=== PATIENT | female | born 1985 | race American Indian/Alaskan Native ===

== ENCOUNTER 2018-06-06 15:37 | Inpatient (IN) | payer BC, OTHER ==
[2018-06-06] MEDS ORDERED: APRESOLINE IV PRN (16:06)
--- NOTE | 2018-06-06 16:30 | History and Physical Report ---
History of Present Illness Date of examination: 06/06/18 Chief complaint: shital seen in office today for first visit. BP noted to be 240/100, 230/102 on recheck. Patient sent as direct admit from office for BP control. History of present illness: LMP: 11/20/2018 EDC Confirmation: 01/16/2019 Gestational Age: 8 weeks Past History : 1 Past Medical History: diabetes- dx 10 years ago. Humalog 4 units 3 times per day. htn- dx 1 month ago. 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 of genital herpes: no Partner hx. of genital herpes: no Rash, Viral, or Febrile illness since last LMP? no Varicella/Chicken Pox Status: Previous Disease TB Risk: no Genetic History Congenital Heart Defect: Mom: no Dad: no Melina Disease: Mom: no Dad: no Thalassemia Mom: no Dad: no Neural Tube Defect Mom: no Dad: no Down's Syndrome Mom: no Dad: no Meek-Sachs Mom: no Dad: no Sickle Cell Disease/Trait Mom: no Dad: no Hemophilia Mom: no Dad: no Muscular Dystrophy Mom: no Dad: no Cystic Fibrosis Mom: no Dad: no [place] Chorea Mom: no Dad: no Mental Retardation Mom: no Dad: no Fragile X Mom: no Dad: no Other Genetic/Chromosomal Disorder Mom: no Dad: no Child w/other defect Mom: no Dad: no Enviromental Exposures Enviromental Exposures Reviewed Xray Exposure: no Medication, drug, or alcohol use since LMP: yes Chemical/Other Exposure: no Exposure to Cat Liter: no Hx of Parvovirus (Fifth Disease): no Occupational Exposure to Children: none Comments: marijuana apr 2018 alcohol mar 2018 Active Medications (reviewed today): None Current Allergies (reviewed today): No known allergies Past History Past Medical History: other (see HPI) Past Surgical History: other (see hpi) EQUINE INTERN History: other (see hpi) Family/Genetic History: other (see hpi) Social history: other (see hpi) - Obstetrical History Expected Date of Delivery: 01/16/19 Actual Gestation: 8 Week(s) 0 Day(s) : 1 Para: 0 Hx # Term Pregnancies: 0 Number of Pregnancies: 0 Spontaneous Abortions: 0 Induced : 0 Number of Living Children: 0 Medications and Allergies Active Meds: Active Medications Hydralazine HCl (Apresoline) 10 mg IV Q30MIN PRN PRN Reason: Hypertension Lactated Ringer's (Lactated Ringers) 1,000 mls @ 125 mls/hr IV DIRECT TIFFANIE Labetalol HCl (Normodyne) 200 mg PO BID TIFFANIE Review of Systems All systems: negative - Physical Exam Breasts: Positive: normal Cardiovascular: Regular rate Lungs: Positive: Clear to auscultation Abdomen: Positive: normal appearance, soft, normal bowel sounds Genitourinary (Female): Positive: normal external genitalia, normal perenium Vagina: Positive: normal moisture Uterus: Positive: normal size Anus/Rectum: Positive: normal perianal skin Extremities: Positive: normal - Obstetrical FHR: other (nml per office US) Results All other labs normal. Assessment and Plan 32 y.o. at 8w0d presents to office for missed period visit. BP 240/100, asymptomatic. Consult with Dr. Kiser, pt to be direct admit to MB unit to stabilize BP. Labetalol 200mg PO BID ordered. No consults at this time. Dr. Kiser will plan to round on patient this evening for status update. - Patient Problems (1) 8 weeks gestation of Status: Acute (2) Uncontrolled hypertension Status: Acute
[2018-06-06] MEDS: LACTATED RINGERS 1,000 ML IV SCH (20:07)
[2018-06-06 20:26] LABS: Hematocrit 25.6 % (30.3-42.9); Hemoglobin 8.6 gm/dl (10.1-14.3); Mean Corpuscular HGB Conc 33 % (30-34); Mean Corpuscular Volume 83 fl (79-97); Platelet Count 291 K/mm3 (140-440); Red Blood Count 3.07 M/mm3 (3.65-5.03); Red Cell Distribution Width 13.2 % (13.2-15.2)
[2018-06-06 20:53] LABS: Alanine Aminotransferase 6 units/L (7-56); Albumin 2.8 g/dL (3.9-5); BUN/Creatinine Ratio 20; Blood Urea Nitrogen 24 mg/dL (7-17); Calcium 8.5 mg/dL (8.4-10.2); Hemolysis Index 0
[2018-06-06 20:54] LABS: Bilirubin,Direct < 0.2 mg/dL (0-0.2)
[2018-06-06] MEDS: NORMODYNE PO SCH (20:55)
[2018-06-06 21:15] LABS: Bacteria,Urine 4+ /HPF (Negative); Bilirubin,Urine NEG (Negative); Blood,Urine SM (Negative); Color,Urine Yellow (Yellow); Hyaline Casts,Urine 1 /LPF; Mucus,Urine FEW /HPF; Urobilinogen,Urine < 2.0 mg/dL (<2.0)
[2018-06-06 21:18] LABS: Protein,Urine >500 mg/dL (Negative)
[2018-06-07] MEDS: NORMODYNE PO SCH ×3 (01:13→21:36)
[2018-06-07] MEDS: LACTATED RINGERS 1,000 ML IV SCH (13:00)
[2018-06-07] MEDS ORDERED: D50W (25GM) Syringe IV PRN (13:05)
--- NOTE | 2018-06-07 15:00 | Progress Note ---
Assessment and Plan Patient resting in bed. Reports feeling well. Denies any BLEDSOE, visual disturbances, or other complaints. Patient taking 200 labetalol PO BID. BP 140s/70s at time of assessment, some elevated BPs noted since morning rounds though. Patient voiced desire to be discharged today. Discussed with patient need for BPs to be consistently stable before discharge and she voices understanding. Consult with Dr. Cruz on continued plan of care- patient will remain inpatient while we continue to monitor her blood pressures. - Patient Problems (1) 8 weeks gestation of Current Visit: No Status: Acute (2) Uncontrolled hypertension Current Visit: No Status: Acute Subjective - Subjective Date of service: 06/07/18 Interval history: LMP: 11/20/2018 EDC Confirmation: 01/16/2019 Gestational Age: 8 weeks Past History : 1 Past Medical History: diabetes- dx 10 years ago. Humalog 4 units 3 times per day. htn- dx 1 month ago. 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 of genital herpes: no Partner hx. of genital herpes: no Rash, Viral, or Febrile illness since last LMP? no Varicella/Chicken Pox Status: Previous Disease TB Risk: no Genetic History Congenital Heart Defect: Mom: no Dad: no Melina Disease: Mom: no Dad: no Thalassemia Mom: no Dad: no Neural Tube Defect Mom: no Dad: no Down's Syndrome Mom: no Dad: no Meek-Sachs Mom: no Dad: no Sickle Cell Disease/Trait Mom: no Dad: no Hemophilia Mom: no Dad: no Muscular Dystrophy Mom: no Dad: no Cystic Fibrosis Mom: no Dad: no [place] Chorea Mom: no Dad: no Mental Retardation Mom: no Dad: no Fragile X Mom: no Dad: no Other Genetic/Chromosomal Disorder Mom: no Dad: no Child w/other defect Mom: no Dad: no Enviromental Exposures Enviromental Exposures Reviewed Xray Exposure: no Medication, drug, or alcohol use since LMP: yes Chemical/Other Exposure: no Exposure to Cat Liter: no Hx of Parvovirus (Fifth Disease): no Occupational Exposure to Children: none Comments: marijuana apr 2018 alcohol mar 2018 Active Medications (reviewed today): None Current Allergies (reviewed today): No known allergies Patient reports: appetite normal, voiding normally, ambulating normally, no dizzy ambulation Objective - Vital Signs Latest vital signs: Vital Signs Temp Pulse Resp BP BP Pulse Ox 06/07/18 11:56 98.4 F 95 H 18 164/82 97 06/07/18 10:41 92 H 150/82 06/07/18 07:55 99 F 92 H 18 150/82 98 06/07/18 04:15 98.7 F 77 18 140/72 97 06/06/18 23:30 98.4 F 65 18 142/75 06/06/18 23:22 103 H 17 126/71 97 06/06/18 20:55 98 H 172/85 06/06/18 19:30 98.6 F 88 18 172/85 06/06/18 18:15 98.1 F 92 H 20 173/85 100 Intake and Output 06/06/18 06/07/18 06/07/18 23:59 07:59 15:59 Intake Total 1000 120 Output Total 450 800 Balance -450 200 120 Intake: IV 1000 Lactated Ringers 1,000 ml 1000 @ 125 mls/hr IV DIRECT TIFFANIE Rx#:[id number] Oral 120 Output: Urine 450 800 Void 450 800 Other: Total, Intake Amount 120 Total, Output Amount 450 300 Voiding Method Toilet Toilet # Voids Void 1 Weight 220 kg - Exam Cardiovascular: Present: Regular rate Lungs: Present: Clear to auscultation Abdomen: Present: normal appearance, soft, normal bowel sounds Extremities: Present: normal - Labs Labs: Abnormal lab results 06/06/18 06/06/18 06/06/18 Range/Units 19:49 19:49 20:50 RBC 3.07 L (3.65-5.03) M/mm3 Hgb 8.6 L (10.1-14.3) gm/dl Hct 25.6 L (30.3-42.9) % Sodium 136 L (137-145) mmol/L BUN 24 H (7-17) mg/dL Glucose 132 H (65-100) mg/dL POC Glucose (70-105) ALT 6 L (7-56) units/L Total Protein 5.8 L (6.3-8.2) g/dL Albumin 2.8 L (3.9-5) g/dL Urine WBC (Auto) 13.0 H (0.0-6.0) /HPF 06/07/18 Range/Units 06:41 RBC (3.65-5.03) M/mm3 Hgb (10.1-14.3) gm/dl Hct (30.3-42.9) % Sodium (137-145) mmol/L BUN (7-17) mg/dL Glucose (65-100) mg/dL POC Glucose 114 H (70-105) ALT (7-56) units/L Total Protein (6.3-8.2) g/dL Albumin (3.9-5) g/dL Urine WBC (Auto) (0.0-6.0) /HPF
--- NOTE | 2018-06-07 17:45 | Event Note ---
Date: 06/07/18 Pt seen and examined this am. agree with MW exam and noted. Will con't current management at this time. Insulin sliding scale ordered. Plan of care d/w pt and all questions were addressed and answered.
[2018-06-07] MEDS: HumuLIN R SUB-Q SCH ×3 (17:50→22:16)
--- NOTE | 2018-06-07 18:58 | Event Note ---
Date: 06/07/18 Pt is upset because she feels as if her blood sugars are not being checked frequently enough and now it is elevated. I advised that the accecheck orders were were dated to start in the am in error but will be done 2hours post and fasting. However, will check BG q 2hrs as pt feels she needs more frequent monitoring. Also pt upset blood pressures are being check q 4hours. I advised that this is usually the case to allow pt to rest while in house. I advised again that they can be made more frequently. Pt states she just wants to leave. I advised that she is able to sign out AMA but that at this point as she is early gestation, this would not be able recommended as she needs to have bp control and the BG will correct with the sliding scale. Again I advised pt and support person to tell provider what she would like to do interms of her stay but the plan was for d/c home on bp meds if bp is stable in the am. Pt did not take off man and provider left the room at this time. I advised RN of changes in vitals as well as charge nurse coming on for the evening. Again pt urged to call provider via the answering service if she has questions or concerns.
[2018-06-07] MEDS ORDERED: TYLENOL PO ONE (20:20)
[2018-06-07] MEDS ORDERED: HumuLIN R SUB-Q SCH (22:00)
[2018-06-07] MEDS ORDERED: APRESOLINE IV ONE (22:27)
[2018-06-08] MEDS: HumuLIN R SUB-Q SCH ×5 (02:00→10:54)
[2018-06-08] MEDS: NORMODYNE PO SCH (10:53)
[2018-06-08 12:08] VITALS: BP 172/97
--- NOTE | 2018-06-08 12:14 | Discharge Summary ---
Providers - Providers Date of Admission: 06/06/18 18:08 Date of discharge: 06/08/18 Attending physician: DARYL IVORY Primary care physician: DARYL IVORY Hospitalization Reason for admission: intrauterine at 8 weeks with elevated blood pressure and history Condition: Good Hospital course: Please see H&P for details. Patient was admitted for regulation of her hypertension. Admitted and started on labetalol initially 200 twice a day but due to elevated blood pressure increased to 300 twice a day be discharged on tho se patient without any complaints of headache or abdominal pain during her hospitalization she was slight scale insulin with reasonable control of her glucoses she will be discharged return for her regular scheduled insulin dose will follow up in 5 days in office. Disposition: TO HOME OR SELFCARE - Discharge Diagnoses (1) Diabetes Status: Chronic Qualifiers: Diabetes mellitus type: type 2 Diabetes mellitus exterminator termite insulin use: without exterminator termite use Diabetes mellitus complication status: without complication Qualified Code(s): E11.9 - Type 2 diabetes mellitus without complications (2) 8 weeks gestation of Status: Acute (3) Uncontrolled hypertension Status: Resolved Core Measure Documentation - Palliative Care Palliative Care/ Comfort Measures: Not Applicable - Core Measures Any of the following diagnoses?: none Exam - Constitutional Vitals: Temp Pulse Resp BP Pulse Ox 99.0 F 93 H 22 172/97 97 06/08/18 11:30 06/08/18 11:30 06/08/18 11:30 06/08/18 11:30 06/08/18 11:30 General appearance: Present: no acute distress - Respiratory Respiratory effort: normal - Cardiovascular Rhythm: regular - Extremities Extremities: no ischemia, No edema - Abdominal General gastrointestinal: Present: soft Female genitourinary: Present: deferred - Rectal Rectal Exam: deferred - Integumentary Integumentary: Present: clear, warm, dry Plan Activity: no restrictions Diet: diabetic Additional Instructions: Patient following office on June 13 she should call for blood sugars greater than 120 headaches or visual disturbances and at her follow-up visit office will schedule for visits with the perinatologist Follow up with: DARYL IVORY MD [Primary Care Provider] - 7 Days
[2018-06-08] MEDS ORDERED: NORMODYNE PO ONE (13:00)
== END 2018-06-08 13:05 | disposition home or self-care (01) | DRG 832 ==
LOC: 3A 15:37 → UNDOADMIN 15:37 → OB 18:08
PROVIDERS: ADMIT Obstetrics & Gynecology; ATTEND Obstetrics & Gynecology
DX: O10.911 Unspecified pre-existing hypertension complicating pregnancy, first trimester (principal); O24.111 Pre-existing type 2 diabetes mellitus, in pregnancy, first trimester; O99.321 Drug use complicating pregnancy, first trimester; E11.9 Type 2 diabetes mellitus without complications; F19.90 Other psychoactive substance use, unspecified, uncomplicated; Z79.4 Long term (current) use of insulin; Z3A.08 8 weeks gestation of pregnancy
CPT/HCPCS: 36415; 80048; 80076; 81001; 82962; 84550; 85027; G0378; J1815; J7120

== ENCOUNTER 2018-09-24 07:15 | Outpatient (CLI) | payer OTHER ==
[2018-09-24] MEDS ORDERED: CELESTONE SOLUSPAN IM ONE (08:30)
[2018-09-24] MEDS ORDERED: CATAPRES PO ONE (09:15)
[2018-09-24] MEDS ORDERED: PROCARDIA XL PO SCH (10:00)
[2018-09-24 10:21] VITALS: BP 159/86
== END 2018-09-24 10:20 | disposition home or self-care (01) ==
LOC: TRG 07:15
PROVIDERS: ATTEND Obstetrics & Gynecology
DX: O47.02 False labor before 37 completed weeks of gestation, second trimester (principal); O24.312 Unspecified pre-existing diabetes mellitus in pregnancy, second trimester; E11.9 Type 2 diabetes mellitus without complications; O10.912 Unspecified pre-existing hypertension complicating pregnancy, second trimester; Z3A.23 23 weeks gestation of pregnancy
CPT/HCPCS: 96372; J0702

== ENCOUNTER 2018-09-25 09:49 | Inpatient (IN) | payer OTHER ==
[2018-09-25] MEDS ORDERED: COLACE PO PRN (10:55)
[2018-09-25] MEDS ORDERED: TYLENOL PO PRN (10:55)
[2018-09-25] MEDS ORDERED: D50W (25GM) Syringe IV PRN (11:24)
[2018-09-25] MEDS ORDERED: CELESTONE SOLUSPAN IM ONE (11:42)
--- NOTE | 2018-09-25 13:16 | History and Physical Report ---
<WHITERAJ - Last Filed: 09/25/18 13:16> History of Present Illness Date of examination: 09/25/18 Past History - Obstetrical History : 1 Medications and Allergies Allergies Allergy/AdvReac Type Severity Reaction Status Date / Time No Known Allergies Allergy Verified 09/24/18 07:35 Home Medications Medication Instructions Recorded Confirmed Last Taken Type Lispro Insulin [Humalog] 8 unit SQ TID 09/24/18 09/25/18 09/25/18 08:00 History 1 NIFEdipine [Nifedipine ER] 60 mg PO DAILY 09/24/18 09/25/18 09/25/18 09:00 History 1 cloNIDine [Catapres] 0.2 mg PO BID 09/24/18 09/25/18 09/25/18 09:00 History 1 Active Meds: Active Medications Acetaminophen (Tylenol) 650 mg PO Q6H PRN PRN Reason: Pain MILD(1-3)/Fever >100.5/BLEDSOE Aspirin (Baby Aspirin) 81 mg PO QDAY TIFFANIE Clonidine HCl (Catapres) 0.2 mg PO Q12HR [facility] Dextrose (D50w (25gm) Syringe) 50 ml IV PRN PRN PRN Reason: Hypoglycemia Docusate Sodium (Colace) 100 mg PO Q12H PRN PRN Reason: Constipation Hydralazine HCl (Apresoline) 10 mg IV ONCE ONE Stop: 09/25/18 13:26 Last Admin: 09/25/18 12:40 Dose: 10 mg Documented by: Insulin Glargine (Lantus) 30 units SUB-Q QHS [facility] Insulin Human Lispro (Humalog) 16 unit SUB-Q QPMDIAB [facility] Insulin Human Lispro (Humalog) 10 unit SUB-Q QDDIAB [facility] Insulin Human Lispro (Humalog) 10 unit SUB-Q QDDIAB [facility] Insulin Human NPH (Humulin N) 36 unit SUB-Q QHS [facility] Insulin Human Regular (Humulin R) 0 units SUB-Q Q6HR [facility]; Protocol Multivitamins/Iron/Calcium ( Vitamin) 1 each PO QDAY TIFFANIE Nifedipine (Procardia Xl) 60 mg PO QDAY TIFFANIE - Vital Signs Vital signs: Vital Signs Pulse BP 98 H 182/88 09/25/18 10:41 09/25/18 10:41 Temp Pulse Resp BP Pulse Ox 98.1 F 112 H 18 169/91 05/01/19 11:15 09/25/18 13:01 09/25/18 11:15 09/25/18 13:01 Results Abnormal lab results 09/25/18 Range/Units 12:43 POC Glucose 134 H (70-105) All other labs normal. <SVETLANA MONTOYA D - Last Filed: 09/25/18 18:17> Medications and Allergies Active Meds: Active Medications Acetaminophen (Tylenol) 650 mg PO Q6H PRN PRN Reason: Pain MILD(1-3)/Fever >100.5/BLEDSOE Aspirin (Baby Aspirin) 81 mg PO QDAY TIFFANIE Clonidine HCl (Catapres) 0.2 mg PO Q12HR TIFFANIE Dextrose (D50w (25gm) Syringe) 50 ml IV PRN PRN PRN Reason: Hypoglycemia Docusate Sodium (Colace) 100 mg PO Q12H PRN PRN Reason: Constipation Insulin Glargine (Lantus) 30 units SUB-Q QHS [facility] Insulin Human Lispro (Humalog) 16 unit SUB-Q QPMDIAB [facility] Insulin Human Lispro (Humalog) 10 unit SUB-Q QDDIAB [facility] Insulin Human Lispro (Humalog) 10 unit SUB-Q QDDIAB [facility] Insulin Human NPH (Humulin N) 36 unit SUB-Q QHS [facility] Insulin Human Regular (Humulin R) 0 units SUB-Q Q6HR [facility]; Protocol Last Admin: 09/25/18 17:51 Dose: 2 units Documented by: Multivitamins/Iron/Calcium ( Vitamin) 1 each PO QDAY [facility] Nifedipine (Procardia Xl) 60 mg PO QDAY [facility] - Vital Signs Vital signs: Vital Signs Pulse BP 98 H 182/88 09/25/18 10:41 09/25/18 10:41 Temp Pulse Resp BP Pulse Ox 97.5 F L 112 H 18 169/91 09/25/18 17:21 09/25/18 13:01 09/25/18 17:21 09/25/18 13:01 Results Result Diagrams: 09/25/18 13:35 09/25/18 13:35 Abnormal lab results 09/25/18 09/25/18 09/25/18 Range/Units 12:43 13:35 13:35 WBC 16.4 H (4.5-11.0) K/mm3 RBC 3.18 L (3.65-5.03) M/mm3 Hgb 9.1 L (10.1-14.3) gm/dl Hct 28.0 L (30.3-42.9) % Creatinine 1.4 H (0.7-1.2) mg/dL POC Glucose 134 H (70-105) Lactate Dehydrogenase 311 H (91-180) units/L 09/25/18 Range/Units 17:46 WBC (4.5-11.0) K/mm3 RBC (3.65-5.03) M/mm3 Hgb (10.1-14.3) gm/dl Hct (30.3-42.9) % Creatinine (0.7-1.2) mg/dL POC Glucose 202 H (70-105) Lactate Dehydrogenase (91-180) units/L All other labs normal. Assessment and Plan - Patient Problems (1) 23 weeks gestation of Current Visit: Yes Status: Acute (2) IUGR (intrauterine growth restriction) Current Visit: Yes Status: Acute (3) Short cervix affecting Current Visit: Yes Status: Acute (4) Diabetes Current Visit: No Status: Chronic Qualifiers: Diabetes mellitus type: type 2 Diabetes mellitus adjunct faculty for medical terminology insulin use: without custodial use Diabetes mellitus complication status: without complicat ion Qualified Code(s): E11.9 - Type 2 diabetes mellitus without complications (5) Uncontrolled hypertension Current Visit: No Status: Resolved
[2018-09-25] MEDS ORDERED: APRESOLINE IV ONE ×2 (13:25→13:51)
[2018-09-25 13:40] LABS: Hemoglobin 9.1 gm/dl (10.1-14.3); Mean Corpuscular HGB Conc 33 % (30-34); Mean Corpuscular Volume 88 fl (79-97); Platelet Count 346 K/mm3 (140-440); Red Blood Count 3.18 M/mm3 (3.65-5.03); Red Cell Distribution Width 14.5 % (13.2-15.2)
[2018-09-25 14:03] LABS: Uric Acid 5.4 mg/dL (3.5-7.6)
[2018-09-25] MEDS: HumuLIN R SUB-Q SCH (17:51)
--- NOTE | 2018-09-25 18:16 | Event Note ---
Date: 09/25/18 BP's and BS noted, plan of care explained questions were encouraged and answered, she voiced understanding Assessment: 1. IUP at 23 6/7 weeks 2. Uncontrolled CHTN 3. Renal disease 4. Short cervix 5. DM 6. IUGR Plan: 1. Continue current antiHTN regimen(Clonidine 0.2mg bid, Procardia 60mg XL qd), she did receive Hydralazine 10mg IV x2, BP's stable now 2. NICU consult ordered in case of need for delivery. She's now received 2 doses of Betamethasone for FLM 3.Continue insulin regimen with SSI 4. She was instructed to have a family member bring her vaginal progesterone tonight for insertion 4. Possible discharge home tomorrow is BP's remain stable.
[2018-09-25] MEDS: TYLENOL PO PRN (20:46)
[2018-09-25] MEDS ORDERED: AMBIEN PO PRN (20:57)
[2018-09-25] MEDS ORDERED: LANTUS SUB-Q SCH (22:00)
[2018-09-26] MEDS: HumuLIN R SUB-Q SCH ×3 (00:44→06:35)
[2018-09-26] MEDS: CATAPRES PO SCH ×4 (00:45→21:41)
--- NOTE | 2018-09-26 06:11 | Event Note ---
Date: 09/26/18 Called assigned RN to inquire about pt's BP readings and her status. Last documented BP was 186/93, provider was not notified. Unable to reach RN. Dr. Ramires notified as well as oncoming provider who will f/u to assess.
[2018-09-26] MEDS ORDERED: APRESOLINE PO ONE (07:05)
[2018-09-26] MEDS ORDERED: APRESOLINE ONE (07:23)
--- NOTE | 2018-09-26 07:28 | Progress Note ---
Assessment and Plan Arrived to L&D yesterday to receive 2nd dose of BMZ. Elevated BP admitted for evaluation and adjustment of BP meds if indicated. Pt concerned that she did not have anyone come in to see her between 1999 and 29 "My BP was elevated and I called for help." BP now 200/100 Pt turned to right side BP repeated 180/79, after 20 min BP 175/84 Spoke with order given for Apresoline BP prior to medication 172/85 RN instructed to take BP 20 min after Apresoline and call provider. Doppler FHR 145 Pt states she had BLEDSOE earlier but it did resolve after Tylenol. Denies BLEDSOE, blurred vision, chest pain now. Reports +FM, denies ctx, LOF, bleeding. called asks that I hold Apresoline for now and put a consult in for [facility]. DONE. Spoke with Dr. Whyte, [facility]. Order rcvd to draw CMP and increase Nifedipine to 90mg/day. Dr. Whyte will see pt at noon. Dr. Kiser made aware of Dr. Whyte recomm. Subjective - Subjective Date of service: 09/26/18 (Pt c/o lack of care between 1999 and 31) Principal diagnosis: IUP @ 24w0d - CHTN; Short cervix; IDDM Patient reports: movement normal Objective - Vital Signs Vital Signs: Vital Signs - 12hr 09/25/18 09/25/18 09/26/18 20:25 20:46 00:45 Temperature 98.1 F Pulse Rate 104 H 115 H Respiratory 21 20 Rate Blood Pressure 186/93 Blood Pressure 139/86 [Left] - Exam Breasts: deferred Cardiovascular: Regular rate Lungs: Normal air movement Abdomen: Present: normal appearance, soft, normal bowel sounds. Absent: distention, tenderness Vulva: both: normal Uterus: Present: normal FHR: auscultation normal (FHR 145) Uterine Contraction Monitor Mode: External Uterine Contraction Pattern: Absent Uterine Tone Measurement Phase: Resting Extremities: normal Deep Tendon Reflex Grade: Normal +2 - Labs Labs: Abnormal Labs 09/25/18 09/25/18 09/25/18 12:43 13:35 13:35 WBC 16.4 H RBC 3.18 L Hgb 9.1 L Hct 28.0 L Creatinine 1.4 H POC Glucose 134 H Lactate Dehydrogenase 311 H 09/25/18 09/26/18 09/26/18 17:46 00:29 06:05 WBC RBC Hgb Hct Creatinine POC Glucose 202 H 219 H 185 H Lactate Dehydrogenase Laboratory Results - last 24 hr 09/25/18 09/25/18 09/25/18 12:43 13:35 13:35 WBC 16.4 H RBC 3.18 L Hgb 9.1 L Hct 28.0 L MCV 88 MCH 29 MCHC 33 RDW 14.5 Plt Count 346 Creatinine Estimated GFR POC Glucose 134 H Hemoglobin A1c 5.9 Uric Acid AST ALT Lactate Dehydrogenase 09/25/18 09/25/18 09/26/18 13:35 17:46 00:29 WBC RBC Hgb Hct MCV MCH MCHC RDW Plt Count Creatinine 1.4 H Estimated GFR 53 POC Glucose 202 H 219 H Hemoglobin A1c Uric Acid 5.4 AST 19 ALT 28 Lactate Dehydrogenase 311 H 09/26/18 06:05 WBC RBC Hgb Hct MCV MCH MCHC RDW Plt Count Creatinine Estimated GFR POC Glucose 185 H Hemoglobin A1c Uric Acid AST ALT Lactate Dehydrogenase
[2018-09-26] MEDS: HumaLOG SUB-Q SCH ×2 (08:00→17:52)
[2018-09-26] MEDS ORDERED: PROCARDIA XL PO SCH (10:00)
[2018-09-26 10:09] LABS: Alanine Aminotransferase 22 units/L (7-56); Albumin 2.4 g/dL (3.9-5); BUN/Creatinine Ratio 24; Blood Urea Nitrogen 38 mg/dL (7-17); Calcium 7.6 mg/dL (8.4-10.2); Hemolysis Index 9
[2018-09-26] MEDS ORDERED: APRESOLINE IV ONE ×2 (11:00→21:00)
[2018-09-26] MEDS: PROCARDIA XL PO SCH (11:01)
[2018-09-26] MEDS: PRENATAL VITAMIN PO SCH (11:06)
[2018-09-26] MEDS: BABY ASPIRIN PO SCH (11:07)
[2018-09-26] MEDS ORDERED: HumaLOG SUB-Q SCH (12:00)
--- NOTE | 2018-09-26 12:53 | Consultation ---
History of Present Illness Consult date: 09/26/18 Past History - Obstetrical History : 1 Medications and Allergies Allergies Allergy/AdvReac Type Severity Reaction Status Date / Time No Known Allergies Allergy Verified 09/24/18 07:35 Home Medications Medication Instructions Recorded Confirmed Last Taken Type Lispro Insulin [Humalog] 8 unit SQ TID 09/24/18 09/25/18 09/25/18 08:00 History 1 NIFEdipine [Nifedipine ER] 60 mg PO DAILY 09/24/18 09/25/18 09/25/18 09:00 History 1 cloNIDine [Catapres] 0.2 mg PO BID 09/24/18 09/25/18 09/25/18 09:00 History 1 Aspirin [Aspirin BABY CHEW TAB] 81 mg PO QDAY 09/25/18 09/25/18 09/24/18 22:00 History 1 Progesterone, Micronized 200 mg VG QPM 09/25/18 09/25/18 09/24/18 22:00 History [Progesterone] Active Meds: Active Medications Acetaminophen (Tylenol) 650 mg PO Q6H PRN PRN Reason: Pain MILD(1-3)/Fever >100.5/[place] Last Admin: 09/25/18 20:46 Dose: 650 mg Documented by: Aspirin (Baby Aspirin) 81 mg PO QDAY [facility] Last Admin: 09/26/18 11:07 Dose: 81 mg Documented by: Clonidine HCl (Catapres) 0.2 mg PO Q12HR [facility] Last Admin: 09/26/18 00:45 Dose: 0.2 mg Documented by: Dextrose (D50w (25gm) Syringe) 50 ml IV PRN PRN PRN Reason: Hypoglycemia Docusate Sodium (Colace) 100 mg PO Q12H PRN PRN Reason: Constipation Last Admin: 09/26/18 11:06 Dose: 100 mg Documented by: Insulin Glargine (Lantus) 30 units SUB-Q QHS [facility] Last Admin: 09/26/18 00:56 Dose: 12 units Documented by: Insulin Human Lispro (Humalog) 16 unit SUB-Q QPMDIAB [facility] Insulin Human Lispro (Humalog) 10 unit SUB-Q QDDIAB [facility] Last Admin: 09/26/18 08:00 Dose: 10 unit Documented by: Insulin Human Lispro (Humalog) 10 unit SUB-Q QDDIAB [facility] Insulin Human NPH (Humulin N) 36 unit SUB-Q QHS [facility] Insulin Human Regular (Humulin R) 0 units SUB-Q Q6HR [facility]; Protocol Last Admin: 09/26/18 06:35 Dose: 1 units Documented by: Multivitamins/Iron/Calcium ( Vitamin) 1 each PO QDAY [facility] Last Admin: 09/26/18 11:06 Dose: 1 each Documented by: Nifedipine (Procardia Xl) 90 mg PO QDAY [facility] Last Admin: 09/26/18 11:01 Dose: 90 mg Documented by: Zolpidem Tartrate (Ambien) 5 mg PO QHS PRN PRN Reason: Sleep - Vital Signs Vital signs: Vital Signs Pulse BP 98 H 182/88 09/25/18 10:41 09/25/18 10:41 Temp Pulse Resp BP Pulse Ox 98.7 F 87 18 153/81 09/26/18 11:50 09/26/18 12:50 09/26/18 11:50 09/26/18 12:50 Results Result Diagrams: 09/25/18 13:35 09/26/18 09:34 Abnormal lab results 09/25/18 09/25/18 09/25/18 Range/Units 12:43 13:35 13:35 WBC 16.4 H (4.5-11.0) K/mm3 RBC 3.18 L (3.65-5.03) M/mm3 Hgb 9.1 L (10.1-14.3) gm/dl Hct 28.0 L (30.3-42.9) % Sodium (137-145) mmol/L Carbon Dioxide (22-30) mmol/L BUN (7-17) mg/dL Creatinine 1.4 H (0.7-1.2) mg/dL Glucose (65-100) mg/dL POC Glucose 134 H (70-105) Calcium (8.4-10.2) mg/dL Lactate Dehydrogenase 311 H (91-180) units/L Total Protein (6.3-8.2) g/dL Albumin (3.9-5) g/dL 09/25/18 09/26/18 09/26/18 Range/Units 17:46 00:29 06:05 WBC (4.5-11.0) K/mm3 RBC (3.65-5.03) M/mm3 Hgb (10.1-14.3) gm/dl Hct (30.3-42.9) % Sodium (137-145) mmol/L Carbon Dioxide (22-30) mmol/L BUN (7-17) mg/dL Creatinine (0.7-1.2) mg/dL Glucose (65-100) mg/dL POC Glucose 202 H 219 H 185 H (70-105) Calcium (8.4-10.2) mg/dL Lactate Dehydrogenase (91-180) units/L Total Protein (6.3-8.2) g/dL Albumin (3.9-5) g/dL 09/26/18 Range/Units 09:34 WBC (4.5-11.0) K/mm3 RBC (3.65-5.03) M/mm3 Hgb (10.1-14.3) gm/dl Hct (30.3-42.9) % Sodium 135 L (137-145) mmol/L Carbon Dioxide 18 L (22-30) mmol/L BUN 38 H (7-17) mg/dL Creatinine 1.6 H (0.7-1.2) mg/dL Glucose 150 H (65-100) mg/dL POC Glucose (70-105) Calcium 7.6 L (8.4-10.2) mg/dL Lactate Dehydrogenase (91-180) units/L Total Protein 5.8 L (6.3-8.2) g/dL Albumin 2.4 L (3.9-5) g/dL All other labs normal. Assessment and Plan Pt seen Full consult to follow
--- NOTE | 2018-09-26 19:14 | Event Note ---
Date: 09/26/18 Spoke with patient. No complaints. Patient wants a date when she can go home. Informed her our goal is to stablize and mange her hypertension and diabetes and I can't give her a date. Will continue present care.
--- NOTE | 2018-09-26 19:58 | Consultation ---
Consult Note - Parent Education I met with parent(s) and discussed the following:: Need for NICU admission, Poss ible need for intubation and surfactant or other resp support, Temperature regulation, Head ultrasounds to evaluate IVH, Eye exams for ROP screening, Possible need for IV fluids/TPN and IV antibiotics, Possible need for umbilical lines, Importance of providing breast milk & encouraged pumping aft delivery, Donor breast milk if baby meets criteria after , Slow feeding advancement and monitoring of tolerance. NG/OG feeds, Need to monitor for jaundice, Data for survival & survival without significant co-morbidities Parent(s) demonstrated understanding of all the information:: Yes Assessment and Plan - Assessment Gestation:: 24 Estimated Weight: 387 gms Baby's gender: Female Baby's name: Divya Additional Comment: 33YO mother with type II diabetes on insulin, CHTN, renal disease. 24weeker, IUGR infant. Received x2 bethamethosone. - Plan Plan: Agree with Mag & steroids(received x2 beta) Will attend delivery Please call NICU with questions
[2018-09-26] MEDS: TYLENOL PO PRN (21:43)
[2018-09-26 22:19] LABS: Bilirubin,Urine NEG (Negative); Blood,Urine SM (Negative); Color,Urine Yellow (Yellow); Hyaline Casts,Urine 1 /LPF; Mucus,Urine FEW /HPF; Urobilinogen,Urine < 2.0 mg/dL (<2.0)
[2018-09-26 22:21] LABS: Protein,Urine >500 mg/dL (Negative)
[2018-09-26 22:23] LABS: Creatinine,Urine 146.8 mg/dL (0.1-20.0)
--- NOTE | 2018-09-27 07:45 | Progress Note ---
Assessment and Plan 24w 1d Patient sitting up in bed. Reports she just awoke, c/o mild headache. She denies any visual disturbances, RUQ pain, assessment is WNL. BP in target range this morning. RN to administer tylenol for headache. Pantomimist to see patient today. 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 Insulin regimen liability claims adjuster to her outpt regimen goal fasting <95 PP<120 continue fasting and 2hr PP accuchecks RISS, anticipate worsening hyperglycemia for 5-7 days after steroid administration 2. Continue Procardia and Clinidine as prescribes continue serial BP monitoring goal is to maintain BP 120-160/80-105- Increase the clonidine to 0.3mg BID if her BP remains in the severe range IV hydralazine prn SBP >160 DBP >110 3. Continue to monitor the Creatinine pt informed of worsening renal function nephrology consultation is ordered 4. Weekly UA dopplers growth scan in 2 weeks current EFW is 387gm (09/23/28 [place]) NICU consult (done) Reviewed recent BPs with Dr. Cruz. Will continue to monitor. Subjective - Subjective Date of service: 09/27/18 Principal diagnosis: IUP @ 24w1d - CHTN; Short cervix; IDDM Patient reports: new complaints (mild headache upon waking this morning), movement normal, no loss of fluid, no vaginal bleeding, no contractions Objective - Vital Signs Vital Signs: Vital Signs - 12hr 09/26/18 09/26/18 09/26/18 20:06 20:08 20:49 Pulse Rate 107 H 104 H 103 H Blood Pressure 174/80 170/79 O2 Sat by Pulse 98 Oximetry 09/26/18 09/26/18 09/26/18 20:53 20:54 20:59 Pulse Rate 107 H 105 H 107 H Blood Pressure 195/89 149/64 O2 Sat by Pulse 99 98 Oximetry 09/26/18 09/26/18 09/26/18 21:04 21:09 21:14 Pulse Rate 100 H 104 H 111 H Blood Pressure O2 Sat by Pulse 98 98 98 Oximetry 09/26/18 09/26/18 09/26/18 21:19 21:24 21:29 Pulse Rate 106 H 104 H 109 H Blood Pressure O2 Sat by Pulse 100 99 99 Oximetry 09/26/18 09/26/18 09/26/18 21:34 21:38 21:39 Pulse Rate 105 H 106 H 105 H Blood Pressure 176/79 O2 Sat by Pulse 99 98 Oximetry 09/26/18 09/26/18 09/26/18 21:41 21:56 22:01 Pulse Rate 103 H 100 H Blood Pressure 176/79 O2 Sat by Pulse 100 99 Oximetry 09/26/18 09/26/18 09/26/18 22:06 22:10 22:11 Pulse Rate 98 H 100 H 95 H Blood Pressure 144/78 O2 Sat by Pulse 99 99 Oximetry 09/26/18 09/26/18 09/26/18 22:16 22:21 22:22 Pulse Rate 92 H 92 H 91 H Blood Pressure 142/77 O2 Sat by Pulse 98 98 Oximetry 09/26/18 09/26/18 09/26/18 22:26 22:31 22:36 Pulse Rate 90 90 88 Blood Pressure O2 Sat by Pulse 98 99 97 Oximetry 09/26/18 09/26/18 09/26/18 22:41 22:46 22:51 Pulse Rate 88 87 87 Blood Pressure O2 Sat by Pulse 97 97 97 Oximetry 09/26/18 09/26/18 09/26/18 22:56 23:01 23:06 Pulse Rate 98 H 86 87 Blood Pressure O2 Sat by Pulse 97 97 97 Oximetry 09/26/18 09/26/18 09/26/18 23:07 23:11 23:16 Pulse Rate 87 90 88 Blood Pressure 137/75 O2 Sat by Pulse 98 98 Oximetry 09/26/18 09/26/18 09/26/18 23:21 23:26 23:31 Pulse Rate 89 91 H 93 H Blood Pressure O2 Sat by Pulse 99 99 99 Oximetry 09/26/18 09/26/18 09/26/18 23:36 23:41 23:46 Pulse Rate 93 H 94 H 91 H Blood Pressure O2 Sat by Pulse 98 98 98 Oximetry 09/26/18 09/26/18 09/26/18 23:51 23:52 23:56 Pulse Rate 93 H 93 H 92 H Blood Pressure 139/74 O2 Sat by Pulse 98 97 Oximetry 09/27/18 09/27/18 09/27/18 00:01 00:06 00:11 Pulse Rate 95 H 94 H 92 H Blood Pressure O2 Sat by Pulse 99 98 98 Oximetry 09/27/18 09/27/18 09/27/18 00:16 00:21 00:26 Pulse Rate 94 H 92 H 90 Blood Pressure O2 Sat by Pulse 98 98 97 Oximetry 09/27/18 09/27/18 09/27/18 00:31 00:36 00:37 Pulse Rate 106 H 89 90 Blood Pressure 135/65 O2 Sat by Pulse 98 96 Oximetry 09/27/18 09/27/18 09/27/18 00:41 00:46 00:51 Pulse Rate 87 87 87 Blood Pressure O2 Sat by Pulse 97 97 99 Oximetry 09/27/18 09/27/18 09/27/18 00:56 01:01 01:06 Pulse Rate 88 88 90 Blood Pressure O2 Sat by Pulse 98 99 98 Oximetry 09/27/18 09/27/18 09/27/18 01:11 01:16 01:21 Pulse Rate 90 89 91 H Blood Pressure O2 Sat by Pulse 98 99 98 Oximetry 09/27/18 09/27/18 09/27/18 01:22 01:26 01:31 Pulse Rate 90 88 89 Blood Pressure 139/67 O2 Sat by Pulse 97 98 Oximetry 09/27/18 09/27/18 09/27/18 01:36 01:41 01:46 Pulse Rate 89 87 88 Blood Pressure O2 Sat by Pulse 98 98 97 Oximetry 09/27/18 09/27/18 09/27/18 01:51 01:56 02:01 Pulse Rate 87 89 88 Blood Pressure O2 Sat by Pulse 97 97 97 Oximetry 09/27/18 09/27/18 09/27/18 02:06 02:07 02:11 Pulse Rate 90 90 89 Blood Pressure 145/73 O2 Sat by Pulse 97 97 Oximetry 09/27/18 09/27/18 09/27/18 02:16 02:21 02:26 Pulse Rate 91 H 94 H 93 H Blood Pressure O2 Sat by Pulse 96 96 96 Oximetry 09/27/18 09/27/18 09/27/18 02:31 02:36 02:41 Pulse Rate 91 H 92 H 94 H Blood Pressure O2 Sat by Pulse 97 96 97 Oximetry 09/27/18 09/27/18 09/27/18 02:46 02:51 02:52 Pulse Rate 94 H 91 H 93 H Blood Pressure 148/78 O2 Sat by Pulse 97 98 Oximetry 09/27/18 09/27/18 09/27/18 02:56 03:01 03:06 Pulse Rate 90 92 H 91 H Blood Pressure O2 Sat by Pulse 98 97 98 Oximetry 09/27/18 09/27/18 09/27/18 03:11 03:16 03:21 Pulse Rate 91 H 91 H 89 Blood Pressure O2 Sat by Pulse 99 98 97 Oximetry 09/27/18 09/27/18 09/27/18 03:26 03:31 03:36 Pulse Rate 89 90 93 H Blood Pressure O2 Sat by Pulse 98 97 97 Oximetry 09/27/18 09/27/18 09/27/18 03:37 03:41 03:46 Pulse Rate 91 H 93 H 92 H Blood Pressure 148/74 O2 Sat by Pulse 96 97 Oximetry 09/27/18 09/27/18 09/27/18 03:51 03:56 04:01 Pulse Rate 93 H 96 H 94 H Blood Pressure O2 Sat by Pulse 97 97 96 Oximetry 09/27/18 09/27/18 09/27/18 04:06 04:11 04:16 Pulse Rate 92 H 98 H 100 H Blood Pressure O2 Sat by Pulse 98 98 97 Oximetry 09/27/18 09/27/18 09/27/18 04:21 04:22 04:40 Pulse Rate 103 H 102 H 114 H Blood Pressure 142/74 O2 Sat by Pulse 99 99 Oximetry 09/27/18 09/27/18 09/27/18 04:45 04:50 04:55 Pulse Rate 99 H 98 H 99 H Blood Pressure O2 Sat by Pulse 99 99 98 Oximetry 09/27/18 09/27/18 09/27/18 05:00 05:05 05:07 Pulse Rate 99 H 101 H 98 H Blood Pressure 146/66 O2 Sat by Pulse 98 98 Oximetry 09/27/18 09/27/18 09/27/18 05:10 05:15 05:20 Pulse Rate 95 H 93 H 93 H Blood Pressure O2 Sat by Pulse 98 99 99 Oximetry 09/27/18 09/27/18 09/27/18 05:25 05:30 05:35 Pulse Rate 94 H 94 H 92 H Blood Pressure O2 Sat by Pulse 98 98 98 Oximetry 09/27/18 09/27/18 09/27/18 05:40 05:45 05:50 Pulse Rate 96 H 97 H 100 H Blood Pressure O2 Sat by Pulse 97 97 98 Oximetry 09/27/18 09/27/18 09/27/18 05:52 05:55 06:00 Pulse Rate 97 H 105 H 103 H Blood Pressure 146/64 O2 Sat by Pulse 98 99 Oximetry 09/27/18 09/27/18 09/27/18 06:05 06:10 06:15 Pulse Rate 100 H 97 H 96 H Blood Pressure O2 Sat by Pulse 99 98 97 Oximetry 09/27/18 09/27/18 09/27/18 06:20 06:25 06:30 Pulse Rate 96 H 96 H 98 H Blood Pressure O2 Sat by Pulse 97 99 98 Oximetry 09/27/18 09/27/18 09/27/18 06:35 06:37 06:40 Pulse Rate 96 H 95 H 94 H Blood Pressure 143/70 O2 Sat by Pulse 99 98 Oximetry 09/27/18 09/27/18 09/27/18 06:45 06:50 06:55 Pulse Rate 95 H 94 H 94 H Blood Pressure O2 Sat by Pulse 97 97 96 Oximetry 09/27/18 09/27/18 09/27/18 07:00 07:05 07:10 Pulse Rate 92 H 91 H 91 H Blood Pressure O2 Sat by Pulse 97 96 97 Oximetry 09/27/18 09/27/18 09/27/18 07:15 07:20 07:22 Pulse Rate 99 H 90 93 H Blood Pressure 131/58 O2 Sat by Pulse 98 97 Oximetry 09/27/18 09/27/18 07:28 07:33 Pulse Rate 101 H Blood Pressure O2 Sat by Pulse 99 99 Oximetry - Exam Cardiovascular: Regular rate, Normal S1, Normal S2 Lungs: Clear to auscultation Abdomen: Present: normal appearance, soft, normal bowel sounds. Absent: dis tention, tenderness Uterus: Present: normal FHR: auscultation normal (per doppler ) Uterine Contraction Monitor Mode: External Uterine Contraction Pattern: Absent Extremities: normal Deep Tendon Reflex Grade: Normal +2 - Labs Labs: Abnormal Labs 09/25/18 09/25/18 09/25/18 12:43 13:35 13:35 WBC 16.4 H RBC 3.18 L Hgb 9.1 L Hct 28.0 L Sodium Carbon Dioxide BUN Creatinine 1.4 H Glucose POC Glucose 134 H Calcium Lactate Dehydrogenase 311 H Total Protein Albumin Urine Creatinine Urine Total Protein 09/25/18 09/26/18 09/26/18 17:46 00:29 06:05 WBC RBC Hgb Hct Sodium Carbon Dioxide BUN Creatinine Glucose POC Glucose 202 H 219 H 185 H Calcium Lactate Dehydrogenase Total Protein Albumin Urine Creatinine Urine Total Protein 09/26/18 09/26/18 09/26/18 09:34 16:19 21:15 WBC RBC Hgb Hct Sodium 135 L Carbon Dioxide 18 L BUN 38 H Creatinine 1.6 H Glucose 150 H POC Glucose 115 H Calcium 7.6 L Lactate Dehydrogenase Total Protein 5.8 L Albumin 2.4 L Urine Creatinine 146.8 H Urine Total Protein 517 H Laboratory Results - last 24 hr 09/26/18 09/26/18 09/26/18 09:34 10:28 16:19 Sodium 135 L Potassium 4.8 Chloride 105.2 Carbon Dioxide 18 L Anion Gap 17 BUN 38 H Creatinine 1.6 H Estimated GFR 45 BUN/Creatinine Ratio 24 Glucose 150 H POC Glucose 99 115 H Osmolality Uric Acid Calcium 7.6 L Total Bilirubin < 0.20 AST 13 ALT 22 Alkaline Phosphatase 73 Total Protein 5.8 L Albumin 2.4 L Albumin/Globulin Ratio 0.7 Urine Color Urine Turbidity Urine pH Ur Specific [place] Urine Protein Urine Glucose (UA) Urine Ketones Urine Blood Urine Nitrite Urine Bilirubin Urine Urobilinogen Ur Leukocyte Esterase Urine WBC (Auto) Urine RBC (Auto) U Epithel Cells (Auto) Hyaline Casts Urine Mucus Urine Creatinine Urine Total Protein 09/26/18 09/26/18 09/26/18 20:42 20:42 21:15 Sodium Potassium Chloride Carbon Dioxide Anion Gap BUN Creatinine Estimated GFR BUN/Creatinine Ratio Glucose POC Glucose Osmolality 299 Uric Acid 6.4 Calcium Total Bilirubin AST ALT Alkaline Phosphatase Total Protein Albumin Albumin/Globulin Ratio Urine Color Yellow Urine Turbidity Slightly-cloudy Urine pH 5.0 Ur Specific [place] 1.017 Urine Protein >500 Urine Glucose (UA) 50 Urine Ketones Neg Urine Blood Sm Urine Nitrite Neg Urine Bilirubin Neg Urine Urobilinogen < 2.0 Ur Leukocyte Esterase Neg Urine WBC (Auto) 3.0 Urine RBC (Auto) 3.0 U Epithel Cells (Auto) < 1.0 Hyaline Casts 1 Urine Mucus Few Urine Creatinine Urine Total Protein 05/02/19 21:15 Sodium Potassium Chloride Carbon Dioxide Anion Gap BUN Creatinine Estimated GFR BUN/Creatinine Ratio Glucose POC Glucose Osmolality Uric Acid Calcium Total Bilirubin AST ALT Alkaline Phosphatase Total Protein Albumin Albumin/Globulin Ratio Urine Color Urine Turbidity Urine pH Ur Specific [place] Urine Protein Urine Glucose (UA) Urine Ketones Urine Blood Urine Nitrite Urine Bilirubin Urine Urobilinogen Ur Leukocyte Esterase Urine WBC (Auto) Urine RBC (Auto) U Epithel Cells (Auto) Hyaline Casts Urine Mucus Urine Creatinine 146.8 H Urine Total Protein 517 H
[2018-09-27] MEDS: TYLENOL PO PRN ×2 (07:51→17:51)
[2018-09-27] MEDS: HumaLOG SUB-Q SCH ×3 (08:18→16:59)
--- NOTE | 2018-09-27 08:23 | Progress Note ---
Assessment and Plan A: 1. IUP 24w2d 2. CHTN with exacerbation vs superimposed preeclampsia 3. severe IUGR--most recent EFW is 387gm (on 09/23/28) 4. 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 cervical shortening 6. s/p betamethasone 7. s/p NICU consult Rec: 1. Continue diet/Accucheks/insulin (scheduled + SS as needed) with goal fasting <95, 2hr PP<120; anticipate worsening hyperglycemia for 5-7 days after steroid administration 2. Continue Procardia and clonidine; adjust as needed to keep BP 120-160/80-105 with IV hydralazine/labetalol prn SBP >160 DBP >110 3. Nephrology consult pending 4. Weekly UA dopplers; repeat EFW every 14 days Subjective - Subjective Date of service: 09/27/18 Principal diagnosis: IUP @ 24w1d - CHTN; type I DM; IUGR; short cervix Patient reports: new complaints (mild headache this morning), movement normal, no loss of fluid, no vaginal bleeding, no contractions Objective - Vital Signs Vital Signs: Vital Signs - 12hr 09/26/18 09/26/18 09/26/18 20:49 20:53 20:54 Temperature Pulse Rate 103 H 107 H 105 H Respiratory Rate Blood Pressure 195/89 O2 Sat by Pulse 98 99 Oximetry 09/26/18 09/26/18 09/26/18 20:59 21:04 21:09 Temperature Pulse Rate 107 H 100 H 104 H Respiratory Rate Blood Pressure 149/64 O2 Sat by Pulse 98 98 98 Oximetry 09/26/18 09/26/18 09/26/18 21:29 21:34 21:38 Temperature Pulse Rate 109 H 105 H 106 H Respiratory Rate Blood Pressure 176/79 O2 Sat by Pulse 99 99 Oximetry 09/26/18 09/26/18 09/26/18 21:39 21:41 21:56 Temperature Pulse Rate 105 H 103 H Respiratory Rate Blood Pressure 176/79 O2 Sat by Pulse 98 100 Oximetry 09/26/18 09/26/18 09/26/18 22:01 22:06 22:10 Temperature Pulse Rate 100 H 98 H 100 H Respiratory Rate Blood Pressure 144/78 O2 Sat by Pulse 99 99 Oximetry 09/26/18 09/26/18 09/26/18 22:22 22:26 22:31 Temperature Pulse Rate 91 H 90 90 Respiratory Rate Blood Pressure 142/77 O2 Sat by Pulse 98 99 Oximetry 09/26/18 09/26/18 09/26/18 23:06 23:07 23:11 Temperature Pulse Rate 87 87 90 Respiratory Rate Blood Pressure 137/75 O2 Sat by Pulse 97 98 Oximetry 09/26/18 09/26/18 09/26/18 23:46 23:51 23:52 Temperature Pulse Rate 91 H 93 H 93 H Respiratory Rate Blood Pressure 139/74 O2 Sat by Pulse 98 98 Oximetry 09/27/18 09/27/18 09/27/18 00:37 00:41 00:46 Temperature Pulse Rate 90 87 87 Respiratory Rate Blood Pressure 135/65 O2 Sat by Pulse 97 97 Oximetry 09/27/18 09/27/18 09/27/18 01:21 01:22 01:26 Temperature Pulse Rate 91 H 90 88 Respiratory Rate Blood Pressure 139/67 O2 Sat by Pulse 98 97 Oximetry 09/27/18 09/27/18 09/27/18 02:01 02:06 02:07 Temperature Pulse Rate 88 90 90 Respiratory Rate Blood Pressure 145/73 O2 Sat by Pulse 97 97 Oximetry 09/27/18 09/27/18 09/27/18 02:52 02:56 03:01 Temperature Pulse Rate 93 H 90 92 H Respiratory Rate Blood Pressure 148/78 O2 Sat by Pulse 98 97 Oximetry 09/27/18 09/27/18 09/27/18 03:36 03:37 03:41 Temperature Pulse Rate 93 H 91 H 93 H Respiratory Rate Blood Pressure 148/74 O2 Sat by Pulse 97 96 Oximetry 09/27/18 09/27/18 09/27/18 04:16 04:21 04:22 Temperature Pulse Rate 100 H 103 H 102 H Respiratory Rate Blood Pressure 142/74 O2 Sat by Pulse 97 99 Oximetry 09/27/18 09/27/18 09/27/18 05:07 05:10 05:15 Temperature Pulse Rate 98 H 95 H 93 H Respiratory Rate Blood Pressure 146/66 O2 Sat by Pulse 98 99 Oximetry 09/27/18 09/27/18 09/27/18 05:50 05:52 05:55 Temperature Pulse Rate 100 H 97 H 105 H Respiratory Rate Blood Pressure 146/64 O2 Sat by Pulse 98 98 Oximetry 09/27/18 09/27/18 09/27/18 06:30 06:35 06:37 Temperature Pulse Rate 98 H 96 H 95 H Respiratory Rate Blood Pressure 143/70 O2 Sat by Pulse 98 99 Oximetry 09/27/18 09/27/18 09/27/18 07:22 07:28 07:33 Temperature Pulse Rate 93 H 101 H Respiratory Rate Blood Pressure 131/58 O2 Sat by Pulse 99 99 Oximetry 09/27/18 09/27/18 09/27/18 07:45 07:47 07:48 Temperature 98.0 F Pulse Rate 96 H 96 H 95 H Respiratory 14 Rate Blood Pressure 189/91 182/81 O2 Sat by Pulse 99 99 Oximetry - Exam Narrative Exam: Appears well. Abdomen: Present: normal appearance, soft. Absent: tenderness - Labs Labs: Laboratory Results - last 24 hr 09/26/18 09/26/18 09/26/18 09:34 10:28 16:19 Sodium 135 L Potassium 4.8 Chloride 105.2 Carbon Dioxide 18 L Anion Gap 17 BUN 38 H Creatinine 1.6 H Estimated GFR 45 BUN/Creatinine Ratio 24 Glucose 150 H POC Glucose 99 115 H Osmolality Uric Acid Calcium 7.6 L Total Bilirubin < 0.20 AST 13 ALT 22 Alkaline Phosphatase 73 Total Protein 5.8 L Albumin 2.4 L Albumin/Globulin Ratio 0.7 Urine Color Urine Turbidity Urine pH Ur Specific [place] Urine Protein Urine Glucose (UA) Urine Ketones Urine Blood Urine Nitrite Urine Bilirubin Urine Urobilinogen Ur Leukocyte Esterase Urine WBC (Auto) Urine RBC (Auto) U Epithel Cells (Auto) Hyaline Casts Urine Mucus Urine Creatinine Urine Total Protein 09/26/18 09/26/18 09/26/18 20:42 20:42 21:15 Sodium Potassium Chloride Carbon Dioxide Anion Gap BUN Creatinine Estimated GFR BUN/Creatinine Ratio Glucose POC Glucose Osmolality 299 Uric Acid 6.4 Calcium Total Bilirubin AST ALT Alkaline Phosphatase Total Protein Albumin Albumin/Globulin Ratio Urine Color Yellow Urine Turbidity Slightly-cloudy Urine pH 5.0 Ur Specific [place] 1.017 Urine Protein >500 Urine Glucose (UA) 50 Urine Ketones Neg Urine Blood Sm Urine Nitrite Neg Urine Bilirubin Neg Urine Urobilinogen < 2.0 Ur Leukocyte Esterase Neg Urine WBC (Auto) 3.0 Urine RBC (Auto) 3.0 U Epithel Cells (Auto) < 1.0 Hyaline Casts 1 Urine Mucus Few Urine Creatinine Urine Total Protein 09/26/18 09/27/18 21:15 07:44 Sodium Potassium Chloride Carbon Dioxide Anion Gap BUN Creatinine Estimated GFR BUN/Creatinine Ratio Glucose POC Glucose 73 Osmolality Uric Acid Calcium Total Bilirubin AST ALT Alkaline Phosphatase Total Protein Albumin Albumin/Globulin Ratio Urine Color Urine Turbidity Urine pH Ur Specific [place] Urine Protein Urine Glucose (UA) Urine Ketones Urine Blood Urine Nitrite Urine Bilirubin Urine Urobilinogen Ur Leukocyte Esterase Urine WBC (Auto) Urine RBC (Auto) U Epithel Cells (Auto) Hyaline Casts Urine Mucus Urine Creatinine 146.8 H Urine Total Protein 517 H
--- NOTE | 2018-09-27 09:29 | Consultation ---
History of Present Illness - History of Present Illness Thank you for the consultation ! Patient was evaluated today My assessment and plan are as follows; Renal failure in a patient who is 31 weeks admitted with hypertension, patient has not been seen and followed by manager field in the past other than the recent visit to our clinic she was not followed by any physician on a regular basis prior to Hypertension: Monitor and follow low systolic blood pressure under 140 Check for proteinuria Chest is high-risk Quite likely she may have chronic kidney disease underlying creatinine has been between 1.4 and 1.5 Will check the result of kidney ultrasound Mild hypocalcemia, she may have vitamin D deficiency consider calcium and vitamin D replacement Leukocytosis of unclear etiology Noted to have anemia to be followed by OB service Patient was adequately counseled and educated regarding multiple renal related issues. Renal prognosis remains guarded at this time All renal related questions were answered and simple Arabic pertinent lab studies as well as imaging results were also discussed with patient We will continue to follow and make recommendations from renal standpoint. Thank you for the consultation Author: Loc Carvajal M.D. [facility], [address] [place] [address] Tel; [phone] Source of information: From patient Patient is a 33-year-old -[place] female she is a very poor historian was recently seen in our office for chronic kidney disease proteinuria but does not recall, her creatinine she also does not recall the name of physician that she was seen, say that she has never been seen by physician of the possible until when she became as she did not had any health insurance. She has been noted to have a creatinine of around 1.4 during this admission she also has been having issues with hypertension. Past medical history significant for Chronic kidney disease stage unclear Proteinuria Hypertension Current allergies: Reviewed Home medication for the medication: Reviewed Social history: Reviewed from the chart Family history: Reviewed from the chart Review of system: Uncontrolled hypertension Some foam in the urine All other review of systems negative Review of system: Positive for All other review of systems negative Physical examination Vitals: Reviewed General: No acute distress HEENT: Oral mucosa moist no pallor or icterus Neck: Supple without any JVD thyromegaly or nodular mass Chest: Clear to auscultation Heart: Regular rate and rhythm S1-S2 heard no S3-S4 Abdomen: Soft nontender, bowel sounds present no renal bruit no suprapubic masses no CVA tenderness noted uterus felt Extremity: Minimal edema dry skin no peripheral cyanosis Endocrine: Thyroid not enlarged Psychiatric: No agitation and aggression noted Musculoskeletal: No joint effusion noted Labs and x-rays: Reviewed from this admission Medications and Allergies Allergies Allergy/AdvReac Type Severity Reaction Status Date / Time No Known Allergies Allergy Verified 09/24/18 07:35 Home Medications Medication Instructions Recorded Confirmed Last Taken Type Lispro Insulin [Humalog] 8 unit SQ TID 09/24/18 09/25/18 09/25/18 08:00 History 1 NIFEdipine [Nifedipine ER] 60 mg PO DAILY 09/24/18 09/25/18 09/25/18 09:00 History 1 cloNIDine [Catapres] 0.2 mg PO BID 09/24/18 09/25/18 09/25/18 09:00 History 1 Aspirin [Aspirin BABY CHEW TAB] 81 mg PO QDAY 09/25/18 09/25/18 09/24/18 22:00 History 1 Progesterone, Micronized 200 mg VG QPM 09/25/18 09/25/18 09/24/18 22:00 History [Progesterone] Active Meds: Active Medications Acetaminophen (Tylenol) 650 mg PO Q6H PRN PRN Reason: Pain MILD(1-3)/Fever >100.5/BLEDSOE Last Admin: 09/27/18 07:51 Dose: 325 mg Documented by: Aspirin (Baby Aspirin) 81 mg PO QDAY [facility] Last Admin: 09/26/18 11:07 Dose: 81 mg Documented by: Clonidine HCl (Catapres) 0.2 mg PO Q12HR [facility] Last Admin: 09/26/18 21:41 Dose: 0.2 mg Documented by: Dextrose (D50w (25gm) Syringe) 50 ml IV PRN PRN PRN Reason: Hypoglycemia Docusate Sodium (Colace) 100 mg PO Q12H PRN PRN Reason: Constipation Last Admin: 09/26/18 11:06 Dose: 100 mg Documented by: Insulin Human Lispro (Humalog) 16 unit SUB-Q QPMDIAB [facility] Last Admin: 09/26/18 17:52 Dose: 16 unit Documented by: Insulin Human Lispro (Humalog) 10 unit SUB-Q QDDIAB [facility] Last Admin: 09/27/18 08:18 Dose: 10 unit Documented by: Insulin Human Lispro (Humalog) 10 unit SUB-Q DAILY@1200 [facility] Insulin Human NPH (Humulin N) 12 unit SUB-Q QHS [facility] Last Admin: 09/26/18 22:06 Dose: 12 unit Documented by: Multivitamins/Iron/Calcium ( Vitamin) 1 each PO QDAY [facility] Last Admin: 09/26/18 11:06 Dose: 1 each Documented by: Nifedipine (Procardia Xl) 90 mg PO QDAY [facility] Last Admin: 09/26/18 11:01 Dose: 90 mg Documented by: Zolpidem Tartrate (Ambien) 5 mg PO QHS PRN PRN Reason: Sleep Exam - Vital Signs Vital signs: Vital Signs Pulse BP 98 H 182/88 09/25/18 10:41 09/25/18 10:41 Results - Lab Results 09/25/18 13:35 09/27/18 11:28 Most recent lab results Calcium 7.6 mg/dL (8.4-10.2) L 09/26/18 09:34 Urine Creatinine 146.8 mg/dL (0.1-20.0) H 09/26/18 21:15 Urine Total Protein 517 mg/dL (5-11.8) H 09/26/18 21:15
--- NOTE | 2018-09-27 09:45 | Event Note ---
Date: 09/27/18 Agree with plaster tender exam and note.Pt with basically normal bps yesterday and some elevations this am. Will con't to monitor closely and space vitals to q 2 hrs from q hour. Recommendations as per MFM.
[2018-09-27 12:04] LABS: Calcium 7.9 mg/dL (8.4-10.2)
[2018-09-27] MEDS: BABY ASPIRIN PO SCH (12:17)
[2018-09-27] MEDS: PROCARDIA XL PO SCH (12:17)
[2018-09-27] MEDS: PRENATAL VITAMIN PO SCH (12:17)
[2018-09-27] MEDS: CATAPRES PO SCH ×2 (12:18→18:15)
--- NOTE | 2018-09-27 14:14 | Ultrasound Report ---
ULTRASOUND RENAL INDICATION: Renal failure. COMPARISON: None similar at this institution. FINDINGS: Renal sonography suggests top normal/borderline increased renal cortical echogenicity. Grossly preserved contours. No hydronephrosis. Slightly coarse imaged liver. RIGHT KIDNEY measures 10.6 x 5.2 x 6.4 cm with cortical thickness of 1.3 cm. LEFT KIDNEY estimated at 10.5 x 7.5 x 5.9 cm with cortical thickness of 2.1 cm. URINARY BLADDER suboptimally distended and assessed. CONCLUSION: No acute renal abnormality with slight underlying medical renal disease not entirely excluded sonographically, as described. Please correlate. Thank you for the opportunity to participate in this patient's care.
[2018-09-27] MEDS ORDERED: APRESOLINE IV ONE (16:46)
--- NOTE | 2018-09-27 22:44 | Event Note ---
Date: 09/27/[address] Whyte orders clonidine increased to TID and pt has responded with normal bp ranges at this time. Will con't to closely monitor. She also got one IV dose of hydralazine prior to additional dose of clonidine.
[2018-09-28] MEDS: CATAPRES PO SCH ×4 (02:04→22:00)
[2018-09-28] MEDS: HumaLOG SUB-Q SCH ×3 (08:09→17:08)
--- NOTE | 2018-09-28 09:57 | Progress Note ---
Assessment and Plan 33y/o @ 24+2 weeks, Pt resting with eyes closed, no complaints except feeling tired. b/p 120-140's/60-80's since increased frequency of clonidine. pt denies BLEDSOE, visual changes, epigastric pain, ctx, cramping, leaking, bleeding, pressure. She reports +FM. A: 1. IUP 24w2d 2. CHTN with exacerbation vs superimposed preeclampsia 3. severe IUGR--most recent EFW is 387gm (on 09/23/28) 4. 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 cervical shortening 6. s/p betamethasone 7. s/p NICU consult Rec from [facility]: 1. Continue diet/Accucheks/insulin (scheduled + SS as needed) with goal fasting <95, 2hr PP<120; anticipate worsening hyperglycemia for 5-7 days after steroid administration 2. Continue Procardia and clonidine; adjust as needed to keep BP 120-160/80-105 with IV hydralazine/labetalol prn SBP >160 DBP >110 3. Nephrology consult pending 4. Weekly UA dopplers (ordered 09/30/18) ; repeat EFW every 14 days (last done 09/23/18) - Patient Problems (1) 24 weeks gestation of Current Visit: Yes Status: Acute (2) Diabetes mellitus with nephropathy Current Visit: Yes Status: Acute (3) IUGR (intrauterine growth restriction) Current Visit: Yes Status: Acute (4) Short cervix affecting Current Visit: Yes Status: Acute (5) Uncontrolled hypertension Current Visit: Yes Status: Resolved Subjective - Subjective Date of service: 09/28/18 (Line Maintainer Section note) Principal diagnosis: IUP @ 24w2d - CHTN; Short cervix; IDDM Patient reports: movement normal, no new complaints (pt resting, no complaints ), no loss of fluid, no vaginal bleeding, no contractions Objective - Vital Signs Vital Signs: Vital Signs - 12hr 09/27/18 09/27/18 09/27/18 21:55 22:25 23:25 Pulse Rate 106 H 104 H 99 H Blood Pressure 136/72 124/61 128/66 09/28/18 09/28/18 09/28/18 00:25 01:25 02:04 Pulse Rate 109 H 90 Blood Pressure 143/72 142/76 142/76 09/28/18 09/28/18 09/28/18 02:25 03:25 04:25 Pulse Rate 96 H 93 H 93 H Blood Pressure 153/72 137/65 140/76 09/28/18 09/28/18 09/28/18 06:25 06:28 07:25 Pulse Rate 89 86 Blood Pressure 129/66 129/66 133/67 09/28/18 09/28/18 08:25 09:26 Pulse Rate 81 82 Blood Pressure 143/76 143/74 - Exam Breasts: normal Cardiovascular: Regular rate Lungs: Clear to auscultation, Normal air movement Abdomen: Present: normal appearance, soft FHR: auscultation normal FHR comments: reviewed FHT from NST this AM - tracing normal for gestation Uterine Tone Measurement Phase: Resting Extremities: normal Deep Tendon Reflex Grade: Normal +2 - Labs Labs: Abnormal Labs 09/25/18 09/25/18 09/25/18 12:43 13:35 13:35 WBC 16.4 H RBC 3.18 L Hgb 9.1 L Hct 28.0 L Sodium Chloride Carbon Dioxide BUN Creatinine 1.4 H Glucose POC Glucose 134 H Calcium Lactate Dehydrogenase 311 H Total Protein Albumin Urine Creatinine Urine Total Protein 09/25/18 09/26/18 09/26/18 17:46 00:29 06:05 WBC RBC Hgb Hct Sodium Chloride Carbon Dioxide BUN Creatinine Glucose POC Glucose 202 H 219 H 185 H Calcium Lactate Dehydrogenase Total Protein Albumin Urine Creatinine Urine Total Protein 09/26/18 09/26/18 09/26/18 09:34 16:19 21:15 WBC RBC Hgb Hct Sodium 135 L Chloride Carbon Dioxide 18 L BUN 38 H Creatinine 1.6 H Glucose 150 H POC Glucose 115 H Calcium 7.6 L Lactate Dehydrogenase Total Protein 5.8 L Albumin 2.4 L Urine Creatinine 146.8 H Urine Total Protein 517 H 09/27/18 11:28 WBC RBC Hgb Hct Sodium 135 L Chloride 107.1 H Carbon Dioxide 18 L BUN 37 H Creatinine 1.5 H Glucose POC Glucose Calcium 7.9 L Lactate Dehydrogenase Total Protein Albumin Urine Creatinine Urine Total Protein Laboratory Results - last 24 hr 09/27/18 09/27/18 09/27/18 11:28 17:03 19:59 Sodium 135 L Potassium 4.4 Chloride 107.1 H Carbon Dioxide 18 L Anion Gap 14 BUN 37 H Creatinine 1.5 H Estimated GFR 49 BUN/Creatinine Ratio 25 Glucose 81 POC Glucose 90 82 Calcium 7.9 L 09/27/18 09/28/18 21:23 06:44 Sodium Potassium Chloride Carbon Dioxide Anion Gap BUN Creatinine Estimated GFR BUN/Creatinine Ratio Glucose POC Glucose 105 84 Calcium
[2018-09-28] MEDS: BABY ASPIRIN PO SCH (10:03)
[2018-09-28] MEDS: PRENATAL VITAMIN PO SCH (10:03)
[2018-09-28] MEDS: PROCARDIA XL PO SCH (10:03)
[2018-09-28] MEDS ORDERED: D50W (25GM) Syringe IV PRN (15:26)
--- NOTE | 2018-09-28 15:48 | Progress Note ---
Assessment and Plan - Patient Problems (1) Acute renal failure superimposed on stage 3 chronic kidney disease Current Visit: Yes Status: Acute Plan to address problem: Baseline creatinine 1.2 mg/dl worsening to 1.6 mg/DL in setting of uncontrolled hypertension Fluid hydration Avoid nephro toxic medications Reviewed renal ultrasound without any hydronephrosis Repeat renal function panel Baseline nephrotic range proteinuria likely secondary to DM type II with nephropathy (2) Diabetes Current Visit: Yes Status: Chronic Qualifiers: Diabetes mellitus type: type 2 Diabetes mellitus manager long term care insulin use: without group home use Diabetes mellitus complication status: without complication Qualified Code(s): E11.9 - Type 2 diabetes mellitus without complications Plan to address problem: diabetes uncontrolled with complications Continue medications monitor fingersticks (3) Uncontrolled hypertension Current Visit: Yes Status: Resolved Plan to address problem: Hypertension uncontrolled Unable to get methyldopa Which would be preferred. Given this is a category B medication for hypertension Continue clonidine 0.8 mg 3 times a day and Procardia 90 mg by mouth daily for now (4) Metabolic acidosis Current Visit: Yes Status: Acute Plan to address problem: Metabolic acidosis : Will add sodium bicarbonate 1300mg stat for now. Subjective Principal diagnosis: IUP @ 24w2d - CHTN; Short cervix; IDDM Interval history: 33-year-old lady with medical history significant for hypertension diabetes mellitus type 2 gravity currently at 24 weeks presenting with uncontrolled hypertension, she was recently seen by me in clinic plan to transition to methyldopa at the time as most of her medications are category C medications She reports she was unable to give a methyldopa presents to the hospital with elevated blood pressures She is seen today Denies any shortness of breath orthopnea or PND has some trace edema Objective - Vital Signs Vital signs: Vital Signs - 12hr 09/28/18 09/28/18 09/28/18 04:25 06:25 06:28 Temperature Pulse Rate 93 H 89 Respiratory Rate Blood Pressure 140/76 129/66 129/66 09/28/18 09/28/18 09/28/18 07:25 07:30 08:25 Temperature 98.3 F Pulse Rate 86 81 Respiratory 20 Rate Blood Pressure 133/67 143/76 09/28/18 09/28/18 09/28/18 09:26 09:56 10:26 Temperature Pulse Rate 82 81 92 H Respiratory Rate Blood Pressure 143/74 142/72 143/74 09/28/18 09/28/18 09/28/18 10:56 11:26 11:46 Temperature Pulse Rate 88 100 H 97 H Respiratory Rate Blood Pressure 141/71 178/80 150/71 09/28/18 09/28/18 09/28/18 11:55 12:26 13:26 Temperature Pulse Rate 95 H 92 H 95 H Respiratory Rate Blood Pressure 145/70 139/66 136/76 09/28/18 09/28/18 09/28/18 13:54 13:55 14:26 Temperature Pulse Rate 95 H 97 H 102 H Respiratory Rate Blood Pressure 136/76 148/82 124/59 09/28/18 09/28/18 14:56 15:26 Temperature Pulse Rate 93 H 96 H Respiratory Rate Blood Pressure 121/59 126/61 - General Appearance General appearance: well-developed, well-nourished EENT: ATNC, PERRL, mucous membranes moist Neck: no JVD Respiratory: Present: Clear to Ascultation Cardiology: regular, S1S2 Gastrointestinal: normal, normoactive bowel sounds Integumentary: no rash Neurologic: alert and oriented x3, CN 3-12 intact Musculoskeletal: other (grade 1 edema) Psychiatric: mood/affect appropriate, cooperative - Lab 09/25/18 13:35 09/27/18 11:28 Most recent lab results Calcium 7.9 mg/dL (8.4-10.2) L 09/27/18 11:28 Urine Creatinine 146.8 mg/dL (0.1-20.0) H 09/26/18 21:15 Urine Total Protein 517 mg/dL (5-11.8) H 09/26/18 21:15 - Imaging Kidney/bladder ultrasound: other (I reviewed her ultrasound 10.6 cm kidneys bilaterally echogenic) Medications & Allergies - Medications Allergies/Adverse Reactions: Allergies No Known Allergies Allergy (Verified 09/24/18 07:35) Home Medications: Home Medications Medication Instructions Recorded Confirmed Last Taken Type Lispro Insulin [Humalog] 8 unit SQ TID 09/24/18 09/25/18 09/25/18 08:00 History 1 NIFEdipine [Nifedipine ER] 60 mg PO DAILY 09/24/18 09/25/18 09/25/18 09:00 History 1 cloNIDine [Catapres] 0.2 mg PO BID 09/24/18 09/25/18 09/25/18 09:00 History 1 Aspirin [Aspirin BABY CHEW TAB] 81 mg PO QDAY 09/25/18 09/25/18 09/24/18 22:00 History 1 Progesterone, Micronized 200 mg VG QPM 09/25/18 09/25/18 09/24/18 22:00 History [Progesterone] Active Medications: Generic Name Dose Route Start Last Admin Trade Name Freq PRN Reason Stop Dose Admin Acetaminophen 650 mg 09/25/18 11:52 09/27/18 17:51 Tylenol PO 325 mg Q6H PRN Administration Pain MILD(1-3)/Fever >100.5/BLEDSOE Aspirin 81 mg 09/26/18 10:00 09/28/18 10:03 Baby Aspirin PO 81 mg QDAY TIFFANIE Administration Clonidine HCl 0.2 mg 09/28/18 02:00 09/28/18 13:54 Catapres PO 0.2 mg Q8HR TIFFANIE Administration Dextrose 50 ml 09/25/18 11:24 D50w (25gm) Syringe IV PRN PRN Hypoglycemia Docusate Sodium 100 mg 09/25/18 10:55 09/26/18 11:06 Colace PO 100 mg Q12H PRN Administration Constipation Insulin Human Lispro 16 unit 09/25/18 17:00 09/27/18 16:59 Humalog SUB-Q 16 unit QPMDIAB TIFFANIE Administration Insulin Human Lispro 10 unit 09/26/18 08:00 09/28/18 08:09 Humalog SUB-Q 10 unit QDDIAB TIFFANIE Administration Insulin Human Lispro 10 unit 09/27/18 12:00 09/28/18 15:23 Humalog SUB-Q Not Given DAILY@1200 TIFFANIE Insulin Human NPH 12 unit 09/26/18 13:35 09/27/18 22:07 Humulin N SUB-Q 12 unit QHS TIFFANIE Administration Multivitamins/Iron/Calcium 1 each 09/26/18 10:00 09/28/18 10:03 Vitamin PO 1 each QDAY TIFFANIE Administration Nifedipine 90 mg 09/26/18 11:30 09/28/18 10:03 Procardia Xl PO 90 mg QDAY TIFFANIE Administration Zolpidem Tartrate 5 mg 09/25/18 20:57 Ambien PO QHS PRN Sleep
[2018-09-28] MEDS ORDERED: SODIUM BICARBONATE PO ONE (16:30)
--- NOTE | 2018-09-28 17:02 | Progress Note ---
Assessment and Plan A: 1. IUP 24w2d 2. CHTN with exacerbation vs superimposed preeclampsia BP are improved with the recent titration of Clonidine 3. severe IUGR--most recent EFW is 387gm (on 09/23/28) 4. 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 cervical shortening 6. s/p betamethasone ,NICU consult Rec: 1. Continue her current insulin regimen Fasting <95, 2hr PP<120 2. Continue Procardia and clonidine as prescribed . Medication can be safely administered in .Titrate Clonidine dose to obtain goal 120-160/80- 105mmhg . max dose 2.4mg/24hr IV Hydralazine prn SBP >160 DBP >110 3. Weekly UA dopplers (ordered 09/30/18) ; repeat EFW every 14 days (last done 09/23/18) 4. Repeat Chem Pt may be a candidate for outpt expectant management if her BP remains within the goal range and Cr continues to improve The plan of care was discussed with the patient and her mother .All questions answered [place]/w Gus Hendrix Subjective - Subjective Date of service: 09/28/18 Principal diagnosis: IUP @ 24w2d - CHTN; Short cervix; IDDM Interval history: denied BLEDSOE, visual changes, Cp, RUQ pain Wants to go home Patient reports: movement normal, no new complaints (pt resting, no complaints ), no loss of fluid, no vaginal bleeding, no contractions Objective - Vital Signs Vital Signs: Vital Signs - 12hr 09/28/18 09/28/18 09/28/18 06:25 06:28 07:25 Temperature Pulse Rate 89 86 Respiratory Rate Blood Pressure 129/66 129/66 133/67 09/28/18 09/28/18 09/28/18 07:30 08:25 09:26 Temperature 98.3 F Pulse Rate 81 82 Respiratory 20 Rate Blood Pressure 143/76 143/74 09/28/18 09/28/18 09/28/18 09:56 10:26 10:56 Temperature Pulse Rate 81 92 H 88 Respiratory Rate Blood Pressure 142/72 143/74 141/71 09/28/18 09/28/18 09/28/18 11:26 11:46 11:55 Temperature Pulse Rate 100 H 97 H 95 H Respiratory Rate Blood Pressure 178/80 150/71 145/70 09/28/18 09/28/18 09/28/18 12:26 13:26 13:54 Temperature Pulse Rate 92 H 95 H 95 H Respiratory Rate Blood Pressure 139/66 136/76 136/76 09/28/18 09/28/18 09/28/18 13:55 14:26 14:56 Temperature Pulse Rate 97 H 102 H 93 H Respiratory Rate Blood Pressure 148/82 124/59 121/59 09/28/18 09/28/18 09/28/18 15:26 15:56 16:26 Temperature Pulse Rate 96 H 89 93 H Respiratory Rate Blood Pressure 126/61 120/62 134/63 - Exam Narrative Exam: Sitting up in bed Extremities: normal - Labs Labs: Abnormal Labs 09/25/18 09/25/18 09/25/18 12:43 13:35 13:35 WBC 16.4 H RBC 3.18 L Hgb 9.1 L Hct 28.0 L Sodium Chloride Carbon Dioxide BUN Creatinine 1.4 H Glucose POC Glucose 134 H Calcium Lactate Dehydrogenase 311 H Total Protein Albumin Urine Creatinine Urine Total Protein 09/25/18 09/26/18 09/26/18 17:46 00:29 06:05 WBC RBC Hgb Hct Sodium Chloride Carbon Dioxide BUN Creatinine Glucose POC Glucose 202 H 219 H 185 H Calcium Lactate Dehydrogenase Total Protein Albumin Urine Creatinine Urine Total Protein 09/26/18 09/26/18 09/26/18 09:34 16:19 21:15 WBC RBC Hgb Hct Sodium 135 L Chloride Carbon Dioxide 18 L BUN 38 H Creatinine 1.6 H Glucose 150 H POC Glucose 115 H Calcium 7.6 L Lactate Dehydrogenase Total Protein 5.8 L Albumin 2.4 L Urine Creatinine 146.8 H Urine Total Protein 517 H 09/27/18 09/28/18 09/28/18 11:28 11:26 15:20 WBC RBC Hgb Hct Sodium 135 L Chloride 107.1 H Carbon Dioxide 18 L BUN 37 H Creatinine 1.5 H Glucose POC Glucose 50 L 166 H Calcium 7.9 L Lactate Dehydrogenase Total Protein Albumin Urine Creatinine Urine Total Protein Laboratory Results - last 24 hr 09/27/18 09/27/18 09/27/18 17:03 19:59 21:23 POC Glucose 90 82 105 09/28/18 09/28/18 09/28/18 06:44 11:26 12:42 POC Glucose 84 50 L 83 09/28/18 15:20 POC Glucose 166 H
[2018-09-28] MEDS ORDERED: PEPCID IV ONE (21:53)
[2018-09-29 07:25] VITALS: BP 148/70
[2018-09-29 07:53] LABS: Calcium 7.7 mg/dL (8.4-10.2)
[2018-09-29] MEDS ORDERED: CATAPRES PO SCH (08:00)
[2018-09-29] MEDS: HumaLOG SUB-Q SCH (08:15)
--- NOTE | 2018-09-29 08:37 | Progress Note ---
Assessment and Plan Spoke with Dr. Whyte regarding Creatine this morning - unchanged from previous lab draw. B/P controlled on new medication regimen. Dr. Whyte feels patient can be managed outpatient at this time. Pt reports appointment with [facility] tomorrow. Instructed she also needs to continue seeing nephrology. Dr. Kiser made aware. All questions addressed, patient expresses happiness to be able to go home - instructed on pelvic rest, continue medications (new rx for catapres TID and procardia 90mg). Pt reports understanding insulin dose and t iming. All questions addressed. - Patient Problems (1) 24 weeks gestation of Current Visit: Yes Status: Acute (2) Diabetes mellitus with nephropathy Current Visit: Yes Status: Acute (3) IUGR (intrauterine growth restriction) Current Visit: Yes Status: Acute (4) Short cervix affecting Current Visit: Yes Status: Acute (5) Uncontrolled hypertension Current Visit: Yes Status: Resolved Subjective - Subjective Date of service: 09/29/18 Principal diagnosis: IUP @ 24w3d - CHTN; Short cervix; IDDM Patient reports: movement normal, no new complaints (pt eating breaskfast, no complaints ), no loss of fluid, no vaginal bleeding, no contractions Objective - Vital Signs Vital Signs: Vital Signs - 12hr 09/28/18 09/28/18 09/28/18 21:23 22:00 22:23 Temperature Pulse Rate 92 H 92 H 96 H Respiratory Rate Blood Pressure 147/76 147/74 179/84 09/28/18 09/29/18 09/29/18 23:43 00:23 01:01 Temperature 98.6 F Pulse Rate 91 H 88 Respiratory 16 Rate Blood Pressure 161/77 137/76 09/29/18 09/29/18 09/29/18 01:23 02:23 04:23 Temperature Pulse Rate 84 86 88 Respiratory Rate Blood Pressure 140/74 134/72 157/79 09/29/18 09/29/18 09/29/18 05:23 06:23 07:15 Temperature 98.8 F Pulse Rate 83 87 86 Respiratory 16 Rate Blood Pressure 148/73 152/72 09/29/18 09/29/18 07:23 08:15 Temperature Pulse Rate 86 16 L Respiratory Rate Blood Pressure 148/70 148/70 - Exam Breasts: normal Cardiovascular: Regular rate Lungs: Clear to auscultation, Normal air movement Abdomen: Present: normal appearance, soft Vulva: both: normal Uterus: Present: normal FHR: auscultation normal Uterine Tone Measurement Phase: Resting Extremities: normal Deep Tendon Reflex Grade: Normal +2 - Labs Labs: Abnormal Labs 09/25/18 09/25/18 09/25/18 12:43 13:35 13:35 WBC 16.4 H RBC 3.18 L Hgb 9.1 L Hct 28.0 L Sodium Chloride Carbon Dioxide BUN Creatinine 1.4 H Glucose POC Glucose 134 H Calcium Lactate Dehydrogenase 311 H Total Protein Albumin Urine Creatinine Urine Total Protein 09/25/18 09/26/18 09/26/18 17:46 00:29 06:05 WBC RBC Hgb Hct Sodium Chloride Carbon Dioxide BUN Creatinine Glucose POC Glucose 202 H 219 H 185 H Calcium Lactate Dehydrogenase Total Protein Albumin Urine Creatinine Urine Total Protein 09/26/18 09/26/18 09/26/18 09:34 16:19 21:15 WBC RBC Hgb Hct Sodium 135 L Chloride Carbon Dioxide 18 L BUN 38 H Creatinine 1.6 H Glucose 150 H POC Glucose 115 H Calcium 7.6 L Lactate Dehydrogenase Total Protein 5.8 L Albumin 2.4 L Urine Creatinine 146.8 H Urine Total Protein 517 H 09/27/18 09/28/18 09/28/18 11:28 11:26 15:20 WBC RBC Hgb Hct Sodium 135 L Chloride 107.1 H Carbon Dioxide 18 L BUN 37 H Creatinine 1.5 H Glucose POC Glucose 50 L 166 H Calcium 7.9 L Lactate Dehydrogenase Total Protein Albumin Urine Creatinine Urine Total Protein 09/28/18 09/29/18 09/29/18 19:19 07:05 07:20 WBC RBC Hgb Hct Sodium 133 L Chloride Carbon Dioxide 18 L BUN 33 H Creatinine 1.5 H Glucose POC Glucose 154 H 65 L Calcium 7.7 L Lactate Dehydrogenase Total Protein Albumin Urine Creatinine Urine Total Protein Laboratory Results - last 24 hr 09/28/18 09/28/18 09/28/18 11:26 12:42 15:20 Sodium Potassium Chloride Carbon Dioxide Anion Gap BUN Creatinine Estimated GFR BUN/Creatinine Ratio Glucose POC Glucose 50 L 83 166 H Calcium 09/28/18 09/29/18 09/29/18 19:19 06:10 07:05 Sodium 133 L Potassium 4.7 Chloride 104.6 Carbon Dioxide 18 L Anion Gap 15 BUN 33 H Creatinine 1.5 H Estimated GFR 49 BUN/Creatinine Ratio 22 Glucose 74 POC Glucose 154 H 77 Calcium 7.7 L 09/29/18 07:20 Sodium Potassium Chloride Carbon Dioxide Anion Gap BUN Creatinine Estimated GFR BUN/Creatinine Ratio Glucose POC Glucose 65 L Calcium
--- NOTE | 2018-09-29 08:45 | Discharge Summary ---
Providers - Providers Date of Admission: 09/25/18 10:56 Date of discharge: 09/29/18 Attending physician: SVETLANA MONTOYA 09/25/18 10:56 Consult to Dietitian/Nutrition [CONS] Routine Physician Instructions: Reason For Exam: Reason for Consult: Diet education 09/25/18 12:30 Consult to Physician [CONS] Routine Comment: Consulting Provider: JEROMY MOYER Physician Instructions: Reason For Exam: 23 weeks, IUGR, short cervix 09/26/18 07:28 Consult to Physician [CONS] Routine Comment: Consulting Provider: CASPER PERALTA Physician Instructions: Reason For Exam: continuity of care 09/26/18 13:38 Consult to Physician [CONS] Routine Comment: Consulting Provider: REJI GLOVER NEPHROLOGY Physician Instructions: Reason For Exam: continuity of care Primary care physician: SVETLANA MONTOYA Hospitalization Reason for admission: other (blood pressure control) Condition at discharge: Good Disposition: DC-01 TO HOME OR SELFCARE - Discharge Diagnoses (1) 24 weeks gestation of Status: Acute (2) Diabetes mellitus with nephropathy Status: Acute (3) IUGR (intrauterine growth restriction) Status: Acute (4) Short cervix affecting Status: Acute (5) Uncontrolled hypertension Status: Resolved Plan - Discharge Medications Prescriptions: cloNIDine [Catapres] 0.2 mg PO TID #90 tablet NIFEdipine XL [Procardia Xl] 90 mg PO QDAY #30 tablet - Provider Discharge Summary Activity: other (Pelvic rest) Diet: other (diabetic diet) Additional instructions: Call your doctor immediately for: * Fever > 100.5 * Heavy vaginal bleeding ( >1 pad per hour) * Severe persistent headache * Shortness of breath * Reddened, hot, painful area to leg or breast * Contractions, leaking of fluid or blood from vagina * decreased movement * Any questions regarding medications - Follow up plan Follow up: SVETLANA MONTOYA MD [Primary Care Provider] - 09/30/18 (Please continue checking your blood sugars before breaskfast and 2hours after meals - keep all results in log to review with [facility]. You current insulin regimen is as follows: Humalog 10u @ 8:00am Humalog 10u @ 12:00pm Humalog 16u @ 5:00pm NPH insulin 12u @ 10:00PM Make appointment with Nephrology, keep your appointment in [facility] office scheduled 10/02/18 and keep your scheduled appointment with [facility] tomorrow. Call for any questions or concerns. )
[2018-10-03 21:31] LABS: ANA Screen, IFA Negative (Negative)
== END 2018-09-29 09:41 | disposition home or self-care (01) | DRG 832 ==
LOC: TRG 09:49 → LD 10:56 → TRG 09-26 15:19 → LD 09-26 15:19 → UNDOADMIN 09-26 15:19 → LD 09-27 12:41
PROVIDERS: ADMIT Obstetrics & Gynecology; ATTEND Obstetrics & Gynecology
DX: O26.832 Pregnancy related renal disease, second trimester (principal); O10.912 Unspecified pre-existing hypertension complicating pregnancy, second trimester; O26.872 Cervical shortening, second trimester; N17.9 Acute kidney failure, unspecified; E87.2 Acidosis; E11.21 Type 2 diabetes mellitus with diabetic nephropathy; O36.5920 Maternal care for other known or suspected poor fetal growth, second trimester, not applicable or unspecified; O26.892 Other specified pregnancy related conditions, second trimester; Z79.899 Other long term (current) drug therapy; Z3A.23 23 weeks gestation of pregnancy
CPT/HCPCS: 36415; 76770; 80048; 80053; 81001; 82565; 82570; 82962; 83036; 83615; 83930; 84156; 84450; 84460; 84550; 85027; 86038; 86160; 86225; 96372; G0378; J0360; J0702; J1815

== ENCOUNTER 2018-10-22 14:04 | Inpatient (IN) | payer OTHER ==
[2018-10-22] MEDS ORDERED: COLACE PO PRN (14:51)
[2018-10-22] MEDS ORDERED: TYLENOL PO PRN (14:51)
[2018-10-22] MEDS: LACTATED RINGERS 1,000 ML IV SCH (16:00)
[2018-10-22 16:23] LABS: Basophils # (Auto) 0.1 K/mm3 (0.0-0.1); Basophils % (Auto) 0.9 % (0.0-1.8); Eosinophils # (Auto) 0.1 K/mm3 (0.0-0.4); Eosinophils % (Auto) 0.7 % (0.0-4.3); Hematocrit 26.6 % (30.3-42.9); Lymphocytes # (Auto) 2.6 K/mm3 (1.2-5.4); Lymphocytes % (Auto) 28.8 % (13.4-35.0); Mean Corpuscular HGB Conc 34 % (30-34); Mean Corpuscular Volume 88 fl (79-97); Monocytes # (Auto) 0.7 K/mm3 (0.0-0.8); Monocytes % (Auto) 7.8 % (0.0-7.3); Platelet Count 340 K/mm3 (140-440); Red Blood Count 3.01 M/mm3 (3.65-5.03); Red Cell Distribution Width 14.5 % (13.2-15.2)
[2018-10-22] MEDS: APRESOLINE IV PRN ×2 (16:50→17:13)
[2018-10-22] MEDS ORDERED: MAGNESIUM SULFATE 4GM/100ML 4 GM/100 ML BAG IV ONE (16:55)
[2018-10-22] MEDS ORDERED: MAGNESIUM SULFATE 40GM/1000ML 40 GM/1,000 ML BAG IV SCH (17:00)
--- NOTE | 2018-10-22 17:10 | History and Physical Report ---
History of Present Illness Date of examination: 10/22/18 Chief complaint: pt sent for admission from [facility] d/t absent end diastolic flow on doppler studies today along with elevated blood pressures not being managed by current medication. History of present illness: EDC Confirmation: 01/16/2019 Past History : 1 Term Births: 0 Premature Births: 0 Living Children: 0 Para: 0 Mult. Births: 0 Prev : 0 Prev. attempt? none Aborta: 0 Elect. Ab: 0 Spont. Ab: 0 Ectopics: 0 Past Medical History: Reviewed history and no changes required: diabetes- dx 10 years ago. Humalog 4 units 3 times per day. htn- dx 1 month ago. nifedipine [address] Bishop at [facility] manages care for DM and HTN. 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 of genital herpes: no Partner hx. of genital herpes: no Rash, Viral, or Febrile illness since last LMP? no Varicella/Chicken Pox Status: Previous Disease TB Risk: no Genetic History Congenital Heart Defect: Mom: no Dad: no Melina Disease: Mom: no Dad: no Thalassemia Mom: no Dad: no Neural Tube Defect Mom: no Dad: no Down's Syndrome Mom: no Dad: no Meek-Sachs Mom: no Dad: no Sickle Cell Disease/Trait Mom: no Dad: no Hemophilia Mom: no Dad: no Muscular Dystrophy Mom: no Dad: no Cystic Fibrosis Mom: no Dad: no Shasta Chorea Mom: no Dad: no Mental Retardation Mom: no Dad: no Fragile X Mom: no Dad: no Other Genetic/Chromosomal Disorder Mom: no Dad: no Child w/other defect Mom: no Dad: no Enviromental Exposures Enviromental Exposures Reviewed Xray Exposure: no Medication, drug, or alcohol use since LMP: yes Chemical/Other Exposure: no Exposure to Cat Liter: no Hx of Parvovirus (Fifth Disease): no Occupational Exposure to Children: none Comments: marijuana apr 2018 alcohol mar 2018 Current Allergies (reviewed today): No known allergies Past History Past Medical History: hypertension, diabetes Past Surgical History: other (see HPI) 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) Family/Genetic History: other (see HPI) - Obstetrical History Expected Date of Delivery: 01/16/19 Actual Gestation: 27 Week(s) 5 Day(s) : 1 Para: 0 Hx # Term Pregnancies: 0 Number of Pregnancies: 0 Spontaneous Abortions: 0 Induced : 0 Number of Living Children: 0 Medications and Allergies Allergies Allergy/AdvReac Type Severity Reaction Status Date / Time No Known Allergies Allergy Verified 09/24/18 07:35 Home Medications Medication Instructions Recorded Confirmed Last Taken Type Lispro Insulin [Humalog] 8 unit SQ TID 09/24/18 09/25/18 09/25/18 08:00 History 1 NIFEdipine [Nifedipine ER] 60 mg PO DAILY 09/24/18 09/25/18 09/25/18 09:00 History 1 cloNIDine [Catapres] 0.2 mg PO BID 09/24/18 09/25/18 09/25/18 09:00 History 1 Aspirin [Aspirin BABY CHEW TAB] 81 mg PO QDAY 09/25/18 09/25/18 09/24/18 22:00 History 1 Progesterone, Micronized 200 mg VG QPM 09/25/18 09/25/18 09/24/18 22:00 History [Progesterone] NIFEdipine XL [Procardia Xl] 90 mg PO QDAY #30 tablet 09/29/18 Unknown Rx cloNIDine [Catapres] 0.2 mg PO TID #90 tablet 09/29/18 Unknown Rx Active Meds: Active Medications Acetaminophen (Tylenol) 650 mg PO Q4H PRN PRN Reason: Pain MILD(1-3)/Fever >100.5/[place] Docusate Sodium (Colace) 100 mg PO Q12H PRN PRN Reason: Constipation Hydralazine HCl (Apresoline) 10 mg IV Q30MIN PRN PRN Reason: Hypertension Lactated Ringer's (Lactated Ringers) 1,000 mls @ 125 mls/hr IV DIRECT TIFFANIE Magnesium Sulfate (Magnesium Sulfate 4gm/100ml) 4 gm in 100 mls @ 300 mls/hr IV ONCE ONE Stop: 10/22/18 17:14 Magnesium Sulfate (Magnesium Sulfate 40gm/1000ml) 40 gm in 1,000 mls @ 50 mls/hr IV DIRECT TIFFANIE Multivitamins/Iron/Calcium ( Vitamin) 1 each PO QDAY TIFFANIE Review of Systems All systems: negative - Vital Signs Vital signs: Vital Signs Pulse BP 95 H 191/99 10/22/18 15:22 10/22/18 15:22 Temp Pulse Resp BP Pulse Ox 97.8 F 115 H 18 222/96 99 10/22/18 16:02 10/22/18 17:00 10/22/18 16:02 10/22/18 16:57 10/22/18 17:00 - Physical Exam Breasts: Positive: normal Cardiovascular: Regular rate Lungs: Positive: Clear to auscultation, Normal air movement Abdomen: Positive: normal appearance, soft Genitourinary (Female): Positive: normal external genitalia, normal perenium Vulva: both: normal Extremities: Positive: edema (3+ pitting edema to knee, bilateral) Deep Tendon Reflex Grade: Normal +2 - Obstetrical FHR: category 1 Uterine Contraction Monitor Mode: External Uterine Contraction Pattern: Absent Uterine Tone Measurement Phase: Resting Results Result Diagrams: 10/22/18 16:07 10/22/18 16:07 Abnormal lab results 10/22/18 10/22/18 Range/Units 16:07 16:07 RBC 3.01 L (3.65-5.03) M/mm3 Hgb 9.0 L (10.1-14.3) gm/dl Hct 26.6 L (30.3-42.9) % [place] % (Auto) 7.8 H (0.0-7.3) % Creatinine 1.9 H (0.7-1.2) mg/dL Lactate Dehydrogenase 449 H (91-180) units/L All other labs normal. Assessment and Plan 33y/o @ 27+5 weeks, HTN not currently well controlled on clonidine 0.3mg TID and nifedipine 90mg. dopplers in [facility]'s office today showed absent end diastolic flow with intermittent reversal. [facility] consult report on chart. Dr. Kiser consulted. Admission orders in EMR. recommnedations: 1. Admission to L&D for monitoring 2. BPP w/ dopplers twice a week (dopplers done 10/22/18, BPP ordered for 10/23/18) 3. Continue current b/p meds and adjust based on reading with target range 120-160/80-105 4. continue current diet, accucheckd and insulin dose 5. delivery recommended by 32w0d due to doppler studies with [facility] - Patient Problems (1) 27 weeks gestation of Current Visit: Yes Status: Acute (2) Acute renal failure superimposed on stage 3 chronic kidney disease Current Visit: Yes Status: Acute (3) Diabetes mellitus with nephropathy Current Visit: Yes Status: Acute (4) Diabetes mellitus with retinopathy Current Visit: Yes Status: Acute Qualifiers: Diabetes mellitus type: type 2 (5) IUGR (intrauterine growth restriction) Current Visit: Yes Status: Acute (6) Uncontrolled hypertension Current Visit: Yes Status: Resolved
[2018-10-22] MEDS ORDERED: CATAPRES PO SCH ×2 (18:00→20:00)
[2018-10-22] MEDS ORDERED: HumaLOG SUB-Q SCH ×2 (18:00→22:00)
[2018-10-22] MEDS: CELESTONE SOLUSPAN IM SCH (18:05)
[2018-10-22] MEDS ORDERED: ZOFRAN ONE (19:44)
[2018-10-22] MEDS: CATAPRES PO SCH (19:49)
--- NOTE | 2018-10-22 20:43 | Event Note ---
Date: 10/22/18 pt with c/o chest pain, EKG sinus tach w/ left atrial enlargement. CXR ordered. Dr. Kiser notified, he requests a hospitalist consult. Orders placed and hospitalist called @ 0165. b/p remains elevated about the desired range, scheduled dose of catapres given. Will continue to monitor.
--- NOTE | 2018-10-22 22:43 | XRay Report ---
PROCEDURE: XR CHEST 1V AP TECHNIQUE: Chest radiograph single view. HISTORY: Chest pain, abnormal EKG COMPARISONS: None . FINDINGS: Heart: Heart is enlarged. Mediastinum/Vessels: Normal. Lungs/Pleural space: Lungs are expanded. There are no acute infiltrates. There is no pleural effusio n or pneumothorax.. Bony thorax: No acute osseous abnormality. Life support devices: None. IMPRESSION: Cardiomegaly. There is no acute lung disease.. This document is electronically signed by Santiago Rucker MD., Oct 22 2018 10:41:34 PM ET
--- NOTE | 2018-10-22 22:57 | Event Note ---
Date: 10/22/18 Dr. Boone called @ [phone], informed of consult and results of chest xray. requested pt be seen.
--- NOTE | 2018-10-22 23:52 | Consultation ---
History of Present Illness - Reason for Consult Consult date: 10/22/18 chest pain - History of Present Illness 33 -year-old woman who is 27 weeks , history of hypertension, diabetes, chronic kidney disease been evaluated for chest pain. Pain is in the epigastric area which she describes as sharp pain, lasted 20 minutes intermittently but is not resolved, she had 2 episodes. There is no radiation of the pain, intensity 4/10, , she did not take anything for the pain. Admits to nausea, palpitation, no shortness of breath, diaphoresis. Review of systems Constitutional: no weight loss, chills, fever Ears, eyes, nose, mouth and throat: no nasal congestion, no nasal discharge, no sinus pressure, no vision change, no red eye. Neck: No neck pain or rigidity. Cardiovascular: + palpitations, chest pain Respiratory: no cough, shortness of breath Gastrointestinal: no hematochezia, abdominal pain Genitourinary : no frequency , no hematuria Musculoskeletal: no joint swelling or muscle ache Integumentary: no rash, no pruritis Neurological: no parathesias, no focal weakness Endocrine: no cold or heat intolerance, no polyuria or polydipsia Hematologic/Lymphatic: no easy bruising, no easy bleeding, no gland swelling Allergic/Immunologic: no urticaria, no angioedema. PAST MEDICAL HISTORY:27 weeks , PAST SURGICAL HISTORY: None SOCIAL HISTORY: Denies alcohol, drugs, tobacco FAMILY HISTORY: Hypertension Medications and Allergies Allergies Allergy/AdvReac Type Severity Reaction Status Date / Time No Known Allergies Allergy Verified 09/24/18 07:35 Home Medications Medication Instructions Recorded Confirmed Last Taken Type Lispro Insulin [Humalog] 8 unit SQ TID 09/24/18 10/28/18 09/25/18 08:00 History 1 NIFEdipine [Nifedipine ER] 60 mg PO DAILY 09/24/18 10/28/18 10/27/18 History cloNIDine [Catapres] 0.2 mg PO BID 09/24/18 10/28/18 10/27/18 History Aspirin [Aspirin BABY CHEW TAB] 81 mg PO QDAY 09/25/18 10/28/18 09/24/18 22:00 History 1 Progesterone, Micronized 200 mg VG QPM 09/25/18 10/28/18 09/24/18 22:00 History [Progesterone] NIFEdipine XL [Procardia Xl] 90 mg PO QDAY #30 tablet 05/05/19 06/03/19 06/02/19 Rx cloNIDine [Catapres] 0.2 mg PO TID #90 tablet 09/29/18 10/28/18 10/27/18 Rx Active Meds: Active Medications Acetaminophen (Tylenol) 650 mg PO Q4H PRN PRN Reason: Pain MILD(1-3)/Fever >100.5/[place] Betamethasone Acet/Betameth SodPhos ([place] Soluspan) 12 mg IM Q24HR [facility] Last Admin: 10/22/18 18:05 Dose: 12 mg Documented by: Clonidine HCl (Catapres) 0.3 mg PO TID TIFFANIE Last Admin: 10/22/18 19:49 Dose: 0.3 mg Documented by: Docusate Sodium (Colace) 100 mg PO Q12H PRN PRN Reason: Constipation Hydralazine HCl (Apresoline) 10 mg IV Q30MIN PRN PRN Reason: Hypertension Last Admin: 10/22/18 17:13 Dose: 10 mg Documented by: Lactated Ringer's (Lactated Ringers) 1,000 mls @ 125 mls/hr IV DIRECT TIFFANIE Last Admin: 10/22/18 16:00 Dose: 125 mls/hr Documented by: Magnesium Sulfate (Magnesium Sulfate 40gm/1000ml) 40 gm in 1,000 mls @ 50 mls/hr IV DIRECT TIFFANIE Last Admin: 10/22/18 18:04 Dose: 2 gm/hr, 50 mls/hr Documented by: Insulin Human Lispro (Humalog) 10 unit SUB-Q DAILY [facility] Insulin Human Lispro (Humalog) 10 unit SUB-Q AC TIFFANIE Insulin Human Lispro (Humalog) 20 unit SUB-Q DAILY [facility] Insulin Human NPH (Humulin N) 12 unit SUB-Q ONCE [facility] Multivitamins/Iron/Calcium ( Vitamin) 1 each PO QDAY [facility] Nifedipine (Procardia Xl) 90 mg PO QDAY [facility] Exam - Physical Exam Narrative exam: General Apperance: The patient lying in bed, breathing comfortable HEENT: Normocephalic, atraumatic. Pupils equally round and reactive to light, EOMI, no sclericterus or JVD or thyromegaly or nodule. , no carotid bruit, mucous membranes moist, no exudate or erythema Heart: S1-S2, regular is rhythm Lungs: Clear to auscultation bilaterally, breathing comfortable Abdomen: Positive bowel sounds, soft, nontender, nondistended, no organomegaly Extremities: No edema cyanosis clubbing Skin: no rash, nodule, warm and dry Neuro: cranial nerves 2-12 intact, speech is fluent, motor/sensory intact - Constitutional Vitals: Temp Pulse Resp BP Pulse Ox 97.7 F 89 18 170/83 100 10/22/18 21:55 10/22/18 23:48 10/22/18 21:55 10/22/18 23:28 10/22/18 23:48 Results - Labs CBC & Chem 7: 10/27/18 08:09 10/29/18 13:48 Labs: Abnormal lab results 10/22/18 10/22/18 10/22/18 Range/Units 16:07 16:07 17:08 RBC 3.01 L (3.65-5.03) M/mm3 Hgb 9.0 L (10.1-14.3) gm/dl Hct 26.6 L (30.3-42.9) % [place] % (Auto) 7.8 H (0.0-7.3) % Creatinine 1.9 H (0.7-1.2) mg/dL POC Glucose 159 H (70-105) Lactate Dehydrogenase 449 H (91-180) units/L - Imaging and Cardiology EKG: report reviewed Chest x-ray: report reviewed Assessment and Plan Assessment Chest pain Cardiomegaly Plan Check cardiac enzymes, discuss VQ with the patient She wants to think about it, check echo Will follow along
[2018-10-23 03:57] LABS: Creatine Kinase MB 4.4 ng/mL (0.0-4.0)
[2018-10-23 04:17] LABS: Chol/HDL Ratio 4.07 %
[2018-10-23] MEDS: LACTATED RINGERS 1,000 ML IV SCH ×2 (04:32→23:44)
[2018-10-23] MEDS: CATAPRES PO SCH ×3 (08:08→17:37)
[2018-10-23] MEDS: HumaLOG SUB-Q SCH (08:09)
[2018-10-23 08:29] LABS: Creatine Kinase MB 4.6 ng/mL (0.0-4.0)
--- NOTE | 2018-10-23 09:03 | Progress Note ---
Subjective - Subjective Date of service: 10/23/18 Objective - Vital Signs Vital Signs: Vital Signs - 12hr 10/22/18 10/22/18 10/22/18 21:08 21:13 21:18 Temperature Pulse Rate 100 H 112 H 112 H Respiratory Rate Blood Pressure Blood Pressure [Left] O2 Sat by Pulse 100 99 99 Oximetry 10/22/18 10/22/18 10/22/18 21:23 21:28 21:33 Temperature Pulse Rate 99 H 97 H 96 H Respiratory Rate Blood Pressure 190/90 Blood Pressure [Left] O2 Sat by Pulse 100 100 100 Oximetry 10/22/18 10/22/18 10/22/18 21:38 21:43 21:48 Temperature Pulse Rate 93 H 92 H 92 H Respiratory Rate Blood Pressure Blood Pressure [Left] O2 Sat by Pulse 100 100 100 Oximetry 10/22/18 10/22/18 10/22/18 21:53 21:55 21:58 Temperature 97.7 F Pulse Rate 93 H 95 H 99 H Respiratory 18 Rate Blood Pressure 177/86 Blood Pressure 190/90 [Left] O2 Sat by Pulse 100 100 100 Oximetry 10/22/18 10/22/18 10/22/18 22:03 22:08 22:13 Temperature Pulse Rate 98 H 99 H 95 H Respiratory Rate Blood Pressure Blood Pressure [Left] O2 Sat by Pulse 100 100 100 Oximetry 10/22/18 10/22/18 10/22/18 22:18 22:23 22:28 Temperature Pulse Rate 98 H 93 H 93 H Respiratory Rate Blood Pressure 189/89 Blood Pressure [Left] O2 Sat by Pulse 100 100 99 Oximetry 10/22/18 10/22/18 10/22/18 22:33 22:38 22:43 Temperature Pulse Rate 91 H 88 88 Respiratory Rate Blood Pressure Blood Pressure [Left] O2 Sat by Pulse 100 100 100 Oximetry 10/22/18 10/22/18 10/22/18 22:48 22:53 22:58 Temperature Pulse Rate 91 H 91 H 89 Respiratory Rate Blood Pressure 178/84 Blood Pressure [Left] O2 Sat by Pulse 100 100 100 Oximetry 10/22/18 10/22/18 10/22/18 23:03 23:08 23:13 Temperature Pulse Rate 89 90 91 H Respiratory Rate Blood Pressure Blood Pressure [Left] O2 Sat by Pulse 100 100 100 Oximetry 05/10/22/18 10/22/18 23:18 23:23 23:28 Temperature Pulse Rate 88 89 89 Respiratory Rate Blood Pressure 170/83 Blood Pressure [Left] O2 Sat by Pulse 100 100 100 Oximetry 10/22/18 10/22/18 10/22/18 23:33 23:38 23:43 Temperature Pulse Rate 89 89 90 Respiratory Rate Blood Pressure Blood Pressure [Left] O2 Sat by Pulse 100 100 100 Oximetry 10/22/18 10/22/18 10/22/18 23:48 23:53 23:58 Temperature Pulse Rate 89 89 89 Respiratory Rate Blood Pressure 171/81 Blood Pressure [Left] O2 Sat by Pulse 100 100 100 Oximetry 10/23/18 10/23/18 10/23/18 00:03 00:08 00:13 Temperature Pulse Rate 88 87 102 H Respiratory Rate Blood Pressure Blood Pressure [Left] O2 Sat by Pulse 100 100 98 Oximetry 10/23/18 10/23/18 10/23/18 00:18 00:23 00:28 Temperature Pulse Rate 98 H 98 H 95 H Respiratory Rate Blood Pressure 188/96 Blood Pressure [Left] O2 Sat by Pulse 100 100 100 Oximetry 10/23/18 10/23/18 10/23/18 00:33 00:38 00:43 Temperature Pulse Rate 92 H 93 H 91 H Respiratory Rate Blood Pressure Blood Pressure [Left] O2 Sat by Pulse 100 100 100 Oximetry 10/23/18 10/23/18 10/23/18 00:48 00:53 00:58 Temperature Pulse Rate 89 91 H 94 H Respiratory Rate Blood Pressure 186/89 Blood Pressure [Left] O2 Sat by Pulse 100 100 100 Oximetry 10/23/18 10/23/18 10/23/18 01:03 01:08 01:13 Temperature Pulse Rate 93 H 93 H 89 Respiratory Rate Blood Pressure Blood Pressure [Left] O2 Sat by Pulse 100 100 100 Oximetry 10/23/18 10/23/18 10/23/18 01:18 01:23 01:28 Temperature Pulse Rate 89 89 92 H Respiratory Rate Blood Pressure 174/83 Blood Pressure [Left] O2 Sat by Pulse 100 100 Oximetry 10/23/18 10/23/18 10/23/18 01:29 01:34 01:39 Temperature Pulse Rate 90 93 H 94 H Respiratory Rate Blood Pressure Blood Pressure [Left] O2 Sat by Pulse 100 99 98 Oximetry 10/23/18 10/23/18 10/23/18 01:44 01:49 01:54 Temperature Pulse Rate 94 H 95 H 95 H Respiratory Rate Blood Pressure Blood Pressure [Left] O2 Sat by Pulse 99 98 98 Oximetry 10/23/18 10/23/18 10/23/18 01:58 01:59 02:04 Temperature Pulse Rate 96 H 96 H 94 H Respiratory Rate Blood Pressure 173/84 Blood Pressure [Left] O2 Sat by Pulse 98 98 Oximetry 10/23/18 10/23/18 10/23/18 02:09 02:14 02:19 Temperature Pulse Rate 98 H 92 H 97 H Respiratory Rate Blood Pressure Blood Pressure [Left] O2 Sat by Pulse 98 100 100 Oximetry 10/23/18 10/23/18 10/23/18 02:24 02:28 02:29 Temperature Pulse Rate 98 H 97 H 95 H Respiratory Rate Blood Pressure 188/89 Blood Pressure [Left] O2 Sat by Pulse 100 100 Oximetry 10/23/18 10/23/18 10/23/18 02:34 02:39 02:44 Temperature Pulse Rate 96 H 96 H 95 H Respiratory Rate Blood Pressure Blood Pressure [Left] O2 Sat by Pulse 100 100 100 Oximetry 10/23/18 10/23/18 10/23/18 02:49 02:54 02:58 Temperature Pulse Rate 94 H 98 H 96 H Respiratory Rate Blood Pressure 193/92 Blood Pressure [Left] O2 Sat by Pulse 100 98 Oximetry 10/23/18 10/23/18 10/23/18 02:59 03:04 03:09 Temperature Pulse Rate 96 H 100 H 100 H Respiratory Rate Blood Pressure Blood Pressure [Left] O2 Sat by Pulse 100 99 100 Oximetry 10/23/18 10/23/18 10/23/18 03:14 03:19 03:24 Temperature Pulse Rate 95 H 96 H 97 H Respiratory Rate Blood Pressure Blood Pressure [Left] O2 Sat by Pulse 100 100 100 Oximetry 10/23/18 10/23/18 10/23/18 03:28 03:29 03:34 Temperature Pulse Rate 101 H 103 H 106 H Respiratory Rate Blood Pressure 184/85 Blood Pressure [Left] O2 Sat by Pulse 100 100 Oximetry 10/23/18 10/23/18 10/23/18 03:39 03:44 03:46 Temperature Pulse Rate 106 H 112 H 118 H Respiratory Rate Blood Pressure Blood Pressure [Left] O2 Sat by Pulse 100 100 85 Oximetry 10/23/18 10/23/18 10/23/18 03:49 03:54 03:58 Temperature Pulse Rate 111 H 104 H 103 H Respiratory Rate Blood Pressure 191/88 Blood Pressure [Left] O2 Sat by Pulse 100 100 Oximetry 10/23/18 10/23/18 10/23/18 03:59 04:04 04:05 Temperature Pulse Rate 104 H 115 H 126 H Respiratory Rate Blood Pressure Blood Pressure [Left] O2 Sat by Pulse 100 100 92 Oximetry 10/23/18 10/23/18 10/23/18 04:09 04:14 04:19 Temperature Pulse Rate 110 H 103 H 102 H Respiratory Rate Blood Pressure Blood Pressure [Left] O2 Sat by Pulse 100 100 100 Oximetry 10/23/18 10/23/18 10/23/18 04:24 04:29 04:34 Temperature Pulse Rate 100 H 101 H 102 H Respiratory Rate Blood Pressure 172/79 Blood Pressure [Left] O2 Sat by Pulse 100 100 100 Oximetry 10/23/18 10/23/18 10/23/18 04:39 04:44 04:49 Temperature Pulse Rate 107 H 102 H 98 H Respiratory Rate Blood Pressure Blood Pressure [Left] O2 Sat by Pulse 100 100 100 Oximetry 10/23/18 10/23/18 10/23/18 04:54 04:58 04:59 Temperature Pulse Rate 97 H 98 H 96 H Respiratory Rate Blood Pressure 179/80 Blood Pressure [Left] O2 Sat by Pulse 100 100 Oximetry 10/23/18 10/23/18 10/23/18 05:04 05:09 05:14 Temperature Pulse Rate 101 H 97 H 97 H Respiratory Rate Blood Pressure Blood Pressure [Left] O2 Sat by Pulse 100 100 100 Oximetry 10/23/18 10/23/18 10/23/18 05:19 05:24 05:28 Temperature Pulse Rate 98 H 96 H 96 H Respiratory Rate Blood Pressure 139/73 Blood Pressure [Left] O2 Sat by Pulse 100 100 Oximetry 10/23/18 10/23/18 10/23/18 05:29 05:34 05:39 Temperature Pulse Rate 96 H 97 H 95 H Respiratory Rate Blood Pressure Blood Pressure [Left] O2 Sat by Pulse 100 100 100 Oximetry 10/23/18 10/23/18 10/23/18 05:44 05:49 05:54 Temperature Pulse Rate 99 H 95 H 97 H Respiratory Rate Blood Pressure Blood Pressure [Left] O2 Sat by Pulse 100 100 100 Oximetry 10/23/18 10/23/18 10/23/18 05:58 05:59 06:04 Temperature Pulse Rate 96 H 103 H 97 H Respiratory Rate Blood Pressure 148/74 Blood Pressure [Left] O2 Sat by Pulse 100 100 Oximetry 10/23/18 10/23/18 10/23/18 06:09 06:14 06:19 Temperature Pulse Rate 98 H 96 H 94 H Respiratory Rate Blood Pressure Blood Pressure [Left] O2 Sat by Pulse 100 100 100 Oximetry 10/23/18 10/23/18 10/23/18 06:24 06:28 06:29 Temperature Pulse Rate 94 H 95 H 94 H Respiratory Rate Blood Pressure 175/80 Blood Pressure [Left] O2 Sat by Pulse 100 100 Oximetry 10/23/18 10/23/18 10/23/18 06:34 06:39 06:44 Temperature Pulse Rate 94 H 95 H 94 H Respiratory Rate Blood Pressure Blood Pressure [Left] O2 Sat by Pulse 100 100 100 Oximetry 10/23/18 10/23/18 10/23/18 06:49 06:54 06:58 Temperature Pulse Rate 94 H 99 H 100 H Respiratory Rate Blood Pressure 193/91 Blood Pressure [Left] O2 Sat by Pulse 100 100 Oximetry 10/23/18 10/23/18 10/23/18 06:59 07:04 07:09 Temperature Pulse Rate 109 H 111 H 100 H Respiratory Rate Blood Pressure Blood Pressure [Left] O2 Sat by Pulse 100 98 100 Oximetry 10/23/18 10/23/18 10/23/18 07:14 07:19 07:24 Temperature Pulse Rate 101 H 100 H 102 H Respiratory Rate Blood Pressure Blood Pressure [Left] O2 Sat by Pulse 100 100 100 Oximetry 10/23/18 10/23/18 10/23/18 07:28 07:29 07:34 Temperature Pulse Rate 98 H 104 H 109 H Respiratory Rate Blood Pressure 178/79 Blood Pressure [Left] O2 Sat by Pulse 100 100 Oximetry 10/23/18 10/23/18 10/23/18 07:39 07:44 07:49 Temperature Pulse Rate 108 H 104 H 98 H Respiratory Rate Blood Pressure Blood Pressure [Left] O2 Sat by Pulse 100 100 100 Oximetry 10/23/18 10/23/18 10/23/18 07:54 07:56 07:57 Temperature Pulse Rate 105 H 109 H 108 H Respiratory Rate Blood Pressure 203/98 197/90 Blood Pressure [Left] O2 Sat by Pulse 100 Oximetry 10/23/18 10/23/18 10/23/18 08:08 08:28 08:49 Temperature Pulse Rate 108 H 111 H 113 H Respiratory Rate Blood Pressure 197/90 200/88 194/91 Blood Pressure [Left] O2 Sat by Pulse Oximetry 10/23/18 08:58 Temperature Pulse Rate 116 H Respiratory Rate Blood Pressure 208/92 Blood Pressure [Left] O2 Sat by Pulse Oximetry - Labs Labs: Abnormal Labs 10/22/18 10/22/18 10/22/18 16:07 16:07 17:08 RBC 3.01 L Hgb 9.0 L Hct 26.6 L [place] % (Auto) 7.8 H Creatinine 1.9 H POC Glucose 159 H Magnesium Lactate Dehydrogenase 449 H CK-MB (CK-2) Troponin T Triglycerides Cholesterol LDL Cholesterol Direct HDL Cholesterol 10/22/18 10/23/18 10/23/18 22:22 00:33 02:25 RBC Hgb Hct [place] % (Auto) Creatinine POC Glucose 157 H 178 H Magnesium 5.90 H Lactate Dehydrogenase CK-MB (CK-2) Troponin T Triglycerides Cholesterol LDL Cholesterol Direct HDL Cholesterol 10/23/18 10/23/18 10/23/18 03:01 07:58 07:58 RBC Hgb Hct [place] % (Auto) Creatinine POC Glucose Magnesium 8.60 H Lactate Dehydrogenase CK-MB (CK-2) 4.4 H 4.6 H Troponin T 0.057 H 0.068 H Triglycerides 158 H Cholesterol 310 H LDL Cholesterol Direct 230 H HDL Cholesterol 76 H 10/23/18 08:00 RBC Hgb Hct [place] % (Auto) Creatinine POC Glucose 183 H Magnesium Lactate Dehydrogenase CK-MB (CK-2) Troponin T Triglycerides Cholesterol LDL Cholesterol Direct HDL Cholesterol Laboratory Results - last 24 hr 10/22/18 10/22/18 10/22/18 16:07 16:07 16:36 WBC 8.9 RBC 3.01 L Hgb 9.0 L Hct 26.6 L MCV 88 MCH 30 MCHC 34 RDW 14.5 Plt Count 340 Lymph % (Auto) 28.8 [place] % (Auto) 7.8 H Eos % (Auto) 0.7 Baso % (Auto) 0.9 Lymph # 2.6 [place] # 0.7 Eos # 0.1 Baso # 0.1 Seg Neutrophils % 61.8 Seg Neutrophils # 5.5 Creatinine 1.9 H Estimated GFR 37 POC Glucose Uric Acid 6.0 Magnesium AST 27 ALT 18 Lactate Dehydrogenase 449 H Total Creatine Kinase CK-MB (CK-2) CK-MB (CK-2) Rel Index Troponin T Triglycerides Cholesterol LDL Cholesterol Direct HDL Cholesterol Cholesterol/HDL Ratio Blood Type O POSITIVE Antibody Screen TNR TROY Antibody Screen Negative 10/22/18 10/22/18 10/23/18 17:08 22:22 00:33 WBC RBC Hgb Hct MCV MCH MCHC RDW Plt Count Lymph % (Auto) [place] % (Auto) Eos % (Auto) Baso % (Auto) Lymph # [place] # Eos # Baso # Seg Neutrophils % Seg Neutrophils # Creatinine Estimated GFR POC Glucose 159 H 157 H Uric Acid Magnesium 5.90 H AST ALT Lactate Dehydrogenase Total Creatine Kinase CK-MB (CK-2) CK-MB (CK-2) Rel Index Troponin T Triglycerides Cholesterol LDL Cholesterol Direct HDL Cholesterol Cholesterol/HDL Ratio Blood Type Antibody Screen TROY Antibody Screen 10/23/18 10/23/18 10/23/18 02:25 03:01 07:58 WBC RBC Hgb Hct MCV MCH MCHC RDW Plt Count Lymph % (Auto) [place] % (Auto) Eos % (Auto) Baso % (Auto) Lymph # [place] # Eos # Baso # Seg Neutrophils % Seg Neutrophils # Creatinine Estimated GFR POC Glucose 178 H Uric Acid Magnesium 8.60 H AST ALT Lactate Dehydrogenase Total Creatine Kinase 124 CK-MB (CK-2) 4.4 H CK-MB (CK-2) Rel Index 3.5 Troponin T 0.057 H Triglycerides 158 H Cholesterol 310 H LDL Cholesterol Direct 230 H HDL Cholesterol 76 H Cholesterol/HDL Ratio 4.07 Blood Type Antibody Screen TROY Antibody Screen 10/23/18 10/23/18 07:58 08:00 WBC RBC Hgb Hct MCV MCH MCHC RDW Plt Count Lymph % (Auto) [place] % (Auto) Eos % (Auto) Baso % (Auto) Lymph # [place] # Eos # Baso # Seg Neutrophils % Seg Neutrophils # Creatinine Estimated GFR POC Glucose 183 H Uric Acid Magnesium AST ALT Lactate Dehydrogenase Total Creatine Kinase 134 CK-MB (CK-2) 4.6 H CK-MB (CK-2) Rel Index 3.4 Troponin T 0.068 H Triglycerides Cholesterol LDL Cholesterol Direct HDL Cholesterol Cholesterol/HDL Ratio Blood Type Antibody Screen TROY Antibody Screen
[2018-10-23] MEDS: APRESOLINE IV PRN ×3 (09:09→23:43)
--- NOTE | 2018-10-23 09:10 | Event Note ---
Date: 10/23/18 BPs remain uncontrolled at this time. I d/w pt and s/o at bedside the possibility of needing delivery pending bp management as well as findings on echo. Pt to have echo at bedside. I also d/w that should delivery be indicated she may need primary c/s for delivery vs serial IOL. Pt expressed understanding and agrees with plan of care. Will also await further recommendations from Hospitalist pending echo findings.
[2018-10-23] MEDS: ZOFRAN IV PRN (09:37)
[2018-10-23] MEDS ORDERED: PROCARDIA XL PO SCH (10:00)
[2018-10-23] MEDS: PRENATAL VITAMIN PO SCH (10:17)
[2018-10-23] MEDS ORDERED: HumaLOG SUB-Q SCH (12:00)
--- NOTE | 2018-10-23 12:10 | Consultation ---
History of Present Illness Consult date: 10/23/18 Requesting physician: KASSANDRA LLANOS Consult reason: chest pain, elevated troponin History of present illness: The pt is a 33 YO female (27 weeks ) with a past medical history of HTN (diagnosed approx 1 month ago), DM (since 21 YOA), CKD. She is previously unknown to our practice. She presented from OBGYN office for admission following abnormal dopplers in their office. Overnight, she c/o chest pain and troponins were noted to be minimally elevated and thus cardiology has been consulted. On evaluation, pt appears lethargic with n/v. She states that she has been experiencing intermittent midsternal pressure overnight. She has no known prior cardiac issues, including CAD, AMI or HF. Pt reports this is her first . Past History Past Medical History: diabetes, hypertension Social history: denies: smoking, alcohol abuse, prescription drug abuse Medications and Allergies Allergies Allergy/AdvReac Type Severity Reaction Status Date / Time No Known Allergies Allergy Verified 09/24/18 07:35 Home Medications Medication Instructions Recorded Confirmed Last Taken Type Lispro Insulin [Humalog] 8 unit SQ TID 09/24/18 09/25/18 09/25/18 08:00 History 1 NIFEdipine [Nifedipine ER] 60 mg PO DAILY 09/24/18 09/25/18 09/25/18 09:00 History 1 cloNIDine [Catapres] 0.2 mg PO BID 09/24/18 09/25/18 09/25/18 09:00 History 1 Aspirin [Aspirin BABY CHEW TAB] 81 mg PO QDAY 09/25/18 09/25/18 09/24/18 22:00 History 1 Progesterone, Micronized 200 mg VG QPM 09/25/18 09/25/18 09/24/18 22:00 History [Progesterone] NIFEdipine XL [Procardia Xl] 90 mg PO QDAY #30 tablet 09/29/18 Unknown Rx cloNIDine [Catapres] 0.2 mg PO TID #90 tablet 09/29/18 Unknown Rx Active Meds: Active Medications Acetaminophen (Tylenol) 650 mg PO Q4H PRN PRN Reason: Pain MILD(1-3)/Fever >100.5/[place] Betamethasone Acet/Betameth SodPhos (Celestone Soluspan) 12 mg IM Q24HR TIFFANIE Last Admin: 10/22/18 18:05 Dose: 12 mg Documented by: Clonidine HCl (Catapres) 0.3 mg PO TID [facility] Last Admin: 10/23/18 08:08 Dose: 0.3 mg Documented by: Docusate Sodium (Colace) 100 mg PO Q12H PRN PRN Reason: Constipation Hydralazine HCl (Apresoline) 10 mg IV Q30MIN PRN PRN Reason: Hypertension Last Admin: 10/23/18 09:09 Dose: 10 mg Documented by: Lactated Ringer's (Lactated Ringers) 1,000 mls @ 125 mls/hr IV DIRECT TIFFANIE Last Admin: 10/23/18 04:32 Dose: 125 mls/hr Documented by: Magnesium Sulfate (Magnesium Sulfate 40gm/1000ml) 40 gm in 1,000 mls @ 50 mls/hr IV DIRECT [facility] Last Admin: 10/22/18 18:04 Dose: 2 gm/hr, 50 mls/hr Documented by: Insulin Human Lispro (Humalog) 10 unit SUB-Q DAILY [facility] Insulin Human Lispro (Humalog) 10 unit SUB-Q AC [facility] Last Admin: 10/23/18 08:09 Dose: 10 unit Documented by: Insulin Human Lispro (Humalog) 20 unit SUB-Q DAILY [facility] Last Admin: 10/23/18 10:20 Dose: 20 unit Documented by: Insulin Human NPH (Humulin N) 12 unit SUB-Q ONCE [facility] Last Admin: 10/23/18 00:18 Dose: 12 unit Documented by: Multivitamins/Iron/Calcium ( Vitamin) 1 each PO QDAY [facility] Last Admin: 10/23/18 10:17 Dose: 1 each Documented by: Nifedipine (Procardia Xl) 90 mg PO QDAY [facility] Last Admin: 10/23/18 10:18 Dose: 90 mg Documented by: Ondansetron HCl (Zofran) 8 mg IV Q6H PRN PRN Reason: Nausea And Vomiting Last Admin: 10/23/18 09:37 Dose: 8 mg Documented by: Review of Systems Constitutional: no weight loss, no weight gain, no fever, no chills, no sweats Ears, nose, mouth and throat: no ear pain, no nose pain, no sinus pressure, no sinus pain Cardiovascular: chest pain, high blood pressure, leg edema, no orthopnea, no shortness of breath, no dyspnea on exertion Respiratory: no cough, no shortness of breath, no dyspnea on exertion, no congestion, no wheezing, no pain on inspiration Gastrointestinal: nausea, vomiting Physical Examination Vital Signs Pulse BP 95 H 191/99 10/22/18 15:22 10/22/18 15:22 Results 10/22/18 16:07 10/22/18 16:07 Cardiac Enzymes 10/22/18 10/23/18 10/23/18 Range/Units 16:07 03:01 07:58 AST 27 (5-40) units/L Lactate Dehydrogenase 449 H (91-180) units/L CK-MB (CK-2) 4.4 H 4.6 H (0.0-4.0) ng/mL Lipids 10/23/18 Range/Units 03:01 Triglycerides 158 H (2-149) mg/dL Cholesterol 310 H (50-199) mg/dL HDL Cholesterol 76 H (40-59) mg/dL Cholesterol/HDL Ratio 4.07 % CBC 10/22/18 Range/Units 16:07 WBC 8.9 (4.5-11.0) K/mm3 RBC 3.01 L (3.65-5.03) M/mm3 Hgb 9.0 L (10.1-14.3) gm/dl Hct 26.6 L (30.3-42.9) % Plt Count 340 (140-440) K/mm3 Lymph # 2.6 (1.2-5.4) K/mm3 [facility] # 0.7 (0.0-0.8) K/mm3 Eos # 0.1 (0.0-0.4) K/mm3 Baso # 0.1 (0.0-0.1) K/mm3 Comprehensive Metabolic Panel 10/22/18 Range/Units 16:07 Creatinine 1.9 H (0.7-1.2) mg/dL AST 27 (5-40) units/L ALT 18 (7-56) units/L Assessment and Plan Optimize BPs - increase nifedipine. Await echo. F/u BMP. Pt's chest pain appears atypical, ECG with no acute ischemic changes, elevated trops appear nonspecific at this time in setting of HTN and renal insufficiency. AMI ruled out. Cont to trend Alecia and repeat ECG in AM. The patient has been seen in conjunction with Dr. Henry who agrees with the assessment and plan of care. 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
--- NOTE | 2018-10-23 12:47 | Event Note ---
Date: 10/23/18 Pt last mag level was 8.6. Provider was not called with this value. STAT level ordered at this as pt is having nausea and emesis with stating difficulty breathing. O2sat is 100% on room air. BP has stabalized with IV and po meds that have been given. Awaiting results of echo and imput by cardiology.
[2018-10-23 13:32] LABS: Calcium 8.3 mg/dL (8.4-10.2)
--- NOTE | 2018-10-23 13:56 | Progress Note ---
Assessment and Plan Assessment and plan: Patient is a 33 -year-old woman who is 27 weeks , history of hypertension, diabetes, chronic kidney disease been evaluated for chest pain. Pain is in the epigastric area which she describes as sharp pain, lasted 20 minutes intermittently but is not resolved, she had 2 episodes. She presented f [facility] OBGYN office for admission following abnormal dopplers in their office. There is no radiation of the pain, intensity 4/10, , she did not take anything for the pain. Admits to nausea, palpitation, no shortness of breath, diaphoresis. On examination, patient reported intermittent midsternal chest pressure, First . Chest pain Cardiomegaly Acute Shortness of breath Hyperkalemia HTN DM IUP Plan Still with some shortness of breath, now agreeable to V/Q scan. Cardiac enzyme noted to be elevated consult cardiology Start on Nebs Echo pending DVT/GI prophy Plan discussed with the patient in detail. History Interval history: Patient seen and examined, still with shortness of breat, and on full mask. Reports chest pain, substernal and non radiating. Hospitalist Physical - Physical exam Narrative exam: General Apperance: The patient lying in bed, breathing comfortable HEENT: Normocephalic, atraumatic. Pupils equally round and reactive to light, EOMI, no sclericterus or JVD or thyromegaly or nodule. , no carotid bruit, mucous membranes moist, no exudate or erythema Heart: S1-S2, regular is rhythm Lungs: Clear to auscultation bilaterally, breathing comfortable Abdomen: Positive bowel sounds, soft, nontender, nondistended, no organomegaly Extremities: No edema cyanosis clubbing Skin: no rash, nodule, warm and dry Neuro: cranial nerves 2-12 intact, speech is fluent, motor/sensory intact - Constitutional Vitals: Temp Pulse Resp BP Pulse Ox 97.7 F 108 H 18 188/84 100 10/22/18 21:55 10/23/18 13:50 10/22/18 21:55 10/23/18 13:28 10/23/18 13:50 Results - Labs CBC & Chem 7: 10/22/18 16:07 10/23/18 12:35 Labs: Laboratory Last Values WBC 8.9 K/mm3 (4.5-11.0) 10/22/18 16:07 RBC 3.01 M/mm3 (3.65-5.03) L 10/22/18 16:07 Hgb 9.0 gm/dl (10.1-14.3) L 10/22/18 16:07 Hct 26.6 % (30.3-42.9) L 10/22/18 16:07 MCV 88 fl (79-97) 10/22/18 16:07 MCH 30 pg (28-32) 10/22/18 16:07 MCHC 34 % (30-34) 10/22/18 16:07 RDW 14.5 % (13.2-15.2) 10/22/18 16:07 Plt Count 340 K/mm3 (140-440) 10/22/18 16:07 Lymph % (Auto) 28.8 % (13.4-35.0) 10/22/18 16:07 [place] % (Auto) 7.8 % (0.0-7.3) H 10/22/18 16:07 Eos % (Auto) 0.7 % (0.0-4.3) 10/22/18 16:07 Baso % (Auto) 0.9 % (0.0-1.8) 10/22/18 16:07 Lymph # 2.6 K/mm3 (1.2-5.4) 10/22/18 16:07 [place] # 0.7 K/mm3 (0.0-0.8) 10/22/18 16:07 Eos # 0.1 K/mm3 (0.0-0.4) 10/22/18 16:07 Baso # 0.1 K/mm3 (0.0-0.1) 10/22/18 16:07 Seg Neutrophils % 61.8 % (40.0-70.0) 10/22/18 16:07 Seg Neutrophils # 5.5 K/mm3 (1.8-7.7) 10/22/18 16:07 Sodium 132 mmol/L (137-145) L 10/23/18 12:35 Potassium 5.2 mmol/L (3.6-5.0) H 10/23/18 12:35 Chloride 100.7 mmol/L (98-107) 10/23/18 12:35 Carbon Dioxide 16 mmol/L (22-30) L 10/23/18 12:35 21 mmol/L 10/23/18 12:35 BUN 38 mg/dL (7-17) H 10/23/18 12:35 2.4 mg/dL (0.7-1.2) H 10/23/18 12:35 Estimated GFR 28 ml/min 10/23/18 12:35 16 % 10/23/18 12:35 Glucose 115 mg/dL (65-100) H 10/23/18 12:35 POC Glucose 140 (70-105) H 10/23/18 11:51 6.0 mg/dL (3.5-7.6) 10/22/18 16:07 Calcium 8.3 mg/dL (8.4-10.2) L 10/23/18 12:35 Magnesium 8.60 mg/dL (1.7-2.3) H 10/23/18 07:58 AST 27 units/L (5-40) 10/22/18 16:07 ALT 18 units/L (7-56) 10/22/18 16:07 449 units/L (91-180) H 10/22/18 16:07 134 units/L (30-135) 10/23/18 07:58 CK-MB (CK-2) 4.6 ng/mL (0.0-4.0) H 10/23/18 07:58 CK-MB (CK-2) Rel Index 3.4 (0-4) 10/23/18 07:58 0.068 ng/mL (0.00-0.029) H 10/23/18 07:58 Triglycerides 158 mg/dL (2-149) H 10/23/18 03:01 Cholesterol 310 mg/dL (50-199) H 10/23/18 03:01 230 mg/dL (50-130) H 10/23/18 03:01 76 mg/dL (40-59) H 10/23/18 03:01 4.07 % 10/23/18 03:01 Blood Type O POSITIVE 10/22/18 16:36 Antibody Screen TNR 10/22/18 16:36 TROY Antibody Screen Negative 10/22/18 16:36 Active Medications - Current Medications Current Medications: Generic Name Dose Route Start Last Admin Trade Name Freq PRN Reason Stop Dose Admin Acetaminophen 650 mg 10/22/18 14:51 Tylenol PO Q4H PRN Pain MILD(1-3)/Fever >100.5/[place] Betamethasone Acet/Betameth SodPhos 12 mg 10/22/18 18:00 10/22/18 18:05 Celestone Soluspan IM 12 mg Q24HR TIFFANIE Administration Clonidine HCl 0.3 mg 10/22/18 19:19 10/23/18 08:08 Catapres PO 0.3 mg TID TIFFANIE Administration Docusate Sodium 100 mg 10/22/18 14:51 Colace PO Q12H PRN Constipation Hydralazine HCl 10 mg 10/22/18 16:10 10/23/18 09:09 Apresoline IV 10 mg Q30MIN PRN Administration Hypertension Lactated Ringer's 1,000 mls @ 125 mls/hr 10/22/18 15:00 10/23/18 04:32 Lactated Ringers IV 125 mls/hr DIRECT TIFFANIE Administration Magnesium Sulfate 40 gm in 1,000 mls @ 50 mls/hr 10/22/18 17:00 10/22/18 18:04 Magnesium Sulfate 40gm/1000ml IV 2 gm/hr DIRECT TIFFANIE 50 mls/hr Administration 2 GM/HR Insulin Human Lispro 10 unit 10/23/18 12:00 10/23/18 12:20 Humalog SUB-Q 10 unit DAILY TIFFANIE Administration Insulin Human Lispro 10 unit 10/23/18 07:30 10/23/18 08:09 Humalog SUB-Q 10 unit AC TIFFANIE Administration Insulin Human Lispro 20 unit 10/22/18 18:00 10/23/18 10:20 Humalog SUB-Q 20 unit DAILY TIFFANIE Administration Insulin Human NPH 12 unit 10/22/18 22:00 10/23/18 00:18 Humulin N SUB-Q 12 unit ONCE TIFFANIE Administration Multivitamins/Iron/Calcium 1 each 10/23/18 10:00 10/23/18 10:17 Vitamin PO 1 each QDAY TIFFANIE Administration Nifedipine 90 mg 10/23/18 22:00 Procardia Xl PO BID TIFFANIE Ondansetron HCl 8 mg 10/23/18 09:11 10/23/18 09:37 Zofran IV 8 mg Q6H PRN Administration Nausea And Vomiting
[2018-10-23] MEDS ORDERED: KIONEX PO ONE (14:30)
--- NOTE | 2018-10-23 14:39 | Event Note ---
Date: 10/23/18 Repeat magnesium level is >10 so will given calcium gluconate 1g(1000mg) IV times one and repeat level.
[2018-10-23] MEDS ORDERED: CALCIUM GLUCONATE IV ONE (14:43)
[2018-10-23] MEDS ORDERED: CALCIUM GLUCONATE 1,000 MG in NACL 0.9% 100 ML IV ONE (15:37)
[2018-10-23] MEDS ORDERED: D50W (25GM) Syringe IV PRN ×2 (15:46→15:50)
--- NOTE | 2018-10-23 18:46 | Consultation ---
History of Present Illness Consult date: 10/23/18 Past History Past Medical History: hypertension, diabetes Past Surgical History: other (see HPI) [employer] SPECIALIST History: other (see HPI) Family/Genetic History: other (see HPI) - Obstetrical History : 1 Medications and Allergies Allergies Allergy/AdvReac Type Severity Reaction Status Date / Time No Known Allergies Allergy Verified 09/24/18 07:35 Home Medications Medication Instructions Recorded Confirmed Last Taken Type Lispro Insulin [Humalog] 8 unit SQ TID 09/24/18 09/25/18 09/25/18 08:00 History 1 NIFEdipine [Nifedipine ER] 60 mg PO DAILY 09/24/18 09/25/18 09/25/18 09:00 History 1 cloNIDine [Catapres] 0.2 mg PO BID 09/24/18 09/25/18 09/25/18 09:00 History 1 Aspirin [Aspirin BABY CHEW TAB] 81 mg PO QDAY 09/25/18 09/25/18 09/24/18 22:00 History 1 Progesterone, Micronized 200 mg VG QPM 09/25/18 09/25/18 09/24/18 22:00 History [Progesterone] NIFEdipine XL [Procardia Xl] 90 mg PO QDAY #30 tablet 09/29/18 Unknown Rx cloNIDine [Catapres] 0.2 mg PO TID #90 tablet 09/29/18 Unknown Rx Active Meds: Active Medications Acetaminophen (Tylenol) 650 mg PO Q4H PRN PRN Reason: Pain MILD(1-3)/Fever >100.5/[place] Betamethasone Acet/Betameth SodPhos (Celestone Soluspan) 12 mg IM Q24HR [facility] Last Admin: 10/22/18 18:05 Dose: 12 mg Documented by: Clonidine HCl (Catapres) 0.3 mg PO TID [facility] Last Admin: 10/23/18 17:37 Dose: 0.3 mg Documented by: Dextrose (D50w (25gm) Syringe) 25 ml IV PRN PRN PRN Reason: Hypoglycemia Docusate Sodium (Colace) 100 mg PO Q12H PRN PRN Reason: Constipation Hydralazine HCl (Apresoline) 10 mg IV Q30MIN PRN PRN Reason: Hypertension Last Admin: 10/23/18 09:09 Dose: 10 mg Documented by: Lactated Ringer's (Lactated Ringers) 1,000 mls @ 125 mls/hr IV DIRECT TIFFANIE Last Admin: 10/23/18 04:32 Dose: 125 mls/hr Documented by: Magnesium Sulfate (Magnesium Sulfate 40gm/1000ml) 40 gm in 1,000 mls @ 50 mls/hr IV DIRECT TIFFANIE Last Admin: 10/22/18 18:04 Dose: 2 gm/hr, 50 mls/hr Documented by: Insulin Human Lispro (Humalog) 10 unit SUB-Q DAILY TIFFANIE Last Admin: 10/23/18 12:20 Dose: 10 unit Documented by: Insulin Human Lispro (Humalog) 10 unit SUB-Q AC TIFFANIE Last Admin: 10/23/18 08:09 Dose: 10 unit Documented by: Insulin Human Lispro (Humalog) 20 unit SUB-Q DAILY [facility] Last Admin: 10/23/18 10:20 Dose: 20 unit Documented by: Insulin Human NPH (Humulin N) 12 unit SUB-Q ONCE [facility] Last Admin: 10/23/18 00:18 Dose: 12 unit Documented by: Multivitamins/Iron/Calcium ( Vitamin) 1 each PO QDAY [facility] Last Admin: 10/23/18 10:17 Dose: 1 each Documented by: Nifedipine (Procardia Xl) 90 mg PO BID [facility] Ondansetron HCl (Zofran) 8 mg IV Q6H PRN PRN Reason: Nausea And Vomiting Last Admin: 10/23/18 09:37 Dose: 8 mg Documented by: - Vital Signs Vital signs: Vital Signs Pulse BP 95 H 191/99 10/22/18 15:22 10/22/18 15:22 Temp Pulse Resp BP Pulse Ox 97.7 F 98 H 18 191/85 96 10/22/18 21:55 10/23/18 18:05 10/22/18 21:55 10/23/18 17:58 10/23/18 18:05 Results Result Diagrams: 10/22/18 16:07 10/23/18 12:35 Abnormal lab results 10/22/18 10/23/18 10/23/18 Range/Units 22:22 00:33 02:25 Sodium (137-145) mmol/L Potassium (3.6-5.0) mmol/L Carbon Dioxide (22-30) mmol/L BUN (7-17) mg/dL Creatinine (0.7-1.2) mg/dL Glucose (65-100) mg/dL POC Glucose 157 H 178 H (70-105) Calcium (8.4-10.2) mg/dL Magnesium 5.90 H (1.7-2.3) mg/dL CK-MB (CK-2) (0.0-4.0) ng/mL Troponin T (0.00-0.029) ng/mL Triglycerides (2-149) mg/dL Cholesterol (50-199) mg/dL LDL Cholesterol Direct (50-130) mg/dL HDL Cholesterol (40-59) mg/dL 10/23/18 10/23/18 10/23/18 Range/Units 03:01 07:58 07:58 Sodium (137-145) mmol/L Potassium (3.6-5.0) mmol/L Carbon Dioxide (22-30) mmol/L BUN (7-17) mg/dL Creatinine (0.7-1.2) mg/dL Glucose (65-100) mg/dL POC Glucose (70-105) Calcium (8.4-10.2) mg/dL Magnesium 8.60 H (1.7-2.3) mg/dL CK-MB (CK-2) 4.4 H 4.6 H (0.0-4.0) ng/mL Troponin T 0.057 H 0.068 H (0.00-0.029) ng/mL Triglycerides 158 H (2-149) mg/dL Cholesterol 310 H (50-199) mg/dL LDL Cholesterol Direct 230 H (50-130) mg/dL HDL Cholesterol 76 H (40-59) mg/dL 10/23/18 10/23/18 10/23/18 Range/Units 08:00 10:17 11:51 Sodium (137-145) mmol/L Potassium (3.6-5.0) mmol/L Carbon Dioxide (22-30) mmol/L BUN (7-17) mg/dL Creatinine (0.7-1.2) mg/dL Glucose (65-100) mg/dL POC Glucose 183 H 168 H 140 H (70-105) Calcium (8.4-10.2) mg/dL Magnesium (1.7-2.3) mg/dL CK-MB (CK-2) (0.0-4.0) ng/mL Troponin T (0.00-0.029) ng/mL Triglycerides (2-149) mg/dL Cholesterol (50-199) mg/dL LDL Cholesterol Direct (50-130) mg/dL HDL Cholesterol (40-59) mg/dL 10/23/18 10/23/18 10/23/18 Range/Units 12:35 12:35 15:00 Sodium 132 L (137-145) mmol/L Potassium 5.2 H (3.6-5.0) mmol/L Carbon Dioxide 16 L (22-30) mmol/L BUN 38 H (7-17) mg/dL Creatinine 2.4 H (0.7-1.2) mg/dL Glucose 115 H (65-100) mg/dL POC Glucose 44 L (70-105) Calcium 8.3 L (8.4-10.2) mg/dL Magnesium 10.30 H (1.7-2.3) mg/dL CK-MB (CK-2) (0.0-4.0) ng/mL Troponin T (0.00-0.029) ng/mL Triglycerides (2-149) mg/dL Cholesterol (50-199) mg/dL LDL Cholesterol Direct (50-130) mg/dL HDL Cholesterol (40-59) mg/dL 10/23/18 10/23/18 Range/Units 15:46 16:27 Sodium (137-145) mmol/L Potassium (3.6-5.0) mmol/L Carbon Dioxide (22-30) mmol/L BUN (7-17) mg/dL Creatinine (0.7-1.2) mg/dL Glucose (65-100) mg/dL POC Glucose 42 L 108 H (70-105) Calcium (8.4-10.2) mg/dL Magnesium (1.7-2.3) mg/dL CK-MB (CK-2) (0.0-4.0) ng/mL Troponin T (0.00-0.029) ng/mL Triglycerides (2-149) mg/dL Cholesterol (50-199) mg/dL LDL Cholesterol Direct (50-130) mg/dL HDL Cholesterol (40-59) mg/dL All other labs normal. Assessment and Plan Pt seen Full consult to follow A: IUP at 27 6/7 weeks gestation CHTN Severe IUGR with abnormal dopplers IDDM - with retinopathy and nephropathy -Hypoglycemia -Chest pain with elevated troponin -s/p cardiology consult Magnesium tocixity s/p Calcium Gluconate Rec: 1. Continue RISS hold scheduled insulin until she resumes her ADA diet - RISS, anticipate worsening hyperglycemia for 5-7 days after steroid administration 2. Continue Procardia and Clonidine as prescribed Continue serial BP monitoring Goal is to maintain the BP 120-160/80-105mmhg - Increase the clonidine to 0.4mg BID if her BP remains in the severe range IV Hydralazine prn SBP>160mmhg , DBP>110mmhg 3. s/p cardiology consult f/u echo results Monitor for chest pain 4. twice weekly testing Growth scan in 2 weeks NICU consult Complete repeat course of steroids Delivery advised at 32 0/7 weeks gestation , sooner if indicated if the tracing is non reassuring or the maternal condition worsens 5. Repeat Mag level ordered by provider continue to monitor UO - RN reports 500ml since this am Monitor for SOB , hypoxia Plan of care reviewed with the patient and her mother and all questions answered Discussed with Dr Cruz
[2018-10-23] MEDS: CELESTONE SOLUSPAN IM SCH (19:00)
--- NOTE | 2018-10-23 19:03 | Event Note ---
Date: 10/23/18 Spoke with zora mahmood and the stat Mag level that was ordered has not be drawn. States she will send lab telemetry monitor to come and draw the lab now.
--- NOTE | 2018-10-23 21:51 | Consultation ---
Consult Note - Parent Education I met with parent(s) and discussed the following:: Need for NICU admission, Poss ible need for intubation and surfactant or other resp support, Temperature regulation, Head ultrasounds to evaluate IVH, Eye exams for ROP screening, Possible need for IV fluids/TPN and IV antibiotics, Possible need for umbilical lines, Importance of providing breast milk & encouraged pumping aft delivery, Donor breast milk if baby meets criteria after , Slow feeding advancement and monitoring of tolerance. NG/OG feeds, Need to monitor for jaundice, Data for survival & survival without significant co-morbidities Parent(s) demonstrated understanding of all the information:: Yes Assessment and Plan - Assessment Gestation:: 27 (27 6/7 weeker) Estimated Weight: not available; US pending Baby's gender: Female Baby's name: Divya Additional Comment: 33 YO with elevated b/p, chest pain, AEOF, acute renal failure (stage 3 renal disease), uncontrolled type 2 DM with retinopathy. - Plan Plan: Agree with Mag & steroids Will attend delivery Please call NICU with questions
--- NOTE | 2018-10-23 22:12 | Event Note ---
Date: 10/23/18 Pt has eaten and is more alert and states that she is feeling better. She states she does not feel cold any more with the bear warmer on. BPP was done due to low baseline and was 8/8. I advised pt of the test results and all testing results she has had to this point. I spoke with Dr. Arechiga regarding the low baseline and he agreed with the bpp to check status. Pt mag level is still elevated though she has been off the mag for several hours and this is likely affecting the tracing as well. Will con't to closely monitor at this time.
--- NOTE | 2018-10-23 22:20 | Ultrasound Report ---
PROCEDURE: US OB BPP WO NON-STRESS TECHNIQUE: biophysical profile HISTORY: bradycardia COMPARISONS: FINDINGS: biophysical profile Breathing 2 movement. Tone 2 Amniotic fluid volume 2 Total biophysical profile score 01/02 heart rate 116 bpm IMPRESSION: Normal biophysical profile 01/02. This document is electronically signed by Haseeb Sierra MD., Oct 23 2018 10:18:51 PM ET
--- NOTE | 2018-10-23 23:15 | Event Note ---
Date: 10/23/18 Pt did not get 2200 dose of procardia 90 as her RN was in a delivery. RN made aware and will give at this time. Will closely monitor.
[2018-10-23] MEDS: PROCARDIA XL PO SCH (23:33)
[2018-10-24 05:57] LABS: Hematocrit 23.3 % (30.3-42.9); Hemoglobin 7.7 gm/dl (10.1-14.3); Mean Corpuscular HGB Conc 33 % (30-34); Mean Corpuscular Volume 89 fl (79-97); Platelet Count 334 K/mm3 (140-440); Red Blood Count 2.62 M/mm3 (3.65-5.03); Red Cell Distribution Width 14.8 % (13.2-15.2)
[2018-10-24 06:25] LABS: Calcium 8.1 mg/dL (8.4-10.2)
--- NOTE | 2018-10-24 06:54 | Progress Note ---
Assessment and Plan - Patient Problems (1) 28 weeks gestation of Onset Date: ~10/24/18 Current Visit: Yes Status: Acute Plan to address problem: Master Dyer assessment Note: Pt resting c/o: SOB Lungs with mild wheezing noted O2sat @ 97%. Tachycardia 118. SCD on Edema in all extremities. Pt states her face feels swollen FHR Cat 2 due to variables, otherwise variability present. Pt c/o any BLEDSOE, & chest pain. MGSO4 off due to mag toxicity yesterday Mag levels being drawn until levels return to normal. Dr. Kiser paged for consult. Subjective - Subjective Date of service: 10/24/18 (pt c/o labored breathing O2 sat 97%) Principal diagnosis: IUP @ 28w0d; CHTN, Pre-E, IDDM Patient reports: movement normal Objective - Vital Signs Vital Signs: Vital Signs - 12hr 10/23/18 10/23/18 10/23/18 19:02 19:07 19:10 Pulse Rate 105 H 102 H 102 H Blood Pressure 194/87 206/93 O2 Sat by Pulse 97 Oximetry 10/23/18 10/23/18 10/23/18 19:15 19:16 19:20 Pulse Rate 102 H 102 H 106 H Blood Pressure 206/93 O2 Sat by Pulse 97 99 Oximetry 10/23/18 10/23/18 10/23/18 19:25 19:30 19:33 Pulse Rate 106 H 108 H 106 H Blood Pressure 182/84 O2 Sat by Pulse 97 98 Oximetry 10/23/18 10/23/18 10/23/18 19:35 19:40 19:45 Pulse Rate 106 H 107 H 110 H Blood Pressure O2 Sat by Pulse 97 97 95 Oximetry 10/23/18 10/23/18 10/23/18 19:47 19:50 19:55 Pulse Rate 112 H 111 H 111 H Blood Pressure 187/84 O2 Sat by Pulse 97 97 Oximetry 10/23/18 10/23/18 10/23/18 20:00 20:03 20:05 Pulse Rate 111 H 114 H 111 H Blood Pressure 168/84 O2 Sat by Pulse 97 98 Oximetry 10/23/18 10/23/18 10/23/18 20:10 20:15 20:17 Pulse Rate 109 H 104 H 104 H Blood Pressure O2 Sat by Pulse 98 96 94 Oximetry 10/23/18 10/23/18 10/23/18 20:18 20:20 20:25 Pulse Rate 105 H 105 H 108 H Blood Pressure 192/88 O2 Sat by Pulse 95 96 Oximetry 10/23/18 10/23/18 10/23/18 20:28 20:30 20:32 Pulse Rate 105 H 106 H 106 H Blood Pressure 189/82 O2 Sat by Pulse 94 95 Oximetry 10/23/18 10/23/18 10/23/18 20:34 20:35 20:40 Pulse Rate 106 H 105 H 107 H Blood Pressure O2 Sat by Pulse 94 96 96 Oximetry 10/23/18 10/23/18 10/23/18 20:45 20:47 20:50 Pulse Rate 108 H 106 H 108 H Blood Pressure 186/79 O2 Sat by Pulse 96 96 Oximetry 10/23/18 10/23/18 10/23/18 20:51 20:55 21:00 Pulse Rate 111 H 106 H 105 H Blood Pressure O2 Sat by Pulse 94 97 97 Oximetry 10/23/18 10/23/18 10/23/18 21:02 21:05 21:10 Pulse Rate 111 H 111 H 117 H Blood Pressure 185/79 O2 Sat by Pulse 96 98 Oximetry 10/23/18 10/23/18 10/23/18 21:15 21:18 21:20 Pulse Rate 114 H 112 H 113 H Blood Pressure 170/80 O2 Sat by Pulse 97 94 98 Oximetry 10/23/18 10/23/18 10/23/18 21:25 21:30 21:33 Pulse Rate 112 H 113 H 112 H Blood Pressure 188/85 O2 Sat by Pulse 97 97 Oximetry 10/23/18 10/23/18 10/23/18 21:35 21:40 21:45 Pulse Rate 115 H 113 H 113 H Blood Pressure O2 Sat by Pulse 97 96 98 Oximetry 10/23/18 10/23/18 10/23/18 21:47 21:50 21:55 Pulse Rate 112 H 119 H 119 H Blood Pressure 182/82 O2 Sat by Pulse 97 99 Oximetry 10/23/18 10/23/18 10/23/18 22:00 22:02 22:05 Pulse Rate 116 H 113 H 111 H Blood Pressure 198/88 O2 Sat by Pulse 98 97 Oximetry 10/23/18 10/23/18 10/23/18 22:10 22:15 22:17 Pulse Rate 109 H 109 H 111 H Blood Pressure 193/77 O2 Sat by Pulse 96 96 Oximetry 10/23/18 10/23/18 10/23/18 22:20 22:25 22:30 Pulse Rate 107 H 111 H 109 H Blood Pressure O2 Sat by Pulse 96 96 96 Oximetry 10/23/18 10/23/18 10/23/18 22:32 22:35 22:40 Pulse Rate 113 H 110 H 112 H Blood Pressure 200/89 O2 Sat by Pulse 96 96 Oximetry 10/23/18 10/23/18 10/23/18 22:45 22:48 22:50 Pulse Rate 112 H 113 H 112 H Blood Pressure 208/81 O2 Sat by Pulse 96 96 Oximetry 10/23/18 10/23/18 10/23/18 22:55 23:00 23:03 Pulse Rate 118 H 116 H 115 H Blood Pressure 222/88 O2 Sat by Pulse 97 96 Oximetry 10/23/18 10/23/18 10/23/18 23:05 23:10 23:15 Pulse Rate 115 H 115 H 113 H Blood Pressure O2 Sat by Pulse 96 96 95 Oximetry 10/23/18 10/23/18 10/23/18 23:16 23:18 23:20 Pulse Rate 113 H 113 H 113 H Blood Pressure 203/86 O2 Sat by Pulse 94 94 Oximetry 10/23/18 10/23/18 10/23/18 23:22 23:25 23:30 Pulse Rate 113 H 117 H 117 H Blood Pressure O2 Sat by Pulse 94 95 95 Oximetry 10/23/18 10/23/18 10/23/18 23:33 23:35 23:38 Pulse Rate 114 H 113 H 115 H Blood Pressure 203/84 O2 Sat by Pulse 94 94 94 Oximetry 10/23/18 10/23/18 10/23/18 23:40 23:43 23:45 Pulse Rate 114 H 113 H 110 H Blood Pressure 203/84 O2 Sat by Pulse 92 93 Oximetry 10/23/18 10/23/18 10/23/18 23:46 23:47 23:50 Pulse Rate 112 H 112 H 112 H Blood Pressure 196/76 196/77 O2 Sat by Pulse 92 Oximetry 10/23/18 10/23/18 10/24/18 23:55 23:56 00:00 Pulse Rate 116 H 118 H 116 H Blood Pressure O2 Sat by Pulse 92 93 93 Oximetry 10/24/18 10/24/18 10/24/18 00:03 00:05 00:10 Pulse Rate 116 H 116 H 117 H Blood Pressure 197/77 O2 Sat by Pulse 92 93 Oximetry 10/24/18 10/24/18 10/24/18 00:14 00:15 00:18 Pulse Rate 117 H 120 H 121 H Blood Pressure 198/79 O2 Sat by Pulse 94 93 Oximetry 10/24/18 10/24/18 10/24/18 00:20 00:25 00:30 Pulse Rate 117 H 114 H 112 H Blood Pressure O2 Sat by Pulse 92 92 92 Oximetry 10/24/18 10/24/18 10/24/18 00:33 00:35 00:40 Pulse Rate 110 H 111 H 110 H Blood Pressure 132/58 O2 Sat by Pulse 92 92 Oximetry 10/24/18 10/24/18 10/24/18 00:45 00:47 00:50 Pulse Rate 110 H 114 H 112 H Blood Pressure 142/66 O2 Sat by Pulse 93 93 Oximetry 10/24/18 10/24/18 10/24/18 00:55 01:00 01:03 Pulse Rate 117 H 119 H 115 H Blood Pressure 161/65 O2 Sat by Pulse 94 93 Oximetry 10/24/18 10/24/18 10/24/18 01:05 01:10 01:15 Pulse Rate 113 H 116 H 116 H Blood Pressure O2 Sat by Pulse 93 93 93 Oximetry 10/24/18 10/24/18 10/24/18 01:17 01:20 01:25 Pulse Rate 117 H 118 H 122 H Blood Pressure 161/65 O2 Sat by Pulse 94 94 Oximetry 10/24/18 10/24/18 10/24/18 01:30 01:33 01:35 Pulse Rate 118 H 116 H 118 H Blood Pressure 146/67 O2 Sat by Pulse 95 94 Oximetry 10/24/18 10/24/18 10/24/18 01:37 01:40 01:44 Pulse Rate 118 H 120 H 118 H Blood Pressure O2 Sat by Pulse 94 94 94 Oximetry 10/24/18 10/24/18 10/24/18 01:45 01:47 01:49 Pulse Rate 118 H 116 H 115 H Blood Pressure 157/70 O2 Sat by Pulse 94 93 Oximetry 10/24/18 10/24/18 10/24/18 01:50 01:55 01:56 Pulse Rate 118 H 118 H 117 H Blood Pressure O2 Sat by Pulse 95 96 93 Oximetry 10/24/18 10/24/18 10/24/18 02:00 02:02 02:05 Pulse Rate 118 H 120 H 120 H Blood Pressure 164/72 O2 Sat by Pulse 94 93 Oximetry 10/24/18 10/24/18 10/24/18 02:07 02:10 02:12 Pulse Rate 120 H 120 H 118 H Blood Pressure O2 Sat by Pulse 94 94 94 Oximetry 10/24/18 10/24/18 10/24/18 02:15 02:17 02:20 Pulse Rate 119 H 118 H 119 H Blood Pressure 172/73 O2 Sat by Pulse 96 92 Oximetry 10/24/18 10/24/18 10/24/18 02:25 02:30 02:31 Pulse Rate 119 H 119 H 118 H Blood Pressure O2 Sat by Pulse 93 94 94 Oximetry 10/24/18 10/24/18 10/24/18 02:32 02:35 02:40 Pulse Rate 117 H 119 H 117 H Blood Pressure 171/73 O2 Sat by Pulse 93 91 Oximetry 10/24/18 10/24/18 10/24/18 02:45 02:47 02:50 Pulse Rate 117 H 118 H 120 H Blood Pressure 171/72 O2 Sat by Pulse 92 93 Oximetry 10/24/18 10/24/18 10/24/18 02:55 03:00 03:02 Pulse Rate 121 H 120 H 117 H Blood Pressure 169/70 O2 Sat by Pulse 94 94 92 Oximetry 10/24/18 10/24/18 10/24/18 03:05 03:10 03:15 Pulse Rate 117 H 120 H 124 H Blood Pressure O2 Sat by Pulse 91 92 93 Oximetry 10/24/18 10/24/18 10/24/18 03:17 03:20 03:25 Pulse Rate 120 H 118 H 116 H Blood Pressure 178/74 O2 Sat by Pulse 92 92 Oximetry 10/24/18 10/24/18 10/24/18 03:30 03:32 03:35 Pulse Rate 117 H 117 H 116 H Blood Pressure 180/74 O2 Sat by Pulse 92 93 Oximetry 10/24/18 10/24/18 10/24/18 03:36 03:40 03:43 Pulse Rate 120 H 120 H 118 H Blood Pressure O2 Sat by Pulse 94 94 93 Oximetry 10/24/18 10/24/18 10/24/18 03:45 03:47 03:50 Pulse Rate 117 H 118 H 118 H Blood Pressure 187/75 O2 Sat by Pulse 93 93 Oximetry 10/24/18 10/24/18 10/24/18 03:55 04:00 04:03 Pulse Rate 118 H 120 H 123 H Blood Pressure 181/77 O2 Sat by Pulse 93 95 Oximetry 10/24/18 10/24/18 10/24/18 04:05 04:10 04:12 Pulse Rate 123 H 117 H Blood Pressure O2 Sat by Pulse 96 93 84 Oximetry 10/24/18 10/24/18 10/24/18 04:15 04:20 04:25 Pulse Rate 118 H 118 H 119 H Blood Pressure O2 Sat by Pulse 96 95 97 Oximetry 10/24/18 10/24/18 10/24/18 04:30 04:32 04:35 Pulse Rate 120 H 118 H 120 H Blood Pressure O2 Sat by Pulse 97 94 96 Oximetry 10/24/18 10/24/18 10/24/18 04:40 04:42 04:45 Pulse Rate 121 H 120 H 117 H Blood Pressure O2 Sat by Pulse 95 94 94 Oximetry 10/24/18 10/24/18 10/24/18 04:50 04:55 04:58 Pulse Rate 120 H 120 H 120 H Blood Pressure O2 Sat by Pulse 93 94 94 Oximetry 10/24/18 10/24/18 10/24/18 05:00 05:05 05:10 Pulse Rate 120 H 121 H 119 H Blood Pressure O2 Sat by Pulse 94 92 94 Oximetry 10/24/18 10/24/18 10/24/18 05:15 05:16 05:20 Pulse Rate 119 H 120 H 120 H Blood Pressure O2 Sat by Pulse 96 94 93 Oximetry 10/24/18 10/24/18 10/24/18 05:25 05:30 05:33 Pulse Rate 120 H 121 H 119 H Blood Pressure O2 Sat by Pulse 93 94 94 Oximetry 10/24/18 10/24/18 10/24/18 05:35 05:39 05:40 Pulse Rate 120 H 118 H 119 H Blood Pressure O2 Sat by Pulse 94 93 93 Oximetry 10/24/18 10/24/18 10/24/18 05:45 05:50 05:55 Pulse Rate 119 H 120 H 118 H Blood Pressure O2 Sat by Pulse 93 94 93 Oximetry 10/24/18 10/24/18 10/24/18 05:58 06:00 06:05 Pulse Rate 118 H 119 H 119 H Blood Pressure O2 Sat by Pulse 94 94 91 Oximetry 10/24/18 10/24/18 10/24/18 06:07 06:10 06:15 Pulse Rate 120 H 122 H 121 H Blood Pressure 142/68 O2 Sat by Pulse 93 94 Oximetry 10/24/18 10/24/18 10/24/18 06:20 06:24 06:25 Pulse Rate 120 H 121 H 120 H Blood Pressure O2 Sat by Pulse 99 94 97 Oximetry 10/24/18 10/24/18 10/24/18 06:30 06:35 06:36 Pulse Rate 120 H 121 H 119 H Blood Pressure O2 Sat by Pulse 96 96 94 Oximetry 10/24/18 10/24/18 10/24/18 06:40 06:42 06:45 Pulse Rate 123 H 119 H 120 H Blood Pressure O2 Sat by Pulse 94 94 96 Oximetry - Exam Breasts: deferred Cardiovascular: Regular rate Lungs: Other (some wheezes noted bilateral) Abdomen: Present: normal appearance, soft. Absent: distention, tenderness Uterus: Present: normal FHR: auscultation normal, category 2 (mild variables ocassional) Uterine Contraction Monitor Mode: External Uterine Contraction Pattern: Absent Uterine Tone Measurement Phase: Resting Extremities: edema Deep Tendon Reflex Grade: Normal but brisk +3 - Labs Labs: Abnormal Labs 10/22/18 10/22/18 10/22/18 16:07 16:07 17:08 WBC RBC 3.01 L Hgb 9.0 L Hct 26.6 L [place] % (Auto) 7.8 H Sodium Potassium Chloride Carbon Dioxide BUN Creatinine 1.9 H Glucose POC Glucose 159 H Calcium Magnesium Lactate Dehydrogenase 449 H CK-MB (CK-2) Troponin T Triglycerides Cholesterol LDL Cholesterol Direct HDL Cholesterol 10/22/18 10/23/18 10/23/18 22:22 00:33 02:25 WBC RBC Hgb Hct [place] % (Auto) Sodium Potassium Chloride Carbon Dioxide BUN Creatinine Glucose POC Glucose 157 H 178 H Calcium Magnesium 5.90 H Lactate Dehydrogenase CK-MB (CK-2) Troponin T Triglycerides Cholesterol LDL Cholesterol Direct HDL Cholesterol 10/23/18 10/23/18 10/23/18 03:01 07:58 07:58 WBC RBC Hgb Hct [place] % (Auto) Sodium Potassium Chloride Carbon Dioxide BUN Creatinine Glucose POC Glucose Calcium Magnesium 8.60 H Lactate Dehydrogenase CK-MB (CK-2) 4.4 H 4.6 H Troponin T 0.057 H 0.068 H Triglycerides 158 H Cholesterol 310 H LDL Cholesterol Direct 230 H HDL Cholesterol 76 H 10/23/18 10/23/18 10/23/18 08:00 10:17 11:51 WBC RBC Hgb Hct [place] % (Auto) Sodium Potassium Chloride Carbon Dioxide BUN Creatinine Glucose POC Glucose 183 H 168 H 140 H Calcium Magnesium Lactate Dehydrogenase CK-MB (CK-2) Troponin T Triglycerides Cholesterol LDL Cholesterol Direct HDL Cholesterol 10/23/18 10/23/18 10/23/18 12:35 12:35 15:00 WBC RBC Hgb Hct [place] % (Auto) Sodium 132 L Potassium 5.2 H Chloride Carbon Dioxide 16 L BUN 38 H Creatinine 2.4 H Glucose 115 H POC Glucose 44 L Calcium 8.3 L Magnesium 10.30 H Lactate Dehydrogenase CK-MB (CK-2) Troponin T Triglycerides Cholesterol LDL Cholesterol Direct HDL Cholesterol 10/23/18 10/23/18 10/23/18 15:46 16:27 19:22 WBC RBC Hgb Hct [place] % (Auto) Sodium Potassium Chloride Carbon Dioxide BUN Creatinine Glucose POC Glucose 42 L 108 H Calcium Magnesium 9.50 H Lactate Dehydrogenase CK-MB (CK-2) Troponin T Triglycerides Cholesterol LDL Cholesterol Direct HDL Cholesterol 10/23/18 10/24/18 10/24/18 22:41 05:12 05:12 WBC 12.6 H RBC 2.62 L Hgb 7.7 L Hct 23.3 L [place] % (Auto) Sodium 129 L Potassium 5.3 H Chloride 97.5 L Carbon Dioxide 16 L BUN 41 H Creatinine 2.7 H Glucose 188 H POC Glucose Calcium 8.1 L Magnesium 8.30 H Lactate Dehydrogenase CK-MB (CK-2) Troponin T Triglycerides Cholesterol LDL Cholesterol Direct HDL Cholesterol Laboratory Results - last 24 hr 10/23/18 10/23/18 10/23/18 07:58 07:58 08:00 WBC RBC Hgb Hct MCV MCH MCHC RDW Plt Count Sodium Potassium Chloride Carbon Dioxide Anion Gap BUN Creatinine Estimated GFR BUN/Creatinine Ratio Glucose POC Glucose 183 H Calcium Magnesium 8.60 H Total Creatine Kinase 134 CK-MB (CK-2) 4.6 H CK-MB (CK-2) Rel Index 3.4 Troponin T 0.068 H 10/23/18 10/23/18 10/23/18 10:17 11:51 12:35 WBC RBC Hgb Hct MCV MCH MCHC RDW Plt Count Sodium Potassium Chloride Carbon Dioxide Anion Gap BUN Creatinine Estimated GFR BUN/Creatinine Ratio Glucose POC Glucose 168 H 140 H Calcium Magnesium 10.30 H Total Creatine Kinase CK-MB (CK-2) CK-MB (CK-2) Rel Index Troponin T 10/23/18 10/23/18 10/23/18 12:35 15:00 15:46 WBC RBC Hgb Hct MCV MCH MCHC RDW Plt Count Sodium 132 L Potassium 5.2 H Chloride 100.7 Carbon Dioxide 16 L Anion Gap 21 BUN 38 H Creatinine 2.4 H Estimated GFR 28 BUN/Creatinine Ratio 16 Glucose 115 H POC Glucose 44 L 42 L Calcium 8.3 L Magnesium Total Creatine Kinase CK-MB (CK-2) CK-MB (CK-2) Rel Index Troponin T 10/23/18 10/23/18 10/23/18 16:27 19:22 20:28 WBC RBC Hgb Hct MCV MCH MCHC RDW Plt Count Sodium Potassium Chloride Carbon Dioxide Anion Gap BUN Creatinine Estimated GFR BUN/Creatinine Ratio Glucose POC Glucose 108 H 96 Calcium Magnesium 9.50 H Total Creatine Kinase CK-MB (CK-2) CK-MB (CK-2) Rel Index Troponin T 10/23/18 10/24/18 10/24/18 22:41 05:12 05:12 WBC 12.6 H RBC 2.62 L Hgb 7.7 L Hct 23.3 L MCV 89 MCH 30 MCHC 33 RDW 14.8 Plt Count 334 Sodium 129 L Potassium 5.3 H Chloride 97.5 L Carbon Dioxide 16 L Anion Gap 21 BUN 41 H Creatinine 2.7 H Estimated GFR 25 BUN/Creatinine Ratio 15 Glucose 188 H POC Glucose Calcium 8.1 L Magnesium 8.30 H Total Creatine Kinase CK-MB (CK-2) CK-MB (CK-2) Rel Index Troponin T
--- NOTE | 2018-10-24 07:57 | Progress Note ---
Assessment and Plan UO 40cc /hr per RN Pt seen Full consult to follow A: IUP at 28 0/7 weeks gestation CHTN Severe IUGR with abnormal dopplers IDDM - with retinopathy and nephropathy -Hypoglycemia -Chest pain with elevated troponin -s/p cardiology consult Magnesium tocixity s/p Calcium Gluconate SOB s/p NICU Rec: 1. Continue RISS 2. Continue Procardia and Clonidine Continue serial BP monitoring Goal is to maintain the BP 120-160/80-105mmhg IV Hydralazine prn SBP>160mmhg , DBP>110mmhg 3. s/p cardiology consult echo 55-60% 4. Repeat Mag level is trending down slowly continue serial Mag levels continue to monitor UO - RN reports 40cc/hr 5.SOB -s/p VQ scan -awaiting results -continue O2 monitoring strict I/O The patient's condition and tracing was reviewed . Proceed with delivery via CS today . Anesthesiology consultation is advised Radiology has been contacted to read the VQ scan. Subjective - Subjective Date of service: 10/24/18 Principal diagnosis: IUP @ 28w0d; CHTN, Pre-E, IDDM Interval history: She reports increased SOB and edema Denied BLEDSOE, visual changes CAt I tracing noted S/p VQ scan -report pending Patient reports: movement normal Objective - Vital Signs Vital Signs: Vital Signs - 12hr 10/23/18 10/23/18 10/23/18 19:55 20:00 20:03 Pulse Rate 111 H 111 H 114 H Blood Pressure 168/84 O2 Sat by Pulse 97 97 Oximetry 10/23/18 10/23/18 10/23/18 20:05 20:10 20:15 Pulse Rate 111 H 109 H 104 H Blood Pressure O2 Sat by Pulse 98 98 96 Oximetry 10/23/18 10/23/18 10/23/18 20:17 20:18 20:20 Pulse Rate 104 H 105 H 105 H Blood Pressure 192/88 O2 Sat by Pulse 94 95 Oximetry 10/23/18 10/23/18 10/23/18 20:25 20:28 20:30 Pulse Rate 108 H 105 H 106 H Blood Pressure O2 Sat by Pulse 96 94 95 Oximetry 10/23/18 10/23/18 10/23/18 20:32 20:34 20:35 Pulse Rate 106 H 106 H 105 H Blood Pressure 189/82 O2 Sat by Pulse 94 96 Oximetry 10/23/18 10/23/18 10/23/18 20:40 20:45 20:47 Pulse Rate 107 H 108 H 106 H Blood Pressure 186/79 O2 Sat by Pulse 96 96 Oximetry 10/23/18 10/23/18 10/23/18 20:50 20:51 20:55 Pulse Rate 108 H 111 H 106 H Blood Pressure O2 Sat by Pulse 96 94 97 Oximetry 10/23/18 10/23/18 10/23/18 21:00 21:02 21:05 Pulse Rate 105 H 111 H 111 H Blood Pressure 185/79 O2 Sat by Pulse 97 96 Oximetry 10/23/18 10/23/18 10/23/18 21:10 21:15 21:18 Pulse Rate 117 H 114 H 112 H Blood Pressure 170/80 O2 Sat by Pulse 98 97 94 Oximetry 10/23/18 10/23/18 10/23/18 21:20 21:25 21:30 Pulse Rate 113 H 112 H 113 H Blood Pressure O2 Sat by Pulse 98 97 97 Oximetry 10/23/18 10/23/18 10/23/18 21:33 21:35 21:40 Pulse Rate 112 H 115 H 113 H Blood Pressure 188/85 O2 Sat by Pulse 97 96 Oximetry 10/23/18 10/23/18 10/23/18 21:45 21:47 21:50 Pulse Rate 113 H 112 H 119 H Blood Pressure 182/82 O2 Sat by Pulse 98 97 Oximetry 10/23/18 10/23/18 10/23/18 21:55 22:00 22:02 Pulse Rate 119 H 116 H 113 H Blood Pressure 198/88 O2 Sat by Pulse 99 98 Oximetry 10/23/18 10/23/18 10/23/18 22:05 22:10 22:15 Pulse Rate 111 H 109 H 109 H Blood Pressure O2 Sat by Pulse 97 96 96 Oximetry 10/23/18 10/23/18 10/23/18 22:17 22:20 22:25 Pulse Rate 111 H 107 H 111 H Blood Pressure 193/77 O2 Sat by Pulse 96 96 Oximetry 10/23/18 10/23/18 10/23/18 22:30 22:32 22:35 Pulse Rate 109 H 113 H 110 H Blood Pressure 200/89 O2 Sat by Pulse 96 96 Oximetry 10/23/18 10/23/18 10/23/18 22:40 22:45 22:48 Pulse Rate 112 H 112 H 113 H Blood Pressure 208/81 O2 Sat by Pulse 96 96 Oximetry 10/23/18 10/23/18 10/23/18 22:50 22:55 23:00 Pulse Rate 112 H 118 H 116 H Blood Pressure O2 Sat by Pulse 96 97 96 Oximetry 10/23/18 10/23/18 10/23/18 23:03 23:05 23:10 Pulse Rate 115 H 115 H 115 H Blood Pressure 222/88 O2 Sat by Pulse 96 96 Oximetry 10/23/18 10/23/18 10/23/18 23:15 23:16 23:18 Pulse Rate 113 H 113 H 113 H Blood Pressure 203/86 O2 Sat by Pulse 95 94 Oximetry 10/23/18 10/23/18 10/23/18 23:20 23:22 23:25 Pulse Rate 113 H 113 H 117 H Blood Pressure O2 Sat by Pulse 94 94 95 Oximetry 10/23/18 10/23/18 10/23/18 23:30 23:33 23:35 Pulse Rate 117 H 114 H 113 H Blood Pressure 203/84 O2 Sat by Pulse 95 94 94 Oximetry 10/23/18 10/23/18 10/23/18 23:38 23:40 23:43 Pulse Rate 115 H 114 H 113 H Blood Pressure 203/84 O2 Sat by Pulse 94 92 Oximetry 10/23/18 10/23/18 10/23/18 23:45 23:46 23:47 Pulse Rate 110 H 112 H 112 H Blood Pressure 196/76 196/77 O2 Sat by Pulse 93 Oximetry 10/23/18 10/23/18 10/23/18 23:50 23:55 23:56 Pulse Rate 112 H 116 H 118 H Blood Pressure O2 Sat by Pulse 92 92 93 Oximetry 10/24/18 10/24/18 10/24/18 00:00 00:03 00:05 Pulse Rate 116 H 116 H 116 H Blood Pressure 197/77 O2 Sat by Pulse 93 92 Oximetry 10/24/18 10/24/18 10/24/18 00:10 00:14 00:15 Pulse Rate 117 H 117 H 120 H Blood Pressure O2 Sat by Pulse 93 94 93 Oximetry 0510/24/18 10/24/18 00:18 00:20 00:25 Pulse Rate 121 H 117 H 114 H Blood Pressure 198/79 O2 Sat by Pulse 92 92 Oximetry 10/24/18 10/24/18 10/24/18 00:30 00:33 00:35 Pulse Rate 112 H 110 H 111 H Blood Pressure 132/58 O2 Sat by Pulse 92 92 Oximetry 10/24/18 10/24/18 10/24/18 00:40 00:45 00:47 Pulse Rate 110 H 110 H 114 H Blood Pressure 142/66 O2 Sat by Pulse 92 93 Oximetry 10/24/18 10/24/18 10/24/18 00:50 00:55 01:00 Pulse Rate 112 H 117 H 119 H Blood Pressure O2 Sat by Pulse 93 94 93 Oximetry 10/24/18 10/24/18 10/24/18 01:03 01:05 01:10 Pulse Rate 115 H 113 H 116 H Blood Pressure 161/65 O2 Sat by Pulse 93 93 Oximetry 10/24/18 10/24/18 10/24/18 01:15 01:17 01:20 Pulse Rate 116 H 117 H 118 H Blood Pressure 161/65 O2 Sat by Pulse 93 94 Oximetry 10/24/18 10/24/18 10/24/18 01:25 01:30 01:33 Pulse Rate 122 H 118 H 116 H Blood Pressure 146/67 O2 Sat by Pulse 94 95 Oximetry 10/24/18 10/24/18 10/24/18 01:35 01:37 01:40 Pulse Rate 118 H 118 H 120 H Blood Pressure O2 Sat by Pulse 94 94 94 Oximetry 10/24/18 10/24/18 10/24/18 01:44 01:45 01:47 Pulse Rate 118 H 118 H 116 H Blood Pressure 157/70 O2 Sat by Pulse 94 94 Oximetry 10/24/18 10/24/18 10/24/18 01:49 01:50 01:55 Pulse Rate 115 H 118 H 118 H Blood Pressure O2 Sat by Pulse 93 95 96 Oximetry 10/24/18 10/24/18 10/24/18 01:56 02:00 02:02 Pulse Rate 117 H 118 H 120 H Blood Pressure 164/72 O2 Sat by Pulse 93 94 Oximetry 10/24/18 10/24/18 10/24/18 02:05 02:07 02:10 Pulse Rate 120 H 120 H 120 H Blood Pressure O2 Sat by Pulse 93 94 94 Oximetry 10/24/18 10/24/18 10/24/18 02:12 02:15 02:17 Pulse Rate 118 H 119 H 118 H Blood Pressure 172/73 O2 Sat by Pulse 94 96 Oximetry 10/24/18 10/24/18 10/24/18 02:20 02:25 02:30 Pulse Rate 119 H 119 H 119 H Blood Pressure O2 Sat by Pulse 92 93 94 Oximetry 10/24/18 10/24/18 10/24/18 02:31 02:32 02:35 Pulse Rate 118 H 117 H 119 H Blood Pressure 171/73 O2 Sat by Pulse 94 93 Oximetry 10/24/18 10/24/18 10/24/18 02:40 02:45 02:47 Pulse Rate 117 H 117 H 118 H Blood Pressure 171/72 O2 Sat by Pulse 91 92 Oximetry 10/24/18 10/24/18 10/24/18 02:50 02:55 03:00 Pulse Rate 120 H 121 H 120 H Blood Pressure O2 Sat by Pulse 93 94 94 Oximetry 10/24/18 10/24/18 10/24/18 03:02 03:05 03:10 Pulse Rate 117 H 117 H 120 H Blood Pressure 169/70 O2 Sat by Pulse 92 91 92 Oximetry 10/24/18 10/24/18 10/24/18 03:15 03:17 03:20 Pulse Rate 124 H 120 H 118 H Blood Pressure 178/74 O2 Sat by Pulse 93 92 Oximetry 10/24/18 10/24/18 10/24/18 03:25 03:30 03:32 Pulse Rate 116 H 117 H 117 H Blood Pressure 180/74 O2 Sat by Pulse 92 92 Oximetry 10/24/18 10/24/18 10/24/18 03:35 03:36 03:40 Pulse Rate 116 H 120 H 120 H Blood Pressure O2 Sat by Pulse 93 94 94 Oximetry 10/24/18 10/24/18 10/24/18 03:43 03:45 03:47 Pulse Rate 118 H 117 H 118 H Blood Pressure 187/75 O2 Sat by Pulse 93 93 Oximetry 10/24/18 10/24/18 10/24/18 03:50 03:55 04:00 Pulse Rate 118 H 118 H 120 H Blood Pressure O2 Sat by Pulse 93 93 95 Oximetry 10/24/18 10/24/18 10/24/18 04:03 04:05 04:10 Pulse Rate 123 H 123 H 117 H Blood Pressure 181/77 O2 Sat by Pulse 96 93 Oximetry 10/24/18 10/24/18 10/24/18 04:12 04:15 04:20 Pulse Rate 118 H 118 H Blood Pressure O2 Sat by Pulse 84 96 95 Oximetry 10/24/18 10/24/18 10/24/18 04:25 04:30 04:32 Pulse Rate 119 H 120 H 118 H Blood Pressure O2 Sat by Pulse 97 97 94 Oximetry 10/24/18 10/24/18 10/24/18 04:35 04:40 04:42 Pulse Rate 120 H 121 H 120 H Blood Pressure O2 Sat by Pulse 96 95 94 Oximetry 10/24/18 10/24/18 10/24/18 04:45 04:50 04:55 Pulse Rate 117 H 120 H 120 H Blood Pressure O2 Sat by Pulse 94 93 94 Oximetry 10/24/18 10/24/18 10/24/18 04:58 05:00 05:05 Pulse Rate 120 H 120 H 121 H Blood Pressure O2 Sat by Pulse 94 94 92 Oximetry 10/24/18 10/24/18 10/24/18 05:10 05:15 05:16 Pulse Rate 119 H 119 H 120 H Blood Pressure O2 Sat by Pulse 94 96 94 Oximetry 10/24/18 10/24/18 10/24/18 05:20 05:25 05:30 Pulse Rate 120 H 120 H 121 H Blood Pressure O2 Sat by Pulse 93 93 94 Oximetry 10/24/18 10/24/18 10/24/18 05:33 05:35 05:39 Pulse Rate 119 H 120 H 118 H Blood Pressure O2 Sat by Pulse 94 94 93 Oximetry 10/24/18 10/24/18 10/24/18 05:40 05:45 05:50 Pulse Rate 119 H 119 H 120 H Blood Pressure O2 Sat by Pulse 93 93 94 Oximetry 10/24/18 10/24/18 10/24/18 05:55 05:58 06:00 Pulse Rate 118 H 118 H 119 H Blood Pressure O2 Sat by Pulse 93 94 94 Oximetry 10/24/18 10/24/18 10/24/18 06:05 06:07 06:10 Pulse Rate 119 H 120 H 122 H Blood Pressure 142/68 O2 Sat by Pulse 91 93 Oximetry 10/24/18 10/24/18 10/24/18 06:15 06:20 06:24 Pulse Rate 121 H 120 H 121 H Blood Pressure O2 Sat by Pulse 94 99 94 Oximetry 10/24/18 10/24/18 10/24/18 06:25 06:30 06:35 Pulse Rate 120 H 120 H 121 H Blood Pressure O2 Sat by Pulse 97 96 96 Oximetry 10/24/18 10/24/18 10/24/18 06:36 06:40 06:42 Pulse Rate 119 H 123 H 119 H Blood Pressure O2 Sat by Pulse 94 94 94 Oximetry 10/24/18 10/24/18 10/24/18 06:45 06:50 06:55 Pulse Rate 120 H 118 H 126 H Blood Pressure O2 Sat by Pulse 96 96 97 Oximetry 10/24/18 10/24/18 10/24/18 07:07 07:34 07:39 Pulse Rate 120 H 120 H 120 H Blood Pressure 142/67 O2 Sat by Pulse 94 96 Oximetry 10/24/18 10/24/18 10/24/18 07:44 07:49 07:51 Pulse Rate 120 H 124 H 122 H Blood Pressure O2 Sat by Pulse 95 95 94 Oximetry - Exam Narrative Exam: laying in bed appears edematous and uncomfortable Cardiovascular: Other (tachycardia no murmurs) Lungs: Other (slight wheezes, crackles, cleared with coughing) FHR: category 2 Uterine Contraction Pattern: Absent Extremities: edema (3+) - Labs Labs: Abnormal Labs 10/22/18 10/22/18 10/22/18 16:07 16:07 17:08 WBC RBC 3.01 L Hgb 9.0 L Hct 26.6 L Curry % (Auto) 7.8 H Sodium Potassium Chloride Carbon Dioxide BUN Creatinine 1.9 H Glucose POC Glucose 159 H Calcium Magnesium Lactate Dehydrogenase 449 H CK-MB (CK-2) Troponin T Triglycerides Cholesterol LDL Cholesterol Direct HDL Cholesterol 10/22/18 10/23/18 10/23/18 22:22 00:33 02:25 WBC RBC Hgb Hct Curry % (Auto) Sodium Potassium Chloride Carbon Dioxide BUN Creatinine Glucose POC Glucose 157 H 178 H Calcium Magnesium 5.90 H Lactate Dehydrogenase CK-MB (CK-2) Troponin T Triglycerides Cholesterol LDL Cholesterol Direct HDL Cholesterol 10/23/18 10/23/18 10/23/18 03:01 07:58 07:58 WBC RBC Hgb Hct Curry % (Auto) Sodium Potassium Chloride Carbon Dioxide BUN Creatinine Glucose POC Glucose Calcium Magnesium 8.60 H Lactate Dehydrogenase CK-MB (CK-2) 4.4 H 4.6 H Troponin T 0.057 H 0.068 H Triglycerides 158 H Cholesterol 310 H LDL Cholesterol Direct 230 H HDL Cholesterol 76 H 10/23/18 10/23/18 10/23/18 08:00 10:17 11:51 WBC RBC Hgb Hct Curry % (Auto) Sodium Potassium Chloride Carbon Dioxide BUN Creatinine Glucose POC Glucose 183 H 168 H 140 H Calcium Magnesium Lactate Dehydrogenase CK-MB (CK-2) Troponin T Triglycerides Cholesterol LDL Cholesterol Direct HDL Cholesterol 10/23/18 10/23/18 10/23/18 12:35 12:35 15:00 WBC RBC Hgb Hct Curry % (Auto) Sodium 132 L Potassium 5.2 H Chloride Carbon Dioxide 16 L BUN 38 H Creatinine 2.4 H Glucose 115 H POC Glucose 44 L Calcium 8.3 L Magnesium 10.30 H Lactate Dehydrogenase CK-MB (CK-2) Troponin T Triglycerides Cholesterol LDL Cholesterol Direct HDL Cholesterol 10/23/18 10/23/18 10/23/18 15:46 16:27 19:22 WBC RBC Hgb Hct Curry % (Auto) Sodium Potassium Chloride Carbon Dioxide BUN Creatinine Glucose POC Glucose 42 L 108 H Calcium Magnesium 9.50 H Lactate Dehydrogenase CK-MB (CK-2) Troponin T Triglycerides Cholesterol LDL Cholesterol Direct HDL Cholesterol 10/23/18 10/24/18 10/24/18 22:41 05:12 05:12 WBC 12.6 H RBC 2.62 L Hgb 7.7 L Hct 23.3 L Curry % (Auto) Sodium 129 L Potassium 5.3 H Chloride 97.5 L Carbon Dioxide 16 L BUN 41 H Creatinine 2.7 H Glucose 188 H POC Glucose Calcium 8.1 L Magnesium 8.30 H Lactate Dehydrogenase CK-MB (CK-2) Troponin T Triglycerides Cholesterol LDL Cholesterol Direct HDL Cholesterol 10/24/18 10/24/18 05:12 06:09 WBC RBC Hgb Hct Curry % (Auto) Sodium Potassium Chloride Carbon Dioxide BUN Creatinine Glucose POC Glucose 189 H Calcium Magnesium 8.20 H Lactate Dehydrogenase CK-MB (CK-2) Troponin T Triglycerides Cholesterol LDL Cholesterol Direct HDL Cholesterol Laboratory Results - last 24 hr 10/23/18 10/23/18 10/23/18 07:58 07:58 08:00 WBC RBC Hgb Hct MCV MCH MCHC RDW Plt Count Sodium Potassium Chloride Carbon Dioxide Anion Gap BUN Creatinine Estimated GFR BUN/Creatinine Ratio Glucose POC Glucose 183 H Calcium Magnesium 8.60 H Total Creatine Kinase 134 CK-MB (CK-2) 4.6 H CK-MB (CK-2) Rel Index 3.4 Troponin T 0.068 H 10/23/18 10/23/18 10/23/18 10:17 11:51 12:35 WBC RBC Hgb Hct MCV MCH MCHC RDW Plt Count Sodium Potassium Chloride Carbon Dioxide Anion Gap BUN Creatinine Estimated GFR BUN/Creatinine Ratio Glucose POC Glucose 168 H 140 H Calcium Magnesium 10.30 H Total Creatine Kinase CK-MB (CK-2) CK-MB (CK-2) Rel Index Troponin T 10/23/18 10/23/18 10/23/18 12:35 15:00 15:46 WBC RBC Hgb Hct MCV MCH MCHC RDW Plt Count Sodium 132 L Potassium 5.2 H Chloride 100.7 Carbon Dioxide 16 L Anion Gap 21 BUN 38 H Creatinine 2.4 H Estimated GFR 28 BUN/Creatinine Ratio 16 Glucose 115 H POC Glucose 44 L 42 L Calcium 8.3 L Magnesium Total Creatine Kinase CK-MB (CK-2) CK-MB (CK-2) Rel Index Troponin T 10/23/18 10/23/18 10/23/18 16:27 19:22 20:28 WBC RBC Hgb Hct MCV MCH MCHC RDW Plt Count Sodium Potassium Chloride Carbon Dioxide Anion Gap BUN Creatinine Estimated GFR BUN/Creatinine Ratio Glucose POC Glucose 108 H 96 Calcium Magnesium 9.50 H Total Creatine Kinase CK-MB (CK-2) CK-MB (CK-2) Rel Index Troponin T 10/23/18 10/24/18 10/24/18 22:41 05:12 05:12 WBC 12.6 H RBC 2.62 L Hgb 7.7 L Hct 23.3 L MCV 89 MCH 30 MCHC 33 RDW 14.8 Plt Count 334 Sodium 129 L Potassium 5.3 H Chloride 97.5 L Carbon Dioxide 16 L Anion Gap 21 BUN 41 H Creatinine 2.7 H Estimated GFR 25 BUN/Creatinine Ratio 15 Glucose 188 H POC Glucose Calcium 8.1 L Magnesium 8.30 H Total Creatine Kinase CK-MB (CK-2) CK-MB (CK-2) Rel Index Troponin T 10/24/18 10/24/18 05:12 06:09 WBC RBC Hgb Hct MCV MCH MCHC RDW Plt Count Sodium Potassium Chloride Carbon Dioxide Anion Gap BUN Creatinine Estimated GFR BUN/Creatinine Ratio Glucose POC Glucose 189 H Calcium Magnesium 8.20 H Total Creatine Kinase CK-MB (CK-2) CK-MB (CK-2) Rel Index Troponin T
[2018-10-24] MEDS ORDERED: PITOCin/NS 20 UNIT/1000ML DRIP 20 UNITS/1,000 ML BAG IV SCH (08:00)
[2018-10-24] MEDS ORDERED: LACTATED RINGERS 1,000 ML IV SCH (08:00)
[2018-10-24] MEDS ORDERED: ANCEF/STERILE WATER 2 GM/20 ML 2 GM/20 ML SYRINGE IV NR (08:00)
[2018-10-24] MEDS: ZOFRAN IV PRN (08:17)
[2018-10-24] MEDS: CATAPRES PO SCH ×4 (08:22→21:51)
--- NOTE | 2018-10-24 08:33 | Nuclear Medicine Report ---
PERFUSION LUNG SCAN: History: Shortness of breath. After injection of Technetium 99m macroaggregated albumin gamma camera imaging of the lungs in multiple projections demonstrates normal pulmonary contours with a homogeneous distribution of activity. No focal areas of perfusion deficiency are identified. Prominent cardiac shadow is noted. IMPRESSION: Normal study. No evidence for pulmonary embolus.
--- NOTE | 2018-10-24 08:34 | Event Note ---
Date: 10/24/18 (Due to chg in pt status and variables will proced with c/s today) Deep variables noted Resolved with right tilt. Pt continues to c/o labored breathing and all over discomfort Mag level 8.2 here to see pt. Recommends to move to c/s delivery today made aware C/S preop orders Consent for c/s and tubal signed and on the chart.
[2018-10-24] MEDS ORDERED: BICITRA PO ONE (09:00)
[2018-10-24] MEDS ORDERED: PEPCID IV ONE ×2 (09:00→12:17)
[2018-10-24] MEDS ORDERED: REGLAN IV ONE (09:00)
[2018-10-24] MEDS ORDERED: NACL 0.9% 500 ML 500 ML IV ONE ×2 (09:02→18:40)
[2018-10-24] MEDS: APRESOLINE IV PRN (10:39)
[2018-10-24] MEDS: PRENATAL VITAMIN PO SCH (11:04)
[2018-10-24] MEDS: PROCARDIA XL PO SCH ×2 (11:17→21:50)
[2018-10-24] MEDS: HumaLOG SUB-Q SCH (11:38)
[2018-10-24] MEDS ORDERED: REGLAN ONE (12:17)
[2018-10-24] MEDS ORDERED: BICITRA ONE (12:18)
[2018-10-24] MEDS ORDERED: HEMABATE IM ONE (12:22)
[2018-10-24 12:51] LABS: Hematocrit 25.5 % (30.3-42.9); Hemoglobin 8.4 gm/dl (10.1-14.3); Mean Corpuscular HGB Conc 33 % (30-34); Mean Corpuscular Volume 89 fl (79-97); Platelet Count 307 K/mm3 (140-440); Red Blood Count 2.88 M/mm3 (3.65-5.03); Red Cell Distribution Width 14.5 % (13.2-15.2)
[2018-10-24] MEDS ORDERED: SUBLIMAZE ONE (13:16)
[2018-10-24] MEDS ORDERED: ZOFRAN ONE (13:16)
--- NOTE | 2018-10-24 13:17 | Progress Note ---
Assessment and Plan Echo reviewed - EF 55-60%, impaired relaxation, trace TR. Pt lethargic, no current c/o chest pain. V/Q scan low prob for PE. Pt for delivery of baby via CS today. Will follow. The patient has been seen in conjunction with Dr. Henry who agrees with the assessment and plan of care. 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 Objective Last Vital Signs Temp 98.8 F 10/24/18 11:49 Pulse 116 H 10/24/18 12:51 Resp 22 10/24/18 11:49 BP 158/78 10/24/18 12:42 Pulse Ox 96 10/24/18 12:51 - Physical Examination General: Other (lethargic) Cardiac: Positive: Regular Rhythm, S1/S2, Tachycardia Lungs: Positive: Decreased Breath Sounds Neuro: Positive: Other (lethargic) Skin: Negative: Wound Extremities: Present: +1 Edema (BLE ) - Labs and Meds CBC 10/24/18 10/24/18 Range/Units 05:12 12:20 WBC 12.6 H 12.5 H (4.5-11.0) K/mm3 RBC 2.62 L 2.88 L (3.65-5.03) M/mm3 Hgb 7.7 L 8.4 L (10.1-14.3) gm/dl Hct 23.3 L 25.5 L (30.3-42.9) % Plt Count 334 307 (140-440) K/mm3 Comprehensive Metabolic Panel 10/23/18 10/24/18 Range/Units 12:35 05:12 Sodium 132 L 129 L (137-145) mmol/L Potassium 5.2 H 5.3 H (3.6-5.0) mmol/L Chloride 100.7 97.5 L (98-107) mmol/L Carbon Dioxide 16 L 16 L (22-30) mmol/L BUN 38 H 41 H (7-17) mg/dL Creatinine 2.4 H 2.7 H (0.7-1.2) mg/dL Glucose 115 H 188 H (65-100) mg/dL Calcium 8.3 L 8.1 L (8.4-10.2) mg/dL - Imaging and Cardiology EKG: report reviewed - Telemetry EKG Rhythm: Sinus Tachycardia
--- NOTE | 2018-10-24 13:33 | Event Note ---
Date: 10/24/18 Spoke with the patient early this morning discussed risks of surgery and desire for permanent sterilization. Patient was lethargic but understand conversation well. Patient informed the risks of the surgery include bleeding possibly bleeding heavy enough to require blood transfusion, infection possible damage to bowel bladder ureter. All questions answered. Patient desires permanent sterilization. Despite this being her first . Patient desire sterilization due to her medical conditions. She understands that this surgery would make her permanently sterile. She also understands the approximate 1% failure rate. The patient understands all the above and desires to proceed. Now patient in the operating room with some weakness in her lower extremities need assistance replacement operating table. Patient was elevated potassium and magnesium. We will aggressively diurese and give calcium after section is done.
[2018-10-24] MEDS ORDERED: DUONEB *Not for PRN Use IH SCH (14:00)
[2018-10-24] MEDS ORDERED: VERSED ONE (14:12)
--- NOTE | 2018-10-24 14:59 | Anesthesia Consultation ---
Anesthesia Consult and Med Hx Date of service: 10/24/18 - Airway Anesthetic Teeth Evaluation: Good ROM Head & Neck: Adequate Mental/Hyoid Distance: Adequate Mallampati Class: Class II Intubation Access Assessment: Good - Pulmonary Exam CTA: Yes - Cardiac Exam Cardiac Exam: RRR Anesthetic Concerns: Pt has been seen by Cardio for h/x of chest pain and increase triponins. EF 50-60%. Pt has recevied a unit of PRBC for drop in Hgb. - Pre-Operative Health Status ASA Pre-Surgery Classification: ASA3, Emergency Proposed Anesthetic Plan: Spinal - Pulmonary Hx Asthma: No COPD: No Hx Pneumonia: No - Cardiovascular System Hx Hypertension: Yes Hx Angina: Yes - Central Nervous System Hx Seizures: No Hx Psychiatric Problems: No - Endocrine Hx Renal Disease: Yes Hx End Stage Renal Disease: No Hx Insulin Dependent Diabetes: Yes Hx Hypothyroidism: No Hx Hyperthyroidism: No - Hematic Hx Anemia: No Hx Sickle Cell Disease: No - Other Systems Hx Alcohol Use: No Hx Cancer: No Hx Obesity: Yes
[2018-10-24] MEDS ORDERED: NACL 0.9% 1000 ML 1,000 ML IV SCH (15:00)
[2018-10-24] MEDS ORDERED: MORPHINE IV PRN (15:00)
--- NOTE | 2018-10-24 15:00 | Anesthesia Day of Surgery ---
Anesthesia Day of Surgery - Day of Surgery Patient Examined: Yes Patient H&P Reviewed: Yes Patient is NPO: Yes Chay's Test: N/A
--- NOTE | 2018-10-24 15:01 | Post Anesthesia Evaluation ---
- Post Anesthesia Evaluation Patient Participated: Yes Airway Patent: Yes Stable Respiratory Function: Yes Nausea/Vomiting: No Temp > 96.8F: Yes Pain Manageable: Yes Adequeate Hydration: Yes Anesthesia Complications: No Block Receding Appropriately: Yes Patient on Ventilator: No
--- NOTE | 2018-10-24 15:06 | Operative Report ---
Operative Report Operative Report: Date of procedure: 10/24/2018 Pre-operative diagnosis: Intrauterine at 28 weeks with poorly controll ed type 2 diabetes with nephropathy and retinopathy. Poorly controlled hypertension, worsening testing. Hypermagnemia and hyperkalemia. Desires permanent sterilization Post-operative diagnosis: Same Procedure name(s): Primary low transverse section with bilateral tubal ligation modified Neeraj type Surgeon: Osmin Kiser MD Food Sales Clerk: Melissa Dodd, apprentice technician Anesthesia: Spinal EBL: 600 mL Complications: None Findings: Normal uterus tubes and ovaries bilaterally. Female infant with nuchal cord 1. Apgars 7 at 1 minute 9 at 5 minutes. Weight is not known at this time Specimen(s): Placenta, portion of right and left fallopian tube Procedure: The patient was brought to the operating room. A spinal was placed without any complications. She was then placed in left lateral tilt. Prepped and draped in the usual sterile manner. After testing for adequate anesthesia level, a Pfannenstiel incision was made. This incision was taken down to the fascia. The fascia was then nicked in the midline. This incision was extended out laterally with Rodriguez scissors. The fascia was then sharply and bluntly from the underlying rectus muscles. The rectus muscles were bluntly and sharply . The peritoneum was then entered with the artificial snow making machine operator's fingers. This incision was spread vertically with care not to damage the bladder below. The Chris self-retaining tractor was then placed without any difficulty. The bladder flap was then formed sharply and bluntly with Metzenbaum scissors. A transverse incision was made in lower uterine segment. This incision was extended laterally with the operators fingers. The amniotic sac was then entered bluntly with the artificial snow making machine operator's fingers. The was delivered from the vertex position. Nuchal cord easily reduced. Bulb suction on the mother's abdomen. Cord was delayed clamped and cut. The was then passed to the nursery personnel who were in attendance. The above scores were given by the nursery personnel. The placenta was then bluntly removed. The uterus was then externalized and wiped clean the remaining products. The uterine incision was closed in layers. The first incision was closed in a locking manner using 0 Vicryl. This was followed by imbricating stitch also with 0 Vicryl. Attention was then switched to the patient's fallopian tubes. Each fallopian tube was identified by its fimbriated end. A portion of each tube was grabbed with the Gerardo clamp approximately 2-3 cm from the cornua. Each loop was double ligated with 0 plain suture. The loop were cut with Metzenbaum scissors. Each stump was found to be hemostatic and cauterized with the Bovie. Attention was then switched back to the uterine closure. This closure was hemostatic. The bladder flap was copiously irrigated and found to be hemostatic. The pelvis was copiously irrigated and found to be hemostatic. The uterus was then placed back to the patient's abdomen. The retractors were removed. The rectus muscles were inspected and found to be hemostatic. The fascia was then closed in a running manner using 0 Vicryl. This incision was hemostatic irrigation Bovie. The skin was reapproximated with 4-0 Vicryl subcuticularly. The patient tolerated procedure well. Her urine was clear. The was admitted to the well baby nursery. The patient was accompanied to recovery room in good condition. Instrument count correct 3.
[2018-10-24] MEDS ORDERED: CALCIUM GLUCONATE IV ONE (15:27)
[2018-10-24] MEDS ORDERED: DILAUDID IV PRN (15:30)
[2018-10-24] MEDS ORDERED: NARCAN 0.4 MG/1 ML IV PRN (15:30)
[2018-10-24] MEDS ORDERED: CALCIUM GLUCONATE 1,000 MG in NACL 0.9% 100 ML IV ONE (15:30)
[2018-10-24] MEDS ORDERED: LASIX IV ONE (16:00)
[2018-10-24] MEDS ORDERED: SODIUM CHLORIDE FLUSH SYRINGE 10 ML IV PRN ×2 (16:00→18:14)
[2018-10-24] MEDS ORDERED: PHENERGAN PR PRN (16:00)
[2018-10-24] MEDS ORDERED: PHENERGAN PO PRN (16:00)
[2018-10-24] MEDS ORDERED: ZOFRAN IV PRN (16:00)
--- NOTE | 2018-10-24 18:44 | Progress Note ---
Assessment and Plan Assessment and plan: Patient is a 33 -year-old woman who is 27 weeks , history of hypertension, diabetes, chronic kidney disease been evaluated for chest pain. Pain is in the epigastric area which she describes as sharp pain, lasted 20 minutes intermittently but is not resolved, she had 2 episodes. She presented f [facility] OBGYN office for admission following abnormal dopplers in their office. There is no radiation of the pain, intensity 4/10, , she did not take anything for the pain. Admits to nausea, palpitation, no shortness of breath, diaphoresis. On examination, patient reported intermittent midsternal chest pressure, First . Chest pain Cardiomegaly Acute Respiratory failure SOHAN secondary to vasomotor nephropathy Precipitatous drop in hgb with ANEMIA Hypermagenesima Hyponatremia Retinopathy Hyperkalemia-resolved HTN DM IUP S/P Plan Continue supportive care Nephrology and pulmonary consult Agree with blood transfusion Give bolus NS 500cc Increase IV fluids to 150cc/hr Patient is s/p Continue nebs Obtain renal ultrasound and urinalysis PROGONOSIS GUARDED AGREE WITH IMCU DVT/GI prophy Plan discussed with the patient in detail. The high probability of a clinically significant, sudden or life threatening deterioration of the [PULMOANRY, CARDIAC, RENAL] system(s) required my full and direct attention, intervention and personal management. The aggregate critical care time was [35] minutes. This time is in addition to time spent performing reported procedures but includes the following: [X] Data Review and interpretation [X] Patient assessment and monitoring of vital signs [X] Documentation [X] Medication orders and management History Interval history: Patient seen and examined, post , clinically looks better, still some pain but at surgical site and tachycardia Hospitalist Physical - Physical exam Narrative exam: General Apperance: The patient lying in bed, breathing comfortable HEENT: Normocephalic, atraumatic. Pupils equally round and reactive to light, EOMI, no sclericterus or JVD or thyromegaly or nodule. , no carotid bruit, mucous membranes moist, no exudate or erythema Heart: S1-S2, regular is rhythm Lungs: Clear to auscultation bilaterally, breathing comfortable Abdomen: surgical scare noted,. Positive bowel sounds, soft, nontender, nondistended, no organomegaly Extremities: No edema cyanosis clubbing Skin: no rash, nodule, warm and dry Neuro: cranial nerves 2-12 intact, speech is fluent, motor/sensory intact - Constitutional Vitals: Temp Pulse Resp BP Pulse Ox 98.4 F 94 H 18 149/71 98 10/24/18 14:55 10/24/18 16:57 10/24/18 15:40 10/24/18 16:57 10/24/18 15:40 Results - Labs CBC & Chem 7: 10/25/18 04:29 10/25/18 04:29 Labs: Laboratory Last Values WBC 12.5 K/mm3 (4.5-11.0) H 10/24/18 12:20 RBC 2.88 M/mm3 (3.65-5.03) L 10/24/18 12:20 Hgb 8.4 gm/dl (10.1-14.3) L 10/24/18 12:20 Hct 25.5 % (30.3-42.9) L 10/24/18 12:20 MCV 89 fl (79-97) 10/24/18 12:20 MCH 29 pg (28-32) 10/24/18 12:20 MCHC 33 % (30-34) 10/24/18 12:20 RDW 14.5 % (13.2-15.2) 10/24/18 12:20 Plt Count 307 K/mm3 (140-440) 10/24/18 12:20 Lymph % (Auto) 28.8 % (13.4-35.0) 10/22/18 16:07 [place] % (Auto) 7.8 % (0.0-7.3) H 10/22/18 16:07 Eos % (Auto) 0.7 % (0.0-4.3) 10/22/18 16:07 Baso % (Auto) 0.9 % (0.0-1.8) 10/22/18 16:07 Lymph # 2.6 K/mm3 (1.2-5.4) 10/22/18 16:07 [place]ran # 0.7 K/mm3 (0.0-0.8) 10/22/18 16:07 Eos # 0.1 K/mm3 (0.0-0.4) 10/22/18 16:07 Baso # 0.1 K/mm3 (0.0-0.1) 10/22/18 16:07 Seg Neutrophils % 61.8 % (40.0-70.0) 10/22/18 16:07 Seg Neutrophils # 5.5 K/mm3 (1.8-7.7) 10/22/18 16:07 Sodium 132 mmol/L (137-145) L 10/24/18 15:21 Potassium 4.3 mmol/L (3.6-5.0) 10/24/18 15:21 Chloride 101.8 mmol/L (98-107) 10/24/18 15:21 Carbon Dioxide 15 mmol/L (22-30) L 10/24/18 15:21 20 mmol/L 10/24/18 15:21 BUN 39 mg/dL (7-17) H 10/24/18 15:21 2.7 mg/dL (0.7-1.2) H 10/24/18 15:21 Estimated GFR 25 ml/min 10/24/18 15:21 14 % 10/24/18 15:21 Glucose 156 mg/dL (65-100) H 10/24/18 15:21 POC Glucose 146 (70-105) H 10/24/18 13:23 6.0 mg/dL (3.5-7.6) 10/22/18 16:07 Calcium 7.0 mg/dL (8.4-10.2) L 10/24/18 15:21 Magnesium 6.30 mg/dL (1.7-2.3) H 10/24/18 15:19 AST 27 units/L (5-40) 10/22/18 16:07 ALT 18 units/L (7-56) 10/22/18 16:07 449 units/L (91-180) H 10/22/18 16:07 134 units/L (30-135) 10/23/18 07:58 CK-MB (CK-2) 4.6 ng/mL (0.0-4.0) H 10/23/18 07:58 CK-MB (CK-2) Rel Index 3.4 (0-4) 10/23/18 07:58 0.068 ng/mL (0.00-0.029) H 10/23/18 07:58 Triglycerides 158 mg/dL (2-149) H 10/23/18 03:01 Cholesterol 310 mg/dL (50-199) H 10/23/18 03:01 230 mg/dL (50-130) H 10/23/18 03:01 76 mg/dL (40-59) H 10/23/18 03:01 4.07 % 10/23/18 03:01 Blood Type O POSITIVE 10/22/18 16:36 Antibody Screen TNR 10/22/18 16:36 TROY Antibody Screen Negative 10/22/18 16:36 Crossmatch See Detail 10/22/18 16:36 Active Medications - Current Medications Current Medications: Generic Name Dose Route Start Last Admin Trade Name Freq PRN Reason Stop Dose Admin Acetaminophen/Hydrocodone Bitart 2 each 10/24/18 18:14 [place] 5/325 PO Q6H PRN Pain, Moderate (4-6) Albuterol 2.5 mg 10/24/18 12:58 Proventil IH Q4HRT PRN Shortness Of Breath Clonidine HCl 0.3 mg 10/22/18 19:19 10/24/18 16:57 Catapres PO 0.3 mg TID TIFFANIE Administration Sodium Chloride 1,000 mls @ 150 mls/hr 10/24/18 18:14 Nacl 0.9% 1000 Ml IV DIRECT TIFFANIE Ketorolac Tromethamine 30 mg 10/24/18 18:14 Toradol IV 10/25/18 14:59 Q6H TIFFANIE Morphine Sulfate 2.5 mg 10/24/18 15:00 Morphine IV 10/24/18 21:00 Q15M PRN Breakthrough Pain Naloxone HCl 0.2 mg 10/24/18 15:30 Narcan 0.4 Mg/1 Ml IV Q2MIN PRN Res Rate </= 8 or 02 SAT < 92% Nifedipine 90 mg 10/23/18 22:00 10/24/18 11:17 Procardia Xl PO 90 mg BID TIFFANIE Administration Promethazine HCl 25 mg 10/24/18 16:00 Phenergan GA Q6H PRN Nausea And Vomiting Sodium Chloride 10 ml 10/24/18 22:00 Sodium Chloride Flush Syringe 10 Ml IV BID TIFFANIE Sodium Chloride 10 ml 10/24/18 18:14 Sodium Chloride Flush Syringe 10 Ml IV PRN PRN LINE FLUSH
[2018-10-24 19:43] LABS: Hematocrit 25.8 % (30.3-42.9); Hemoglobin 8.6 gm/dl (10.1-14.3); Mean Corpuscular HGB Conc 33 % (30-34); Mean Corpuscular Volume 92 fl (79-97); Platelet Count 325 K/mm3 (140-440); Red Blood Count 2.82 M/mm3 (3.65-5.03); Red Cell Distribution Width 15.1 % (13.2-15.2)
--- NOTE | 2018-10-24 19:53 | Progress Note ---
Assessment and Plan - Patient Problems (1) delivery delivered Current Visit: Yes Status: Acute (2) Hyperkalemia Current Visit: Yes Status: Resolved (3) Diabetes mellitus with nephropathy Current Visit: Yes Status: Acute Plan to address problem: Urine output improving continue to watch closely. (4) Diabetes mellitus with retinopathy Current Visit: Yes Status: Acute Qualifiers: Diabetes mellitus type: type 2 Diabetic retinopathy severity: with unspecified retinopathy severity (5) Hypermagnesemia Current Visit: Yes Status: Acute Plan to address problem: Improving patient now movement extremities much better. (6) Diabetes Current Visit: Yes Status: Chronic Qualifiers: Diabetes mellitus type: type 2 Diabetes mellitus oil heaterman insulin use: without nursing home use Diabetes mellitus complication status: without complication Qualified Code(s): E11.9 - Type 2 diabetes mellitus without complications (7) Uncontrolled hypertension Current Visit: Yes Status: Chronic Plan to address problem: Blood pressure stable at present continue to monitor closely (8) Acute on chronic renal failure Current Visit: Yes Status: Acute Qualifiers: Acute renal failure type: unspecified Chronic kidney disease stage: stage 3 (moderate) Qualified Code(s): N17.9 - Acute kidney failure, unspecified; N18.3 - Chronic kidney disease, stage 3 (moderate) (9) Chest pain Current Visit: Yes Status: Acute Qualifiers: Chest pain type: other chest pain Qualified Code(s): R07.89 - Other chest pain; R07.8 - Other chest pain Plan to address problem: Patient without pain of present also denied shortness of breath. Appreciate hospitalist and cardiology follow patient with us. Subjective Date of service: 10/24/18 (IM[facility] Note) Principal diagnosis: Day of surgery Interval history: Patient is alert and awake in IMCU she denies any headaches, blurred vision or chest pain. Patient complains of some incisional pain. Denies any nausea or vomiting. Objective - Constitutional Vitals: Vital Signs - 12hr 10/24/18 10/24/18 10/24/18 07:54 07:59 08:04 Temperature Pulse Rate 124 H 123 H 121 H Respiratory Rate Blood Pressure O2 Sat by Pulse 96 95 95 Oximetry 10/24/18 10/24/18 10/24/18 08:07 08:09 08:14 Temperature Pulse Rate 120 H 120 H 122 H Respiratory Rate Blood Pressure 138/65 O2 Sat by Pulse 96 96 Oximetry 10/24/18 10/24/18 10/24/18 08:19 08:22 09:08 Temperature Pulse Rate 123 H 120 H 118 H Respiratory Rate Blood Pressure 138/65 171/75 O2 Sat by Pulse 96 Oximetry 10/24/18 10/24/18 10/24/18 09:31 09:36 09:41 Temperature Pulse Rate 118 H 119 H 117 H Respiratory Rate Blood Pressure O2 Sat by Pulse 95 94 94 Oximetry 10/24/18 10/24/18 10/24/18 09:46 09:51 09:56 Temperature Pulse Rate 118 H 116 H 115 H Respiratory Rate Blood Pressure 147/77 O2 Sat by Pulse 93 93 100 Oximetry 10/24/18 10/24/18 10/24/18 10:01 10:06 10:07 Temperature Pulse Rate 119 H 120 H 120 H Respiratory Rate Blood Pressure 173/87 O2 Sat by Pulse 100 100 Oximetry 10/24/18 10/24/18 10/24/18 10:11 10:15 10:16 Temperature 99.1 F Pulse Rate 114 H 120 H Respiratory Rate Blood Pressure O2 Sat by Pulse 100 100 Oximetry 10/24/18 10/24/18 10/24/18 10:21 10:25 10:26 Temperature Pulse Rate 117 H 116 H 114 H Respiratory Rate Blood Pressure 149/82 O2 Sat by Pulse 100 100 Oximetry 10/24/18 10/24/18 10/24/18 10:30 10:31 10:35 Temperature Pulse Rate 117 H 119 H 117 H Respiratory Rate Blood Pressure 185/85 199/88 O2 Sat by Pulse 100 Oximetry 10/24/18 10/24/18 10/24/18 10:36 10:39 10:40 Temperature Pulse Rate 120 H 116 H 117 H Respiratory Rate Blood Pressure 209/88 209/88 O2 Sat by Pulse 99 Oximetry 10/24/18 10/24/18 10/24/18 10:41 10:45 10:46 Temperature Pulse Rate 115 H 117 H 118 H Respiratory Rate Blood Pressure 210/85 O2 Sat by Pulse 100 100 Oximetry 10/24/18 10/24/18 10/24/18 10:50 10:51 10:55 Temperature Pulse Rate 117 H 121 H 120 H Respiratory Rate Blood Pressure 215/84 209/81 O2 Sat by Pulse 98 Oximetry 10/24/18 10/24/18 10/24/18 10:56 11:00 11:01 Temperature Pulse Rate 120 H 118 H 120 H Respiratory Rate Blood Pressure 209/81 O2 Sat by Pulse 96 95 Oximetry 10/24/18 10/24/18 10/24/18 11:05 11:06 11:08 Temperature Pulse Rate 116 H 117 H 119 H Respiratory Rate Blood Pressure 166/73 O2 Sat by Pulse 94 94 Oximetry 10/24/18 10/24/18 10/24/18 11:10 11:11 11:15 Temperature Pulse Rate 116 H 116 H 116 H Respiratory Rate Blood Pressure 162/68 O2 Sat by Pulse 95 94 Oximetry 10/24/18 10/24/18 10/24/18 11:16 11:21 11:25 Temperature Pulse Rate 117 H 119 H 116 H Respiratory Rate Blood Pressure 145/70 O2 Sat by Pulse 94 92 Oximetry 10/24/18 10/24/18 10/24/18 11:26 11:28 11:30 Temperature Pulse Rate 116 H 116 H 116 H Respiratory Rate Blood Pressure 154/74 O2 Sat by Pulse 94 94 Oximetry 10/24/18 10/24/18 10/24/18 11:31 11:35 11:36 Temperature Pulse Rate 116 H 114 H 115 H Respiratory Rate Blood Pressure 159/77 O2 Sat by Pulse 93 99 Oximetry 10/24/18 10/24/18 10/24/18 11:40 11:41 11:45 Temperature Pulse Rate 113 H 111 H 117 H Respiratory Rate Blood Pressure 151/67 169/79 O2 Sat by Pulse 99 Oximetry 10/24/18 10/24/18 10/24/18 11:46 11:49 11:50 Temperature 98.8 F Pulse Rate 113 H 117 H Respiratory 22 Rate Blood Pressure 160/70 O2 Sat by Pulse 99 94 Oximetry 10/24/18 10/24/18 10/24/18 11:51 11:55 11:56 Temperature Pulse Rate 113 H 113 H 113 H Respiratory Rate Blood Pressure 154/71 O2 Sat by Pulse 97 97 Oximetry 10/24/18 10/24/18 10/24/18 12:00 12:01 12:05 Temperature Pulse Rate 111 H 111 H 111 H Respiratory Rate Blood Pressure 153/70 141/67 O2 Sat by Pulse 96 Oximetry 10/24/18 10/24/18 10/24/18 12:06 12:10 12:11 Temperature Pulse Rate 110 H 110 H 110 H Respiratory Rate Blood Pressure 144/67 O2 Sat by Pulse 96 94 95 Oximetry 10/24/18 10/24/18 10/24/18 12:16 12:21 12:26 Temperature Pulse Rate 115 H 116 H 117 H Respiratory Rate Blood Pressure O2 Sat by Pulse 95 95 96 Oximetry 10/24/18 10/24/18 10/24/18 12:31 12:36 12:41 Temperature Pulse Rate 115 H 116 H 115 H Respiratory Rate Blood Pressure O2 Sat by Pulse 97 96 97 Oximetry 10/24/18 10/24/18 10/24/18 12:42 12:46 12:51 Temperature Pulse Rate 113 H 117 H 116 H Respiratory Rate Blood Pressure 158/78 O2 Sat by Pulse 96 96 Oximetry 10/24/18 10/24/18 10/24/18 14:55 15:00 15:05 Temperature 98.4 F Pulse Rate 116 H 115 H 118 H Respiratory 20 17 17 Rate Blood Pressure 132/59 132/64 133/69 O2 Sat by Pulse 89 99 99 Oximetry 10/24/18 10/24/18 10/24/18 15:10 15:25 15:40 Temperature Pulse Rate 117 H 120 H 119 H Respiratory 17 17 18 Rate Blood Pressure 142/70 145/70 145/68 O2 Sat by Pulse 99 99 98 Oximetry 10/24/18 10/24/18 10/24/18 16:57 18:32 18:41 Temperature Pulse Rate 94 H 117 H 122 H Respiratory 18 19 Rate Blood Pressure 149/71 O2 Sat by Pulse 96 95 Oximetry 10/24/18 10/24/18 10/24/18 18:51 19:00 19:11 Temperature Pulse Rate 124 H 123 H 120 H Respiratory 19 19 18 Rate Blood Pressure 143/69 133/61 143/69 O2 Sat by Pulse 95 94 96 Oximetry 10/24/18 10/24/18 19:21 19:32 Temperature Pulse Rate 124 H 124 H Respiratory 22 Rate Blood Pressure 143/69 O2 Sat by Pulse 95 Oximetry General appearance: Present: mild distress, well-nourished - Respiratory Respiratory effort: normal - Breasts Breasts: deferred - Cardiovascular Rhythm: regular Extremity abnormal: edema - Gastrointestinal General gastrointestinal: Present: soft, tender (appropriately), other (bandage clean and dry) Rectal Exam: deferred - Genitourinary Female genitourinary: deferred - Integumentary Integumentary: clear, warm, dry - Musculoskeletal Musculoskeletal: strength equal bilaterally - Neurologic Neurologic: moves all extremities - Psychiatric Psychiatric: appropriate mood/affect - Labs CBC & Chem 7: 10/24/18 19:18 10/24/18 15:21 Labs: Abnormal lab results 10/22/18 10/23/18 10/23/18 Range/Units 16:36 19:22 22:41 WBC (4.5-11.0) K/mm3 RBC (3.65-5.03) M/mm3 Hgb (10.1-14.3) gm/dl Hct (30.3-42.9) % Sodium (137-145) mmol/L Potassium (3.6-5.0) mmol/L Chloride (98-107) mmol/L Carbon Dioxide (22-30) mmol/L BUN (7-17) mg/dL Creatinine (0.7-1.2) mg/dL Glucose (65-100) mg/dL POC Glucose (70-105) Calcium (8.4-10.2) mg/dL Magnesium 9.50 H 8.30 H (1.7-2.3) mg/dL Crossmatch See Detail 10/24/18 10/24/18 10/24/18 Range/Units 05:12 05:12 05:12 WBC 12.6 H (4.5-11.0) K/mm3 RBC 2.62 L (3.65-5.03) M/mm3 Hgb 7.7 L (10.1-14.3) gm/dl Hct 23.3 L (30.3-42.9) % Sodium 129 L (137-145) mmol/L Potassium 5.3 H (3.6-5.0) mmol/L Chloride 97.5 L (98-107) mmol/L Carbon Dioxide 16 L (22-30) mmol/L BUN 41 H (7-17) mg/dL Creatinine 2.7 H (0.7-1.2) mg/dL Glucose 188 H (65-100) mg/dL POC Glucose (70-105) Calcium 8.1 L (8.4-10.2) mg/dL Magnesium 8.20 H (1.7-2.3) mg/dL Crossmatch 10/24/18 10/24/18 10/24/18 Range/Units 06:09 09:27 10:27 WBC (4.5-11.0) K/mm3 RBC (3.65-5.03) M/mm3 Hgb (10.1-14.3) gm/dl Hct (30.3-42.9) % Sodium (137-145) mmol/L Potassium (3.6-5.0) mmol/L Chloride (98-107) mmol/L Carbon Dioxide (22-30) mmol/L BUN (7-17) mg/dL Creatinine (0.7-1.2) mg/dL Glucose (65-100) mg/dL POC Glucose 189 H 211 H (70-105) Calcium (8.4-10.2) mg/dL Magnesium 7.80 H (1.7-2.3) mg/dL Crossmatch 10/24/18 10/24/18 10/24/18 Range/Units 12:20 12:20 12:44 WBC 12.5 H (4.5-11.0) K/mm3 RBC 2.88 L (3.65-5.03) M/mm3 Hgb 8.4 L (10.1-14.3) gm/dl Hct 25.5 L (30.3-42.9) % Sodium (137-145) mmol/L Potassium (3.6-5.0) mmol/L Chloride (98-107) mmol/L Carbon Dioxide (22-30) mmol/L BUN (7-17) mg/dL Creatinine (0.7-1.2) mg/dL Glucose (65-100) mg/dL POC Glucose 204 H (70-105) Calcium (8.4-10.2) mg/dL Magnesium 7.50 H (1.7-2.3) mg/dL Crossmatch 10/24/18 10/24/18 10/24/18 Range/Units 13:23 15:19 15:21 WBC (4.5-11.0) K/mm3 RBC (3.65-5.03) M/mm3 Hgb (10.1-14.3) gm/dl Hct (30.3-42.9) % Sodium 132 L (137-145) mmol/L Potassium (3.6-5.0) mmol/L Chloride (98-107) mmol/L Carbon Dioxide 15 L (22-30) mmol/L BUN 39 H (7-17) mg/dL Creatinine 2.7 H (0.7-1.2) mg/dL Glucose 156 H (65-100) mg/dL POC Glucose 146 H (70-105) Calcium 7.0 L (8.4-10.2) mg/dL Magnesium 6.30 H (1.7-2.3) mg/dL Crossmatch 10/24/18 Range/Units 19:18 WBC 17.4 H (4.5-11.0) K/mm3 RBC 2.82 L (3.65-5.03) M/mm3 Hgb 8.6 L (10.1-14.3) gm/dl Hct 25.8 L (30.3-42.9) % Sodium (137-145) mmol/L Potassium (3.6-5.0) mmol/L Chloride (98-107) mmol/L Carbon Dioxide (22-30) mmol/L BUN (7-17) mg/dL Creatinine (0.7-1.2) mg/dL Glucose (65-100) mg/dL POC Glucose (70-105) Calcium (8.4-10.2) mg/dL Magnesium (1.7-2.3) mg/dL Crossmatch Medications & Allergies - Medications Allergies/Adverse Reactions: Allergies No Known Allergies Allergy (Verified 09/24/18 07:35) Home Medications: Home Medications Medication Instructions Recorded Confirmed Last Taken Type Lispro Insulin [Humalog] 8 unit SQ TID 09/24/18 09/25/18 09/25/18 08:00 History 1 NIFEdipine [Nifedipine ER] 60 mg PO DAILY 09/24/18 09/25/18 09/25/18 09:00 History 1 cloNIDine [Catapres] 0.2 mg PO BID 09/24/18 09/25/18 09/25/18 09:00 History 1 Aspirin [Aspirin BABY CHEW TAB] 81 mg PO QDAY 09/25/18 09/25/18 09/24/18 22:00 History 1 Progesterone, Micronized 200 mg VG QPM 09/25/18 09/25/18 09/24/18 22:00 History [Progesterone] NIFEdipine XL [Procardia Xl] 90 mg PO QDAY #30 tablet 09/29/18 Unknown Rx cloNIDine [Catapres] 0.2 mg PO TID #90 tablet 09/29/18 Unknown Rx Active Medications: Generic Name Dose Route Start Last Admin Trade Name Freq PRN Reason Stop Dose Admin Acetaminophen/Hydrocodone Bitart 2 each 10/24/18 18:14 [place] 5/325 PO Q6H PRN Pain, Moderate (4-6) Albuterol 2.5 mg 10/24/18 12:58 Proventil IH Q4HRT PRN Shortness Of Breath Clonidine HCl 0.3 mg 10/22/18 19:19 10/24/18 16:57 Catapres PO 0.3 mg TID TIFFANIE Administration Sodium Chloride 1,000 mls @ 150 mls/hr 10/24/18 18:14 Nacl 0.9% 1000 Ml IV DIRECT TIFFANIE Ketorolac Tromethamine 30 mg 10/24/18 18:14 Toradol IV 10/25/18 14:59 Q6H TIFFANIE Morphine Sulfate 2.5 mg 10/24/18 15:00 Morphine IV 10/24/18 21:00 Q15M PRN Breakthrough Pain Naloxone HCl 0.2 mg 10/24/18 15:30 Narcan 0.4 Mg/1 Ml IV Q2MIN PRN Res Rate </= 8 or 02 SAT < 92% Nifedipine 90 mg 10/23/18 22:00 10/24/18 11:17 Procardia Xl PO 90 mg BID TIFFANIE Administration Promethazine HCl 25 mg 10/24/18 16:00 Phenergan DC Q6H PRN Nausea And Vomiting Sodium Chloride 10 ml 10/24/18 22:00 Sodium Chloride Flush Syringe 10 Ml IV BID TIFFANIE Sodium Chloride 10 ml 10/24/18 18:14 Sodium Chloride Flush Syringe 10 Ml IV PRN PRN LINE FLUSH
[2018-10-24] MEDS: TORADOL IV SCH (20:05)
[2018-10-24 20:24] LABS: Basophils % (Manual) 0 % (0.0-1.8); Eosinophils % (Manual) 0 % (0.0-4.3); Total Cells Counted 100
[2018-10-24 20:25] LABS: RBC Morphology Normal
[2018-10-24] MEDS: NORCO 5/325 PO PRN (21:50)
[2018-10-24] MEDS: SODIUM CHLORIDE FLUSH SYRINGE 10 ML IV SCH (21:51)
[2018-10-25] MEDS: TORADOL IV SCH ×3 (01:24→13:00)
[2018-10-25] MEDS: NACL 0.9% 1000 ML 1,000 ML IV SCH ×3 (01:25→18:55)
[2018-10-25 05:28] LABS: Basophils % (Auto) 0.1 % (0.0-1.8); Hematocrit 24.3 % (30.3-42.9); Hemoglobin 8.2 gm/dl (10.1-14.3); Lymphocytes # (Auto) 1.3 K/mm3 (1.2-5.4); Mean Corpuscular HGB Conc 34 % (30-34); Mean Corpuscular Volume 89 fl (79-97); Monocytes # (Auto) 1.1 K/mm3 (0.0-0.8); Monocytes % (Auto) 9.3 % (0.0-7.3); Platelet Count 289 K/mm3 (140-440); Red Blood Count 2.75 M/mm3 (3.65-5.03); Red Cell Distribution Width 14.4 % (13.2-15.2)
[2018-10-25 06:01] LABS: Alanine Aminotransferase 16 units/L (7-56); Albumin 2.4 g/dL (3.9-5); BUN/Creatinine Ratio 15; Blood Urea Nitrogen 46 mg/dL (7-17); Calcium 7.6 mg/dL (8.4-10.2); Hemolysis Index 0
[2018-10-25] MEDS: CATAPRES PO SCH ×3 (08:14→21:18)
[2018-10-25] MEDS: PROCARDIA XL PO SCH ×2 (10:00→21:19)
[2018-10-25] MEDS: SODIUM CHLORIDE FLUSH SYRINGE 10 ML IV SCH ×2 (10:00→21:20)
[2018-10-25] MEDS: NORCO 5/325 PO PRN (10:07)
--- NOTE | 2018-10-25 10:30 | Progress Note ---
Assessment and Plan - Patient Problems (1) Acute on chronic renal failure Current Visit: Yes Status: Acute Qualifiers: Acute renal failure type: unspecified Chronic kidney disease stage: stage 3 (moderate) Qualified Code(s): N17.9 - Acute kidney failure, unspecified; N18.3 - Chronic kidney disease, stage 3 (moderate) Plan to address problem: -management as per hospitalist team -seems to be stable (2) delivery delivered Current Visit: Yes Status: Acute Plan to address problem: -con't post op care -advance diet today -ambulation today -will transfer to mother baby floor when stable from medicine/cardiac standpoint -pt overall doing well. (3) Diabetes mellitus with nephropathy Current Visit: Yes Status: Acute Plan to address problem: -will con't SSI and recs offered by Hosptialist team (4) Diabetes mellitus with retinopathy Current Visit: Yes Status: Acute Qualifiers: Diabetes mellitus type: type 2 Diabetic retinopathy severity: with unspecified retinopathy severity Subjective - Subjective Date of service: 10/25/18 Principal diagnosis: POD #1 s/p 1LTCS WITH BTL 2)chtn 3)IDDM 4)renal disease Interval history: pt is doing well this am. She has not had an nausea or emesis. Cath is removed so will monitor uop. She reports no dizziness with ambulation or blurry vision. Will start clear liquid diet and advance as tolerated. BP is stable and BS are improved after delivery. Patient reports: pain well controlled, no dizzy ambulation, no flatus : doing well, in NICU Objective - Vital Signs Latest vital signs: Vital Signs Temp Pulse Pulse Pulse Resp BP Pulse Ox 10/25/18 08:58 98 10/25/18 08:14 118 H 147/78 10/25/18 08:00 98.4 F 114 H 118 H 24 147/78 96 10/25/18 07:01 116 H 19 140/74 96 10/25/18 07:00 118 H 10/25/18 06:01 117 H 21 140/74 93 10/25/18 05:01 115 H 19 140/74 95 10/25/18 04:21 111 H 21 140/74 91 10/25/18 04:11 111 H 20 140/74 90 10/25/18 04:00 97.8 F 112 H 110 H 19 140/74 89 10/25/18 03:51 111 H 26 H 130/68 90 10/25/18 03:41 115 H 18 130/68 91 10/25/18 03:31 111 H 17 130/68 90 10/25/18 03:21 110 H 14 130/68 92 10/25/18 03:11 111 H 20 130/68 91 10/25/18 03:01 111 H 21 130/68 90 10/25/18 03:00 117 H 10/25/18 02:51 111 H 17 130/68 90 10/25/18 02:41 110 H 19 130/68 93 10/25/18 02:31 111 H 19 130/68 90 10/25/18 02:21 111 H 20 130/68 91 10/25/18 02:11 114 H 22 130/68 88 10/25/18 02:01 111 H 18 130/68 91 10/25/18 01:51 110 H 16 130/68 90 10/25/18 01:41 110 H 19 130/68 90 10/25/18 01:31 112 H 19 130/68 94 10/25/18 01:21 111 H 20 130/68 90 10/25/18 01:11 114 H 20 130/68 91 10/25/18 01:01 114 H 18 130/68 92 10/25/18 00:51 113 H 19 130/68 92 10/25/18 00:40 112 H 18 130/68 92 10/25/18 00:31 113 H 20 130/68 92 10/25/18 00:21 114 H 19 130/68 92 10/25/18 00:11 114 H 19 130/68 92 10/25/18 00:07 115 H 20 130/68 93 10/25/18 00:00 117 H 112 H 19 130/68 94 10/24/18 23:54 114 H 19 128/59 94 10/24/18 23:51 113 H 21 128/59 94 10/24/18 23:41 114 H 18 128/59 96 10/24/18 23:32 125 H 10/24/18 23:31 116 H 20 128/59 94 10/24/18 23:30 98.1 F 10/24/18 23:21 117 H 19 128/59 94 10/24/18 23:11 115 H 19 128/59 94 10/24/18 23:01 117 H 21 128/59 94 10/24/18 22:51 116 H 20 128/59 93 10/24/18 22:41 119 H 20 128/59 93 10/24/18 22:31 124 H 25 H 128/59 94 10/24/18 22:21 125 H 25 H 128/59 94 10/24/18 22:11 123 H 24 128/59 95 10/24/18 22:01 126 H 14 128/59 95 10/24/18 21:51 125 H 20 128/59 97 10/24/18 21:49 125 H 128/59 10/24/18 21:41 124 H 16 128/59 96 10/24/18 21:31 124 H 17 128/59 98 10/24/18 21:21 125 H 20 128/59 97 10/24/18 21:11 126 H 15 128/59 97 10/24/18 21:01 125 H 25 H 128/59 97 10/24/18 20:51 125 H 23 128/59 97 10/24/18 20:41 126 H 24 128/59 97 10/24/18 20:31 131 H 17 128/59 96 10/24/18 20:21 125 H 23 133/60 97 10/24/18 20:11 125 H 24 133/60 97 10/24/18 20:00 126 H 125 H 17 133/60 94 10/24/18 19:51 126 H 15 143/69 97 10/24/18 19:41 126 H 16 143/69 97 10/24/18 19:32 124 H 10/24/18 19:31 127 H 12 143/69 97 10/24/18 19:30 98.3 F 10/24/18 19:21 124 H 22 143/69 95 10/24/18 19:11 120 H 18 143/69 96 10/24/18 19:00 123 H 19 133/61 94 10/24/18 18:51 124 H 19 143/69 95 10/24/18 18:41 122 H 19 95 10/24/18 18:32 117 H 18 96 10/24/18 18:00 121 H 15 96 10/24/18 16:57 94 H 149/71 10/24/18 15:40 119 H 18 145/68 98 05/30/19 15:25 120 H 17 145/70 99 10/24/18 15:10 117 H 17 142/70 99 10/24/18 15:05 118 H 17 133/69 99 10/24/18 15:00 115 H 17 132/64 99 10/24/18 14:55 98.4 F 116 H 20 132/59 89 10/24/18 12:51 116 H 96 10/24/18 12:46 117 H 96 10/24/18 12:42 113 H 158/78 10/24/18 12:41 115 H 97 10/24/18 12:36 116 H 96 10/24/18 12:31 115 H 97 10/24/18 12:26 117 H 96 10/24/18 12:21 116 H 95 10/24/18 12:16 115 H 95 10/24/18 12:11 110 H 95 10/24/18 12:10 110 H 144/67 94 10/24/18 12:06 110 H 96 10/24/18 12:05 111 H 141/67 10/24/18 12:01 111 H 96 10/24/18 12:00 111 H 153/70 10/24/18 11:56 113 H 97 10/24/18 11:55 113 H 154/71 10/24/18 11:51 113 H 97 10/24/18 11:50 117 H 160/70 94 10/24/18 11:49 98.8 F 22 10/24/18 11:46 113 H 99 10/24/18 11:45 117 H 169/79 10/24/18 11:41 111 H 99 10/24/18 11:40 113 H 151/67 10/24/18 11:36 115 H 99 10/24/18 11:35 114 H 159/77 10/24/18 11:31 116 H 93 10/24/18 11:30 116 H 154/74 10/24/18 11:28 116 H 94 10/24/18 11:26 116 H 94 10/24/18 11:25 116 H 145/70 10/24/18 11:21 119 H 92 10/24/18 11:16 117 H 94 10/24/18 11:15 116 H 94 10/24/18 11:11 116 H 95 10/24/18 11:10 116 H 162/68 10/24/18 11:08 119 H 94 10/24/18 11:06 117 H 94 10/24/18 11:05 116 H 166/73 10/24/18 11:01 120 H 95 10/24/18 11:00 118 H 209/10/24/18 10:56 120 H 96 10/24/18 10:55 120 H 209/10/24/18 10:51 121 H 98 10/24/18 10:50 117 H 215/84 10/24/18 10:46 118 H 100 10/24/18 10:45 117 H 210/85 10/24/18 10:41 115 H 100 10/24/18 10:40 117 H 209/10/24/18 10:39 116 H 20910/24/18 10:36 120 H 99 10/24/18 10:35 117 H 199/88 10/24/18 10:31 119 H 100 10/24/18 10:30 117 H 185/85 10/24/18 10:26 114 H 100 Intake and Output 10/24/18 10/25/18 10/25/18 22:59 06:59 14:59 Intake Total 0 Output Total 150 300 Balance -150 -300 Intake: Oral 0 Output: Urine 150 300 Indwelling Catheter 300 Other: Total, Intake Amount 0 Total, Output Amount 300 Voiding Method Indwelling Catheter Indwelling Catheter Indwelling Catheter Estimated Blood Loss 200 - Exam Breasts: Present: normal Cardiovascular: Present: Normal S1, Normal S2 Lungs: Present: Clear to auscultation, Normal air movement Abdomen: Present: normal appearance, soft. Absent: distention, tenderness, guarding Uterus: Present: firm, fundal height below umbilicus Extremities: Present: normal, edema (bilaterally lower, upper has improved) Deep Tendon Reflex Grade: Normal +2 Incision: Present: normal, dry, intact, dressed - Labs Labs: Abnormal lab results 10/22/18 10/24/18 10/24/18 Range/Units 16:36 09:27 10:27 WBC (4.5-11.0) K/mm3 RBC (3.65-5.03) M/mm3 Hgb (10.1-14.3) gm/dl Hct (30.3-42.9) % Lymph % (Auto) (13.4-35.0) % [place] % (Auto) (0.0-7.3) % [place] # (0.0-0.8) K/mm3 Seg Neutrophils % (40.0-70.0) % Seg Neuts % (Manual) (40.0-70.0) % Lymphocytes % (Manual) (13.4-35.0) % Seg Neutrophils # (1.8-7.7) K/mm3 Seg Neutrophils # Man (1.8-7.7) K/mm3 Lymphocytes # (Manual) (1.2-5.4) K/mm3 Sodium (137-145) mmol/L Carbon Dioxide (22-30) mmol/L BUN (7-17) mg/dL Creatinine (0.7-1.2) mg/dL Glucose (65-100) mg/dL POC Glucose 211 H (70-105) Calcium (8.4-10.2) mg/dL Magnesium 7.80 H (1.7-2.3) mg/dL Total Protein (6.3-8.2) g/dL Albumin (3.9-5) g/dL Crossmatch See Detail 10/24/18 10/24/18 10/24/18 Range/Units 12:20 12:20 12:44 WBC 12.5 H (4.5-11.0) K/mm3 RBC 2.88 L (3.65-5.03) M/mm3 Hgb 8.4 L (10.1-14.3) gm/dl Hct 25.5 L (30.3-42.9) % Lymph % (Auto) (13.4-35.0) % [place] % (Auto) (0.0-7.3) % [place] # (0.0-0.8) K/mm3 Seg Neutrophils % (40.0-70.0) % Seg Neuts % (Manual) (40.0-70.0) % Lymphocytes % (Manual) (13.4-35.0) % Seg Neutrophils # (1.8-7.7) K/mm3 Seg Neutrophils # Man (1.8-7.7) K/mm3 Lymphocytes # (Manual) (1.2-5.4) K/mm3 Sodium (137-145) mmol/L Carbon Dioxide (22-30) mmol/L BUN (7-17) mg/dL Creatinine (0.7-1.2) mg/dL Glucose (65-100) mg/dL POC Glucose 204 H (70-105) Calcium (8.4-10.2) mg/dL Magnesium 7.50 H (1.7-2.3) mg/dL Total Protein (6.3-8.2) g/dL Albumin (3.9-5) g/dL Crossmatch 10/24/18 10/24/18 10/24/18 Range/Units 13:23 15:19 15:21 WBC (4.5-11.0) K/mm3 RBC (3.65-5.03) M/mm3 Hgb (10.1-14.3) gm/dl Hct (30.3-42.9) % Lymph % (Auto) (13.4-35.0) % [place] % (Auto) (0.0-7.3) % [place] # (0.0-0.8) K/mm3 Seg Neutrophils % (40.0-70.0) % Seg Neuts % (Manual) (40.0-70.0) % Lymphocytes % (Manual) (13.4-35.0) % Seg Neutrophils # (1.8-7.7) K/mm3 Seg Neutrophils # Man (1.8-7.7) K/mm3 Lymphocytes # (Manual) (1.2-5.4) K/mm3 Sodium 132 L (137-145) mmol/L Carbon Dioxide 15 L (22-30) mmol/L BUN 39 H (7-17) mg/dL Creatinine 2.7 H (0.7-1.2) mg/dL Glucose 156 H (65-100) mg/dL POC Glucose 146 H (70-105) Calcium 7.0 L (8.4-10.2) mg/dL Magnesium 6.30 H (1.7-2.3) mg/dL Total Protein (6.3-8.2) g/dL Albumin (3.9-5) g/dL Crossmatch 10/24/18 10/24/18 10/24/18 Range/Units 19:18 19:18 19:25 WBC 17.4 H (4.5-11.0) K/mm3 RBC 2.82 L (3.65-5.03) M/mm3 Hgb 8.6 L (10.1-14.3) gm/dl Hct 25.8 L (30.3-42.9) % Lymph % (Auto) (13.4-35.0) % [place] % (Auto) (0.0-7.3) % [place] # (0.0-0.8) K/mm3 Seg Neutrophils % (40.0-70.0) % Seg Neuts % (Manual) 92.0 H (40.0-70.0) % Lymphocytes % (Manual) 4.0 L (13.4-35.0) % Seg Neutrophils # (1.8-7.7) K/mm3 Seg Neutrophils # Man 16.0 H (1.8-7.7) K/mm3 Lymphocytes # (Manual) 0.7 L (1.2-5.4) K/mm3 Sodium (137-145) mmol/L Carbon Dioxide (22-30) mmol/L BUN (7-17) mg/dL Creatinine (0.7-1.2) mg/dL Glucose (65-100) mg/dL POC Glucose 237 H (70-105) Calcium (8.4-10.2) mg/dL Magnesium 7.00 H (1.7-2.3) mg/dL Total Protein (6.3-8.2) g/dL Albumin (3.9-5) g/dL Crossmatch 10/24/18 10/25/18 10/25/18 Range/Units 21:54 04:29 04:29 WBC 12.1 H (4.5-11.0) K/mm3 RBC 2.75 L (3.65-5.03) M/mm3 Hgb 8.2 L (10.1-14.3) gm/dl Hct 24.3 L (30.3-42.9) % Lymph % (Auto) 11.0 L (13.4-35.0) % [place] % (Auto) 9.3 H (0.0-7.3) % [place] # 1.1 H (0.0-0.8) K/mm3 Seg Neutrophils % 79.6 H (40.0-70.0) % Seg Neuts % (Manual) (40.0-70.0) % Lymphocytes % (Manual) (13.4-35.0) % Seg Neutrophils # 9.6 H (1.8-7.7) K/mm3 Seg Neutrophils # Man (1.8-7.7) K/mm3 Lymphocytes # (Manual) (1.2-5.4) K/mm3 Sodium 134 L (137-145) mmol/L Carbon Dioxide 16 L (22-30) mmol/L BUN 46 H (7-17) mg/dL Creatinine 3.1 H (0.7-1.2) mg/dL Glucose 209 H (65-100) mg/dL POC Glucose (70-105) Calcium 7.6 L (8.4-10.2) mg/dL Magnesium 6.40 H (1.7-2.3) mg/dL Total Protein 5.7 L (6.3-8.2) g/dL Albumin 2.4 L (3.9-5) g/dL Crossmatch 10/25/18 Range/Units 08:18 WBC (4.5-11.0) K/mm3 RBC (3.65-5.03) M/mm3 Hgb (10.1-14.3) gm/dl Hct (30.3-42.9) % Lymph % (Auto) (13.4-35.0) % [place] % (Auto) (0.0-7.3) % [place] # (0.0-0.8) K/mm3 Seg Neutrophils % (40.0-70.0) % Seg Neuts % (Manual) (40.0-70.0) % Lymphocytes % (Manual) (13.4-35.0) % Seg Neutrophils # (1.8-7.7) K/mm3 Seg Neutrophils # Man (1.8-7.7) K/mm3 Lymphocytes # (Manual) (1.2-5.4) K/mm3 Sodium (137-145) mmol/L Carbon Dioxide (22-30) mmol/L BUN (7-17) mg/dL Creatinine (0.7-1.2) mg/dL Glucose (65-100) mg/dL POC Glucose 210 H (70-105) Calcium (8.4-10.2) mg/dL Magnesium (1.7-2.3) mg/dL Total Protein (6.3-8.2) g/dL Albumin (3.9-5) g/dL Crossmatch
--- NOTE | 2018-10-25 10:41 | Consultation ---
History of Present Illness - Reason for Consult Consult date: 10/25/18 acute renal failure, chronic renal failure Requesting physician: DARYL IVORY - History of Present Illness 33 -year-old woman who is 27 weeks , history of hypertension, diabetes, chronic kidney disease been evaluated for chest pain. Pain is in the epigastric area which she describes as sharp pain, lasted 20 minutes intermittently but is not resolved, she had 2 episodes. There is no radiation of the pain, intensity 4/10, , she did not take anything for the pain. Admits to nausea, palpitation, no shortness of breath, diaphoresis. Review of systems Constitutional: no weight loss, chills, fever Ears, eyes, nose, mouth and throat: no nasal congestion, no nasal discharge, no sinus pressure, no vision change, no red eye. Neck: No neck pain or rigidity. Cardiovascular: + palpitations, chest pain Respiratory: no cough, shortness of breath Gastrointestinal: no hematochezia, abdominal pain Genitourinary : no frequency , no hematuria Musculoskeletal: no joint swelling or muscle ache Integumentary: no rash, no pruritis Neurological: no parathesias, no focal weakness Endocrine: no cold or heat intolerance, no polyuria or polydipsia Hematologic/Lymphatic: no easy bruising, no easy bleeding, no gland swelling Allergic/Immunologic: no urticaria, no angioedema. PAST MEDICAL HISTORY:27 weeks , PAST SURGICAL HISTORY: None SOCIAL HISTORY: Denies alcohol, drugs, tobacco FAMILY HISTORY: Hypertension Past History Past Medical History: diabetes, hypertension Social history: denies: smoking, alcohol abuse, prescription drug abuse Medications and Allergies Allergies Allergy/AdvReac Type Severity Reaction Status Date / Time No Known Allergies Allergy Verified 09/24/18 07:35 Home Medications Medication Instructions Recorded Confirmed Last Taken Type Lispro Insulin [Humalog] 8 unit SQ TID 09/24/18 09/25/18 09/25/18 08:00 History 1 NIFEdipine [Nifedipine ER] 60 mg PO DAILY 09/24/18 09/25/18 09/25/18 09:00 History 1 cloNIDine [Catapres] 0.2 mg PO BID 09/24/18 09/25/18 09/25/18 09:00 History 1 Aspirin [Aspirin BABY CHEW TAB] 81 mg PO QDAY 09/25/18 09/25/18 09/24/18 22:00 History 1 Progesterone, Micronized 200 mg VG QPM 09/25/18 09/25/18 09/24/18 22:00 History [Progesterone] NIFEdipine XL [Procardia Xl] 90 mg PO QDAY #30 tablet 09/29/18 Unknown Rx cloNIDine [Catapres] 0.2 mg PO TID #90 tablet 09/29/18 Unknown Rx Active Meds: Active Medications Acetaminophen/Hydrocodone Bitart ([place] 5/325) 2 each PO Q6H PRN PRN Reason: Pain, Moderate (4-6) Last Admin: 10/25/18 10:07 Dose: 2 each Documented by: Albuterol (Proventil) 2.5 mg IH Q4HRT PRN PRN Reason: Shortness Of Breath Clonidine HCl (Catapres) 0.3 mg PO TID [facility] Last Admin: 10/25/18 08:14 Dose: 0.3 mg Documented by: Sodium Chloride (Nacl 0.9% 1000 Ml) 1,000 mls @ 150 mls/hr IV DIRECT [facility] Last Admin: 10/25/18 01:25 Dose: 150 mls/hr Documented by: Ketorolac Tromethamine (Toradol) 30 mg IV Q6H [facility] Stop: 10/25/18 14:59 Last Admin: 10/25/18 07:12 Dose: Not Given Documented by: Naloxone HCl (Narcan 0.4 Mg/1 Ml) 0.2 mg IV Q2MIN PRN PRN Reason: Res Rate </= 8 or 02 SAT < 92% Nifedipine (Procardia Xl) 90 mg PO BID [facility] Last Admin: 10/25/18 10:00 Dose: 90 mg Documented by: Promethazine HCl (Phenergan) 25 mg GA Q6H PRN PRN Reason: Nausea And Vomiting Sodium Chloride (Sodium Chloride Flush Syringe 10 Ml) 10 ml IV BID [facility] Last Admin: 10/25/18 10:00 Dose: 10 ml Documented by: Sodium Chloride (Sodium Chloride Flush Syringe 10 Ml) 10 ml IV PRN PRN PRN Reason: LINE FLUSH Exam - Vital Signs Vital signs: Vital Signs Pulse BP 95 H 191/99 10/22/18 15:22 10/22/18 15:22 - Physical Exam Narrative exam: General Apperance: The patient lying in bed, breathing comfortable HEENT: Normocephalic, atraumatic. Pupils equally round and reactive to light, EOMI, no sclericterus or JVD or thyromegaly or nodule. , no carotid bruit, mucous membranes moist, no exudate or erythema Heart: S1-S2, regular is rhythm Lungs: Clear to auscultation bilaterally, breathing comfortable Abdomen: Positive bowel sounds, soft, nontender, nondistended, no organomegaly Extremities: No edema cyanosis clubbing Skin: no rash, nodule, warm and dry Neuro: cranial nerves 2-12 intact, speech is fluent, motor/sensory intact Results - Lab Results 10/25/18 04:29 10/25/18 04:29 Most recent lab results Calcium 7.6 mg/dL (8.4-10.2) L 10/25/18 04:29 Magnesium 6.40 mg/dL (1.7-2.3) H 10/24/18 21:54 Assessment and Plan Impression: SOHAN on CKD unknown stage AIN--TORADOL Chest pain Cardiomegaly Acute Respiratory failure ANEMIA Hypermagenesima Hyponatremia Retinopathy Hyperkalemia-resolved HTN DM metabolic acidosis IUP S/P Plan Continue supportive care NO NSAIDS, stop toradol. high risk for AIN follow up urine eos keep MAP>65 Agree with blood transfusion gentle IV fluids avoid nephrotoxins Patient is s/p Continue nebs Obtain renal ultrasound and urinalysis
--- NOTE | 2018-10-25 11:04 | Consultation ---
History of Present Illness Consult date: 10/25/18 Reason for consult: dyspnea, other (intrauterine , obesity, unc ontrolled hypertension, SOHAN) History of present illness: Called to evaluate case of a 33-year-old -[place] female, 27-1/2 weeks GA, admitted to the hospital with history of shortness of breath, chest discomfort for episodes and uncontrolled hypertension. She was admitted a few days ago with poorly controlled hypertension and abnormal Doppler findings on obstetric US. She'll be initiated on multiple medications for her blood pressure but this was difficult controlled. Question of SOHAN on top of CKD. The patient has long-standing history of diabetes and her renal function has been deteriorating concurrently with increased on her blood pressure. She was also told always the director of national sales has asked to stop or discontinue. Ventilation/perfusion scan was performed out of concern for pulmonary embolism. Perfusion scan was normal. She has cardiomegaly on her chest x-ray but no infiltrates or effusions. Echocardiogram was done and she is being followed by panel machine tender. She had a yesterday with improvement in on her breathing according to the patient this morning. She is out of the IMCU for cardiac and blood pressure monitoring. Denies chest pain today and no prior history of wheezing or asthma reported. She is a nonsmoker. Some lower extremity swelling noted prior to admission but no additional complaints. Asked to evaluate from pulmonary standpoint Past History Past Medical History: diabetes, hypertension Social history: denies: smoking, alcohol abuse, prescription drug abuse Medications and Allergies Allergies Allergy/AdvReac Type Severity Reaction Status Date / Time No Known Allergies Allergy Verified 09/24/18 07:35 Home Medications Medication Instructions Recorded Confirmed Last Taken Type Lispro Insulin [Humalog] 8 unit SQ TID 09/24/18 09/25/18 09/25/18 08:00 History 1 NIFEdipine [Nifedipine ER] 60 mg PO DAILY 09/24/18 09/25/18 09/25/18 09:00 History 1 cloNIDine [Catapres] 0.2 mg PO BID 09/24/18 09/25/18 09/25/18 09:00 History 1 Aspirin [Aspirin BABY CHEW TAB] 81 mg PO QDAY 09/25/18 09/25/18 09/24/18 22:00 History 1 Progesterone, Micronized 200 mg VG QPM 09/25/18 09/25/18 09/24/18 22:00 History [Progesterone] NIFEdipine XL [Procardia Xl] 90 mg PO QDAY #30 tablet 09/29/18 Unknown Rx cloNIDine [Catapres] 0.2 mg PO TID #90 tablet 09/29/18 Unknown Rx Active Meds: Active Medications Acetaminophen/Hydrocodone Bitart ([place] 5/325) 2 each PO Q6H PRN PRN Reason: Pain, Moderate (4-6) Last Admin: 10/25/18 10:07 Dose: 2 each Documented by: Albuterol (Proventil) 2.5 mg IH Q4HRT PRN PRN Reason: Shortness Of Breath Clonidine HCl (Catapres) 0.3 mg PO TID [facility] Last Admin: 10/25/18 08:14 Dose: 0.3 mg Documented by: Sodium Chloride (Nacl 0.9% 1000 Ml) 1,000 mls @ 150 mls/hr IV DIRECT [facility] Last Admin: 10/25/18 01:25 Dose: 150 mls/hr Documented by: Ketorolac Tromethamine (Toradol) 30 mg IV Q6H [facility] Stop: 10/25/18 14:59 Last Admin: 10/25/18 07:12 Dose: Not Given Documented by: Naloxone HCl (Narcan 0.4 Mg/1 Ml) 0.2 mg IV Q2MIN PRN PRN Reason: Res Rate </= 8 or 02 SAT < 92% Nifedipine (Procardia Xl) 90 mg PO BID [facility] Last Admin: 10/25/18 10:00 Dose: 90 mg Documented by: Promethazine HCl (Phenergan) 25 mg AL Q6H PRN PRN Reason: Nausea And Vomiting Sodium Chloride (Sodium Chloride Flush Syringe 10 Ml) 10 ml IV BID [facility] Last Admin: 10/25/18 10:00 Dose: 10 ml Documented by: Sodium Chloride (Sodium Chloride Flush Syringe 10 Ml) 10 ml IV PRN PRN PRN Reason: LINE FLUSH Review of Systems All systems: negative (none) Physical Examination Vital signs: Vital Signs Pulse BP 95 H 191/99 10/22/18 15:22 10/22/18 15:22 General appearance: no acute distress, other (obese) Eyes: non-icteric ENT: oropharynx moist Neck: supple, no JVD Ascultation: Bilateral: clear, diminished breath sounds Cardiovascular: other (tachycardic, slight 1/6 systolic murmur, S2 split versus gallop) Gastrointestinal: normoactive bowel sounds, non-distended, other (convered low wound no bleeding) Integumentary: normal Extremities: no cyanosis, no edema Musculoskeletal: no deformities Results - Laboratory Findings CBC and BMP: 10/25/18 04:29 10/25/18 04:29 Abnormal lab findings: Abnormal Labs 10/22/18 10/22/18 10/22/18 16:07 16:07 16:36 WBC RBC 3.01 L Hgb 9.0 L Hct 26.6 L Lymph % (Auto) [place] % (Auto) 7.8 H [place] # Seg Neutrophils % Seg Neuts % (Manual) Lymphocytes % (Manual) Seg Neutrophils # Seg Neutrophils # Man Lymphocytes # (Manual) Sodium Potassium Chloride Carbon Dioxide BUN Creatinine 1.9 H Glucose POC Glucose Calcium Magnesium Lactate Dehydrogenase 449 H CK-MB (CK-2) Troponin T Total Protein Albumin Triglycerides Cholesterol LDL Cholesterol Direct HDL Cholesterol Crossmatch See Detail 10/22/18 10/22/18 10/23/18 17:08 22:22 00:33 WBC RBC Hgb Hct Lymph % (Auto) [place] % (Auto) [place] # Seg Neutrophils % Seg Neuts % (Manual) Lymphocytes % (Manual) Seg Neutrophils # Seg Neutrophils # Man Lymphocytes # (Manual) Sodium Potassium Chloride Carbon Dioxide BUN Creatinine Glucose POC Glucose 159 H 157 H Calcium Magnesium 5.90 H Lactate Dehydrogenase CK-MB (CK-2) Troponin T Total Protein Albumin Triglycerides Cholesterol LDL Cholesterol Direct HDL Cholesterol Crossmatch 10/23/18 10/23/18 10/23/18 02:25 03:01 07:58 WBC RBC Hgb Hct Lymph % (Auto) [place] % (Auto) [place] # Seg Neutrophils % Seg Neuts % (Manual) Lymphocytes % (Manual) Seg Neutrophils # Seg Neutrophils # Man Lymphocytes # (Manual) Sodium Potassium Chloride Carbon Dioxide BUN Creatinine Glucose POC Glucose 178 H Calcium Magnesium 8.60 H Lactate Dehydrogenase CK-MB (CK-2) 4.4 H Troponin T 0.057 H Total Protein Albumin Triglycerides 158 H Cholesterol 310 H LDL Cholesterol Direct 230 H HDL Cholesterol 76 H Crossmatch 10/23/18 10/23/18 10/23/18 07:58 08:00 10:17 WBC RBC Hgb Hct Lymph % (Auto) [place] % (Auto) [place] # Seg Neutrophils % Seg Neuts % (Manual) Lymphocytes % (Manual) Seg Neutrophils # Seg Neutrophils # Man Lymphocytes # (Manual) Sodium Potassium Chloride Carbon Dioxide BUN Creatinine Glucose POC Glucose 183 H 168 H Calcium Magnesium Lactate Dehydrogenase CK-MB (CK-2) 4.6 H Troponin T 0.068 H Total Protein Albumin Triglycerides Cholesterol LDL Cholesterol Direct HDL Cholesterol Crossmatch 10/23/18 10/23/18 10/23/18 11:51 12:35 12:35 WBC RBC Hgb Hct Lymph % (Auto) [place] % (Auto) [place] # Seg Neutrophils % Seg Neuts % (Manual) Lymphocytes % (Manual) Seg Neutrophils # Seg Neutrophils # Man Lymphocytes # (Manual) Sodium 132 L Potassium 5.2 H Chloride Carbon Dioxide 16 L BUN 38 H Creatinine 2.4 H Glucose 115 H POC Glucose 140 H Calcium 8.3 L Magnesium 10.30 H Lactate Dehydrogenase CK-MB (CK-2) Troponin T Total Protein Albumin Triglycerides Cholesterol LDL Cholesterol Direct HDL Cholesterol Crossmatch 10/23/18 10/23/18 10/23/18 15:00 15:46 16:27 WBC RBC Hgb Hct Lymph % (Auto) [place] % (Auto) [place] # Seg Neutrophils % Seg Neuts % (Manual) Lymphocytes % (Manual) Seg Neutrophils # Seg Neutrophils # Man Lymphocytes # (Manual) Sodium Potassium Chloride Carbon Dioxide BUN Creatinine Glucose POC Glucose 44 L 42 L 108 H Calcium Magnesium Lactate Dehydrogenase CK-MB (CK-2) Troponin T Total Protein Albumin Triglycerides Cholesterol LDL Cholesterol Direct HDL Cholesterol Crossmatch 10/23/18 10/23/18 10/24/18 19:22 22:41 05:12 WBC 12.6 H RBC 2.62 L Hgb 7.7 L Hct 23.3 L Lymph % (Auto) [place] % (Auto) [place] # Seg Neutrophils % Seg Neuts % (Manual) Lymphocytes % (Manual) Seg Neutrophils # Seg Neutrophils # Man Lymphocytes # (Manual) Sodium Potassium Chloride Carbon Dioxide BUN Creatinine Glucose POC Glucose Calcium Magnesium 9.50 H 8.30 H Lactate Dehydrogenase CK-MB (CK-2) Troponin T Total Protein Albumin Triglycerides Cholesterol LDL Cholesterol Direct HDL Cholesterol Crossmatch 10/24/18 10/24/18 10/24/18 05:12 05:12 06:09 WBC RBC Hgb Hct Lymph % (Auto) [place] % (Auto) [place] # Seg Neutrophils % Seg Neuts % (Manual) Lymphocytes % (Manual) Seg Neutrophils # Seg Neutrophils # Man Lymphocytes # (Manual) Sodium 129 L Potassium 5.3 H Chloride 97.5 L Carbon Dioxide 16 L BUN 41 H Creatinine 2.7 H Glucose 188 H POC Glucose 189 H Calcium 8.1 L Magnesium 8.20 H Lactate Dehydrogenase CK-MB (CK-2) Troponin T Total Protein Albumin Triglycerides Cholesterol LDL Cholesterol Direct HDL Cholesterol Crossmatch 10/24/18 10/24/18 10/24/18 09:27 10:27 12:20 WBC RBC Hgb Hct Lymph % (Auto) [place] % (Auto) [place] # Seg Neutrophils % Seg Neuts % (Manual) Lymphocytes % (Manual) Seg Neutrophils # Seg Neutrophils # Man Lymphocytes # (Manual) Sodium Potassium Chloride Carbon Dioxide BUN Creatinine Glucose POC Glucose 211 H Calcium Magnesium 7.80 H 7.50 H Lactate Dehydrogenase CK-MB (CK-2) Troponin T Total Protein Albumin Triglycerides Cholesterol LDL Cholesterol Direct HDL Cholesterol Crossmatch 10/24/18 10/24/18 10/24/18 12:20 12:44 13:23 WBC 12.5 H RBC 2.88 L Hgb 8.4 L Hct 25.5 L Lymph % (Auto) [place] % (Auto) [place] # Seg Neutrophils % Seg Neuts % (Manual) Lymphocytes % (Manual) Seg Neutrophils # Seg Neutrophils # Man Lymphocytes # (Manual) Sodium Potassium Chloride Carbon Dioxide BUN Creatinine Glucose POC Glucose 204 H 146 H Calcium Magnesium Lactate Dehydrogenase CK-MB (CK-2) Troponin T Total Protein Albumin Triglycerides Cholesterol LDL Cholesterol Direct HDL Cholesterol Crossmatch 10/24/18 10/24/18 10/24/18 15:19 15:21 19:18 WBC RBC Hgb Hct Lymph % (Auto) [place] % (Auto) [place] # Seg Neutrophils % Seg Neuts % (Manual) Lymphocytes % (Manual) Seg Neutrophils # Seg Neutrophils # Man Lymphocytes # (Manual) Sodium 132 L Potassium Chloride Carbon Dioxide 15 L BUN 39 H Creatinine 2.7 H Glucose 156 H POC Glucose Calcium 7.0 L Magnesium 6.30 H 7.00 H Lactate Dehydrogenase CK-MB (CK-2) Troponin T Total Protein Albumin Triglycerides Cholesterol LDL Cholesterol Direct HDL Cholesterol Crossmatch 10/24/18 10/24/18 10/24/18 19:18 19:25 21:54 WBC 17.4 H RBC 2.82 L Hgb 8.6 L Hct 25.8 L Lymph % (Auto) [place] % (Auto) [place] # Seg Neutrophils % Seg Neuts % (Manual) 92.0 H Lymphocytes % (Manual) 4.0 L Seg Neutrophils # Seg Neutrophils # Man 16.0 H Lymphocytes # (Manual) 0.7 L Sodium Potassium Chloride Carbon Dioxide BUN Creatinine Glucose POC Glucose 237 H Calcium Magnesium 6.40 H Lactate Dehydrogenase CK-MB (CK-2) Troponin T Total Protein Albumin Triglycerides Cholesterol LDL Cholesterol Direct HDL Cholesterol Crossmatch 10/25/18 10/25/18 10/25/18 04:29 04:29 08:18 WBC 12.1 H RBC 2.75 L Hgb 8.2 L Hct 24.3 L Lymph % (Auto) 11.0 L [place] % (Auto) 9.3 H [place] # 1.1 H Seg Neutrophils % 79.6 H Seg Neuts % (Manual) Lymphocytes % (Manual) Seg Neutrophils # 9.6 H Seg Neutrophils # Man Lymphocytes # (Manual) Sodium 134 L Potassium Chloride Carbon Dioxide 16 L BUN 46 H Creatinine 3.1 H Glucose 209 H POC Glucose 210 H Calcium 7.6 L Magnesium Lactate Dehydrogenase CK-MB (CK-2) Troponin T Total Protein 5.7 L Albumin 2.4 L Triglycerides Cholesterol LDL Cholesterol Direct HDL Cholesterol Crossmatch Assessment and Plan Dyspnea. Possibly multifactorial-combination of high blood pressure, shaking pulmonary mechanics at the end of . Also note, the patient feels better, once baby was delivered. No other signs of hyperreactive airway pro blems or pulmonary congestion Uncontrolled hypertension. Improving Acute on chronic renal disease. See nephrology comments Cardiomegaly. Being followed by cardiology. Echocardiogram with normal ej ection fraction. She is at risk for related cardiomyopathy. She cardiology consult Obesity Diabetes puerperal state Recommendations Continue with hypertension management Monitor oximetry. Consider initiating oxygen empirically, if oximetries below 91-92% noted Ambulate patient when deemed appropriate Incentive spirometry for atelectasis prevention Cardiology follow-up regarding chest x-ray and echocardiogram findings DVT prophylaxis If persistent unexplained dyspnea continues, then pulmonary function testing may be of benefit for further review Discussed with patient in detail. All questions answered Thanks
[2018-10-25] MEDS ORDERED: D50W (25GM) Syringe IV PRN (12:14)
--- NOTE | 2018-10-25 13:31 | Progress Note ---
Assessment and Plan Pt appears to be clinically improving s/p yesterday. She has no current cardiac complaints. BPs improving. Pt in sinus tachycardia HR 110 - 120s on telemetry. Pt does intend to breast feed and therefore no plans to initiate BB at this time. Sinus tachycardia is likely physiologic secondary to pain, anemia, dehydration, renal failure, etc. Cont IVF. Nothing further to add from cardiac perspective at this time. Will sign off. Recommend pt follow up in our office with Dr. Henry within 1-2 weeks of hospital discharge ([phone]). The patient has been seen in conjunction with Dr. Henry who agrees with the assessment and plan of care. - Patient Problems (1) Chest pain Current Visit: Yes Status: Resolved Qualifiers: Chest pain type: other chest pain Qualified Code(s): R07.89 - Other chest pain; R07.8 - Other chest pain (2) Acute on chronic renal failure Current Visit: Yes Status: Acute Qualifiers: Acute renal failure type: unspecified Chronic kidney disease stage: stage 3 (moderate) Qualified Code(s): N17.9 - Acute kidney failure, unspecified; N18.3 - Chronic kidney disease, stage 3 (moderate) (3) 27 weeks gestation of Current Visit: Yes Status: Chronic (4) Uncontrolled hypertension Current Visit: Yes Status: Chronic (5) Diabetes Current Visit: Yes Status: Chronic Qualifiers: Diabetes mellitus type: type 2 Diabetes mellitus local intermodal truck driver insulin use: without local intermodal truck driver use Diabetes mellitus complication status: without complication Qualified Code(s): E11.9 - Type 2 diabetes mellitus without complications (6) Obesity Current Visit: Yes Status: Chronic (7) Hypermagnesemia Current Visit: Yes Status: Acute (8) Hyperlipidemia Current Visit: Yes Status: Chronic Subjective Date of service: 10/25/18 Principal diagnosis: POD #1 s/p 1LTCS WITH BTL 2)chtn 3)IDDM 4)renal disease Interval history: pt in bed, s/p yesterday. appears alert and oriented, no current cardiac complaints. BPs improved. Objective Last Vital Signs Temp 98.4 F 10/25/18 08:00 Pulse 118 H 10/25/18 08:14 Resp 24 10/25/18 08:00 BP 147/78 10/25/18 08:14 Pulse Ox 98 10/25/18 08:58 - Physical Examination General: Other (lethargic) Neck: Positive: neck supple, trachea midline Cardiac: Positive: Reg Rate and Rhythm, S1/S2 Lungs: Positive: Decreased Breath Sounds Neuro: Positive: Grossly Intact Abdomen: Positive: Other (s/p ) Skin: Negative: Wound Extremities: Present: +1 Edema (BLE ) - Labs and Meds Cardiac Enzymes 10/25/18 Range/Units 04:29 AST 16 (5-40) units/L CBC 10/24/18 10/25/18 Range/Units 19:18 04:29 WBC 17.4 H 12.1 H (4.5-11.0) K/mm3 RBC 2.82 L 2.75 L (3.65-5.03) M/mm3 Hgb 8.6 L 8.2 L (10.1-14.3) gm/dl Hct 25.8 L 24.3 L (30.3-42.9) % Plt Count 325 289 (140-440) K/mm3 Lymph # 1.3 (1.2-5.4) K/mm3 [place] # 1.1 H (0.0-0.8) K/mm3 Eos # 0.0 (0.0-0.4) K/mm3 Baso # 0.0 (0.0-0.1) K/mm3 Comprehensive Metabolic Panel 10/24/18 10/25/18 Range/Units 15:21 04:29 Sodium 132 L 134 L (137-145) mmol/L Potassium 4.3 5.0 (3.6-5.0) mmol/L Chloride 101.8 102.8 (98-107) mmol/L Carbon Dioxide 15 L 16 L (22-30) mmol/L BUN 39 H 46 H (7-17) mg/dL Creatinine 2.7 H 3.1 H (0.7-1.2) mg/dL Glucose 156 H 209 H (65-100) mg/dL Calcium 7.0 L 7.6 L (8.4-10.2) mg/dL AST 16 (5-40) units/L ALT 16 (7-56) units/L Alkaline Phosphatase 96 (35-129) units/L Total Protein 5.7 L (6.3-8.2) g/dL Albumin 2.4 L (3.9-5) g/dL - Imaging and Cardiology EKG: report reviewed Echo: report reviewed (EF 55-60%, impaired relaxation, trace TR.) - Telemetry EKG Rhythm: Sinus Rhythm
--- NOTE | 2018-10-25 15:44 | Progress Note ---
Assessment and Plan Assessment and plan: Patient is a 33 -year-old woman who is 27 weeks , history of hypertension, diabetes, chronic kidney disease been evaluated for chest pain. Pain is in the epigastric area which she describes as sharp pain, lasted 20 minutes intermittently but is not resolved, she had 2 episodes. She presented f [facility] for admission following abnormal dopplers in their office. There is no radiation of the pain, intensity 4/10, , she did not take anything for the pain. Admits to nausea, palpitation, no shortness of breath, diaphoresis. On examination, patient reported intermittent midsternal chest pressure, First . Chest pain Cardiomegaly Acute Respiratory failure SOHAN on CKD secondary to AIN Precipitatous drop in hgb with ANEMIA Hypermagenesima Hyponatremia Retinopathy Hyperkalemia-resolved HTN DM IUP S/P Plan Continue supportive care Nephrology and pulmonary consult input noted Tolerating PO intake Toradol discontinued per Nephrology rec NO NSAIDS, stop toradol. high risk for AIN follow up urine eos keep MAP>65 Agree with blood transfusion Give bolus NS 500cc Increase IV fluids to 150cc/hr Patient is s/p Continue nebs Obtain renal ultrasound and urinalysis PROGONOSIS GUARDED AGREE WITH IMCU DVT/GI prophy Plan discussed with the patient in detail. History Interval history: Patient seen and examined, post , No new complaints, tolerating PO diet Hospitalist Physical - Physical exam Narrative exam: General Apperance: The patient lying in bed, breathing comfortable HEENT: Normocephalic, atraumatic. Pupils equally round and reactive to light, EOMI, no sclericterus or JVD or thyromegaly or nodule. , no carotid bruit, mucous membranes moist, no exudate or erythema Heart: S1-S2, regular is rhythm Lungs: Clear to auscultation bilaterally, breathing comfortable Abdomen: surgical scare noted,. Positive bowel sounds, soft, nontender, nondistended, no organomegaly Extremities: No edema cyanosis clubbing Skin: no rash, nodule, warm and dry Neuro: cranial nerves 2-12 intact, speech is fluent, motor/sensory intact - Constitutional Vitals: Temp Pulse Resp BP Pulse Ox 97.6 F 110 H 22 148/70 97 10/25/18 12:00 10/25/18 15:01 10/25/18 15:01 10/25/18 15:01 10/25/18 14:01 General appearance: Present: mild distress, well-nourished Results - Labs CBC & Chem 7: 10/26/18 04:54 10/26/18 04:54 Labs: Laboratory Last Values WBC 12.1 K/mm3 (4.5-11.0) H 10/25/18 04:29 RBC 2.75 M/mm3 (3.65-5.03) L 10/25/18 04:29 Hgb 8.2 gm/dl (10.1-14.3) L 10/25/18 04:29 Hct 24.3 % (30.3-42.9) L 10/25/18 04:29 MCV 89 fl (79-97) 10/25/18 04:29 MCH 30 pg (28-32) 10/25/18 04:29 MCHC 34 % (30-34) 10/25/18 04:29 RDW 14.4 % (13.2-15.2) 10/25/18 04:29 Plt Count 289 K/mm3 (140-440) 10/25/18 04:29 Lymph % (Auto) 11.0 % (13.4-35.0) L 10/25/18 04:29 [place] % (Auto) 9.3 % (0.0-7.3) H 10/25/18 04:29 Eos % (Auto) 0.0 % (0.0-4.3) 10/25/18 04:29 Baso % (Auto) 0.1 % (0.0-1.8) 10/25/18 04:29 Lymph # 1.3 K/mm3 (1.2-5.4) 10/25/18 04:29 [place] # 1.1 K/mm3 (0.0-0.8) H 10/25/18 04:29 Eos # 0.0 K/mm3 (0.0-0.4) 10/25/18 04:29 Baso # 0.0 K/mm3 (0.0-0.1) 10/25/18 04:29 Add Manual Diff Complete 10/24/18 19:18 Total Counted 100 10/24/18 19:18 Seg Neutrophils % 79.6 % (40.0-70.0) H 10/25/18 04:29 Seg Neuts % (Manual) 92.0 % (40.0-70.0) H 10/24/18 19:18 0 % 10/24/18 19:18 4.0 % (13.4-35.0) L 10/24/18 19:18 Reactive Lymphs % (Man) 0 % 10/24/18 19:18 4.0 % (0.0-7.3) 10/24/18 19:18 0 % (0.0-4.3) 10/24/18 19:18 0 % (0.0-1.8) 10/24/18 19:18 0 % 10/24/18 19:18 0 % 10/24/18 19:18 0 % 10/24/18 19:18 0 % 10/24/18 19:18 Nucleated RBC % Not Reportable 10/24/18 19:18 Seg Neutrophils # 9.6 K/mm3 (1.8-7.7) H 10/25/18 04:29 Seg Neutrophils # Man 16.0 K/mm3 (1.8-7.7) H 10/24/18 19:18 Band Neutrophils # 0.0 K/mm3 10/24/18 19:18 0.7 K/mm3 (1.2-5.4) L 10/24/18 19:18 Abs React Lymphs (Man) 0.0 K/mm3 10/24/18 19:18 0.7 K/mm3 (0.0-0.8) 10/24/18 19:18 0.0 K/mm3 (0.0-0.4) 10/24/18 19:18 0.0 K/mm3 (0.0-0.1) 10/24/18 19:18 0.0 K/mm3 10/24/18 19:18 0.0 K/mm3 10/24/18 19:18 0.0 K/mm3 10/24/18 19:18 Blast Cells # 0.0 K/mm3 10/24/18 19:18 WBC Morphology Not Reportable 10/24/18 19:18 Hypersegmented Neuts Not Reportable 10/24/18 19:18 Hyposegmented Neuts Not Reportable 10/24/18 19:18 Hypogranular Neuts Not Reportable 10/24/18 19:18 Not Reportable 10/24/18 19:18 Not Reportable 10/24/18 19:18 Not Reportable 10/24/18 19:18 Not Reportable 10/24/18 19:18 Not Reportable 10/24/18 19:18 Not Reportable 10/24/18 19:18 Appears normal 10/24/18 19:18 Not Reportable 10/24/18 19:18 Plt Clumps, EDTA Not Reportable 10/24/18 19:18 Not Reportable 10/24/18 19:18 Not Reportable 10/24/18 19:18 Not Reportable 10/24/18 19:18 Plt Morphology Comment Not Reportable 10/24/18 19:18 RBC Morphology Normal 10/24/18 19:18 Dimorphic RBCs Not Reportable 10/24/18 19:18 Not Reportable 10/24/18 19:18 Not Reportable 10/24/18 19:18 Not Reportable 10/24/18 19:18 Not Reportable 10/24/18 19:18 Not Reportable 10/24/18 19:18 Not Reportable 10/24/18 19:18 Not Reportable 10/24/18 19:18 Not Reportable 10/24/18 19:18 Not Reportable 10/24/18 19:18 Not Reportable 10/24/18 19:18 Not Reportable 10/24/18 19:18 Not Reportable 10/24/18 19:18 Not Reportable 10/24/18 19:18 Not Reportable 10/24/18 19:18 Not Reportable 10/24/18 19:18 Not Reportable 10/24/18 19:18 Not Reportable 10/24/18 19:18 Not Reportable 10/24/18 19:18 Not Reportable 10/24/18 19:18 Acanthocytes (Spur) Not Reportable 10/24/18 19:18 Rouleaux Not Reportable 10/24/18 19:18 Not Reportable 10/24/18 19:18 Not Reportable 10/24/18 19:18 Not Reportable 10/24/18 19:18 Not Reportable 10/24/18 19:18 Hem Pathologist Commnt No 10/24/18 19:18 Sodium 134 mmol/L (137-145) L 10/25/18 04:29 Potassium 5.0 mmol/L (3.6-5.0) 10/25/18 04:29 Chloride 102.8 mmol/L (98-107) 10/25/18 04:29 Carbon Dioxide 16 mmol/L (22-30) L 10/25/18 04:29 20 mmol/L 10/25/18 04:29 BUN 46 mg/dL (7-17) H 10/25/18 04:29 3.1 mg/dL (0.7-1.2) H 10/25/18 04:29 Estimated GFR 21 ml/min 10/25/18 04:29 15 % 10/25/18 04:29 Glucose 209 mg/dL (65-100) H 10/25/18 04:29 POC Glucose 199 (70-105) H 10/25/18 11:43 6.0 mg/dL (3.5-7.6) 10/22/18 16:07 Calcium 7.6 mg/dL (8.4-10.2) L 10/25/18 04:29 Magnesium 5.40 mg/dL (1.7-2.3) H 10/25/18 11:27 < 0.20 mg/dL (0.1-1.2) 10/25/18 04:29 AST 16 units/L (5-40) 10/25/18 04:29 ALT 16 units/L (7-56) 10/25/18 04:29 96 units/L (35-129) 10/25/18 04:29 449 units/L (91-180) H 10/22/18 16:07 134 units/L (30-135) 10/23/18 07:58 CK-MB (CK-2) 4.6 ng/mL (0.0-4.0) H 10/23/18 07:58 CK-MB (CK-2) Rel Index 3.4 (0-4) 10/23/18 07:58 0.068 ng/mL (0.00-0.029) H 10/23/18 07:58 5.7 g/dL (6.3-8.2) L 10/25/18 04:29 2.4 g/dL (3.9-5) L 05/31/19 04:29 0.7 % 10/25/18 04:29 Triglycerides 158 mg/dL (2-149) H 10/23/18 03:01 Cholesterol 310 mg/dL (50-199) H 10/23/18 03:01 230 mg/dL (50-130) H 10/23/18 03:01 76 mg/dL (40-59) H 10/23/18 03:01 4.07 % 10/23/18 03:01 Blood Type O POSITIVE 10/22/18 16:36 Antibody Screen TNR 10/22/18 16:36 TROY Antibody Screen Negative 10/22/18 16:36 Crossmatch See Detail 10/22/18 16:36 Active Medications - Current Medications Current Medications: Generic Name Dose Route Start Last Admin Trade Name Freq PRN Reason Stop Dose Admin Acetaminophen/Hydrocodone Bitart 2 each 10/24/18 18:14 10/25/18 10:07 [place] 5/325 PO 2 each Q6H PRN Administration Pain, Moderate (4-6) Albuterol 2.5 mg 10/24/18 12:58 Proventil IH Q4HRT PRN Shortness Of Breath Clonidine HCl 0.3 mg 10/22/18 19:19 10/25/18 14:03 Catapres PO 0.3 mg TID TIFFANIE Administration Dextrose 50 ml 10/25/18 12:14 D50w (25gm) Syringe IV PRN PRN Hypoglycemia Sodium Chloride 1,000 mls @ 150 mls/hr 10/24/18 18:14 10/25/18 11:51 Nacl 0.9% 1000 Ml IV 150 mls/hr DIRECT TIFFANIE Administration Insulin Human Lispro 0 unit 10/25/18 16:30 Humalog SUB-Q ACHS TIFFANIE Protocol Naloxone HCl 0.2 mg 10/24/18 15:30 Narcan 0.4 Mg/1 Ml IV Q2MIN PRN Res Rate </= 8 or 02 SAT < 92% Nifedipine 90 mg 10/23/18 22:00 10/25/18 10:00 Procardia Xl PO 90 mg BID TIFFANIE Administration Promethazine HCl 25 mg 10/24/18 16:00 Phenergan SC Q6H PRN Nausea And Vomiting Sodium Chloride 10 ml 10/24/18 22:00 10/25/18 10:00 Sodium Chloride Flush Syringe 10 Ml IV 10 ml BID TIFFANIE Administration Sodium Chloride 10 ml 10/24/18 18:14 Sodium Chloride Flush Syringe 10 Ml IV PRN PRN LINE FLUSH
[2018-10-25] MEDS: HumaLOG SUB-Q SCH (16:25)
[2018-10-26] MEDS: NACL 0.9% 1000 ML 1,000 ML IV SCH ×2 (01:11→07:39)
[2018-10-26] MEDS: ALUM-MAG HYDROX-SIMETH 200-200-20MG/5ML PO PRN ×2 (01:35→08:42)
[2018-10-26] MEDS: HumaLOG SUB-Q SCH ×4 (04:11→17:54)
[2018-10-26] MEDS: NORCO 5/325 PO PRN ×2 (04:14→18:53)
[2018-10-26] MEDS ORDERED: MORPHINE IV ONE (04:44)
[2018-10-26] MEDS ORDERED: PEPCID IV ONE (04:46)
[2018-10-26 05:04] LABS: Hematocrit 23.9 % (30.3-42.9); Hemoglobin 8.2 gm/dl (10.1-14.3); Mean Corpuscular HGB Conc 34 % (30-34); Mean Corpuscular Volume 89 fl (79-97); Platelet Count 288 K/mm3 (140-440); Red Cell Distribution Width 14.5 % (13.2-15.2)
[2018-10-26 05:40] LABS: Calcium 7.4 mg/dL (8.4-10.2)
[2018-10-26] MEDS: CATAPRES PO SCH ×6 (08:42→21:48)
[2018-10-26] MEDS: PROCARDIA XL PO SCH (09:16)
--- NOTE | 2018-10-26 09:38 | Progress Note ---
Assessment and Plan Dyspnea. Possibly multifactorial-combination of high blood pressure, changing pulmonary mechanics at the end of . No symptoms at this time. Uncontrolled hypertension. Improving Diastolic dysfunction, cardiomegaly Acute on chronic renal disease. See nephrology comments Rule out TERESA. Further review into patient hypertension history, showed that she had been presenting with snoring during with witnessed apneas Obesity Diabetes puerperal state Recommendations Continue with hypertension management Monitor oximetry. Ambulate patient Incentive spirometry for atelectasis prevention Cardiology follow-up regarding chest x-ray and echocardiogram findings DVT prophylaxis If persistent unexplained dyspnea continues, then pulmonary function testing may be of benefit for further review Outpatient sleep study evaluation Discussed with patient in detail. All questions answered Subjective Date of service: 10/26/18 Principal diagnosis: s/p 1LTCS WITH BTL, HTN ,IDDM ,renal disease Interval history: No events overnight. Some bloating reported. No shortness of breath, chest congestion or wheezing Objective Vital Signs - 12hr 10/25/18 10/25/18 10/25/18 22:01 23:01 23:13 Temperature Pulse Rate 106 H 100 H 100 H Pulse Rate [ From Monitor] Respiratory 20 19 21 Rate Blood Pressure 158/87 154/91 154/91 O2 Sat by Pulse 96 95 95 Oximetry 10/25/18 10/26/18 10/26/18 23:18 00:00 01:01 Temperature 98.5 F Pulse Rate 104 H 108 H Pulse Rate [ 99 H From Monitor] Respiratory 21 22 Rate Blood Pressure 159/94 159/94 O2 Sat by Pulse 95 96 Oximetry 10/26/18 10/26/18 10/26/18 02:01 03:01 03:21 Temperature 99 F Pulse Rate 104 H 104 H Pulse Rate [ From Monitor] Respiratory 22 20 Rate Blood Pressure 159/94 159/94 O2 Sat by Pulse 95 95 Oximetry 10/26/18 10/26/18 10/26/18 04:00 05:01 06:01 Temperature Pulse Rate 109 H 112 H 105 H Pulse Rate [ 110 H From Monitor] Respiratory 24 26 H 16 Rate Blood Pressure 147/87 147/87 147/87 O2 Sat by Pulse 94 93 95 Oximetry 10/26/18 08:00 Temperature 97.2 F L Pulse Rate Pulse Rate [ From Monitor] Respiratory Rate Blood Pressure O2 Sat by Pulse Oximetry Constitutional: no acute distress, other (obese) Eyes: non-icteric ENT: oropharynx moist Neck: supple, no JVD Ascultation: Bilateral: clear, diminished breath sounds Cardiovascular: other (tachycardic, slight 1/6 systolic murmur, S2 split ) Gastrointestinal: normoactive bowel sounds, non-distended, other (convered low wound no bleeding) Integumentary: normal Extremities: no cyanosis, no edema Neurologic: normal mental status, non-focal exam, pupils equal and round, CN II- XII normal, motor strength normal and CBC and BMP: 10/26/18 04:54 10/26/18 04:54 Abnormal lab findings: Abnormal Labs 10/22/18 10/22/18 10/22/18 16:07 16:07 16:36 WBC RBC 3.01 L Hgb 9.0 L Hct 26.6 L Lymph % (Auto) [place] % (Auto) 7.8 H [place] # Seg Neutrophils % Seg Neuts % (Manual) Lymphocytes % (Manual) Seg Neutrophils # Seg Neutrophils # Man Lymphocytes # (Manual) Sodium Potassium Chloride Carbon Dioxide BUN Creatinine 1.9 H Glucose POC Glucose Calcium Magnesium Lactate Dehydrogenase 449 H CK-MB (CK-2) Troponin T NT-Pro-B Natriuret Pep Total Protein Albumin Triglycerides Cholesterol LDL Cholesterol Direct HDL Cholesterol Crossmatch See Detail 10/22/18 10/22/18 10/23/18 17:08 22:22 00:33 WBC RBC Hgb Hct Lymph % (Auto) [place] % (Auto) [place] # Seg Neutrophils % Seg Neuts % (Manual) Lymphocytes % (Manual) Seg Neutrophils # Seg Neutrophils # Man Lymphocytes # (Manual) Sodium Potassium Chloride Carbon Dioxide BUN Creatinine Glucose POC Glucose 159 H 157 H Calcium Magnesium 5.90 H Lactate Dehydrogenase CK-MB (CK-2) Troponin T NT-Pro-B Natriuret Pep Total Protein Albumin Triglycerides Cholesterol LDL Cholesterol Direct HDL Cholesterol Crossmatch 10/23/18 10/23/18 10/23/18 02:25 03:01 07:58 WBC RBC Hgb Hct Lymph % (Auto) [place] % (Auto) [place] # Seg Neutrophils % Seg Neuts % (Manual) Lymphocytes % (Manual) Seg Neutrophils # Seg Neutrophils # Man Lymphocytes # (Manual) Sodium Potassium Chloride Carbon Dioxide BUN Creatinine Glucose POC Glucose 178 H Calcium Magnesium 8.60 H Lactate Dehydrogenase CK-MB (CK-2) 4.4 H Troponin T 0.057 H NT-Pro-B Natriuret Pep Total Protein Albumin Triglycerides 158 H Cholesterol 310 H LDL Cholesterol Direct 230 H HDL Cholesterol 76 H Crossmatch 10/23/18 10/23/18 10/23/18 07:58 08:00 10:17 WBC RBC Hgb Hct Lymph % (Auto) [place] % (Auto) [place] # Seg Neutrophils % Seg Neuts % (Manual) Lymphocytes % (Manual) Seg Neutrophils # Seg Neutrophils # Man Lymphocytes # (Manual) Sodium Potassium Chloride Carbon Dioxide BUN Creatinine Glucose POC Glucose 183 H 168 H Calcium Magnesium Lactate Dehydrogenase CK-MB (CK-2) 4.6 H Troponin T 0.068 H NT-Pro-B Natriuret Pep Total Protein Albumin Triglycerides Cholesterol LDL Cholesterol Direct HDL Cholesterol Crossmatch 10/23/18 10/23/18 10/23/18 11:51 12:35 12:35 WBC RBC Hgb Hct Lymph % (Auto) [place] % (Auto) [place] # Seg Neutrophils % Seg Neuts % (Manual) Lymphocytes % (Manual) Seg Neutrophils # Seg Neutrophils # Man Lymphocytes # (Manual) Sodium 132 L Potassium 5.2 H Chloride Carbon Dioxide 16 L BUN 38 H Creatinine 2.4 H Glucose 115 H POC Glucose 140 H Calcium 8.3 L Magnesium 10.30 H Lactate Dehydrogenase CK-MB (CK-2) Troponin T NT-Pro-B Natriuret Pep Total Protein Albumin Triglycerides Cholesterol LDL Cholesterol Direct HDL Cholesterol Crossmatch 10/23/18 10/23/18 10/23/18 15:00 15:46 16:27 WBC RBC Hgb Hct Lymph % (Auto) [place] % (Auto) [place] # Seg Neutrophils % Seg Neuts % (Manual) Lymphocytes % (Manual) Seg Neutrophils # Seg Neutrophils # Man Lymphocytes # (Manual) Sodium Potassium Chloride Carbon Dioxide BUN Creatinine Glucose POC Glucose 44 L 42 L 108 H Calcium Magnesium Lactate Dehydrogenase CK-MB (CK-2) Troponin T NT-Pro-B Natriuret Pep Total Protein Albumin Triglycerides Cholesterol LDL Cholesterol Direct HDL Cholesterol Crossmatch 10/23/18 10/23/18 10/24/18 19:22 22:41 05:12 WBC 12.6 H RBC 2.62 L Hgb 7.7 L Hct 23.3 L Lymph % (Auto) [place] % (Auto) [place] # Seg Neutrophils % Seg Neuts % (Manual) Lymphocytes % (Manual) Seg Neutrophils # Seg Neutrophils # Man Lymphocytes # (Manual) Sodium Potassium Chloride Carbon Dioxide BUN Creatinine Glucose POC Glucose Calcium Magnesium 9.50 H 8.30 H Lactate Dehydrogenase CK-MB (CK-2) Troponin T NT-Pro-B Natriuret Pep Total Protein Albumin Triglycerides Cholesterol LDL Cholesterol Direct HDL Cholesterol Crossmatch 10/24/18 10/24/18 10/24/18 05:12 05:12 06:09 WBC RBC Hgb Hct Lymph % (Auto) [place] % (Auto) [place] # Seg Neutrophils % Seg Neuts % (Manual) Lymphocytes % (Manual) Seg Neutrophils # Seg Neutrophils # Man Lymphocytes # (Manual) Sodium 129 L Potassium 5.3 H Chloride 97.5 L Carbon Dioxide 16 L BUN 41 H Creatinine 2.7 H Glucose 188 H POC Glucose 189 H Calcium 8.1 L Magnesium 8.20 H Lactate Dehydrogenase CK-MB (CK-2) Troponin T NT-Pro-B Natriuret Pep Total Protein Albumin Triglycerides Cholesterol LDL Cholesterol Direct HDL Cholesterol Crossmatch 10/24/18 10/24/18 10/24/18 09:27 10:27 12:20 WBC RBC Hgb Hct Lymph % (Auto) [place] % (Auto) [place] # Seg Neutrophils % Seg Neuts % (Manual) Lymphocytes % (Manual) Seg Neutrophils # Seg Neutrophils # Man Lymphocytes # (Manual) Sodium Potassium Chloride Carbon Dioxide BUN Creatinine Glucose POC Glucose 211 H Calcium Magnesium 7.80 H 7.50 H Lactate Dehydrogenase CK-MB (CK-2) Troponin T NT-Pro-B Natriuret Pep Total Protein Albumin Triglycerides Cholesterol LDL Cholesterol Direct HDL Cholesterol Crossmatch 10/24/18 10/24/18 10/24/18 12:20 12:44 13:23 WBC 12.5 H RBC 2.88 L Hgb 8.4 L Hct 25.5 L Lymph % (Auto) [place] % (Auto) [place] # Seg Neutrophils % Seg Neuts % (Manual) Lymphocytes % (Manual) Seg Neutrophils # Seg Neutrophils # Man Lymphocytes # (Manual) Sodium Potassium Chloride Carbon Dioxide BUN Creatinine Glucose POC Glucose 204 H 146 H Calcium Magnesium Lactate Dehydrogenase CK-MB (CK-2) Troponin T NT-Pro-B Natriuret Pep Total Protein Albumin Triglycerides Cholesterol LDL Cholesterol Direct HDL Cholesterol Crossmatch 10/24/18 10/24/18 10/24/18 15:19 15:21 19:18 WBC RBC Hgb Hct Lymph % (Auto) [place] % (Auto) [place] # Seg Neutrophils % Seg Neuts % (Manual) Lymphocytes % (Manual) Seg Neutrophils # Seg Neutrophils # Man Lymphocytes # (Manual) Sodium 132 L Potassium Chloride Carbon Dioxide 15 L BUN 39 H Creatinine 2.7 H Glucose 156 H POC Glucose Calcium 7.0 L Magnesium 6.30 H 7.00 H Lactate Dehydrogenase CK-MB (CK-2) Troponin T NT-Pro-B Natriuret Pep Total Protein Albumin Triglycerides Cholesterol LDL Cholesterol Direct HDL Cholesterol Crossmatch 10/24/18 10/24/18 10/24/18 19:18 19:25 21:54 WBC 17.4 H RBC 2.82 L Hgb 8.6 L Hct 25.8 L Lymph % (Auto) [place] % (Auto) [place] # Seg Neutrophils % Seg Neuts % (Manual) 92.0 H Lymphocytes % (Manual) 4.0 L Seg Neutrophils # Seg Neutrophils # Man 16.0 H Lymphocytes # (Manual) 0.7 L Sodium Potassium Chloride Carbon Dioxide BUN Creatinine Glucose POC Glucose 237 H Calcium Magnesium 6.40 H Lactate Dehydrogenase CK-MB (CK-2) Troponin T NT-Pro-B Natriuret Pep Total Protein Albumin Triglycerides Cholesterol LDL Cholesterol Direct HDL Cholesterol Crossmatch 10/25/18 10/25/18 10/25/18 04:29 04:29 08:18 WBC 12.1 H RBC 2.75 L Hgb 8.2 L Hct 24.3 L Lymph % (Auto) 11.0 L [place] % (Auto) 9.3 H [place] # 1.1 H Seg Neutrophils % 79.6 H Seg Neuts % (Manual) Lymphocytes % (Manual) Seg Neutrophils # 9.6 H Seg Neutrophils # Man Lymphocytes # (Manual) Sodium 134 L Potassium Chloride Carbon Dioxide 16 L BUN 46 H Creatinine 3.1 H Glucose 209 H POC Glucose 210 H Calcium 7.6 L Magnesium Lactate Dehydrogenase CK-MB (CK-2) Troponin T NT-Pro-B Natriuret Pep Total Protein 5.7 L Albumin 2.4 L Triglycerides Cholesterol LDL Cholesterol Direct HDL Cholesterol Crossmatch 10/25/18 10/25/18 10/25/18 11:27 11:43 16:09 WBC RBC Hgb Hct Lymph % (Auto) [place] % (Auto) [place] # Seg Neutrophils % Seg Neuts % (Manual) Lymphocytes % (Manual) Seg Neutrophils # Seg Neutrophils # Man Lymphocytes # (Manual) Sodium Potassium Chloride Carbon Dioxide BUN Creatinine Glucose POC Glucose 199 H 239 H Calcium Magnesium 5.40 H Lactate Dehydrogenase CK-MB (CK-2) Troponin T NT-Pro-B Natriuret Pep Total Protein Albumin Triglycerides Cholesterol LDL Cholesterol Direct HDL Cholesterol Crossmatch 10/25/18 10/26/18 10/26/18 21:30 04:54 04:54 WBC 12.5 H RBC 2.70 L Hgb 8.2 L Hct 23.9 L Lymph % (Auto) [place] % (Auto) [place] # Seg Neutrophils % Seg Neuts % (Manual) Lymphocytes % (Manual) Seg Neutrophils # Seg Neutrophils # Man Lymphocytes # (Manual) Sodium 136 L Potassium Chloride 108.8 H Carbon Dioxide 16 L BUN 38 H Creatinine 2.2 H Glucose 129 H POC Glucose 59 L Calcium 7.4 L Magnesium Lactate Dehydrogenase CK-MB (CK-2) Troponin T NT-Pro-B Natriuret Pep 1656 H Total Protein Albumin Triglycerides Cholesterol LDL Cholesterol Direct HDL Cholesterol Crossmatch 10/26/18 08:26 WBC RBC Hgb Hct Lymph % (Auto) [place] % (Auto) [place] # Seg Neutrophils % Seg Neuts % (Manual) Lymphocytes % (Manual) Seg Neutrophils # Seg Neutrophils # Man Lymphocytes # (Manual) Sodium Potassium Chloride Carbon Dioxide BUN Creatinine Glucose POC Glucose 172 H Calcium Magnesium Lactate Dehydrogenase CK-MB (CK-2) Troponin T NT-Pro-B Natriuret Pep Total Protein Albumin Triglycerides Cholesterol LDL Cholesterol Direct HDL Cholesterol Crossmatch
--- NOTE | 2018-10-26 11:33 | Progress Note ---
Assessment and Plan - Patient Problems (1) delivery delivered Current Visit: Yes Status: Acute Plan to address problem: Postoperative day #2. Patient without nausea vomiting. Patient without fever. Will transfer to mother-baby floor. We will continue routine postoperative care. is NICU. Will Maxine hematocrit was 23.9%. (2) Hyperkalemia Current Visit: Yes Status: Resolved (3) Diabetes mellitus with nephropathy Current Visit: Yes Status: Acute (4) Diabetes mellitus with retinopathy Current Visit: Yes Status: Acute Qualifiers: Diabetes mellitus type: type 2 Diabetic retinopathy severity: with unspecified retinopathy severity (5) Hypermagnesemia Current Visit: Yes Status: Acute (6) Diabetes Current Visit: Yes Status: Chronic Qualifiers: Diabetes mellitus type: type 2 Diabetes mellitus snf insulin use: without snf use Diabetes mellitus complication status: without complication Qualified Code(s): E11.9 - Type 2 diabetes mellitus without complications (7) Uncontrolled hypertension Current Visit: Yes Status: Chronic Plan to address problem: We'll continue present medication and continue to monitor. (8) Acute on chronic renal failure Current Visit: Yes Status: Acute Qualifiers: Acute renal failure type: unspecified Chronic kidney disease stage: stage 3 (moderate) Qualified Code(s): N17.9 - Acute kidney failure, unspecified; N18.3 - Chronic kidney disease, stage 3 (moderate) Plan to address problem: Appreciate help from nephrology. Please see above note. We will transfuse patient today. (9) Chest pain Current Visit: Yes Status: Resolved Qualifiers: Chest pain type: other chest pain Qualified Code(s): R07.89 - Other chest pain; R07.8 - Other chest pain Plan to address problem: Appreciate help from cardiology. As per Dr Henry's note, patient's to follow-up as an outpatient in 1-2 weeks Subjective Date of service: 10/26/18 Patient Reports: Positive: feels better, still having pain (patient complains some upper gastric discomfort), pain is less, tolerating liquids well, flatus, no bowel movement, afebrile. Negative: nausea, vomiting Objective Vital Signs - 12hr 10/26/18 10/26/18 10/26/18 00:00 01:01 02:01 Temperature Pulse Rate 104 H 108 H 104 H Pulse Rate [ 99 H From Monitor] Respiratory 21 22 22 Rate Blood Pressure 159/94 159/94 159/94 O2 Sat by Pulse 95 96 95 Oximetry 10/26/18 10/26/18 10/26/18 03:01 03:21 04:00 Temperature 99 F Pulse Rate 104 H 109 H Pulse Rate [ 110 H From Monitor] Respiratory 20 24 Rate Blood Pressure 159/94 147/87 O2 Sat by Pulse 95 94 Oximetry 10/26/18 10/26/18 10/26/18 05:01 06:01 07:01 Temperature Pulse Rate 112 H 105 H 111 H Pulse Rate [ From Monitor] Respiratory 26 H 16 25 H Rate Blood Pressure 147/87 147/87 147/87 O2 Sat by Pulse 93 95 90 Oximetry 10/26/18 10/26/18 10/26/18 08:00 09:01 10:01 Temperature 97.2 F L Pulse Rate 113 H 111 H 99 H Pulse Rate [ 110 H From Monitor] Respiratory 26 H 20 16 Rate Blood Pressure 161/78 161/78 170/78 O2 Sat by Pulse 90 Oximetry - General physical appearance well developed, obese - Respiratory normal expansion, normal respiratory effort - Abdomen soft, tender (appropriately), bowel sounds normal, surgical scars (feeling well clean and dry) - Integumentary no rash, no growths, no abnormal pigmentation - Neurologic normal coordination - Psychiatric oriented to time, oriented to person, oriented to place, speech is normal, memory intact - Labs 10/26/18 04:54 10/26/18 04:54 Diabetes panel 10/26/18 Range/Units 04:54 Sodium 136 L (137-145) mmol/L Potassium 4.6 (3.6-5.0) mmol/L Chloride 108.8 H (98-107) mmol/L Carbon Dioxide 16 L (22-30) mmol/L BUN 38 H (7-17) mg/dL Creatinine 2.2 H (0.7-1.2) mg/dL Glucose 129 H (65-100) mg/dL Calcium 7.4 L (8.4-10.2) mg/dL Calcium panel 10/26/18 Range/Units 04:54 Calcium 7.4 L (8.4-10.2) mg/dL Pituitary panel 10/26/18 Range/Units 04:54 Sodium 136 L (137-145) mmol/L Potassium 4.6 (3.6-5.0) mmol/L Chloride 108.8 H (98-107) mmol/L Carbon Dioxide 16 L (22-30) mmol/L BUN 38 H (7-17) mg/dL Creatinine 2.2 H (0.7-1.2) mg/dL Glucose 129 H (65-100) mg/dL Calcium 7.4 L (8.4-10.2) mg/dL Adrenal panel 10/26/18 Range/Units 04:54 Sodium 136 L (137-145) mmol/L Potassium 4.6 (3.6-5.0) mmol/L Chloride 108.8 H (98-107) mmol/L Carbon Dioxide 16 L (22-30) mmol/L BUN 38 H (7-17) mg/dL Creatinine 2.2 H (0.7-1.2) mg/dL Glucose 129 H (65-100) mg/dL Calcium 7.4 L (8.4-10.2) mg/dL
[2018-10-26] MEDS: SODIUM CHLORIDE FLUSH SYRINGE 10 ML IV SCH (12:19)
--- NOTE | 2018-10-26 13:26 | Progress Note ---
Assessment and Plan Assessment and plan: Patient is a 33 -year-old woman who is 27 weeks , history of hypertension, diabetes, chronic kidney disease been evaluated for chest pain. Pain is in the epigastric area which she describes as sharp pain, lasted 20 minutes intermittently but is not resolved, she had 2 episodes. She presented f [facility] OBGYN office for admission following abnormal dopplers in their office. There is no radiation of the pain, intensity 4/10, , she did not take anything for the pain. Admits to nausea, palpitation, no shortness of breath, diaphoresis. On examination, patient reported intermittent midsternal chest pressure, First . Chest pain Cardiomegaly Acute Respiratory failure SOHAN on CKD secondary to AIN- Improving. Precipitatous drop in hgb with ANEMIA Hypermagenesima Hyponatremia Retinopathy Hyperkalemia-resolved HTN DM IUP S/P Plan Continue supportive care Transfer to [facility] and pulmonary consult input noted Tolerating PO intake Toradol discontinued per Nephrology rec NO NSAIDS, stop toradol. high risk for AIN follow up urine eos keep MAP>65 Agree with blood transfusion Give bolus NS 500cc Increase IV fluids to 150cc/hr Patient is s/p Continue nebs DVT/GI prophy Plan discussed with the patient in detail. History Interval history: Patient seen and examined, post , No new complaints, tolerating PO diet, Resting comfortable. Hospitalist Physical - Physical exam Narrative exam: General Apperance: The patient lying in bed, breathing comfortable HEENT: Normocephalic, atraumatic. Pupils equally round and reactive to light, EOMI, no sclericterus or JVD or thyromegaly or nodule. , no carotid bruit, mucous membranes moist, no exudate or erythema Heart: S1-S2, regular is rhythm Lungs: Clear to auscultation bilaterally, breathing comfortable Abdomen: surgical scare noted,. Positive bowel sounds, soft, nontender, n ondistended, no organomegaly Extremities: No edema cyanosis clubbing Skin: no rash, nodule, warm and dry Neuro: cranial nerves 2-12 intact, speech is fluent, motor/sensory intact - Constitutional Vitals: Temp Pulse Resp BP Pulse Ox 98.1 F 100 H 18 159/95 95 10/26/18 12:00 10/26/18 13:01 10/26/18 13:01 10/26/18 13:01 10/26/18 12:00 General appearance: Present: mild distress, well-nourished Results - Labs CBC & Chem 7: 10/26/18 04:54 10/26/18 04:54 Labs: Laboratory Last Values WBC 12.5 K/mm3 (4.5-11.0) H 10/26/18 04:54 RBC 2.70 M/mm3 (3.65-5.03) L 10/26/18 04:54 Hgb 8.2 gm/dl (10.1-14.3) L 10/26/18 04:54 Hct 23.9 % (30.3-42.9) L 10/26/18 04:54 MCV 89 fl (79-97) 10/26/18 04:54 MCH 30 pg (28-32) 10/26/18 04:54 MCHC 34 % (30-34) 10/26/18 04:54 RDW 14.5 % (13.2-15.2) 10/26/18 04:54 Plt Count 288 K/mm3 (140-440) 10/26/18 04:54 Lymph % (Auto) 11.0 % (13.4-35.0) L 10/25/18 04:29 Esmeralda % (Auto) 9.3 % (0.0-7.3) H 10/25/18 04:29 Eos % (Auto) 0.0 % (0.0-4.3) 10/25/18 04:29 Baso % (Auto) 0.1 % (0.0-1.8) 10/25/18 04:29 Lymph # 1.3 K/mm3 (1.2-5.4) 10/25/18 04:29 Esmeralda # 1.1 K/mm3 (0.0-0.8) H 10/25/18 04:29 Eos # 0.0 K/mm3 (0.0-0.4) 10/25/18 04:29 Baso # 0.0 K/mm3 (0.0-0.1) 10/25/18 04:29 Add Manual Diff Complete 10/24/18 19:18 Total Counted 100 10/24/18 19:18 Seg Neutrophils % 79.6 % (40.0-70.0) H 10/25/18 04:29 Seg Neuts % (Manual) 92.0 % (40.0-70.0) H 10/24/18 19:18 0 % 10/24/18 19:18 4.0 % (13.4-35.0) L 10/24/18 19:18 Reactive Lymphs % (Man) 0 % 10/24/18 19:18 4.0 % (0.0-7.3) 10/24/18 19:18 0 % (0.0-4.3) 10/24/18 19:18 0 % (0.0-1.8) 10/24/18 19:18 0 % 10/24/18 19:18 0 % 10/24/18 19:18 0 % 10/24/18 19:18 0 % 10/24/18 19:18 Nucleated RBC % Not Reportable 10/24/18 19:18 Seg Neutrophils # 9.6 K/mm3 (1.8-7.7) H 10/25/18 04:29 Seg Neutrophils # Man 16.0 K/mm3 (1.8-7.7) H 10/24/18 19:18 Band Neutrophils # 0.0 K/mm3 10/24/18 19:18 0.7 K/mm3 (1.2-5.4) L 10/24/18 19:18 Abs React Lymphs (Man) 0.0 K/mm3 10/24/18 19:18 0.7 K/mm3 (0.0-0.8) 10/24/18 19:18 0.0 K/mm3 (0.0-0.4) 10/24/18 19:18 0.0 K/mm3 (0.0-0.1) 10/24/18 19:18 0.0 K/mm3 10/24/18 19:18 0.0 K/mm3 10/24/18 19:18 0.0 K/mm3 10/24/18 19:18 Blast Cells # 0.0 K/mm3 10/24/18 19:18 WBC Morphology Not Reportable 10/24/18 19:18 Hypersegmented Neuts Not Reportable 10/24/18 19:18 Hyposegmented Neuts Not Reportable 10/24/18 19:18 Hypogranular Neuts Not Reportable 10/24/18 19:18 Not Reportable 10/24/18 19:18 Not Reportable 10/24/18 19:18 Not Reportable 10/24/18 19:18 Not Reportable 10/24/18 19:18 Not Reportable 10/24/18 19:18 Not Reportable 10/24/18 19:18 Appears normal 10/24/18 19:18 Not Reportable 10/24/18 19:18 Plt Clumps, EDTA Not Reportable 10/24/18 19:18 Not Reportable 10/24/18 19:18 Not Reportable 10/24/18 19:18 Not Reportable 10/24/18 19:18 Plt Morphology Comment Not Reportable 10/24/18 19:18 RBC Morphology Normal 10/24/18 19:18 Dimorphic RBCs Not Reportable 10/24/18 19:18 Not Reportable 10/24/18 19:18 Not Reportable 10/24/18 19:18 Not Reportable 10/24/18 19:18 Not Reportable 10/24/18 19:18 Not Reportable 10/24/18 19:18 Not Reportable 10/24/18 19:18 Not Reportable 10/24/18 19:18 Not Reportable 10/24/18 19:18 Not Reportable 10/24/18 19:18 Not Reportable 10/24/18 19:18 Not Reportable 10/24/18 19:18 Not Reportable 10/24/18 19:18 Not Reportable 10/24/18 19:18 Not Reportable 10/24/18 19:18 Not Reportable 10/24/18 19:18 Not Reportable 10/24/18 19:18 Not Reportable 10/24/18 19:18 Not Reportable 10/24/18 19:18 Not Reportable 10/24/18 19:18 Acanthocytes (Spur) Not Reportable 10/24/18 19:18 Rouleaux Not Reportable 10/24/18 19:18 Not Reportable 10/24/18 19:18 Not Reportable 10/24/18 19:18 Not Reportable 10/24/18 19:18 Not Reportable 10/24/18 19:18 Hem Pathologist Commnt No 10/24/18 19:18 Sodium 136 mmol/L (137-145) L 10/26/18 04:54 Potassium 4.6 mmol/L (3.6-5.0) 10/26/18 04:54 Chloride 108.8 mmol/L (98-107) H 10/26/18 04:54 Carbon Dioxide 16 mmol/L (22-30) L 10/26/18 04:54 16 mmol/L 10/26/18 04:54 BUN 38 mg/dL (7-17) H 10/26/18 04:54 2.2 mg/dL (0.7-1.2) H 10/26/18 04:54 Estimated GFR 32 ml/min 10/26/18 04:54 17 % 10/26/18 04:54 Glucose 129 mg/dL (65-100) H 10/26/18 04:54 POC Glucose 161 (70-105) H 10/26/18 11:37 6.0 mg/dL (3.5-7.6) 10/22/18 16:07 Calcium 7.4 mg/dL (8.4-10.2) L 10/26/18 04:54 Magnesium 5.40 mg/dL (1.7-2.3) H 10/25/18 11:27 < 0.20 mg/dL (0.1-1.2) 10/25/18 04:29 AST 16 units/L (5-40) 10/25/18 04:29 ALT 16 units/L (7-56) 10/25/18 04:29 96 units/L (35-129) 10/25/18 04:29 449 units/L (91-180) H 10/22/18 16:07 134 units/L (30-135) 10/23/18 07:58 CK-MB (CK-2) 4.6 ng/mL (0.0-4.0) H 10/23/18 07:58 CK-MB (CK-2) Rel Index 3.4 (0-4) 10/23/18 07:58 0.068 ng/mL (0.00-0.029) H 10/23/18 07:58 NT-Pro-B Natriuret Pep 1656 pg/mL (0-450) H 10/26/18 04:54 5.7 g/dL (6.3-8.2) L 10/25/18 04:29 2.4 g/dL (3.9-5) L 10/25/18 04:29 0.7 % 10/25/18 04:29 Triglycerides 158 mg/dL (2-149) H 10/23/18 03:01 Cholesterol 310 mg/dL (50-199) H 10/23/18 03:01 230 mg/dL (50-130) H 10/23/18 03:01 76 mg/dL (40-59) H 10/23/18 03:01 4.07 % 10/23/18 03:01 Blood Type O POSITIVE 10/22/18 16:36 Antibody Screen TNR 10/22/18 16:36 TROY Antibody Screen Negative 10/22/18 16:36 Crossmatch See Detail 10/22/18 16:36 Active Medications - Current Medications Current Medications: Generic Name Dose Route Start Last Admin Trade Name Freq PRN Reason Stop Dose Admin Acetaminophen/Hydrocodone Bitart 2 each 10/24/18 18:14 10/26/18 04:14 Fortine 5/325 PO 2 each Q6H PRN Administration Pain, Moderate (4-6) Al Hydrox/Mg Hydrox/Simethicone 30 ml 10/26/18 01:34 10/26/18 08:42 Alum-Mag Hydrox-Simeth 907-526-23dc/5ml PO 30 ml Q8H PRN Administration Indigestion Albuterol 2.5 mg 10/24/18 12:58 Proventil IH Q4HRT PRN Shortness Of Breath Clonidine HCl 0.1 mg 10/26/18 08:00 10/26/18 08:42 Catapres PO 0.1 mg TID TIFFANIE Administration Clonidine HCl 0.2 mg 10/26/18 08:00 10/26/18 08:42 Catapres PO 0.2 mg TID TIFFANIE Administration Dextrose 50 ml 10/25/18 12:14 D50w (25gm) Syringe IV PRN PRN Hypoglycemia Sodium Chloride 1,000 mls @ 150 mls/hr 10/24/18 18:14 10/26/18 07:39 Nacl 0.9% 1000 Ml IV 150 mls/hr DIRECT TIFFANIE Administration Insulin Human Lispro 0 unit 10/25/18 16:30 10/26/18 12:19 Humalog SUB-Q 2 unit ACHS TIFFANIE Administration Protocol Naloxone HCl 0.2 mg 10/24/18 15:30 Narcan 0.4 Mg/1 Ml IV Q2MIN PRN Res Rate </= 8 or 02 SAT < 92% Nifedipine 90 mg 10/23/18 22:00 10/26/18 09:16 Procardia Xl PO 90 mg BID TIFFANIE Administration Promethazine HCl 25 mg 10/24/18 16:00 Phenergan SC Q6H PRN Nausea And Vomiting Sodium Chloride 10 ml 10/24/18 22:00 10/26/18 12:19 Sodium Chloride Flush Syringe 10 Ml IV 10 ml BID TIFFANIE Administration Sodium Chloride 10 ml 10/24/18 18:14 Sodium Chloride Flush Syringe 10 Ml IV PRN PRN LINE FLUSH
--- NOTE | 2018-10-26 14:47 | Progress Note ---
Assessment and Plan - Patient Problems (1) Acute renal failure superimposed on stage 3 chronic kidney disease Current Visit: Yes Status: Acute Plan to address problem: Acute renal failure superimposed on chronic kidney disease stage III Current creatinine 2.1 mg/DL improved from 3.2 Secondary to intravascular depletion and Toradol Continue fluid hydration Would decrease rate recheck renal function panel (2) Diabetes mellitus with retinopathy Current Visit: Yes Status: Acute Qualifiers: Diabetes mellitus type: type 2 Diabetic retinopathy severity: with unspecified retinopathy severity Plan to address problem: Diabetes mellitus with complications Continue medications Monitor fingerstick (3) Hypermagnesemia Current Visit: Yes Status: Acute Plan to address problem: Hypermagnesemia received magnesium giving concern for hypertensive crisis and Expect magnesium levels to improve as renal function improves (4) Uncontrolled hypertension Current Visit: Yes Status: Chronic Plan to address problem: Uncontrolled hypertension Currently on clonidine 0.2 mg 3 times a day and nifedipine 90 mg twice a day usual maximum nifedipine is 120 mg daily Change nifedipine to 120 mg daily add hydralazine 50 mg 3 times a day Subjective Principal diagnosis: s/p 1LTCS WITH BTL, HTN ,IDDM ,renal disease Interval history: 33 year old with uncontrolled HTN and diabetes mellitus type 2 with complications presenting at 27 weeks with hypertensive urgency and chest pain status post section Also developed acute kidney injury nephrology following Has good urine output renal function improving We'll continue fluid hydration reduce rate of hydration may need diuretics if edema worsens Elevated blood pressure Objective - Vital Signs Vital signs: Vital Signs - 12hr 10/26/18 10/26/18 10/26/18 03:01 03:21 04:00 Temperature 99 F Pulse Rate 104 H 109 H Pulse Rate [ 110 H From Monitor] Respiratory 20 24 Rate Blood Pressure 159/94 147/87 O2 Sat by Pulse 95 94 Oximetry 10/26/18 10/26/18 10/26/18 05:01 06:01 07:01 Temperature Pulse Rate 112 H 105 H 111 H Pulse Rate [ From Monitor] Respiratory 26 H 16 25 H Rate Blood Pressure 147/87 147/87 147/87 O2 Sat by Pulse 93 95 90 Oximetry 10/26/18 10/26/18 10/26/18 08:00 09:01 10:01 Temperature 97.2 F L Pulse Rate 113 H 111 H 99 H Pulse Rate [ 110 H From Monitor] Respiratory 26 H 20 16 Rate Blood Pressure 161/78 161/78 170/78 O2 Sat by Pulse 90 Oximetry 10/26/18 10/26/18 10/26/18 11:01 12:00 13:01 Temperature 98.1 F Pulse Rate 94 H 97 H 100 H Pulse Rate [ 110 H From Monitor] Respiratory 15 18 18 Rate Blood Pressure 157/91 159/95 159/95 O2 Sat by Pulse 95 Oximetry - General Appearance General appearance: well-developed, well-nourished EENT: ATNC, PERRL, mucous membranes moist Neck: no JVD Respiratory: Present: Clear to Ascultation Cardiology: regular, S1S2 Gastrointestinal: normal, normoactive bowel sounds Integumentary: no rash Neurologic: alert and oriented x3, CN 3-12 intact Musculoskeletal: other (grade 2-3 edema. ) Psychiatric: mood/affect appropriate - Lab 10/26/18 04:54 10/26/18 04:54 Most recent lab results Calcium 7.4 mg/dL (8.4-10.2) L 10/26/18 04:54 Magnesium 5.40 mg/dL (1.7-2.3) H 10/25/18 11:27 - Imaging Chest x-ray: image reviewed Medications & Allergies - Medications Allergies/Adverse Reactions: Allergies No Known Allergies Allergy (Verified 09/24/18 07:35) Home Medications: Home Medications Medication Instructions Recorded Confirmed Last Taken Type Lispro Insulin [Humalog] 8 unit SQ TID 09/24/18 09/25/18 09/25/18 08:00 History 1 NIFEdipine [Nifedipine ER] 60 mg PO DAILY 09/24/18 09/25/18 09/25/18 09:00 History 1 cloNIDine [Catapres] 0.2 mg PO BID 09/24/18 09/25/18 09/25/18 09:00 History 1 Aspirin [Aspirin BABY CHEW TAB] 81 mg PO QDAY 09/25/18 09/25/18 09/24/18 22:00 History 1 Progesterone, Micronized 200 mg VG QPM 09/25/18 09/25/18 09/24/18 22:00 History [Progesterone] NIFEdipine XL [Procardia Xl] 90 mg PO QDAY #30 tablet 09/29/18 Unknown Rx cloNIDine [Catapres] 0.2 mg PO TID #90 tablet 09/29/18 Unknown Rx Active Medications: Generic Name Dose Route Start Last Admin Trade Name Freq PRN Reason Stop Dose Admin Acetaminophen/Hydrocodone Bitart 2 each 10/24/18 18:14 10/26/18 04:14 [place] 5/325 PO 2 each Q6H PRN Administration Pain, Moderate (4-6) Al Hydrox/Mg Hydrox/Simethicone 30 ml 10/26/18 01:34 10/26/18 08:42 Alum-Mag Hydrox-Simeth 550-525-61hn/5ml PO 30 ml Q8H PRN Administration Indigestion Albuterol 2.5 mg 10/24/18 12:58 Proventil IH Q4HRT PRN Shortness Of Breath Clonidine HCl 0.1 mg 10/26/18 08:00 10/26/18 13:37 Catapres PO 0.1 mg TID TIFFANIE Administration Clonidine HCl 0.2 mg 10/26/18 08:00 10/26/18 13:40 Catapres PO 0.2 mg TID TIFFANIE Administration Dextrose 50 ml 10/25/18 12:14 D50w (25gm) Syringe IV PRN PRN Hypoglycemia Sodium Chloride 1,000 mls @ 150 mls/hr 10/24/18 18:14 10/26/18 07:39 Nacl 0.9% 1000 Ml IV 150 mls/hr DIRECT TIFFANIE Administration Insulin Human Lispro 0 unit 10/25/18 16:30 10/26/18 12:19 Humalog SUB-Q 2 unit ACHS TIFFANIE Administration Protocol Naloxone HCl 0.2 mg 10/24/18 15:30 Narcan 0.4 Mg/1 Ml IV Q2MIN PRN Res Rate </= 8 or 02 SAT < 92% Nifedipine 90 mg 10/23/18 22:00 10/26/18 09:16 Procardia Xl PO 90 mg BID TIFFANIE Administration Promethazine HCl 25 mg 10/24/18 16:00 Phenergan AK Q6H PRN Nausea And Vomiting Sodium Chloride 10 ml 10/24/18 22:00 10/26/18 12:19 Sodium Chloride Flush Syringe 10 Ml IV 10 ml BID TIFFANIE Administration Sodium Chloride 10 ml 10/24/18 18:14 Sodium Chloride Flush Syringe 10 Ml IV PRN PRN LINE FLUSH
[2018-10-26] MEDS ORDERED: PROCARDIA XL PO SCH ×2 (16:00→22:00)
[2018-10-26] MEDS: APRESOLINE PO SCH ×2 (16:20→23:12)
[2018-10-26] MEDS ORDERED: NACL 0.9% 500 ML 500 ML IV ONE (18:00)
[2018-10-26] MEDS ORDERED: TRIPLE ANTIBIOTIC TP PRN (23:49)
[2018-10-27] MEDS ORDERED: LASIX IV ONE ×2 (00:08→18:00)
[2018-10-27] MEDS: HumaLOG SUB-Q SCH ×5 (00:31→22:59)
[2018-10-27] MEDS: NACL 0.9% 1000 ML 1,000 ML IV SCH (02:26)
[2018-10-27] MEDS: APRESOLINE PO SCH ×3 (06:01→22:16)
[2018-10-27 07:19] LABS: Calcium 7.2 mg/dL (8.4-10.2)
[2018-10-27 08:23] LABS: Hematocrit 25.5 % (30.3-42.9); Hemoglobin 8.6 gm/dl (10.1-14.3)
[2018-10-27] MEDS: SODIUM CHLORIDE FLUSH SYRINGE 10 ML IV SCH ×2 (09:58→22:19)
[2018-10-27] MEDS ORDERED: PROCARDIA XL PO SCH (10:00)
--- NOTE | 2018-10-27 11:08 | Progress Note ---
Assessment and Plan Dyspnea. Multifactorial-combination of high blood pressure, changing pulmonary mechanics at the end of . No symptoms at this time. Uncontrolled hypertension. Improved Diastolic dysfunction, cardiomegaly per echo.See Cards note Acute on chronic renal disease. See nephrology comments Rule out TERESA. Further review into patient hypertension history, showed that she had been presenting with snoring during with witnessed apneas Obesity Diabetes puerperal state Recommendations Continue with hypertension management Monitor oximetry,especially on ambulation. Needs 02 support if < 88% Ambulate patient Incentive spirometry for atelectasis prevention Cardiology follow-up OPD DVT prophylaxis If persistent unexplained dyspnea continues, then OPD pulmonary function testing may be of benefit for further review Outpatient sleep study evaluation Hopefully, can be DH from Pulmonary standpoint on next 24 hr, after the above Discussed with patient in detail. All questions answered Subjective Date of service: 10/27/18 Principal diagnosis: s/p 1LTCS WITH BTL, HTN ,IDDM ,renal disease Interval history: Some SOB this morning on exertion. Mild MINAYA coming from bath with assistance Objective Vital Signs - 12hr 10/26/18 10/26/18 10/26/18 23:06 23:12 23:36 Temperature 98.3 F 98.3 F Pulse Rate 110 H 110 H 108 H Respiratory 22 22 Rate Blood Pressure 162/87 162/87 164/87 Blood Pressure [Left] O2 Sat by Pulse Oximetry 10/27/18 10/27/18 10/27/18 00:00 00:06 05:02 Temperature 98.4 F 99.1 F Pulse Rate 104 H 104 H Respiratory 22 18 Rate Blood Pressure 160/87 Blood Pressure 160/87 [Left] O2 Sat by Pulse 96 94 Oximetry 10/27/18 10/27/18 10/27/18 06:01 07:22 07:49 Temperature 98.9 F Pulse Rate 113 H 114 H 115 H Respiratory 20 Rate Blood Pressure 180/87 146/76 152/69 Blood Pressure [Left] O2 Sat by Pulse 96 94 Oximetry Constitutional: no acute distress, alert, other (obese) Eyes: non-icteric ENT: oropharynx moist Neck: supple, no JVD Ascultation: Bilateral: clear, diminished breath sounds Cardiovascular: regular rate and rhythm Gastrointestinal: normoactive bowel sounds, non-distended, other (convered low wound no bleeding) Integumentary: normal Extremities: no cyanosis, no edema Neurologic: normal mental status, non-focal exam, pupils equal and round, CN II- XII normal, motor strength normal and CBC and BMP: 10/27/18 08:09 10/27/18 06:35 Abnormal lab findings: Abnormal Labs 10/22/18 10/22/18 10/22/18 16:07 16:07 16:36 WBC RBC 3.01 L Hgb 9.0 L Hct 26.6 L Lymph % (Auto) Morton % (Auto) 7.8 H Morton # Seg Neutrophils % Seg Neuts % (Manual) Lymphocytes % (Manual) Seg Neutrophils # Seg Neutrophils # Man Lymphocytes # (Manual) Sodium Potassium Chloride Carbon Dioxide BUN Creatinine 1.9 H Glucose POC Glucose Calcium Magnesium Lactate Dehydrogenase 449 H CK-MB (CK-2) Troponin T NT-Pro-B Natriuret Pep Total Protein Albumin Triglycerides Cholesterol LDL Cholesterol Direct HDL Cholesterol Crossmatch See Detail 10/22/18 10/22/18 10/23/18 17:08 22:22 00:33 WBC RBC Hgb Hct Lymph % (Auto) Morton % (Auto) Morton # Seg Neutrophils % Seg Neuts % (Manual) Lymphocytes % (Manual) Seg Neutrophils # Seg Neutrophils # Man Lymphocytes # (Manual) Sodium Potassium Chloride Carbon Dioxide BUN Creatinine Glucose POC Glucose 159 H 157 H Calcium Magnesium 5.90 H Lactate Dehydrogenase CK-MB (CK-2) Troponin T NT-Pro-B Natriuret Pep Total Protein Albumin Triglycerides Cholesterol LDL Cholesterol Direct HDL Cholesterol Crossmatch 10/23/18 10/23/18 10/23/18 02:25 03:01 07:58 WBC RBC Hgb Hct Lymph % (Auto) Morton % (Auto) Morton # Seg Neutrophils % Seg Neuts % (Manual) Lymphocytes % (Manual) Seg Neutrophils # Seg Neutrophils # Man Lymphocytes # (Manual) Sodium Potassium Chloride Carbon Dioxide BUN Creatinine Glucose POC Glucose 178 H Calcium Magnesium 8.60 H Lactate Dehydrogenase CK-MB (CK-2) 4.4 H Troponin T 0.057 H NT-Pro-B Natriuret Pep Total Protein Albumin Triglycerides 158 H Cholesterol 310 H LDL Cholesterol Direct 230 H HDL Cholesterol 76 H Crossmatch 10/23/18 10/23/18 10/23/18 07:58 08:00 10:17 WBC RBC Hgb Hct Lymph % (Auto) Morton % (Auto) Morton # Seg Neutrophils % Seg Neuts % (Manual) Lymphocytes % (Manual) Seg Neutrophils # Seg Neutrophils # Man Lymphocytes # (Manual) Sodium Potassium Chloride Carbon Dioxide BUN Creatinine Glucose POC Glucose 183 H 168 H Calcium Magnesium Lactate Dehydrogenase CK-MB (CK-2) 4.6 H Troponin T 0.068 H NT-Pro-B Natriuret Pep Total Protein Albumin Triglycerides Cholesterol LDL Cholesterol Direct HDL Cholesterol Crossmatch 10/23/18 10/23/18 10/23/18 11:51 12:35 12:35 WBC RBC Hgb Hct Lymph % (Auto) Morton % (Auto) Morton # Seg Neutrophils % Seg Neuts % (Manual) Lymphocytes % (Manual) Seg Neutrophils # Seg Neutrophils # Man Lymphocytes # (Manual) Sodium 132 L Potassium 5.2 H Chloride Carbon Dioxide 16 L BUN 38 H Creatinine 2.4 H Glucose 115 H POC Glucose 140 H Calcium 8.3 L Magnesium 10.30 H Lactate Dehydrogenase CK-MB (CK-2) Troponin T NT-Pro-B Natriuret Pep Total Protein Albumin Triglycerides Cholesterol LDL Cholesterol Direct HDL Cholesterol Crossmatch 10/23/18 10/23/18 10/23/18 15:00 15:46 16:27 WBC RBC Hgb Hct Lymph % (Auto) Morton % (Auto) Morton # Seg Neutrophils % Seg Neuts % (Manual) Lymphocytes % (Manual) Seg Neutrophils # Seg Neutrophils # Man Lymphocytes # (Manual) Sodium Potassium Chloride Carbon Dioxide BUN Creatinine Glucose POC Glucose 44 L 42 L 108 H Calcium Magnesium Lactate Dehydrogenase CK-MB (CK-2) Troponin T NT-Pro-B Natriuret Pep Total Protein Albumin Triglycerides Cholesterol LDL Cholesterol Direct HDL Cholesterol Crossmatch 10/23/18 10/23/18 10/24/18 19:22 22:41 05:12 WBC 12.6 H RBC 2.62 L Hgb 7.7 L Hct 23.3 L Lymph % (Auto) Morton % (Auto) Morton # Seg Neutrophils % Seg Neuts % (Manual) Lymphocytes % (Manual) Seg Neutrophils # Seg Neutrophils # Man Lymphocytes # (Manual) Sodium Potassium Chloride Carbon Dioxide BUN Creatinine Glucose POC Glucose Calcium Magnesium 9.50 H 8.30 H Lactate Dehydrogenase CK-MB (CK-2) Troponin T NT-Pro-B Natriuret Pep Total Protein Albumin Triglycerides Cholesterol LDL Cholesterol Direct HDL Cholesterol Crossmatch 10/24/18 10/24/18 10/24/18 05:12 05:12 06:09 WBC RBC Hgb Hct Lymph % (Auto) Morton % (Auto) Morton # Seg Neutrophils % Seg Neuts % (Manual) Lymphocytes % (Manual) Seg Neutrophils # Seg Neutrophils # Man Lymphocytes # (Manual) Sodium 129 L Potassium 5.3 H Chloride 97.5 L Carbon Dioxide 16 L BUN 41 H Creatinine 2.7 H Glucose 188 H POC Glucose 189 H Calcium 8.1 L Magnesium 8.20 H Lactate Dehydrogenase CK-MB (CK-2) Troponin T NT-Pro-B Natriuret Pep Total Protein Albumin Triglycerides Cholesterol LDL Cholesterol Direct HDL Cholesterol Crossmatch 10/24/18 10/24/18 10/24/18 09:27 10:27 12:20 WBC RBC Hgb Hct Lymph % (Auto) Morton % (Auto) Morton # Seg Neutrophils % Seg Neuts % (Manual) Lymphocytes % (Manual) Seg Neutrophils # Seg Neutrophils # Man Lymphocytes # (Manual) Sodium Potassium Chloride Carbon Dioxide BUN Creatinine Glucose POC Glucose 211 H Calcium Magnesium 7.80 H 7.50 H Lactate Dehydrogenase CK-MB (CK-2) Troponin T NT-Pro-B Natriuret Pep Total Protein Albumin Triglycerides Cholesterol LDL Cholesterol Direct HDL Cholesterol Crossmatch 10/24/18 10/24/18 10/24/18 12:20 12:44 13:23 WBC 12.5 H RBC 2.88 L Hgb 8.4 L Hct 25.5 L Lymph % (Auto) Morton % (Auto) Morton # Seg Neutrophils % Seg Neuts % (Manual) Lymphocytes % (Manual) Seg Neutrophils # Seg Neutrophils # Man Lymphocytes # (Manual) Sodium Potassium Chloride Carbon Dioxide BUN Creatinine Glucose POC Glucose 204 H 146 H Calcium Magnesium Lactate Dehydrogenase CK-MB (CK-2) Troponin T NT-Pro-B Natriuret Pep Total Protein Albumin Triglycerides Cholesterol LDL Cholesterol Direct HDL Cholesterol Crossmatch 10/24/18 10/24/18 10/24/18 15:19 15:21 19:18 WBC RBC Hgb Hct Lymph % (Auto) Morton % (Auto) Morton # Seg Neutrophils % Seg Neuts % (Manual) Lymphocytes % (Manual) Seg Neutrophils # Seg Neutrophils # Man Lymphocytes # (Manual) Sodium 132 L Potassium Chloride Carbon Dioxide 15 L BUN 39 H Creatinine 2.7 H Glucose 156 H POC Glucose Calcium 7.0 L Magnesium 6.30 H 7.00 H Lactate Dehydrogenase CK-MB (CK-2) Troponin T NT-Pro-B Natriuret Pep Total Protein Albumin Triglycerides Cholesterol LDL Cholesterol Direct HDL Cholesterol Crossmatch 10/24/18 10/24/18 10/24/18 19:18 19:25 21:54 WBC 17.4 H RBC 2.82 L Hgb 8.6 L Hct 25.8 L Lymph % (Auto) Morton % (Auto) Morton # Seg Neutrophils % Seg Neuts % (Manual) 92.0 H Lymphocytes % (Manual) 4.0 L Seg Neutrophils # Seg Neutrophils # Man 16.0 H Lymphocytes # (Manual) 0.7 L Sodium Potassium Chloride Carbon Dioxide BUN Creatinine Glucose POC Glucose 237 H Calcium Magnesium 6.40 H Lactate Dehydrogenase CK-MB (CK-2) Troponin T NT-Pro-B Natriuret Pep Total Protein Albumin Triglycerides Cholesterol LDL Cholesterol Direct HDL Cholesterol Crossmatch 10/25/18 10/25/18 10/25/18 04:29 04:29 08:18 WBC 12.1 H RBC 2.75 L Hgb 8.2 L Hct 24.3 L Lymph % (Auto) 11.0 L Morton % (Auto) 9.3 H Morton # 1.1 H Seg Neutrophils % 79.6 H Seg Neuts % (Manual) Lymphocytes % (Manual) Seg Neutrophils # 9.6 H Seg Neutrophils # Man Lymphocytes # (Manual) Sodium 134 L Potassium Chloride Carbon Dioxide 16 L BUN 46 H Creatinine 3.1 H Glucose 209 H POC Glucose 210 H Calcium 7.6 L Magnesium Lactate Dehydrogenase CK-MB (CK-2) Troponin T NT-Pro-B Natriuret Pep Total Protein 5.7 L Albumin 2.4 L Triglycerides Cholesterol LDL Cholesterol Direct HDL Cholesterol Crossmatch 10/25/18 10/25/18 10/25/18 11:27 11:43 16:09 WBC RBC Hgb Hct Lymph % (Auto) Morton % (Auto) Morton # Seg Neutrophils % Seg Neuts % (Manual) Lymphocytes % (Manual) Seg Neutrophils # Seg Neutrophils # Man Lymphocytes # (Manual) Sodium Potassium Chloride Carbon Dioxide BUN Creatinine Glucose POC Glucose 199 H 239 H Calcium Magnesium 5.40 H Lactate Dehydrogenase CK-MB (CK-2) Troponin T NT-Pro-B Natriuret Pep Total Protein Albumin Triglycerides Cholesterol LDL Cholesterol Direct HDL Cholesterol Crossmatch 10/25/18 10/26/18 10/26/18 21:30 04:54 04:54 WBC 12.5 H RBC 2.70 L Hgb 8.2 L Hct 23.9 L Lymph % (Auto) Morton % (Auto) Morton # Seg Neutrophils % Seg Neuts % (Manual) Lymphocytes % (Manual) Seg Neutrophils # Seg Neutrophils # Man Lymphocytes # (Manual) Sodium 136 L Potassium Chloride 108.8 H Carbon Dioxide 16 L BUN 38 H Creatinine 2.2 H Glucose 129 H POC Glucose 59 L Calcium 7.4 L Magnesium Lactate Dehydrogenase CK-MB (CK-2) Troponin T NT-Pro-B Natriuret Pep 1656 H Total Protein Albumin Triglycerides Cholesterol LDL Cholesterol Direct HDL Cholesterol Crossmatch 10/26/18 10/26/18 10/26/18 08:26 11:37 17:56 WBC RBC Hgb Hct Lymph % (Auto) Morton % (Auto) Morton # Seg Neutrophils % Seg Neuts % (Manual) Lymphocytes % (Manual) Seg Neutrophils # Seg Neutrophils # Man Lymphocytes # (Manual) Sodium Potassium Chloride Carbon Dioxide BUN Creatinine Glucose POC Glucose 172 H 161 H 108 H Calcium Magnesium Lactate Dehydrogenase CK-MB (CK-2) Troponin T NT-Pro-B Natriuret Pep Total Protein Albumin Triglycerides Cholesterol LDL Cholesterol Direct HDL Cholesterol Crossmatch 10/26/18 10/26/18 10/26/18 18:01 20:59 23:21 WBC RBC Hgb Hct Lymph % (Auto) Morton % (Auto) Morton # Seg Neutrophils % Seg Neuts % (Manual) Lymphocytes % (Manual) Seg Neutrophils # Seg Neutrophils # Man Lymphocytes # (Manual) Sodium Potassium Chloride Carbon Dioxide BUN Creatinine Glucose POC Glucose 178 H 172 H Calcium Magnesium Lactate Dehydrogenase CK-MB (CK-2) Troponin T NT-Pro-B Natriuret Pep Total Protein Albumin Triglycerides Cholesterol LDL Cholesterol Direct HDL Cholesterol Crossmatch See Detail 10/27/18 10/27/18 10/27/18 05:50 06:35 08:09 WBC RBC Hgb 8.6 L Hct 25.5 L Lymph % (Auto) Morton % (Auto) Morton # Seg Neutrophils % Seg Neuts % (Manual) Lymphocytes % (Manual) Seg Neutrophils # Seg Neutrophils # Man Lymphocytes # (Manual) Sodium 136 L Potassium Chloride 107.5 H Carbon Dioxide 15 L BUN 37 H Creatinine 2.0 H Glucose 131 H POC Glucose 120 H Calcium 7.2 L Magnesium Lactate Dehydrogenase CK-MB (CK-2) Troponin T NT-Pro-B Natriuret Pep 871.5 H Total Protein Albumin Triglycerides Cholesterol LDL Cholesterol Direct HDL Cholesterol Crossmatch
[2018-10-27] MEDS: CATAPRES PO SCH ×6 (11:10→22:16)
[2018-10-27] MEDS: PROCARDIA XL PO SCH (11:11)
--- NOTE | 2018-10-27 13:44 | Progress Note ---
Assessment and Plan - Patient Problems (1) delivery delivered Current Visit: Yes Status: Acute Plan to address problem: Postoperative day #3. Patient without nausea nor vomiting. Patient tolerating advancing diet well Patient without fever. Will ambulate in halls. We will continue routine postoperative care. is in intensive care. Will continue routine post operative care. (2) Hyperkalemia Current Visit: Yes Status: Resolved (3) Diabetes mellitus with nephropathy Current Visit: Yes Status: Acute Plan to address problem: Urine output improving continue to watch closely. Nephrology is same patient following we'll await their recommendations. (4) Diabetes mellitus with retinopathy Current Visit: Yes Status: Acute Qualifiers: Diabetes mellitus type: type 2 Diabetic retinopathy severity: with unspecified retinopathy severity (5) Hypermagnesemia Current Visit: Yes Status: Resolved (6) Diabetes Current Visit: Yes Status: Chronic Qualifiers: Diabetes mellitus type: type 2 Diabetes mellitus beck tender insulin use: without beck tender use Diabetes mellitus complication status: without complication Qualified Code(s): E11.9 - Type 2 diabetes mellitus without complications Plan to address problem: Controlled much improved patient's been followed by hospitalist will await their recommendations (7) Uncontrolled hypertension Current Visit: Yes Status: Chronic Plan to address problem: We'll continue present medication and continue to monitor. (8) Acute on chronic renal failure Current Visit: Yes Status: Acute Qualifiers: Acute renal failure type: unspecified Chronic kidney disease stage: stage 3 (moderate) Qualified Code(s): N17.9 - Acute kidney failure, unspecified; N18.3 - Chronic kidney disease, stage 3 (moderate) Plan to address problem: Appreciate help from nephrology. Please see above note. Transfusion completed (9) Chest pain Current Visit: Yes Status: Resolved Qualifiers: Chest pain type: other chest pain Qualified Code(s): R07.89 - Other chest pain; R07.8 - Other chest pain Plan to address problem: Appreciate help from cardiology. As per Dr Henry's note, patient's to follow-up as an outpatient in 1-2 weeks (10) Dyspnea Current Visit: Yes Status: Acute Plan to address problem: We'll ambulate, continuing incentive spirometry and monitor as per pulmonology recommendations Subjective Date of service: 10/27/18 Patient Reports: Positive: no new complaints, feels better, still having pain, pain is less, tolerating a regular diet, voiding w/o difficulty, flatus, afebrile. Negative: vomiting, shortness of breath Objective Vital Signs - 12hr 10/27/18 10/27/18 10/27/18 05:02 06:01 07:22 Temperature 99.1 F Pulse Rate 104 H 113 H 114 H Respiratory 18 Rate Blood Pressure 180/87 146/76 Blood Pressure 160/87 [Left] O2 Sat by Pulse 94 96 Oximetry 10/27/18 10/27/18 07:49 11:22 Temperature 98.9 F Pulse Rate 115 H 112 H Respiratory 20 Rate Blood Pressure 152/69 166/79 Blood Pressure [Left] O2 Sat by Pulse 94 95 Oximetry - General physical appearance well developed, chronically ill - Respiratory normal respiratory effort - Abdomen soft, tender (appropriately postop), bowel sounds normal - Integumentary no rash, no growths, no abnormal pigmentation - Neurologic normal coordination - Musculoskeletal normal gait - Psychiatric oriented to time, oriented to person, oriented to place - Labs 10/27/18 08:09 10/27/18 06:35 Diabetes panel 10/27/18 Range/Units 06:35 Sodium 136 L (137-145) mmol/L Potassium 4.1 (3.6-5.0) mmol/L Chloride 107.5 H (98-107) mmol/L Carbon Dioxide 15 L (22-30) mmol/L BUN 37 H (7-17) mg/dL Creatinine 2.0 H (0.7-1.2) mg/dL Glucose 131 H (65-100) mg/dL Calcium 7.2 L (8.4-10.2) mg/dL Calcium panel 10/27/18 Range/Units 06:35 Calcium 7.2 L (8.4-10.2) mg/dL Pituitary panel 10/27/18 Range/Units 06:35 Sodium 136 L (137-145) mmol/L Potassium 4.1 (3.6-5.0) mmol/L Chloride 107.5 H (98-107) mmol/L Carbon Dioxide 15 L (22-30) mmol/L BUN 37 H (7-17) mg/dL Creatinine 2.0 H (0.7-1.2) mg/dL Glucose 131 H (65-100) mg/dL Calcium 7.2 L (8.4-10.2) mg/dL Adrenal panel 10/27/18 Range/Units 06:35 Sodium 136 L (137-145) mmol/L Potassium 4.1 (3.6-5.0) mmol/L Chloride 107.5 H (98-107) mmol/L Carbon Dioxide 15 L (22-30) mmol/L BUN 37 H (7-17) mg/dL Creatinine 2.0 H (0.7-1.2) mg/dL Glucose 131 H (65-100) mg/dL Calcium 7.2 L (8.4-10.2) mg/dL
--- NOTE | 2018-10-27 14:43 | Progress Note ---
Assessment and Plan Assessment and plan: Patient is a 33 -year-old woman who is 27 weeks , history of hypertension, diabetes, chronic kidney disease been evaluated for chest pain. Pain is in the epigastric area which she describes as sharp pain, lasted 20 minutes intermittently but is not resolved, she had 2 episodes. She presented f rom OBGYN office for admission following abnormal dopplers in their office. There is no radiation of the pain, intensity 4/10, , she did not take anything for the pain. Admits to nausea, palpitation, no shortness of breath, diaphoresis. On examination, patient reported intermittent midsternal chest pressure, First . * Patient underwent with resolution of pulmonary symptoms post procedure * She is also being followed by Nephrology due to AIN which is now improving * She recieved 2 units PRBC with stablization of HGB * Should be stable for discharge from Medical standpoint if pulmonary and renal stability noted tomorrow * I have given patient extensive counselling about importance of follow up with PCP, [employer] and tourist information assistant outpatient, also cardiology along with [employer]. Also on complaince with medications Chest pain- ATYPICAL Secondary to costochondritis Type 2 NSTEMI Cardiomegaly Acute Respiratory failure SOHAN on CKD secondary to AIN- Improving. Metabolic Acidosis Precipitatous drop in hgb with ANEMIA Hypermagenesima Hyponatremia Retinopathy Hyperkalemia-resolved HTN DM IUP S/P Plan Continue supportive care Nephrology and pulmonary consult input noted Tolerating PO intake Toradol discontinued per Nephrology rec Give a dose of sodium bicarb NO NSAIDS, stop toradol. high risk for AIN follow up urine eos keep MAP>65 Patient is s/p Continue nebs DVT/GI prophy Plan discussed with the patient in detail. History Interval history: Patient seen and examined, post , No new complaints, tolerating PO diet, Resting comfortable. WANTS TO SEE BABY Hospitalist Physical - Physical exam Narrative exam: General Apperance: The patient lying in bed, breathing comfortable HEENT: Normocephalic, atraumatic. Pupils equally round and reactive to light, EOMI, no sclericterus or JVD or thyromegaly or nodule. , no carotid bruit, mucous membranes moist, no exudate or erythema Heart: S1-S2, regular is rhythm Lungs: Clear to auscultation bilaterally, breathing comfortable Abdomen: surgical scare noted,. Positive bowel sounds, soft, nontender, nondistended, no organomegaly Extremities: No edema cyanosis clubbing Skin: no rash, nodule, warm and dry Neuro: cranial nerves 2-12 intact, speech is fluent, motor/sensory intact - Constitutional Vitals: Temp Pulse Resp BP Pulse Ox 98.9 F 112 H 20 166/79 95 10/27/18 07:49 10/27/18 11:22 10/27/18 07:49 10/27/18 11:22 10/27/18 11:22 General appearance: Present: mild distress, well-nourished Results - Labs CBC & Chem 7: 10/27/18 08:09 10/27/18 06:35 Labs: Laboratory Last Values WBC 12.5 K/mm3 (4.5-11.0) H 10/26/18 04:54 RBC 2.70 M/mm3 (3.65-5.03) L 10/26/18 04:54 Hgb 8.6 gm/dl (10.1-14.3) L 10/27/18 08:09 Hct 25.5 % (30.3-42.9) L 10/27/18 08:09 MCV 89 fl (79-97) 10/26/18 04:54 MCH 30 pg (28-32) 10/26/18 04:54 MCHC 34 % (30-34) 10/26/18 04:54 RDW 14.5 % (13.2-15.2) 10/26/18 04:54 Plt Count 288 K/mm3 (140-440) 10/26/18 04:54 Lymph % (Auto) 11.0 % (13.4-35.0) L 10/25/18 04:29 [place] % (Auto) 9.3 % (0.0-7.3) H 10/25/18 04:29 Eos % (Auto) 0.0 % (0.0-4.3) 10/25/18 04:29 Baso % (Auto) 0.1 % (0.0-1.8) 10/25/18 04:29 Lymph # 1.3 K/mm3 (1.2-5.4) 10/25/18 04:29 [place] # 1.1 K/mm3 (0.0-0.8) H 10/25/18 04:29 Eos # 0.0 K/mm3 (0.0-0.4) 10/25/18 04:29 Baso # 0.0 K/mm3 (0.0-0.1) 10/25/18 04:29 Add Manual Diff Complete 10/24/18 19:18 Total Counted 100 10/24/18 19:18 Seg Neutrophils % 79.6 % (40.0-70.0) H 10/25/18 04:29 Seg Neuts % (Manual) 92.0 % (40.0-70.0) H 10/24/18 19:18 0 % 10/24/18 19:18 4.0 % (13.4-35.0) L 10/24/18 19:18 Reactive Lymphs % (Man) 0 % 10/24/18 19:18 4.0 % (0.0-7.3) 10/24/18 19:18 0 % (0.0-4.3) 10/24/18 19:18 0 % (0.0-1.8) 10/24/18 19:18 0 % 10/24/18 19:18 0 % 10/24/18 19:18 0 % 10/24/18 19:18 0 % 10/24/18 19:18 Nucleated RBC % Not Reportable 10/24/18 19:18 Seg Neutrophils # 9.6 K/mm3 (1.8-7.7) H 10/25/18 04:29 Seg Neutrophils # Man 16.0 K/mm3 (1.8-7.7) H 10/24/18 19:18 Band Neutrophils # 0.0 K/mm3 10/24/18 19:18 0.7 K/mm3 (1.2-5.4) L 10/24/18 19:18 Abs React Lymphs (Man) 0.0 K/mm3 10/24/18 19:18 0.7 K/mm3 (0.0-0.8) 10/24/18 19:18 0.0 K/mm3 (0.0-0.4) 10/24/18 19:18 0.0 K/mm3 (0.0-0.1) 10/24/18 19:18 0.0 K/mm3 10/24/18 19:18 0.0 K/mm3 10/24/18 19:18 0.0 K/mm3 10/24/18 19:18 Blast Cells # 0.0 K/mm3 10/24/18 19:18 WBC Morphology Not Reportable 10/24/18 19:18 Hypersegmented Neuts Not Reportable 10/24/18 19:18 Hyposegmented Neuts Not Reportable 10/24/18 19:18 Hypogranular Neuts Not Reportable 10/24/18 19:18 Not Reportable 10/24/18 19:18 Not Reportable 10/24/18 19:18 Not Reportable 10/24/18 19:18 Not Reportable 10/24/18 19:18 Not Reportable 10/24/18 19:18 Not Reportable 10/24/18 19:18 Appears normal 10/24/18 19:18 Not Reportable 10/24/18 19:18 Plt Clumps, EDTA Not Reportable 10/24/18 19:18 Not Reportable 10/24/18 19:18 Not Reportable 10/24/18 19:18 Not Reportable 10/24/18 19:18 Plt Morphology Comment Not Reportable 10/24/18 19:18 RBC Morphology Normal 10/24/18 19:18 Dimorphic RBCs Not Reportable 10/24/18 19:18 Not Reportable 10/24/18 19:18 Not Reportable 10/24/18 19:18 Not Reportable 10/24/18 19:18 Not Reportable 10/24/18 19:18 Not Reportable 10/24/18 19:18 Not Reportable 10/24/18 19:18 Not Reportable 10/24/18 19:18 Not Reportable 10/24/18 19:18 Not Reportable 10/24/18 19:18 Not Reportable 10/24/18 19:18 Not Reportable 10/24/18 19:18 Not Reportable 10/24/18 19:18 Not Reportable 10/24/18 19:18 Not Reportable 10/24/18 19:18 Not Reportable 10/24/18 19:18 Not Reportable 10/24/18 19:18 Not Reportable 10/24/18 19:18 Not Reportable 10/24/18 19:18 Not Reportable 10/24/18 19:18 Acanthocytes (Spur) Not Reportable 10/24/18 19:18 Rouleaux Not Reportable 10/24/18 19:18 Not Reportable 10/24/18 19:18 Not Reportable 10/24/18 19:18 Not Reportable 10/24/18 19:18 Not Reportable 10/24/18 19:18 Hem Pathologist Commnt No 10/24/18 19:18 Sodium 136 mmol/L (137-145) L 10/27/18 06:35 Potassium 4.1 mmol/L (3.6-5.0) 10/27/18 06:35 Chloride 107.5 mmol/L (98-107) H 10/27/18 06:35 Carbon Dioxide 15 mmol/L (22-30) L 10/27/18 06:35 18 mmol/L 10/27/18 06:35 BUN 37 mg/dL (7-17) H 10/27/18 06:35 2.0 mg/dL (0.7-1.2) H 10/27/18 06:35 Estimated GFR 35 ml/min 10/27/18 06:35 19 % 10/27/18 06:35 Glucose 131 mg/dL (65-100) H 10/27/18 06:35 POC Glucose 118 (70-105) H 10/27/18 11:44 6.0 mg/dL (3.5-7.6) 10/22/18 16:07 Calcium 7.2 mg/dL (8.4-10.2) L 10/27/18 06:35 Magnesium 5.40 mg/dL (1.7-2.3) H 10/25/18 11:27 < 0.20 mg/dL (0.1-1.2) 10/25/18 04:29 AST 16 units/L (5-40) 10/25/18 04:29 ALT 16 units/L (7-56) 10/25/18 04:29 96 units/L (35-129) 10/25/18 04:29 449 units/L (91-180) H 10/22/18 16:07 134 units/L (30-135) 10/23/18 07:58 CK-MB (CK-2) 4.6 ng/mL (0.0-4.0) H 10/23/18 07:58 CK-MB (CK-2) Rel Index 3.4 (0-4) 10/23/18 07:58 0.068 ng/mL (0.00-0.029) H 10/23/18 07:58 NT-Pro-B Natriuret Pep 871.5 pg/mL (0-450) H 10/27/18 06:35 5.7 g/dL (6.3-8.2) L 10/25/18 04:29 2.4 g/dL (3.9-5) L 10/25/18 04:29 0.7 % 10/25/18 04:29 Triglycerides 158 mg/dL (2-149) H 10/23/18 03:01 Cholesterol 310 mg/dL (50-199) H 10/23/18 03:01 230 mg/dL (50-130) H 10/23/18 03:01 76 mg/dL (40-59) H 10/23/18 03:01 4.07 % 10/23/18 03:01 Blood Type O POSITIVE 10/26/18 18:01 Antibody Screen Not Reportable 10/26/18 18:01 TROY Antibody Screen Negative 10/26/18 18:01 Crossmatch See Detail 10/26/18 18:01 Active Medications - Current Medications Current Medications: Generic Name Dose Route Start Last Admin Trade Name Freq PRN Reason Stop Dose Admin Acetaminophen/Hydrocodone Bitart 2 each 10/24/18 18:14 10/26/18 18:53 [place] 5/325 PO 2 each Q6H PRN Administration Pain, Moderate (4-6) Al Hydrox/Mg Hydrox/Simethicone 30 ml 10/26/18 01:34 10/26/18 08:42 Alum-Mag Hydrox-Simeth 806-028-45uw/5ml PO 30 ml Q8H PRN Administration Indigestion Albuterol 2.5 mg 10/24/18 12:58 Proventil IH Q4HRT PRN Shortness Of Breath Clonidine HCl 0.1 mg 10/26/18 08:00 10/27/18 11:10 Catapres PO 0.1 mg TID TIFFANIE Administration Clonidine HCl 0.2 mg 10/26/18 08:00 10/27/18 11:11 Catapres PO 0.2 mg TID TIFFANIE Administration Dextrose 50 ml 10/25/18 12:14 D50w (25gm) Syringe IV PRN PRN Hypoglycemia Hydralazine HCl 50 mg 10/26/18 15:16 10/27/18 06:01 Apresoline PO 50 mg Q8HR TIFFANIE Administration Insulin Human Lispro 0 unit 10/25/18 16:30 10/27/18 12:05 Humalog SUB-Q Not Given ACHS [facility] Protocol Naloxone HCl 0.2 mg 10/24/18 15:30 Narcan 0.4 Mg/1 Ml IV Q2MIN PRN Res Rate </= 8 or 02 SAT < 92% Neomycin/Polymyxin/Bacitracin 1 applic 10/26/18 23:49 10/27/18 00:46 Triple Antibiotic TP 1 applic PRN PRN Administration Skin Irritation Nifedipine 120 mg 10/27/18 10:00 10/27/18 11:11 Procardia Xl PO 120 mg QDAY TIFFANIE Administration Promethazine HCl 25 mg 10/24/18 16:00 Phenergan [place] Q6H PRN Nausea And Vomiting Sodium Bicarbonate 1,300 mg 10/27/18 14:36 Sodium Bicarbonate PO TID TIFFANIE Sodium Chloride 10 ml 10/24/18 22:00 10/27/18 09:58 Sodium Chloride Flush Syringe 10 Ml IV 10 ml BID TIFFANIE Administration Sodium Chloride 10 ml 10/24/18 18:14 Sodium Chloride Flush Syringe 10 Ml IV PRN PRN LINE FLUSH
[2018-10-27] MEDS ORDERED: SODIUM BICARBONATE 150 MEQ in D5W 1,000 ML IV SCH (15:00)
--- NOTE | 2018-10-27 16:12 | Progress Note ---
Assessment and Plan - Patient Problems (1) Acute renal failure superimposed on stage 3 chronic kidney disease Current Visit: Yes Status: Acute Plan to address problem: Acute renal failure superimposed on chronic kidney disease stage III Current creatinine 2.1 mg/DL improved from 3.2 Secondary to intravascular depletion and Toradol DisContinue fluid hydration Start Furosemide 40mg IV x 1 . recheck renal function panel (2) Diabetes mellitus with retinopathy Current Visit: Yes Status: Acute Qualifiers: Diabetes mellitus type: type 2 Diabetic retinopathy severity: with unspecified retinopathy severity Plan to address problem: Diabetes mellitus with complications Continue medications Monitor fingerstick (3) Hypermagnesemia Current Visit: Yes Status: Resolved Plan to address problem: Hypermagnesemia received magnesium giving concern for hypertensive crisis and Expect magnesium levels to improve as renal function improves (4) Uncontrolled hypertension Current Visit: Yes Status: Chronic Plan to address problem: Uncontrolled hypertension Currently on clonidine 0.2 mg 3 times a day and nifedipine 90 mg twice a day usual maximum nifedipine is 120 mg daily Change nifedipine to 120 mg daily add hydralazine 50 mg 3 times a day Subjective Principal diagnosis: s/p 1LTCS WITH BTL, HTN ,IDDM ,renal disease Interval history: 33 year old with uncontrolled HTN and diabetes mellitus type 2 with complications presenting at 27 weeks with hypertensive urgency and chest pain status post section Also developed acute kidney injury nephrology following has signficant edema Elevated blood pressure Objective - Vital Signs Vital signs: Vital Signs - 12hr 10/27/18 10/27/18 10/27/18 05:02 06:01 07:22 Temperature 99.1 F Pulse Rate 104 H 113 H 114 H Respiratory 18 Rate Blood Pressure 180/87 146/76 Blood Pressure 160/87 [Left] O2 Sat by Pulse 94 96 Oximetry 10/27/18 10/27/18 10/27/18 07:49 11:22 15:09 Temperature 98.9 F Pulse Rate 115 H 112 H 114 H Respiratory 20 Rate Blood Pressure 152/69 166/79 155/80 Blood Pressure [Left] O2 Sat by Pulse 94 95 Oximetry - General Appearance General appearance: well-developed, well-nourished EENT: ATNC, PERRL, mucous membranes moist Neck: no JVD Respiratory: Present: Decreased Breath Sounds Cardiology: regular, S1S2 Gastrointestinal: normal, normoactive bowel sounds Integumentary: no rash Neurologic: alert and oriented x3, CN 3-12 intact Psychiatric: mood/affect appropriate - Lab 10/27/18 08:09 10/27/18 06:35 Most recent lab results Calcium 7.2 mg/dL (8.4-10.2) L 10/27/18 06:35 Magnesium 5.40 mg/dL (1.7-2.3) H 10/25/18 11:27 - Imaging Chest x-ray: image reviewed Other: other (I reviewed Echocardiogram with impaired diastolic dysfunction. ) Medications & Allergies - Medications Allergies/Adverse Reactions: Allergies No Known Allergies Allergy (Verified 09/24/18 07:35) Home Medications: Home Medications Medication Instructions Recorded Confirmed Last Taken Type Lispro Insulin [Humalog] 8 unit SQ TID 09/24/18 09/25/18 09/25/18 08:00 History 1 NIFEdipine [Nifedipine ER] 60 mg PO DAILY 09/24/18 09/25/18 09/25/18 09:00 History 1 cloNIDine [Catapres] 0.2 mg PO BID 09/24/18 09/25/18 09/25/18 09:00 History 1 Aspirin [Aspirin BABY CHEW TAB] 81 mg PO QDAY 09/25/18 09/25/18 09/24/18 22:00 History 1 Progesterone, Micronized 200 mg VG QPM 09/25/18 09/25/18 09/24/18 22:00 History [Progesterone] NIFEdipine XL [Procardia Xl] 90 mg PO QDAY #30 tablet 09/29/18 Unknown Rx cloNIDine [Catapres] 0.2 mg PO TID #90 tablet 09/29/18 Unknown Rx Active Medications: Generic Name Dose Route Start Last Admin Trade Name Freq PRN Reason Stop Dose Admin Acetaminophen/Hydrocodone Bitart 2 each 10/24/18 18:14 10/26/18 18:53 [place] 5/325 PO 2 each Q6H PRN Administration Pain, Moderate (4-6) Al Hydrox/Mg Hydrox/Simethicone 30 ml 10/26/18 01:34 10/26/18 08:42 Alum-Mag Hydrox-Simeth 813-638-45ld/5ml PO 30 ml Q8H PRN Administration Indigestion Albuterol 2.5 mg 10/24/18 12:58 Proventil IH Q4HRT PRN Shortness Of Breath Clonidine HCl 0.1 mg 10/26/18 08:00 10/27/18 11:10 Catapres PO 0.1 mg TID TIFFANIE Administration Clonidine HCl 0.2 mg 10/26/18 08:00 10/27/18 11:11 Catapres PO 0.2 mg TID TIFFANIE Administration Dextrose 50 ml 10/25/18 12:14 D50w (25gm) Syringe IV PRN PRN Hypoglycemia Hydralazine HCl 50 mg 10/26/18 15:16 10/27/18 15:09 Apresoline PO 50 mg Q8HR TIFFANIE Administration Insulin Human Lispro 0 unit 10/25/18 16:30 10/27/18 12:05 Humalog SUB-Q Not Given ACHS [facility] Protocol Naloxone HCl 0.2 mg 10/24/18 15:30 Narcan 0.4 Mg/1 Ml IV Q2MIN PRN Res Rate </= 8 or 02 SAT < 92% Neomycin/Polymyxin/Bacitracin 1 applic 10/26/18 23:49 10/27/18 00:46 Triple Antibiotic TP 1 applic PRN PRN Administration Skin Irritation Nifedipine 120 mg 10/27/18 10:00 10/27/18 11:11 Procardia Xl PO 120 mg QDAY TIFFANIE Administration Promethazine HCl 25 mg 10/24/18 16:00 Phenergan [place] Q6H PRN Nausea And Vomiting Sodium Bicarbonate 1,300 mg 10/27/18 14:36 Sodium Bicarbonate PO TID TIFFANIE Sodium Chloride 10 ml 10/24/18 22:00 10/27/18 09:58 Sodium Chloride Flush Syringe 10 Ml IV 10 ml BID TIFFANIE Administration Sodium Chloride 10 ml 10/24/18 18:14 Sodium Chloride Flush Syringe 10 Ml IV PRN PRN LINE FLUSH
[2018-10-27] MEDS: SODIUM BICARBONATE PO SCH (20:44)
[2018-10-28] MEDS: PROVENTIL IH PRN (02:41)
[2018-10-28] MEDS: NORCO 5/325 PO PRN ×2 (03:18→11:41)
[2018-10-28] MEDS: APRESOLINE PO SCH ×4 (05:56→23:36)
[2018-10-28] MEDS: CATAPRES PO SCH ×6 (05:58→20:39)
[2018-10-28] MEDS: HumaLOG SUB-Q SCH ×4 (07:57→23:34)
[2018-10-28] MEDS: SODIUM BICARBONATE PO SCH ×3 (08:14→20:39)
--- NOTE | 2018-10-28 08:28 | Progress Note ---
Assessment and Plan POD 4 s/p primary c/s with BTL. Patient is resting in bed, she reports feeling well, denies any complaints or concerns at this time. Fundus is firm, ML, U/2. Vaginal bleeding is scant, patient denies any clots or heavy bleeding. Patient reports pain is well controlled. Incision is well-approximated, healing well, no bleeding or drainage noted, no s/s of infection. Steri-strips in place. DWP good hygiene practices for incision area. Encouraged continued use of IS and frequent ambulation. Patient is continued to be followed by nephrology for continued edema and monitoring of renal function, 2+ pitting to LEs on assessment this AM. Will continue to monitor blood sugar and BP results and continue current POC. Subjective - Subjective Date of service: 10/28/18 Principal diagnosis: POD 4 s/p 1LTCS WITH BTL, HTN ,IDDM ,renal disease Patient reports: appetite normal, voiding normally, pain well controlled, ambulating normally : in NICU Objective - Vital Signs Latest vital signs: Vital Signs Temp Pulse Pulse Resp Resp BP BP 10/28/18 05:58 105 H 164/77 10/28/18 05:56 105 H 169/77 10/28/18 05:39 98.8 F 105 H 18 164/77 10/28/18 03:15 107 H 20 10/28/18 02:53 98 H 18 10/28/18 02:46 99 H 18 10/27/18 23:45 98.7 F 109 H 20 154/86 10/27/18 22:16 102 H 157/79 10/27/18 22:15 102 H 18 157/79 10/27/18 21:05 98.7 F 108 H 18 155/79 10/27/18 17:21 114 H 150/74 10/27/18 17:20 114 H 150/74 10/27/18 15:47 98.3 F 112 H 20 157/87 10/27/18 15:09 114 H 155/80 10/27/18 15:08 116 H 155/80 10/27/18 11:22 112 H 166/79 Pulse Ox 10/28/18 05:58 10/28/18 05:56 10/28/18 05:39 95 10/28/18 03:15 98 10/28/18 02:53 10/28/18 02:46 94 10/27/18 23:45 94 10/27/18 22:16 10/27/18 22:15 10/27/18 21:05 93 10/27/18 17:21 10/27/18 17:20 10/27/18 15:47 94 10/27/18 15:09 10/27/18 15:08 95 10/27/18 11:22 95 Intake and Output 10/27/18 10/28/18 10/28/18 23:59 07:59 15:59 Intake Total 360 240 Output Total 1700 Balance -1340 240 Intake: Oral 240 Intake, Free Water 120 240 Output: Urine 1700 Void 1700 Other: Total, Intake Amount 240 Total, Output Amount 400 Voiding Method Toilet # Voids Void 1 - Exam Breasts: Present: normal Cardiovascular: Present: Regular rate, Normal S1, Normal S2 Lungs: Present: Clear to auscultation Abdomen: Present: normal appearance, soft, normal bowel sounds Vulva: both: normal Uterus: Present: normal, firm Extremities: Present: normal Incision: Present: normal, dry, intact - Labs Labs: Abnormal lab results 10/27/18 10/27/18 10/27/18 Range/Units 08:09 11:44 17:10 Hgb 8.6 L (10.1-14.3) gm/dl Hct 25.5 L (30.3-42.9) % POC Glucose 118 H 215 H (70-105) 10/27/18 10/28/18 Range/Units 22:18 07:51 Hgb (10.1-14.3) gm/dl Hct (30.3-42.9) % POC Glucose 170 H 170 H (70-105)
[2018-10-28 08:59] LABS: Calcium 7.2 mg/dL (8.4-10.2)
[2018-10-28] MEDS: PROCARDIA XL PO SCH (09:45)
[2018-10-28] MEDS: SODIUM CHLORIDE FLUSH SYRINGE 10 ML IV SCH (10:00)
--- NOTE | 2018-10-28 11:41 | Progress Note ---
Assessment and Plan 33 y/o female, with dyspnea in the setting of chronic renal disease, uncontrolled hypertension and . Agree with my partners assessment. At this time, nothing acutely to do from a pulmonary standpoint. Once BP is stable and renal is comfortable suspect discharge. Pulm will sign off for now. Call if any questions. Thank you. Subjective Date of service: 10/28/18 Principal diagnosis: POD 4 s/p 1LTCS WITH BTL, HTN ,IDDM ,renal disease Interval history: No acute events. Remains on room air. BP remains elevated. Renal following. Objective Vital Signs - 12hr 10/27/18 10/28/18 10/28/18 23:45 02:46 02:53 Temperature 98.7 F Pulse Rate 109 H Pulse Rate [ 99 H 98 H Bilateral Throughout] Respiratory 20 Rate Respiratory 18 18 Rate [Bilateral Throughout] Blood Pressure Blood Pressure 154/86 [Left] O2 Sat by Pulse 94 94 Oximetry 10/28/18 10/28/18 10/28/18 03:15 05:39 05:56 Temperature 98.8 F Pulse Rate 107 H 105 H 105 H Pulse Rate [ Bilateral Throughout] Respiratory 20 18 Rate Respiratory Rate [Bilateral Throughout] Blood Pressure 169/77 Blood Pressure 164/77 [Left] O2 Sat by Pulse 98 95 Oximetry 10/28/18 10/28/18 05:58 08:36 Temperature 98.4 F Pulse Rate 105 H 104 H Pulse Rate [ Bilateral Throughout] Respiratory Rate Respiratory Rate [Bilateral Throughout] Blood Pressure 164/77 212/87 Blood Pressure [Left] O2 Sat by Pulse 91 Oximetry Constitutional: no acute distress, alert, other (obese) Eyes: non-icteric ENT: oropharynx moist Neck: supple, no JVD Ascultation: Bilateral: clear, diminished breath sounds Cardiovascular: regular rate and rhythm Gastrointestinal: normoactive bowel sounds, non-distended, other (convered low wound no bleeding) Integumentary: normal Extremities: no cyanosis, no edema Neurologic: normal mental status, non-focal exam, pupils equal and round, CN II- XII normal, motor strength normal and CBC and BMP: 10/27/18 08:09 10/28/18 08:08 Abnormal lab findings: Abnormal Labs 10/22/18 10/22/18 10/22/18 16:07 16:07 16:36 WBC RBC 3.01 L Hgb 9.0 L Hct 26.6 L Lymph % (Auto) [place] % (Auto) 7.8 H [place] # Seg Neutrophils % Seg Neuts % (Manual) Lymphocytes % (Manual) Seg Neutrophils # Seg Neutrophils # Man Lymphocytes # (Manual) Sodium Potassium Chloride Carbon Dioxide BUN Creatinine 1.9 H Glucose POC Glucose Calcium Magnesium Lactate Dehydrogenase 449 H CK-MB (CK-2) Troponin T NT-Pro-B Natriuret Pep Total Protein Albumin Triglycerides Cholesterol LDL Cholesterol Direct HDL Cholesterol Crossmatch See Detail 10/22/18 10/22/18 10/23/18 17:08 22:22 00:33 WBC RBC Hgb Hct Lymph % (Auto) [place] % (Auto) [place] # Seg Neutrophils % Seg Neuts % (Manual) Lymphocytes % (Manual) Seg Neutrophils # Seg Neutrophils # Man Lymphocytes # (Manual) Sodium Potassium Chloride Carbon Dioxide BUN Creatinine Glucose POC Glucose 159 H 157 H Calcium Magnesium 5.90 H Lactate Dehydrogenase CK-MB (CK-2) Troponin T NT-Pro-B Natriuret Pep Total Protein Albumin Triglycerides Cholesterol LDL Cholesterol Direct HDL Cholesterol Crossmatch 10/23/18 10/23/18 10/23/18 02:25 03:01 07:58 WBC RBC Hgb Hct Lymph % (Auto) [place] % (Auto) [place] # Seg Neutrophils % Seg Neuts % (Manual) Lymphocytes % (Manual) Seg Neutrophils # Seg Neutrophils # Man Lymphocytes # (Manual) Sodium Potassium Chloride Carbon Dioxide BUN Creatinine Glucose POC Glucose 178 H Calcium Magnesium 8.60 H Lactate Dehydrogenase CK-MB (CK-2) 4.4 H Troponin T 0.057 H NT-Pro-B Natriuret Pep Total Protein Albumin Triglycerides 158 H Cholesterol 310 H LDL Cholesterol Direct 230 H HDL Cholesterol 76 H Crossmatch 10/23/18 10/23/18 10/23/18 07:58 08:00 10:17 WBC RBC Hgb Hct Lymph % (Auto) [place] % (Auto) [place] # Seg Neutrophils % Seg Neuts % (Manual) Lymphocytes % (Manual) Seg Neutrophils # Seg Neutrophils # Man Lymphocytes # (Manual) Sodium Potassium Chloride Carbon Dioxide BUN Creatinine Glucose POC Glucose 183 H 168 H Calcium Magnesium Lactate Dehydrogenase CK-MB (CK-2) 4.6 H Troponin T 0.068 H NT-Pro-B Natriuret Pep Total Protein Albumin Triglycerides Cholesterol LDL Cholesterol Direct HDL Cholesterol Crossmatch 10/23/18 10/23/18 10/23/18 11:51 12:35 12:35 WBC RBC Hgb Hct Lymph % (Auto) [place] % (Auto) [place] # Seg Neutrophils % Seg Neuts % (Manual) Lymphocytes % (Manual) Seg Neutrophils # Seg Neutrophils # Man Lymphocytes # (Manual) Sodium 132 L Potassium 5.2 H Chloride Carbon Dioxide 16 L BUN 38 H Creatinine 2.4 H Glucose 115 H POC Glucose 140 H Calcium 8.3 L Magnesium 10.30 H Lactate Dehydrogenase CK-MB (CK-2) Troponin T NT-Pro-B Natriuret Pep Total Protein Albumin Triglycerides Cholesterol LDL Cholesterol Direct HDL Cholesterol Crossmatch 10/23/18 10/23/18 10/23/18 15:00 15:46 16:27 WBC RBC Hgb Hct Lymph % (Auto) [place] % (Auto) [place] # Seg Neutrophils % Seg Neuts % (Manual) Lymphocytes % (Manual) Seg Neutrophils # Seg Neutrophils # Man Lymphocytes # (Manual) Sodium Potassium Chloride Carbon Dioxide BUN Creatinine Glucose POC Glucose 44 L 42 L 108 H Calcium Magnesium Lactate Dehydrogenase CK-MB (CK-2) Troponin T NT-Pro-B Natriuret Pep Total Protein Albumin Triglycerides Cholesterol LDL Cholesterol Direct HDL Cholesterol Crossmatch 10/23/18 10/23/18 10/24/18 19:22 22:41 05:12 WBC 12.6 H RBC 2.62 L Hgb 7.7 L Hct 23.3 L Lymph % (Auto) [place] % (Auto) [place] # Seg Neutrophils % Seg Neuts % (Manual) Lymphocytes % (Manual) Seg Neutrophils # Seg Neutrophils # Man Lymphocytes # (Manual) Sodium Potassium Chloride Carbon Dioxide BUN Creatinine Glucose POC Glucose Calcium Magnesium 9.50 H 8.30 H Lactate Dehydrogenase CK-MB (CK-2) Troponin T NT-Pro-B Natriuret Pep Total Protein Albumin Triglycerides Cholesterol LDL Cholesterol Direct HDL Cholesterol Crossmatch 10/24/18 10/24/18 10/24/18 05:12 05:12 06:09 WBC RBC Hgb Hct Lymph % (Auto) [place] % (Auto) [place] # Seg Neutrophils % Seg Neuts % (Manual) Lymphocytes % (Manual) Seg Neutrophils # Seg Neutrophils # Man Lymphocytes # (Manual) Sodium 129 L Potassium 5.3 H Chloride 97.5 L Carbon Dioxide 16 L BUN 41 H Creatinine 2.7 H Glucose 188 H POC Glucose 189 H Calcium 8.1 L Magnesium 8.20 H Lactate Dehydrogenase CK-MB (CK-2) Troponin T NT-Pro-B Natriuret Pep Total Protein Albumin Triglycerides Cholesterol LDL Cholesterol Direct HDL Cholesterol Crossmatch 10/24/18 10/24/18 10/24/18 09:27 10:27 12:20 WBC RBC Hgb Hct Lymph % (Auto) [place] % (Auto) [place] # Seg Neutrophils % Seg Neuts % (Manual) Lymphocytes % (Manual) Seg Neutrophils # Seg Neutrophils # Man Lymphocytes # (Manual) Sodium Potassium Chloride Carbon Dioxide BUN Creatinine Glucose POC Glucose 211 H Calcium Magnesium 7.80 H 7.50 H Lactate Dehydrogenase CK-MB (CK-2) Troponin T NT-Pro-B Natriuret Pep Total Protein Albumin Triglycerides Cholesterol LDL Cholesterol Direct HDL Cholesterol Crossmatch 10/24/18 10/24/18 10/24/18 12:20 12:44 13:23 WBC 12.5 H RBC 2.88 L Hgb 8.4 L Hct 25.5 L Lymph % (Auto) [place] % (Auto) [place] # Seg Neutrophils % Seg Neuts % (Manual) Lymphocytes % (Manual) Seg Neutrophils # Seg Neutrophils # Man Lymphocytes # (Manual) Sodium Potassium Chloride Carbon Dioxide BUN Creatinine Glucose POC Glucose 204 H 146 H Calcium Magnesium Lactate Dehydrogenase CK-MB (CK-2) Troponin T NT-Pro-B Natriuret Pep Total Protein Albumin Triglycerides Cholesterol LDL Cholesterol Direct HDL Cholesterol Crossmatch 10/24/18 10/24/18 10/24/18 15:19 15:21 19:18 WBC RBC Hgb Hct Lymph % (Auto) [place] % (Auto) [place] # Seg Neutrophils % Seg Neuts % (Manual) Lymphocytes % (Manual) Seg Neutrophils # Seg Neutrophils # Man Lymphocytes # (Manual) Sodium 132 L Potassium Chloride Carbon Dioxide 15 L BUN 39 H Creatinine 2.7 H Glucose 156 H POC Glucose Calcium 7.0 L Magnesium 6.30 H 7.00 H Lactate Dehydrogenase CK-MB (CK-2) Troponin T NT-Pro-B Natriuret Pep Total Protein Albumin Triglycerides Cholesterol LDL Cholesterol Direct HDL Cholesterol Crossmatch 10/24/18 10/24/18 10/24/18 19:18 19:25 21:54 WBC 17.4 H RBC 2.82 L Hgb 8.6 L Hct 25.8 L Lymph % (Auto) [place] % (Auto) [place] # Seg Neutrophils % Seg Neuts % (Manual) 92.0 H Lymphocytes % (Manual) 4.0 L Seg Neutrophils # Seg Neutrophils # Man 16.0 H Lymphocytes # (Manual) 0.7 L Sodium Potassium Chloride Carbon Dioxide BUN Creatinine Glucose POC Glucose 237 H Calcium Magnesium 6.40 H Lactate Dehydrogenase CK-MB (CK-2) Troponin T NT-Pro-B Natriuret Pep Total Protein Albumin Triglycerides Cholesterol LDL Cholesterol Direct HDL Cholesterol Crossmatch 10/25/18 10/25/18 10/25/18 04:29 04:29 08:18 WBC 12.1 H RBC 2.75 L Hgb 8.2 L Hct 24.3 L Lymph % (Auto) 11.0 L [place] % (Auto) 9.3 H [place] # 1.1 H Seg Neutrophils % 79.6 H Seg Neuts % (Manual) Lymphocytes % (Manual) Seg Neutrophils # 9.6 H Seg Neutrophils # Man Lymphocytes # (Manual) Sodium 134 L Potassium Chloride Carbon Dioxide 16 L BUN 46 H Creatinine 3.1 H Glucose 209 H POC Glucose 210 H Calcium 7.6 L Magnesium Lactate Dehydrogenase CK-MB (CK-2) Troponin T NT-Pro-B Natriuret Pep Total Protein 5.7 L Albumin 2.4 L Triglycerides Cholesterol LDL Cholesterol Direct HDL Cholesterol Crossmatch 10/25/18 10/25/18 10/25/18 11:27 11:43 16:09 WBC RBC Hgb Hct Lymph % (Auto) [place] % (Auto) [place] # Seg Neutrophils % Seg Neuts % (Manual) Lymphocytes % (Manual) Seg Neutrophils # Seg Neutrophils # Man Lymphocytes # (Manual) Sodium Potassium Chloride Carbon Dioxide BUN Creatinine Glucose POC Glucose 199 H 239 H Calcium Magnesium 5.40 H Lactate Dehydrogenase CK-MB (CK-2) Troponin T NT-Pro-B Natriuret Pep Total Protein Albumin Triglycerides Cholesterol LDL Cholesterol Direct HDL Cholesterol Crossmatch 10/25/18 10/26/18 10/26/18 21:30 04:54 04:54 WBC 12.5 H RBC 2.70 L Hgb 8.2 L Hct 23.9 L Lymph % (Auto) [place] % (Auto) [place] # Seg Neutrophils % Seg Neuts % (Manual) Lymphocytes % (Manual) Seg Neutrophils # Seg Neutrophils # Man Lymphocytes # (Manual) Sodium 136 L Potassium Chloride 108.8 H Carbon Dioxide 16 L BUN 38 H Creatinine 2.2 H Glucose 129 H POC Glucose 59 L Calcium 7.4 L Magnesium Lactate Dehydrogenase CK-MB (CK-2) Troponin T NT-Pro-B Natriuret Pep 1656 H Total Protein Albumin Triglycerides Cholesterol LDL Cholesterol Direct HDL Cholesterol Crossmatch 10/26/18 10/26/18 10/26/18 08:26 11:37 17:56 WBC RBC Hgb Hct Lymph % (Auto) [place] % (Auto) [place] # Seg Neutrophils % Seg Neuts % (Manual) Lymphocytes % (Manual) Seg Neutrophils # Seg Neutrophils # Man Lymphocytes # (Manual) Sodium Potassium Chloride Carbon Dioxide BUN Creatinine Glucose POC Glucose 172 H 161 H 108 H Calcium Magnesium Lactate Dehydrogenase CK-MB (CK-2) Troponin T NT-Pro-B Natriuret Pep Total Protein Albumin Triglycerides Cholesterol LDL Cholesterol Direct HDL Cholesterol Crossmatch 10/26/18 10/26/18 10/26/18 18:01 20:59 23:21 WBC RBC Hgb Hct Lymph % (Auto) [place] % (Auto) [place] # Seg Neutrophils % Seg Neuts % (Manual) Lymphocytes % (Manual) Seg Neutrophils # Seg Neutrophils # Man Lymphocytes # (Manual) Sodium Potassium Chloride Carbon Dioxide BUN Creatinine Glucose POC Glucose 178 H 172 H Calcium Magnesium Lactate Dehydrogenase CK-MB (CK-2) Troponin T NT-Pro-B Natriuret Pep Total Protein Albumin Triglycerides Cholesterol LDL Cholesterol Direct HDL Cholesterol Crossmatch See Detail 10/27/18 10/27/18 10/27/18 05:50 06:35 08:09 WBC RBC Hgb 8.6 L Hct 25.5 L Lymph % (Auto) [place] % (Auto) [place] # Seg Neutrophils % Seg Neuts % (Manual) Lymphocytes % (Manual) Seg Neutrophils # Seg Neutrophils # Man Lymphocytes # (Manual) Sodium 136 L Potassium Chloride 107.5 H Carbon Dioxide 15 L BUN 37 H Creatinine 2.0 H Glucose 131 H POC Glucose 120 H Calcium 7.2 L Magnesium Lactate Dehydrogenase CK-MB (CK-2) Troponin T NT-Pro-B Natriuret Pep 871.5 H Total Protein Albumin Triglycerides Cholesterol LDL Cholesterol Direct HDL Cholesterol Crossmatch 10/27/18 10/27/18 10/27/18 11:44 17:10 22:18 WBC RBC Hgb Hct Lymph % (Auto) [place] % (Auto) [place] # Seg Neutrophils % Seg Neuts % (Manual) Lymphocytes % (Manual) Seg Neutrophils # Seg Neutrophils # Man Lymphocytes # (Manual) Sodium Potassium Chloride Carbon Dioxide BUN Creatinine Glucose POC Glucose 118 H 215 H 170 H Calcium Magnesium Lactate Dehydrogenase CK-MB (CK-2) Troponin T NT-Pro-B Natriuret Pep Total Protein Albumin Triglycerides Cholesterol LDL Cholesterol Direct HDL Cholesterol Crossmatch 10/28/18 10/28/18 10/28/18 07:51 08:08 11:34 WBC RBC Hgb Hct Lymph % (Auto) [place] % (Auto) [place] # Seg Neutrophils % Seg Neuts % (Manual) Lymphocytes % (Manual) Seg Neutrophils # Seg Neutrophils # Man Lymphocytes # (Manual) Sodium 134 L Potassium Chloride Carbon Dioxide 15 L BUN 35 H Creatinine 1.9 H Glucose 157 H POC Glucose 170 H 158 H Calcium 7.2 L Magnesium Lactate Dehydrogenase CK-MB (CK-2) Troponin T NT-Pro-B Natriuret Pep Total Protein Albumin Triglycerides Cholesterol LDL Cholesterol Direct HDL Cholesterol Crossmatch
--- NOTE | 2018-10-28 12:18 | Progress Note ---
Assessment and Plan Impression * Uncontrolled hypertension * Acute on chronic renal failure * Metabolic acidosis * Status post on 10/24/2018 * Hypermagnesemia * Diabetes with diabetic nephropathy Recommendations * Patient's blood pressure is still quite elevated. She is on maximum dose of Procardia already. She did not tolerate labetalol in the past. Dose of clonidine was increased recently. She would benefit from either an MARCK inhibitor or an ARB. Discussed with Dr. Cruz. Shall place her on losartan 50 mg daily for now. Patient's baby is currently in NICU . She would be advised not to breast-feed as well * Patient is also currently quite edematous. Give her 1 dose of IV Lasix today. She will probably need oral loop diuretic as well * Continue sodium bicarbonate for her metabolic acidosis * Her renal function appears to be stabilizing. Her acute kidney injury probably due to interstitial nephritis. Her baseline creatinine is approx imately 1.4 * Her magnesium level has been slowly improving Subjective Date of service: 10/28/18 Principal diagnosis: POD 4 s/p 1LTCS WITH BTL, HTN ,IDDM ,renal disease Interval history: Patient is comfortable this morning. Denies any shortness of breath. No nausea or vomiting. Objective - Vital Signs Vital signs: Vital Signs - 12hr 10/28/18 10/28/18 10/28/18 02:46 02:53 03:15 Temperature Pulse Rate 107 H Pulse Rate [ 99 H 98 H Bilateral Throughout] Respiratory 20 Rate Respiratory 18 18 Rate [Bilateral Throughout] Blood Pressure Blood Pressure [Left] O2 Sat by Pulse 94 98 Oximetry 10/28/18 10/28/18 10/28/18 05:39 05:56 05:58 Temperature 98.8 F Pulse Rate 105 H 105 H 105 H Pulse Rate [ Bilateral Throughout] Respiratory 18 Rate Respiratory Rate [Bilateral Throughout] Blood Pressure 169/77 164/77 Blood Pressure 164/77 [Left] O2 Sat by Pulse 95 Oximetry 10/28/18 10/28/18 08:36 11:37 Temperature 98.4 F 97.9 F Pulse Rate 104 H 103 H Pulse Rate [ Bilateral Throughout] Respiratory 20 Rate Respiratory Rate [Bilateral Throughout] Blood Pressure 212/87 178/91 Blood Pressure [Left] O2 Sat by Pulse 91 89 Oximetry - General Appearance General appearance: well-developed, well-nourished, appears stated age EENT: PERRL, mucous membranes moist Neck: no JVD, no thyromegaly, no carotid bruit, supple Respiratory: Present: Clear to Ascultation Cardiology: regular, normal heart rate, S1S2, no murmurs Gastrointestinal: normoactive bowel sounds, other (surgical scar noted) Integumentary: other (2+ edema) - Lab 10/27/18 08:09 10/28/18 08:08 Most recent lab results Calcium 7.2 mg/dL (8.4-10.2) L 10/28/18 08:08 Magnesium 5.40 mg/dL (1.7-2.3) H 10/25/18 11:27 Medications & Allergies - Medications Allergies/Adverse Reactions: Allergies No Known Allergies Allergy (Verified 09/24/18 07:35) Home Medications: Home Medications Medication Instructions Recorded Confirmed Last Taken Type Lispro Insulin [Humalog] 8 unit SQ TID 09/24/18 10/28/18 09/25/18 08:00 History 1 NIFEdipine [Nifedipine ER] 60 mg PO DAILY 09/24/18 10/28/18 10/27/18 History cloNIDine [Catapres] 0.2 mg PO BID 09/24/18 10/28/18 10/27/18 History Aspirin [Aspirin BABY CHEW TAB] 81 mg PO QDAY 09/25/18 10/28/18 09/24/18 22:00 History 1 Progesterone, Micronized 200 mg VG QPM 09/25/18 10/28/18 09/24/18 22:00 History [Progesterone] NIFEdipine XL [Procardia Xl] 90 mg PO QDAY #30 tablet 09/29/18 10/28/18 10/27/18 Rx cloNIDine [Catapres] 0.2 mg PO TID #90 tablet 09/29/18 10/28/18 10/27/18 Rx Active Medications: Generic Name Dose Route Start Last Admin Trade Name Freq PRN Reason Stop Dose Admin Acetaminophen/Hydrocodone Bitart 2 each 10/24/18 18:14 10/28/18 11:41 [place] 5/325 PO 2 each Q6H PRN Administration Pain, Moderate (4-6) Al Hydrox/Mg Hydrox/Simethicone 30 ml 10/26/18 01:34 10/26/18 08:42 Alum-Mag Hydrox-Simeth [phone]/5ml PO 30 ml Q8H PRN Administration Indigestion Albuterol 2.5 mg 10/24/18 12:58 10/28/18 02:41 Proventil IH 2.5 mg Q4HRT PRN Administration Shortness Of Breath Clonidine HCl 0.1 mg 10/28/18 14:00 Catapres PO TID TIFFANIE Clonidine HCl 0.2 mg 10/28/18 14:00 Catapres PO TID TIFFANIE Dextrose 50 ml 10/25/18 12:14 D50w (25gm) Syringe IV PRN PRN Hypoglycemia Hydralazine HCl 50 mg 10/26/18 15:16 10/28/18 05:56 Apresoline PO 50 mg Q8HR TIFFANIE Administration Insulin Human Lispro 0 unit 10/25/18 16:30 10/28/18 11:42 Humalog SUB-Q 2 unit ACHS TIFFANIE Administration Protocol Naloxone HCl 0.2 mg 10/24/18 15:30 Narcan 0.4 Mg/1 Ml IV Q2MIN PRN Res Rate </= 8 or 02 SAT < 92% Neomycin/Polymyxin/Bacitracin 1 applic 10/26/18 23:49 10/27/18 00:46 Triple Antibiotic TP 1 applic PRN PRN Administration Skin Irritation Nifedipine 120 mg 10/27/18 10:00 10/28/18 09:45 Procardia Xl PO 120 mg QDAY TIFFANIE Administration Promethazine HCl 25 mg 10/24/18 16:00 Phenergan MT Q6H PRN Nausea And Vomiting Sodium Bicarbonate 1,300 mg 10/27/18 14:36 10/28/18 08:14 Sodium Bicarbonate PO 1,300 mg TID TIFFANIE Administration Sodium Chloride 10 ml 10/24/18 22:00 10/27/18 22:19 Sodium Chloride Flush Syringe 10 Ml IV 10 ml BID TIFFANIE Administration Sodium Chloride 10 ml 10/24/18 18:14 Sodium Chloride Flush Syringe 10 Ml IV PRN PRN LINE FLUSH
[2018-10-28] MEDS ORDERED: LASIX IV ONE ×2 (13:22→22:50)
[2018-10-28] MEDS: COZAAR PO SCH (14:59)
--- NOTE | 2018-10-28 15:28 | Event Note ---
Date: 10/28/18 Agree with MW exam and noted. BP continues to be uncotrolled. Nephrology made adjustments to medications will con't to monitor. 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 Appears that last dose of BP meds was given at 1500pm.
--- NOTE | 2018-10-28 17:12 | Progress Note ---
Assessment and Plan Assessment and plan: Patient is a 33 -year-old woman who is 27 weeks , history of hypertension, diabetes, chronic kidney disease been evaluated for chest pain. Pain is in the epigastric area which she describes as sharp pain, lasted 20 minutes intermittently but is not resolved, she had 2 episodes. She presented f rom OBGYN office for admission following abnormal dopplers in their office. There is no radiation of the pain, intensity 4/10, , she did not take anything for the pain. Admits to nausea, palpitation, no shortness of breath, diaphoresis. On examination, patient reported intermittent midsternal chest pressure, First . * Patient underwent with resolution of pulmonary symptoms post procedure * She is also being followed by Nephrology due to AIN which is now improving * She recieved 2 units PRBC with stablization of HGB * Should be stable for discharge from Medical standpoint if pulmonary and renal stability noted tomorrow * I have given patient extensive counselling about importance of follow up with PCP, Imaging Center Manager and regulatory compliance manager outpatient, also cardiology along with VIDEO INTERN. Also on complaince with medications --Status post on 10/24/2018; Continue postop care per HUMAN FACTORS SPECIALIST --Uncontrolled hypertension; on multiple antihypertensives clonidine, nifedipine , hydralazine, Cozaar added today Optimize the medications, increase hydralazine from 50 mg to 75 mg 3 times a day closely monitor --Diabetes mellitus; Accu-Chek sliding scale coverage and ADA diet Long-acting insulin if needed --Diabetic nephropathy; nephrology following --Hypermagnesemia; magnesium levels trending down --Acute on chronic renal failure; due to vasomotor nephropathy Renal function gradually improving, creatinine trending down Avoid nephrotoxins --Anemia requiring 2 units of PRBC transfusion H&H stable, closely monitor additional PRBC transfusion if needed --Hyponatremia; mild improvement, closely monitor electrolyte Nephrology following --Hypermagnesemia; magnesium levels trending down Closely monitor --DVT prophylaxis; SCDs deffer Pharmacologic anticoagulation to HUMAN FACTORS SPECIALIST As patient is postop state Plan of care reviewed with the patient and her nurse Monitor closely and adjust management as needed History Interval history: Patient seen and examined medical records reviewed Patient feels better no new complaints Blood pressures remain uncontrolled She denies chest pain shortness of breath headache or dizziness Vital signs noted Hospitalist Physical - Constitutional Vitals: Temp Pulse Resp BP Pulse Ox 98.1 F 109 H 18 182/85 89 10/28/18 16:15 10/28/18 16:14 10/28/18 16:15 10/28/18 16:15 10/28/18 11:37 General appearance: Present: no acute distress, well-nourished, obese - EENT Eyes: Present: PERRL, EOM intact - Neck Neck: Present: supple, normal ROM - Respiratory Respiratory effort: normal Respiratory: bilateral: diminished, negative: rales, rhonchi, wheezing - Cardiovascular Rhythm: regular Heart Sounds: Present: S1 & S2 - Extremities Extremities: no ischemia Extremity abnormal: edema - Abdominal General gastrointestinal: soft, non-tender, non-distended, normal bowel sounds - Integumentary Integumentary: Present: clear, warm (edematous) - Psychiatric Psychiatric: appropriate mood/affect, cooperative - Neurologic Neurologic: moves all extremities Results - Labs CBC & Chem 7: 10/27/18 08:09 10/28/18 08:08 Labs: Laboratory Last Values WBC 12.5 K/mm3 (4.5-11.0) H 10/26/18 04:54 RBC 2.70 M/mm3 (3.65-5.03) L 10/26/18 04:54 Hgb 8.6 gm/dl (10.1-14.3) L 10/27/18 08:09 Hct 25.5 % (30.3-42.9) L 10/27/18 08:09 MCV 89 fl (79-97) 10/26/18 04:54 MCH 30 pg (28-32) 10/26/18 04:54 MCHC 34 % (30-34) 10/26/18 04:54 RDW 14.5 % (13.2-15.2) 10/26/18 04:54 Plt Count 288 K/mm3 (140-440) 10/26/18 04:54 Lymph % (Auto) 11.0 % (13.4-35.0) L 10/25/18 04:29 Pender % (Auto) 9.3 % (0.0-7.3) H 10/25/18 04:29 Eos % (Auto) 0.0 % (0.0-4.3) 10/25/18 04:29 Baso % (Auto) 0.1 % (0.0-1.8) 10/25/18 04:29 Lymph # 1.3 K/mm3 (1.2-5.4) 10/25/18 04:29 Pender # 1.1 K/mm3 (0.0-0.8) H 10/25/18 04:29 Eos # 0.0 K/mm3 (0.0-0.4) 10/25/18 04:29 Baso # 0.0 K/mm3 (0.0-0.1) 10/25/18 04:29 Add Manual Diff Complete 10/24/18 19:18 Total Counted 100 10/24/18 19:18 Seg Neutrophils % 79.6 % (40.0-70.0) H 10/25/18 04:29 Seg Neuts % (Manual) 92.0 % (40.0-70.0) H 10/24/18 19:18 0 % 10/24/18 19:18 4.0 % (13.4-35.0) L 10/24/18 19:18 Reactive Lymphs % (Man) 0 % 10/24/18 19:18 4.0 % (0.0-7.3) 10/24/18 19:18 0 % (0.0-4.3) 10/24/18 19:18 0 % (0.0-1.8) 10/24/18 19:18 0 % 10/24/18 19:18 0 % 10/24/18 19:18 0 % 10/24/18 19:18 0 % 10/24/18 19:18 Nucleated RBC % Not Reportable 10/24/18 19:18 Seg Neutrophils # 9.6 K/mm3 (1.8-7.7) H 10/25/18 04:29 Seg Neutrophils # Man 16.0 K/mm3 (1.8-7.7) H 10/24/18 19:18 Band Neutrophils # 0.0 K/mm3 10/24/18 19:18 0.7 K/mm3 (1.2-5.4) L 10/24/18 19:18 Abs React Lymphs (Man) 0.0 K/mm3 10/24/18 19:18 0.7 K/mm3 (0.0-0.8) 10/24/18 19:18 0.0 K/mm3 (0.0-0.4) 10/24/18 19:18 0.0 K/mm3 (0.0-0.1) 10/24/18 19:18 0.0 K/mm3 10/24/18 19:18 0.0 K/mm3 10/24/18 19:18 0.0 K/mm3 10/24/18 19:18 Blast Cells # 0.0 K/mm3 10/24/18 19:18 WBC Morphology Not Reportable 10/24/18 19:18 Hypersegmented Neuts Not Reportable 10/24/18 19:18 Hyposegmented Neuts Not Reportable 10/24/18 19:18 Hypogranular Neuts Not Reportable 10/24/18 19:18 Not Reportable 10/24/18 19:18 Not Reportable 10/24/18 19:18 Not Reportable 10/24/18 19:18 Not Reportable 10/24/18 19:18 Not Reportable 10/24/18 19:18 Not Reportable 10/24/18 19:18 Appears normal 10/24/18 19:18 Not Reportable 10/24/18 19:18 Plt Clumps, EDTA Not Reportable 10/24/18 19:18 Not Reportable 10/24/18 19:18 Not Reportable 10/24/18 19:18 Not Reportable 10/24/18 19:18 Plt Morphology Comment Not Reportable 10/24/18 19:18 RBC Morphology Normal 10/24/18 19:18 Dimorphic RBCs Not Reportable 10/24/18 19:18 Not Reportable 10/24/18 19:18 Not Reportable 10/24/18 19:18 Not Reportable 10/24/18 19:18 Not Reportable 10/24/18 19:18 Not Reportable 10/24/18 19:18 Not Reportable 10/24/18 19:18 Not Reportable 10/24/18 19:18 Not Reportable 10/24/18 19:18 Not Reportable 10/24/18 19:18 Not Reportable 10/24/18 19:18 Not Reportable 10/24/18 19:18 Not Reportable 10/24/18 19:18 Not Reportable 10/24/18 19:18 Not Reportable 10/24/18 19:18 Not Reportable 10/24/18 19:18 Not Reportable 10/24/18 19:18 Not Reportable 10/24/18 19:18 Not Reportable 10/24/18 19:18 Not Reportable 10/24/18 19:18 Acanthocytes (Spur) Not Reportable 10/24/18 19:18 Rouleaux Not Reportable 10/24/18 19:18 Not Reportable 10/24/18 19:18 Not Reportable 10/24/18 19:18 Not Reportable 10/24/18 19:18 Not Reportable 10/24/18 19:18 Hem Pathologist Commnt No 10/24/18 19:18 Sodium 134 mmol/L (137-145) L 10/28/18 08:08 Potassium 4.2 mmol/L (3.6-5.0) 10/28/18 08:08 Chloride 102.6 mmol/L (98-107) 10/28/18 08:08 Carbon Dioxide 15 mmol/L (22-30) L 10/28/18 08:08 21 mmol/L 10/28/18 08:08 BUN 35 mg/dL (7-17) H 10/28/18 08:08 1.9 mg/dL (0.7-1.2) H 10/28/18 08:08 Estimated GFR 37 ml/min 10/28/18 08:08 18 % 10/28/18 08:08 Glucose 157 mg/dL (65-100) H 10/28/18 08:08 POC Glucose 207 (70-105) H 10/28/18 16:41 6.0 mg/dL (3.5-7.6) 10/22/18 16:07 Calcium 7.2 mg/dL (8.4-10.2) L 10/28/18 08:08 Magnesium 5.40 mg/dL (1.7-2.3) H 10/25/18 11:27 < 0.20 mg/dL (0.1-1.2) 10/25/18 04:29 AST 16 units/L (5-40) 10/25/18 04:29 ALT 16 units/L (7-56) 10/25/18 04:29 96 units/L (35-129) 10/25/18 04:29 449 units/L (91-180) H 10/22/18 16:07 134 units/L (30-135) 10/23/18 07:58 CK-MB (CK-2) 4.6 ng/mL (0.0-4.0) H 10/23/18 07:58 CK-MB (CK-2) Rel Index 3.4 (0-4) 10/23/18 07:58 0.068 ng/mL (0.00-0.029) H 10/23/18 07:58 NT-Pro-B Natriuret Pep 871.5 pg/mL (0-450) H 10/27/18 06:35 5.7 g/dL (6.3-8.2) L 10/25/18 04:29 2.4 g/dL (3.9-5) L 10/25/18 04:29 0.7 % 10/25/18 04:29 Triglycerides 158 mg/dL (2-149) H 10/23/18 03:01 Cholesterol 310 mg/dL (50-199) H 10/23/18 03:01 230 mg/dL (50-130) H 10/23/18 03:01 76 mg/dL (40-59) H 10/23/18 03:01 4.07 % 10/23/18 03:01 Blood Type O POSITIVE 10/26/18 18:01 Antibody Screen Not Reportable 10/26/18 18:01 TROY Antibody Screen Negative 10/26/18 18:01 Crossmatch See Detail 10/26/18 18:01 Active Medications - Current Medications Current Medications: Generic Name Dose Route Start Last Admin Trade Name Freq PRN Reason Stop Dose Admin Acetaminophen/Hydrocodone Bitart 2 each 10/24/18 18:14 10/28/18 11:41 Holman 5/325 PO 2 each Q6H PRN Administration Pain, Moderate (4-6) Al Hydrox/Mg Hydrox/Simethicone 30 ml 10/26/18 01:34 10/26/18 08:42 Alum-Mag Hydrox-Simeth 711-145-09ip/5ml PO 30 ml Q8H PRN Administration Indigestion Albuterol 2.5 mg 10/24/18 12:58 10/28/18 02:41 Proventil IH 2.5 mg Q4HRT PRN Administration Shortness Of Breath Clonidine HCl 0.1 mg 10/28/18 14:00 10/28/18 15:00 Catapres PO 0.1 mg TID TIFFANIE Administration Clonidine HCl 0.2 mg 10/28/18 14:00 10/28/18 15:00 Catapres PO 0.2 mg TID TIFFANIE Administration Dextrose 50 ml 10/25/18 12:14 D50w (25gm) Syringe IV PRN PRN Hypoglycemia Hydralazine HCl 50 mg 10/26/18 15:16 10/28/18 16:14 Apresoline PO 50 mg Q8HR TIFFANIE Administration Insulin Human Lispro 0 unit 10/25/18 16:30 10/28/18 11:42 Humalog SUB-Q 2 unit ACHS TIFFANIE Administration Protocol Losartan Potassium 50 mg 10/28/18 14:00 10/28/18 14:59 Cozaar PO 50 mg QDAY TIFFANIE Administration Naloxone HCl 0.2 mg 10/24/18 15:30 Narcan 0.4 Mg/1 Ml IV Q2MIN PRN Res Rate </= 8 or 02 SAT < 92% Neomycin/Polymyxin/Bacitracin 1 applic 10/26/18 23:49 10/27/18 00:46 Triple Antibiotic TP 1 applic PRN PRN Administration Skin Irritation Nifedipine 120 mg 10/27/18 10:00 10/28/18 09:45 Procardia Xl PO 120 mg QDAY TIFFANIE Administration Promethazine HCl 25 mg 10/24/18 16:00 Phenergan CA Q6H PRN Nausea And Vomiting Sodium Bicarbonate 1,300 mg 10/27/18 14:36 10/28/18 16:22 Sodium Bicarbonate PO 1,300 mg TID TIFFANIE Administration Sodium Chloride 10 ml 10/24/18 22:00 10/28/18 10:00 Sodium Chloride Flush Syringe 10 Ml IV 10 ml BID TIFFANIE Administration Sodium Chloride 10 ml 10/24/18 18:14 Sodium Chloride Flush Syringe 10 Ml IV PRN PRN LINE FLUSH
--- NOTE | 2018-10-29 00:05 | Event Note ---
Date: 10/29/18 Called by RN with pt c/o worsening blurry vision stating now it is in both eyes. Will obtain CT scan at the time to evalute. Bp is improved from yesterday. Will con't to closely monitor.
[2018-10-29] MEDS: NORCO 5/325 PO PRN (04:18)
--- NOTE | 2018-10-29 07:41 | Progress Note ---
<MOSHELINDA - Last Filed: 10/29/18 08:25> Assessment and Plan 33y/o postop day 5 s/p primary c/s; currently she is c/o SOB, chest pain, inability to see and unmanaged pain. Pt states all of this began last night around 1800. She reports refusing pain medication despite being in pain because "I don't like taking all those pills." Pt did not go see infant all day yesterday. Concerned about PPD - mental health consulted. Case management also consulted to assist with coordinating care. Incision D&I - no drainage or redn ess. Abd soft and nontender. Lochia scant. She was assisted to bathroom to void by hospital staff - voided 400mls. - Patient Problems (1) Acute renal failure superimposed on stage 3 chronic kidney disease Current Visit: Yes Status: Acute (2) Diabetes mellitus with nephropathy Current Visit: Yes Status: Acute (3) Diabetes mellitus with retinopathy Current Visit: Yes Status: Acute Qualifiers: Diabetes mellitus type: type 2 Diabetic retinopathy severity: with unspecified retinopathy severity Plan to address problem: Consult ophthalmology (4) Uncontrolled hypertension Current Visit: Yes Status: Chronic Plan to address problem: currently taking: Cozaar 50mg QD procardia 120mg QD Hydralzine 75mg TID Clonidine 0.3mg TID Subjective - Subjective Date of service: 10/29/18 (Senior Technical Business Analyst note) Principal diagnosis: POD 5 s/p 1LTCS WITH BTL, HTN ,IDDM ,renal disease Interval history: EDC Confirmation: 01/16/2019 Past History : 1 Term Births: 0 Premature Births: 0 Living Children: 0 Para: 0 Mult. Births: 0 Prev : 0 Prev. attempt? none Aborta: 0 Elect. Ab: 0 Spont. Ab: 0 Ectopics: 0 Past Medical History: Reviewed history and no changes required: diabetes- dx 10 years ago. Humalog 4 units 3 times per day. htn- dx 1 month ago. nifedipine [address] Bishop at [facility] manages care for DM and HTN. Past Surgical History: Reviewed history and no changes required: Negative Past Surgical History Past Medical History Surgery (Non-stage set designer): Negative Past Surgical History Abnormal PAP: negative JANICE Exposure: negative Infertility: negative Uterine Anomaly: negative Uterine Surgery (not C/S): negative Other Gynecologic Problems: negative Social Hx: post admitting office escort reports last marijuana use April 2018 Last alcoloh use Mar 2018 Infection History Hx of STD: none HIV Risk Eval: low risk Hepatitis B Risk Eval: low risk Personal hx. of genital herpes: no Partner hx. of genital herpes: no Rash, Viral, or Febrile illness since last LMP? no Varicella/Chicken Pox Status: Previous Disease TB Risk: no Genetic History Congenital Heart Defect: Mom: no Dad: no Melina Disease: Mom: no Dad: no Thalassemia Mom: no Dad: no Neural Tube Defect Mom: no Dad: no Down's Syndrome Mom: no Dad: no Meek-Sachs Mom: no Dad: no Sickle Cell Disease/Trait Mom: no Dad: no Hemophilia Mom: no Dad: no Muscular Dystrophy Mom: no Dad: no Cystic Fibrosis Mom: no Dad: no [place] Chorea Mom: no Dad: no Mental Retardation Mom: no Dad: no Fragile X Mom: no Dad: no Other Genetic/Chromosomal Disorder Mom: no Dad: no Child w/other defect Mom: no Dad: no Enviromental Exposures Enviromental Exposures Reviewed Xray Exposure: no Medication, drug, or alcohol use since LMP: yes Chemical/Other Exposure: no Exposure to Cat Liter: no Hx of Parvovirus (Fifth Disease): no Occupational Exposure to Children: none Comments: marijuana apr 2018 alcohol mar 2018 Current Allergies (reviewed today): No known allergies Patient reports: voiding normally, flatus, ambulating normally, nauseated, other ("I can't see"), no appetite normal (pt has notbeen eating well, encouraged by nursing staff to eat meals), no dizzy ambulation, no pain well controlled (pt refusing pain meds " I don't like taking all these pills") : in NICU (pt has not been to see baby since 10/27) Objective - Vital Signs Latest vital signs: Vital Signs Temp Pulse Pulse Resp Resp BP BP 10/29/18 03:10 93 H 20 10/29/18 00:59 98.3 F 105 H 20 180/86 10/28/18 20:39 108 H 167/88 10/28/18 20:37 98.6 F 108 H 22 167/88 10/28/18 18:48 18 185/89 10/28/18 16:15 98.1 F 18 182/85 10/28/18 16:14 109 H 182/85 10/28/18 15:00 105 H 206/90 10/28/18 14:59 105 H 206/90 10/28/18 11:37 97.9 F 103 H 20 178/91 10/28/18 08:36 98.4 F 104 H 212/87 Pulse Ox 10/29/18 03:10 10/29/18 00:59 90 10/28/18 20:39 10/28/18 20:37 96 10/28/18 18:48 10/28/18 16:15 10/28/18 16:14 10/28/18 15:00 10/28/18 14:59 10/28/18 11:37 89 10/28/18 08:36 91 Intake and Output 10/28/18 10/28/18 10/29/18 15:59 23:59 07:59 Output Total 400 500 400 Balance -400 -500 -400 Output: Urine 400 500 400 Void 400 500 400 Other: Total, Output Amount 400 500 400 # Voids Void 1 - Exam Breasts: Present: normal Cardiovascular: Present: Other (tachypnea - pulse ox 98% on 2L NC) Lungs: Present: Clear to auscultation, Normal air movement Abdomen: Present: normal appearance, soft Extremities: Present: edema (3+ pitting below the knee) Deep Tendon Reflex Grade: Normal +2 Incision: Present: normal, dry, intact - Labs Labs: Abnormal lab results 10/28/18 10/28/18 10/28/18 Range/Units 07:51 08:08 11:34 Sodium 134 L (137-145) mmol/L Carbon Dioxide 15 L (22-30) mmol/L BUN 35 H (7-17) mg/dL Creatinine 1.9 H (0.7-1.2) mg/dL Glucose 157 H (65-100) mg/dL POC Glucose 170 H 158 H (70-105) Calcium 7.2 L (8.4-10.2) mg/dL 10/28/18 10/28/18 Range/Units 16:41 22:46 Sodium (137-145) mmol/L Carbon Dioxide (22-30) mmol/L BUN (7-17) mg/dL Creatinine (0.7-1.2) mg/dL Glucose (65-100) mg/dL POC Glucose 207 H 154 H (70-105) Calcium (8.4-10.2) mg/dL <SVETLANA MONTOYA - Last Filed: 10/29/18 11:08> Assessment and Plan With Nivia MORENO present I had a long extensive conversation with the patient and FOB. 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 Attempted to ascertain her opinion as well as FOB's opinion as to what they would like done to expedite her discharge. Explained I cannot discharge her home with uncontrolled BP and worsening of her vision. She was informed however I cannot make her stay. Emphasized concern that she would have a stroke if she's allowed home with uncontrolled BP's. They were informed the unit [facility] will address their concerns with staffing. She was informed of the plan of care: Case management, ophthalmology, Mental health consultations. She was also informed she will be getting a CXR. Attempted to confirm home insulin regimen however both patient and FOB,who states he checks her BS and gives her her insulin according what her BS is but was unable to give the name of the insulin or a specific dose given for a specific BS. They were informed the period is not the same as prior to , or intrapartum periods. She may have some degree of preeclampsia which complicates BP and BS management. This period last up to ~8weeks. At the end of the conversation patient and FOB appear better and agreed with plan of care. - Patient Problems (1) delivery delivered Current Visit: Yes Status: Acute Plan to address problem: POD#5 +flatus no BM, Dulcolax order as needed Incision c/d/i, no s/s infection (2) Uncontrolled hypertension Current Visit: Yes Status: Chronic Plan to address problem: Clonidine 0.3mg tid Procardia XL 60mg bid Coreg 12.5 mg bid Hydralazine 75mg tid Cozaar 50 mg qd (3) Diabetes mellitus with nephropathy Current Visit: Yes Status: Acute Plan to address problem: See note by Dr. Donis (4) Diabetes mellitus with retinopathy Current Visit: Yes Status: Acute Qualifiers: Diabetes mellitus type: type 2 Diabetic retinopathy severity: with unspecified retinopathy severity Plan to address problem: She was diagnosed with a left detached retina prior to and "something is going on with my right eye but they did not want to do anything until after the ". Sudden worsening of vision last pm, nml brain CY w/o contrast. Dr. Lan ophthalmology consulted. (5) Dyspnea Current Visit: Yes Status: Acute Plan to address problem: Decreased BS right base, CXR ordered (6) Anemia Current Visit: Yes Status: Acute Qualifiers: Other causes of anemia: acute posthemorrhagic Plan to address problem: Asymptomatic however mild tachycardia, FeSO4 with colace started Objective - Vital Signs Latest vital signs: Vital Signs Temp Pulse Pulse Resp Resp BP BP 10/29/18 10:23 102 H 144/81 10/29/18 08:39 110 H 184/85 10/29/18 08:08 110 H 184/85 10/29/18 08:05 98.9 F 110 H 24 184/85 10/29/18 03:10 93 H 20 10/29/18 00:59 98.3 F 105 H 20 180/86 10/28/18 20:39 108 H 167/88 10/28/18 20:37 98.6 F 108 H 22 167/88 10/28/18 18:48 18 185/89 10/28/18 16:15 98.1 F 18 182/85 10/28/18 16:14 109 H 182/85 10/28/18 15:00 105 H 206/90 10/28/18 14:59 105 H 206/90 10/28/18 11:37 97.9 F 103 H 20 178/91 Pulse Ox 10/29/18 10:23 10/29/18 08:39 10/29/18 08:08 10/29/18 08:05 98 10/29/18 03:10 10/29/18 00:59 90 10/28/18 20:39 10/28/18 20:37 96 10/28/18 18:48 10/28/18 16:15 10/28/18 16:14 10/28/18 15:00 10/28/18 14:59 10/28/18 11:37 89 Intake and Output 10/28/18 10/29/18 10/29/18 22:59 06:59 14:59 Output Total 900 400 400 Balance -900 -400 -400 Output: Urine 900 400 400 Void 900 400 400 Other: Total, Output Amount 500 400 400 # Voids Void 1 - Labs Labs: Abnormal lab results 10/28/18 10/28/18 10/28/18 Range/Units 11:34 16:41 22:46 POC Glucose 158 H 207 H 154 H (70-105) 10/29/18 Range/Units 08:00 POC Glucose 150 H (70-105)
[2018-10-29] MEDS: SODIUM BICARBONATE PO SCH ×3 (08:08→20:26)
[2018-10-29] MEDS: CATAPRES PO SCH ×6 (08:08→20:31)
--- NOTE | 2018-10-29 08:32 | Cat Scan Report ---
PROCEDURE: CT HEAD/BRAIN WO CON TECHNIQUE: A noncontrast CT of the head was performed. HISTORY: blurry vision COMPARISON: None FINDINGS: There is no acute intracranial hemorrhage. There is no brain edema, mass effect or midline shift. Ventricular size is appropriate for brain volume. There is no abnormal extra-axial fluid collections. There is no skull fracture seen. The visualized paranasal sinuses are clear. IMPRESSION: There is no acute intracranial abnormality seen. This document is electronically signed by Kecia Sykes MD., October 29 2018 09:30:40 AM ET
[2018-10-29] MEDS: APRESOLINE PO SCH ×2 (08:39→16:37)
[2018-10-29] MEDS: HumaLOG SUB-Q SCH ×4 (08:40→22:04)
--- NOTE | 2018-10-29 09:14 | Progress Note ---
Assessment and Plan Impression * Hypertension, uncontrolled * Peripheral edema * Sinus tachycardia --TTE: LVEF 55-60%, abnormal LV diastolic filling c/w impaired relaxation --V/Q scan: low prob for pulm embolus * Acute kidney injury on chronic renal failure * Metabolic acidosis * Status post on 10/24/2018 * Hypermagnesemia * Type II diabetes with diabetic nephropathy Recommendations * Change Procardia XL to 60mg BID. Start Coreg 12.5mg BID * Continue Clonidine TID * Continue ARB - initiation was discussed with Dr. Cruz * Diuresis prn - Lasix BID x 2 doses today * Continue sodium bicarbonate for her metabolic acidosis * Note plans for CXR and CT by primary team * AM labs are pending * Significant other at bedside - updated * Plan of care discussed with Dr. Ramires Subjective Date of service: 10/29/18 Principal diagnosis: POD 5 s/p 1LTCS WITH BTL, HTN ,IDDM ,renal disease Interval history: Patient reports SOB this AM - unchanged c/w yesterday. Also reports blurred vision. Objective - Vital Signs Vital signs: Vital Signs - 12hr 10/29/18 10/29/18 10/29/18 00:59 03:10 08:08 Temperature 98.3 F Pulse Rate 105 H 110 H Pulse Rate [ 93 H Bilateral Throughout] Respiratory 20 Rate Respiratory 20 Rate [Bilateral Throughout] Blood Pressure 180/86 184/85 O2 Sat by Pulse 90 Oximetry 10/29/18 08:39 Temperature Pulse Rate 110 H Pulse Rate [ Bilateral Throughout] Respiratory Rate Respiratory Rate [Bilateral Throughout] Blood Pressure 184/85 O2 Sat by Pulse Oximetry - General Appearance General appearance: well-developed, well-nourished EENT: ATNC Respiratory: Present: Decreased Breath Sounds Cardiology: tachycardia, S1S2 Gastrointestinal: normal, normoactive bowel sounds Integumentary: no rash, warm and dry Musculoskeletal: other (2+ edema) Psychiatric: cooperative - Lab 10/27/18 08:09 10/28/18 08:08 Most recent lab results Calcium 7.2 mg/dL (8.4-10.2) L 10/28/18 08:08 Magnesium 5.40 mg/dL (1.7-2.3) H 10/25/18 11:27 Medications & Allergies - Medications Allergies/Adverse Reactions: Allergies No Known Allergies Allergy (Verified 09/24/18 07:35) Home Medications: Home Medications Medication Instructions Recorded Confirmed Last Taken Type Lispro Insulin [Humalog] 8 unit SQ TID 09/24/18 10/28/18 09/25/18 08:00 History 1 NIFEdipine [Nifedipine ER] 60 mg PO DAILY 09/24/18 10/28/18 10/27/18 History cloNIDine [Catapres] 0.2 mg PO BID 09/24/18 10/28/18 10/27/18 History Aspirin [Aspirin BABY CHEW TAB] 81 mg PO QDAY 09/25/18 10/28/18 09/24/18 22:00 History 1 Progesterone, Micronized 200 mg VG QPM 09/25/18 10/28/18 09/24/18 22:00 History [Progesterone] NIFEdipine XL [Procardia Xl] 90 mg PO QDAY #30 tablet 09/29/18 10/28/18 10/27/18 Rx cloNIDine [Catapres] 0.2 mg PO TID #90 tablet 09/29/18 10/28/18 10/27/18 Rx Active Medications: Generic Name Dose Route Start Last Admin Trade Name Freq PRN Reason Stop Dose Admin Acetaminophen/Hydrocodone Bitart 2 each 10/24/18 18:14 10/28/18 11:41 [place] 5/325 PO 2 each Q6H PRN Administration Pain, Moderate (4-6) Al Hydrox/Mg Hydrox/Simethicone 30 ml 10/26/18 01:34 10/26/18 08:42 Alum-Mag Hydrox-Simeth [id number]/5ml PO 30 ml Q8H PRN Administration Indigestion Albuterol 2.5 mg 10/24/18 12:58 10/28/18 02:41 Proventil IH 2.5 mg Q4HRT PRN Administration Shortness Of Breath Clonidine HCl 0.1 mg 10/28/18 14:00 10/29/18 08:08 Catapres PO 0.1 mg TID TIFFANIE Administration Clonidine HCl 0.2 mg 10/28/18 14:00 10/29/18 08:08 Catapres PO 0.2 mg TID TIFFANIE Administration Dextrose 50 ml 10/25/18 12:14 D50w (25gm) Syringe IV PRN PRN Hypoglycemia Hydralazine HCl 75 mg 10/29/18 08:00 10/29/18 08:39 Apresoline PO 75 mg Q8H TIFFANIE Administration Insulin Human Lispro 0 unit 10/25/18 16:30 10/29/18 08:40 Humalog SUB-Q 2 unit ACHS TIFFANIE Administration Protocol Losartan Potassium 50 mg 10/28/18 14:00 10/28/18 14:59 Cozaar PO 50 mg QDAY TIFFANIE Administration Naloxone HCl 0.2 mg 10/24/18 15:30 Narcan 0.4 Mg/1 Ml IV Q2MIN PRN Res Rate </= 8 or 02 SAT < 92% Neomycin/Polymyxin/Bacitracin 1 applic 10/26/18 23:49 10/27/18 00:46 Triple Antibiotic TP 1 applic PRN PRN Administration Skin Irritation Nifedipine 120 mg 10/27/18 10:00 10/28/18 09:45 Procardia Xl PO 120 mg QDAY TIFFANIE Administration Promethazine HCl 25 mg 10/24/18 16:00 Phenergan [place] Q6H PRN Nausea And Vomiting Sodium Bicarbonate 1,300 mg 10/27/18 14:36 10/29/18 08:08 Sodium Bicarbonate PO 1,300 mg TID TIFFANIE Administration Sodium Chloride 10 ml 10/24/18 22:00 10/28/18 10:00 Sodium Chloride Flush Syringe 10 Ml IV 10 ml BID TIFFANIE Administration Sodium Chloride 10 ml 10/24/18 18:14 Sodium Chloride Flush Syringe 10 Ml IV PRN PRN LINE FLUSH
[2018-10-29] MEDS: COZAAR PO SCH (10:23)
[2018-10-29] MEDS: COREG PO SCH ×2 (11:01→22:09)
--- NOTE | 2018-10-29 11:21 | Event Note ---
Date: 10/29/18 S/w Dr. Lan's office waiting for call back
[2018-10-29] MEDS ORDERED: DULCOLAX PO PRN (11:30)
--- NOTE | 2018-10-29 11:39 | XRay Report ---
ROUTINE CHEST, TWO VIEWS: HISTORY: Tachypnea. Compared to 10/22/18. Borderline to mild cardiomegaly stable. Trace bilateral pleural effusions have developed, slightly larger on the left. No evidence for pneumonia or pneumothorax. The bony structures are grossly intact. IMPRESSION: Consider mild fluid overload or mild CHF. Trace pleural effusions have developed since 10/22/18.
[2018-10-29] MEDS: FEOSOL PO SCH (12:08)
[2018-10-29] MEDS: PROTONIX PO SCH (12:08)
[2018-10-29] MEDS: LASIX IV SCH ×2 (12:08→18:31)
[2018-10-29] MEDS: COLACE PO SCH (12:32)
[2018-10-29] MEDS: PROCARDIA XL PO SCH ×2 (13:11→22:11)
--- NOTE | 2018-10-29 13:21 | Event Note ---
Date: 10/29/18 s/w Dr. Lan. States he does not do hospital consults d/t limited ability to perform a thorough assessment but she can come to the office after d/c home for evaluation. Now waiting for phone call from the patient's retinal specialist Dr. Swenson.
--- NOTE | 2018-10-29 14:23 | Progress Note ---
Assessment and Plan Assessment and plan: --Status post on 10/24/2018; Continue postop care per VENTILATOR SPECIALIST --Anemia requiring 2 units of PRBC transfusion H&H stable, closely monitor additional PRBC transfusion if needed --Uncontrolled hypertension; pressures better controlled today ,on multiple antihypertensives clonidine, nifedipine, hydralazine, Cozaar . Coreg added Optimize the medications, nephrology following --Diabetes mellitus; Accu-Chek sliding scale coverage and ADA diet Long-acting insulin if needed --Diabetic nephropathy; nephrology following --Hypermagnesemia; magnesium levels trending down --Acute on chronic renal failure; due to vasomotor nephropathy Renal function gradually improving, creatinine trending down Avoid nephrotoxins --Hyponatremia; mild improvement, closely monitor electrolyte Nephrology following --Hypermagnesemia; magnesium levels trending down Closely monitor --DVT prophylaxis; SCDs deffer Pharmacologic anticoagulation to VENTILATOR SPECIALIST As patient is postop state Plan of care reviewed with the patient's mother and her nurse Monitor closely and adjust management as needed History Interval history: Patient has no new complaints blood pressures are reasonable control Vital signs noted Hospitalist Physical - Constitutional Vitals: Temp Pulse Resp BP Pulse Ox 98.7 F 95 H 20 151/82 100 10/29/18 12:11 10/29/18 12:11 10/29/18 12:11 10/29/18 12:11 10/29/18 12:11 General appearance: Present: no acute distress, well-nourished, obese - EENT Eyes: Present: PERRL, EOM intact - Neck Neck: Present: supple, normal ROM - Respiratory Respiratory effort: normal Respiratory: negative: rales, rhonchi, wheezing - Cardiovascular Rhythm: regular Heart Sounds: Present: S1 & S2 - Extremities Extremities: no ischemia Extremity abnormal: edema - Abdominal General gastrointestinal: soft, non-tender, non-distended, normal bowel sounds - Integumentary Integumentary: Present: clear, warm - Psychiatric Psychiatric: appropriate mood/affect, cooperative - Neurologic Neurologic: moves all extremities Results - Labs CBC & Chem 7: 10/27/18 08:09 10/29/18 13:48 Labs: Laboratory Last Values WBC 12.5 K/mm3 (4.5-11.0) H 10/26/18 04:54 RBC 2.70 M/mm3 (3.65-5.03) L 10/26/18 04:54 Hgb 8.6 gm/dl (10.1-14.3) L 10/27/18 08:09 Hct 25.5 % (30.3-42.9) L 10/27/18 08:09 MCV 89 fl (79-97) 10/26/18 04:54 MCH 30 pg (28-32) 10/26/18 04:54 MCHC 34 % (30-34) 10/26/18 04:54 RDW 14.5 % (13.2-15.2) 10/26/18 04:54 Plt Count 288 K/mm3 (140-440) 10/26/18 04:54 Lymph % (Auto) 11.0 % (13.4-35.0) L 10/25/18 04:29 [place] % (Auto) 9.3 % (0.0-7.3) H 10/25/18 04:29 Eos % (Auto) 0.0 % (0.0-4.3) 10/25/18 04:29 Baso % (Auto) 0.1 % (0.0-1.8) 10/25/18 04:29 Lymph # 1.3 K/mm3 (1.2-5.4) 10/25/18 04:29 [place] # 1.1 K/mm3 (0.0-0.8) H 10/25/18 04:29 Eos # 0.0 K/mm3 (0.0-0.4) 10/25/18 04:29 Baso # 0.0 K/mm3 (0.0-0.1) 10/25/18 04:29 Add Manual Diff Complete 10/24/18 19:18 Total Counted 100 10/24/18 19:18 Seg Neutrophils % 79.6 % (40.0-70.0) H 10/25/18 04:29 Seg Neuts % (Manual) 92.0 % (40.0-70.0) H 10/24/18 19:18 0 % 10/24/18 19:18 4.0 % (13.4-35.0) L 10/24/18 19:18 Reactive Lymphs % (Man) 0 % 10/24/18 19:18 4.0 % (0.0-7.3) 10/24/18 19:18 0 % (0.0-4.3) 10/24/18 19:18 0 % (0.0-1.8) 10/24/18 19:18 0 % 10/24/18 19:18 0 % 10/24/18 19:18 0 % 10/24/18 19:18 0 % 10/24/18 19:18 Nucleated RBC % Not Reportable 10/24/18 19:18 Seg Neutrophils # 9.6 K/mm3 (1.8-7.7) H 10/25/18 04:29 Seg Neutrophils # Man 16.0 K/mm3 (1.8-7.7) H 10/24/18 19:18 Band Neutrophils # 0.0 K/mm3 10/24/18 19:18 0.7 K/mm3 (1.2-5.4) L 10/24/18 19:18 Abs React Lymphs (Man) 0.0 K/mm3 10/24/18 19:18 0.7 K/mm3 (0.0-0.8) 10/24/18 19:18 0.0 K/mm3 (0.0-0.4) 10/24/18 19:18 0.0 K/mm3 (0.0-0.1) 10/24/18 19:18 0.0 K/mm3 10/24/18 19:18 0.0 K/mm3 10/24/18 19:18 0.0 K/mm3 10/24/18 19:18 Blast Cells # 0.0 K/mm3 10/24/18 19:18 WBC Morphology Not Reportable 10/24/18 19:18 Hypersegmented Neuts Not Reportable 10/24/18 19:18 Hyposegmented Neuts Not Reportable 10/24/18 19:18 Hypogranular Neuts Not Reportable 10/24/18 19:18 Not Reportable 10/24/18 19:18 Not Reportable 10/24/18 19:18 Not Reportable 10/24/18 19:18 Not Reportable 10/24/18 19:18 Not Reportable 10/24/18 19:18 Not Reportable 10/24/18 19:18 Appears normal 10/24/18 19:18 Not Reportable 10/24/18 19:18 Plt Clumps, EDTA Not Reportable 10/24/18 19:18 Not Reportable 10/24/18 19:18 Not Reportable 10/24/18 19:18 Not Reportable 10/24/18 19:18 Plt Morphology Comment Not Reportable 10/24/18 19:18 RBC Morphology Normal 10/24/18 19:18 Dimorphic RBCs Not Reportable 10/24/18 19:18 Not Reportable 10/24/18 19:18 Not Reportable 10/24/18 19:18 Not Reportable 10/24/18 19:18 Not Reportable 10/24/18 19:18 Not Reportable 10/24/18 19:18 Not Reportable 10/24/18 19:18 Not Reportable 10/24/18 19:18 Not Reportable 10/24/18 19:18 Not Reportable 10/24/18 19:18 Not Reportable 10/24/18 19:18 Not Reportable 10/24/18 19:18 Not Reportable 10/24/18 19:18 Not Reportable 10/24/18 19:18 Not Reportable 10/24/18 19:18 Not Reportable 10/24/18 19:18 Not Reportable 10/24/18 19:18 Not Reportable 10/24/18 19:18 Not Reportable 10/24/18 19:18 Not Reportable 10/24/18 19:18 Acanthocytes (Spur) Not Reportable 10/24/18 19:18 Rouleaux Not Reportable 10/24/18 19:18 Not Reportable 10/24/18 19:18 Not Reportable 10/24/18 19:18 Not Reportable 10/24/18 19:18 Not Reportable 10/24/18 19:18 Hem Pathologist Commnt No 10/24/18 19:18 Sodium 134 mmol/L (137-145) L 10/28/18 08:08 Potassium 4.2 mmol/L (3.6-5.0) 10/28/18 08:08 Chloride 102.6 mmol/L (98-107) 10/28/18 08:08 Carbon Dioxide 15 mmol/L (22-30) L 10/28/18 08:08 21 mmol/L 10/28/18 08:08 BUN 35 mg/dL (7-17) H 10/28/18 08:08 1.9 mg/dL (0.7-1.2) H 10/28/18 08:08 Estimated GFR 37 ml/min 10/28/18 08:08 18 % 10/28/18 08:08 Glucose 157 mg/dL (65-100) H 10/28/18 08:08 POC Glucose 150 (70-105) H 10/29/18 08:00 6.0 mg/dL (3.5-7.6) 10/22/18 16:07 Calcium 7.2 mg/dL (8.4-10.2) L 10/28/18 08:08 Magnesium 5.40 mg/dL (1.7-2.3) H 10/25/18 11:27 < 0.20 mg/dL (0.1-1.2) 10/25/18 04:29 AST 16 units/L (5-40) 10/25/18 04:29 ALT 16 units/L (7-56) 10/25/18 04:29 96 units/L (35-129) 10/25/18 04:29 449 units/L (91-180) H 10/22/18 16:07 134 units/L (30-135) 10/23/18 07:58 CK-MB (CK-2) 4.6 ng/mL (0.0-4.0) H 10/23/18 07:58 CK-MB (CK-2) Rel Index 3.4 (0-4) 10/23/18 07:58 0.068 ng/mL (0.00-0.029) H 10/23/18 07:58 NT-Pro-B Natriuret Pep 871.5 pg/mL (0-450) H 10/27/18 06:35 5.7 g/dL (6.3-8.2) L 10/25/18 04:29 2.4 g/dL (3.9-5) L 10/25/18 04:29 0.7 % 10/25/18 04:29 Triglycerides 158 mg/dL (2-149) H 10/23/18 03:01 Cholesterol 310 mg/dL (50-199) H 10/23/18 03:01 230 mg/dL (50-130) H 10/23/18 03:01 76 mg/dL (40-59) H 10/23/18 03:01 4.07 % 10/23/18 03:01 Blood Type O POSITIVE 10/26/18 18:01 Antibody Screen Not Reportable 10/26/18 18:01 TROY Antibody Screen Negative 10/26/18 18:01 Crossmatch See Detail 10/26/18 18:01 Active Medications - Current Medications Current Medications: Generic Name Dose Route Start Last Admin Trade Name Freq PRN Reason Stop Dose Admin Acetaminophen/Hydrocodone Bitart 2 each 10/24/18 18:14 10/28/18 11:41 [place] 5/325 PO 2 each Q6H PRN Administration Pain, Moderate (4-6) Al Hydrox/Mg Hydrox/Simethicone 30 ml 10/26/18 01:34 10/26/18 08:42 Alum-Mag Hydrox-Simeth 735-274-08aa/5ml PO 30 ml Q8H PRN Administration Indigestion Albuterol 2.5 mg 10/24/18 12:58 10/28/18 02:41 Proventil IH 2.5 mg Q4HRT PRN Administration Shortness Of Breath Bisacodyl 10 mg 10/29/18 11:30 Dulcolax PO QDAY PRN Constipation Carvedilol 12.5 mg 10/29/18 10:00 10/29/18 11:01 Coreg PO 12.5 mg BID TIFFANIE Administration Clonidine HCl 0.1 mg 10/28/18 14:00 10/29/18 08:08 Catapres PO 0.1 mg TID TIFFANIE Administration Clonidine HCl 0.2 mg 10/28/18 14:00 10/29/18 08:08 Catapres PO 0.2 mg TID TIFFANIE Administration Dextrose 50 ml 10/25/18 12:14 D50w (25gm) Syringe IV PRN PRN Hypoglycemia Docusate Sodium 100 mg 10/29/18 11:30 10/29/18 12:32 Colace PO 100 mg DAILY TIFFANIE Administration Ferrous Sulfate 325 mg 10/29/18 12:00 10/29/18 12:08 Feosol PO 325 mg QDAY TIFFANIE Administration Furosemide 40 mg 10/29/18 11:00 10/29/18 12:08 Lasix IV 10/29/18 18:01 40 mg 0600,1800 TIFFANIE Administration Hydralazine HCl 75 mg 10/29/18 08:00 10/29/18 08:39 Apresoline PO 75 mg Q8H TIFFANIE Administration Insulin Human Lispro 0 unit 10/25/18 16:30 10/29/18 12:27 Humalog SUB-Q 2 unit ACHS TIFFANIE Administration Protocol Losartan Potassium 50 mg 10/28/18 14:00 10/29/18 10:23 Cozaar PO 50 mg QDAY TIFFANIE Administration Naloxone HCl 0.2 mg 10/24/18 15:30 Narcan 0.4 Mg/1 Ml IV Q2MIN PRN Res Rate </= 8 or 02 SAT < 92% Neomycin/Polymyxin/Bacitracin 1 applic 10/26/18 23:49 10/27/18 00:46 Triple Antibiotic TP 1 applic PRN PRN Administration Skin Irritation Nifedipine 60 mg 10/29/18 10:00 10/29/18 13:11 Procardia Xl PO 60 mg Q12HR TIFFANIE Administration Pantoprazole Sodium 40 mg 10/29/18 12:00 10/29/18 12:08 Protonix PO 40 mg QDAY TIFFANIE Administration Promethazine HCl 25 mg 10/24/18 16:00 Phenergan [place] Q6H PRN Nausea And Vomiting Sodium Bicarbonate 1,300 mg 10/27/18 14:36 10/29/18 08:08 Sodium Bicarbonate PO 1,300 mg TID TIFFANIE Administration Sodium Chloride 10 ml 10/24/18 22:00 10/28/18 10:00 Sodium Chloride Flush Syringe 10 Ml IV 10 ml BID TIFFANIE Administration Sodium Chloride 10 ml 10/24/18 18:14 Sodium Chloride Flush Syringe 10 Ml IV PRN PRN LINE FLUSH
[2018-10-29 14:30] LABS: Calcium 7.5 mg/dL (8.4-10.2)
--- NOTE | 2018-10-29 21:50 | Event Note ---
Date: 10/29/18 patient resting in bed, no complaints, feels much better. Vision unchanged, she was informed her I was unable to contact her retinal specialist, I never received a return call. Also her CXR findings were discussed. BP's much better. Possible allow home tomorrow if ok with IM, and nephrology. She was instructed to call her military pay clerk, PCP and retinal specialist tomorrow to make appointments for this week. She voiced understanding and agrees with plan of care
[2018-10-30] MEDS: APRESOLINE PO SCH ×4 (03:45→22:24)
[2018-10-30 06:45] LABS: Calcium 7.3 mg/dL (8.4-10.2)
--- NOTE | 2018-10-30 08:28 | Progress Note ---
Assessment and Plan 33y/o postop day 6 s/p primary c/s; currently she denies any SOB, chest pain, or other pain. She reports blurred vision is no change from yesterday. Per Dr. Ramires's note, she will f/u with printed circuit layout taper as outpatient. CNM noted pt reported concern about PPD - mental health consulted. Case management also consulted to assist with coordinating care. RN notified of consuts, will call to be sure they see her today. Incision D&I - no drainage or redness. Abd soft and nontender. Lochia scant. Patient is requesting breast pump. She is aware she will need to pump and dump per NICU d/t medications she is currently taking. RN notified and reports she will get her started and assist with pumping. BPs range 140-170/70-80. Will consult with Dr. Cruz and continue to monitor. - Patient Problems (1) Acute renal failure superimposed on stage 3 chronic kidney disease Current Visit: Yes Status: Acute (2) Diabetes mellitus with nephropathy Current Visit: Yes Status: Acute (3) Diabetes mellitus with retinopathy Current Visit: Yes Status: Acute Qualifiers: Diabetes mellitus type: type 2 Diabetic retinopathy severity: with unspecified retinopathy severity Plan to address problem: Consult ophthalmology (4) Uncontrolled hypertension Current Visit: Yes Status: Chronic Plan to address problem: currently taking: Cozaar 50mg QD Coreg 12.5 mg BID procardia 60 mg BID Hydralzine 75mg TID Clonidine 0.3mg TID discussed with RN importance of patient receiving BP medication on time as scheduled. Subjective - Subjective Date of service: 10/30/18 Principal diagnosis: POD 6 s/p 1LTCS WITH BTL, HTN ,IDDM ,renal disease Patient reports: appetite normal, voiding normally, pain well controlled, flatus, ambulating normally : in NICU Objective - Vital Signs Latest vital signs: Vital Signs Temp Pulse Resp BP Pulse Ox 10/30/18 03:45 101 H 171/85 10/30/18 03:37 98.3 F 101 H 20 171/85 96 10/29/18 23:05 98.6 F 101 H 18 167/86 93 10/29/18 22:09 103 H 153/86 10/29/18 22:08 103 H 153/86 98 10/29/18 20:31 103 H 144/78 10/29/18 20:30 103 H 144/78 10/29/18 20:22 98.0 F 102 H 22 144/78 95 10/29/18 16:37 91 H 146/83 10/29/18 16:10 98.4 F 84 20 143/79 93 10/29/18 15:12 91 H 131/73 10/29/18 12:11 98.7 F 95 H 20 151/82 100 10/29/18 11:01 105 H 146/77 10/29/18 10:23 102 H 144/81 10/29/18 08:39 110 H 184/85 Intake and Output 10/29/18 10/30/18 10/30/18 23:59 07:59 15:59 Intake Total 460 Output Total 650 350 Balance -190 -350 Intake: Oral 300 Intake, Free Water 160 Output: Urine 650 350 Void 650 350 Other: Total, Intake Amount 60 Total, Output Amount 300 350 # Voids Void 1 1 - Exam Breasts: Present: normal Cardiovascular: Present: Regular rate, Normal S1, Normal S2 Lungs: Present: Clear to auscultation Abdomen: Present: normal appearance, soft, normal bowel sounds Vulva: both: normal Uterus: Present: normal, firm, fundal height below umbilicus Extremities: Present: edema (2+ pitting edema bilat LEs) Deep Tendon Reflex Grade: Normal +2 Incision: Present: normal, dry (steri strips in place. healing well, well- approximated, no s/s infection), intact - Labs Labs: Abnormal lab results 10/29/18 10/29/18 10/29/18 Range/Units 12:20 13:48 16:47 Sodium 135 L (137-145) mmol/L Carbon Dioxide 18 L (22-30) mmol/L BUN 34 H (7-17) mg/dL Creatinine 1.7 H (0.7-1.2) mg/dL Glucose 131 H (65-100) mg/dL POC Glucose 189 H 144 H (70-105) Calcium 7.5 L (8.4-10.2) mg/dL Magnesium 3.30 H (1.7-2.3) mg/dL 10/29/18 10/30/18 Range/Units 21:27 05:37 Sodium (137-145) mmol/L Carbon Dioxide 17 L (22-30) mmol/L BUN 32 H (7-17) mg/dL Creatinine 2.0 H (0.7-1.2) mg/dL Glucose 158 H (65-100) mg/dL POC Glucose 216 H (70-105) Calcium 7.3 L (8.4-10.2) mg/dL Magnesium (1.7-2.3) mg/dL
[2018-10-30] MEDS: HumaLOG SUB-Q SCH ×4 (08:54→22:26)
[2018-10-30] MEDS: CATAPRES PO SCH ×6 (08:54→22:25)
[2018-10-30] MEDS: SODIUM BICARBONATE PO SCH ×3 (08:57→22:26)
--- NOTE | 2018-10-30 09:02 | Event Note ---
Date: 10/30/18 Agree with MW exam and note. BP are improved since yesterday. CXR showed mild b/l effusions vs mild CHF. Pt was s/p negative cardiac work up including echo prior to delivery and was to f/u out patient. Currently the SOB has resolved with lasix she received on yesterday. Spoke Ms. Eileen Cardoza and cards will see pt today.
[2018-10-30] MEDS: PROVENTIL IH PRN ×2 (09:53→22:29)
[2018-10-30] MEDS: PROCARDIA XL PO SCH (10:25)
[2018-10-30] MEDS: COZAAR PO SCH (10:25)
[2018-10-30] MEDS: PROTONIX PO SCH (10:25)
[2018-10-30] MEDS: COLACE PO SCH (10:25)
[2018-10-30] MEDS: FEOSOL PO SCH (10:25)
[2018-10-30] MEDS: SODIUM CHLORIDE FLUSH SYRINGE 10 ML IV SCH ×2 (10:26→22:27)
[2018-10-30] MEDS: COREG PO SCH (10:27)
--- NOTE | 2018-10-30 10:38 | Progress Note ---
Assessment and Plan Pt with c/o SOB, wheezing and orthopnea and thus cardiology was asked to re- evaluate. CXR c/w mild HF. Pt noted to have S3 gallop on evaluation. Continue with cautious diuresis and monitor renal indices, nephrology is following. Will f/u limited echo to reassess LV function. Optimize anti-hypertensive regimen. Pt is currently NOT breast feeding her baby. The patient has been seen in conjunction with Dr. Blanton who agrees with the assessment and plan of care. - Patient Problems (1) Acute heart failure with preserved ejection fraction Current Visit: Yes Status: Acute (2) Acute on chronic renal failure Current Visit: Yes Status: Acute Qualifiers: Acute renal failure type: unspecified Chronic kidney disease stage: stage 3 (moderate) Qualified Code(s): N17.9 - Acute kidney failure, unspecified; N18.3 - Chronic kidney disease, stage 3 (moderate) (3) S/P Current Visit: Yes Status: Acute (4) Uncontrolled hypertension Current Visit: Yes Status: Chronic (5) Diabetes Current Visit: Yes Status: Chronic Qualifiers: Diabetes mellitus type: type 2 Diabetes mellitus superintendent container terminal insulin use: without custodial use Diabetes mellitus complication status: without complication Qualified Code(s): E11.9 - Type 2 diabetes mellitus without complications (6) Hyperlipidemia Current Visit: Yes Status: Chronic (7) Obesity Current Visit: Yes Status: Chronic Subjective Date of service: 10/30/18 Principal diagnosis: POD 6 s/p 1LTCS WITH BTL, HTN ,IDDM ,renal disease Interval history: pt in bed, c/o SOB, wheezing and orthopnea and thus cardiology was asked to re- evaluate. Objective Last Vital Signs Temp 98.9 F 10/30/18 10:23 Pulse 100 H 10/30/18 10:27 Resp 20 10/30/18 10:23 BP 154/79 10/30/18 10:27 Pulse Ox 97 10/30/18 10:23 - Physical Examination General: No Apparent Distress Neck: Positive: neck supple, trachea midline Cardiac: Positive: Reg Rate and Rhythm, S1/S2, S3 Lungs: Positive: Decreased Breath Sounds Neuro: Positive: Grossly Intact Abdomen: Positive: Other (s/p ) Skin: Negative: Wound Extremities: Present: +2 Edema (pitting BLE) - Labs and Meds Comprehensive Metabolic Panel 10/29/18 10/30/18 Range/Units 13:48 05:37 Sodium 135 L 137 (137-145) mmol/L Potassium 3.8 4.1 (3.6-5.0) mmol/L Chloride 106.1 104.2 (98-107) mmol/L Carbon Dioxide 18 L 17 L (22-30) mmol/L BUN 34 H 32 H (7-17) mg/dL Creatinine 1.7 H 2.0 H (0.7-1.2) mg/dL Glucose 131 H 158 H (65-100) mg/dL Calcium 7.5 L 7.3 L (8.4-10.2) mg/dL - Imaging and Cardiology EKG: report reviewed Echo: report reviewed (EF 55-60%, impaired relaxation, trace TR.)
[2018-10-30] MEDS ORDERED: LASIX IV SCH (11:00)
--- NOTE | 2018-10-30 13:34 | Progress Note ---
Assessment and Plan Impression * Uncontrolled hypertension * Acute on chronic renal failure * Metabolic acidosis * Status post on 10/24/2018 * Hypermagnesemia * Diabetes with diabetic nephropathy Recommendations * Patient's blood pressure is better today. * Continue current antihypertensive meds. Continue losartan. Patient advised against breast-feeding. * Continue Bumex 1 mg daily while in house * Continue sodium bicarbonate for her metabolic acidosis * Her renal function appears to be stabilizing. Her acute kidney injury probably due to interstitial nephritis. Her baseline creatinine is approximately 1.4 * No objection to discharge from renal standpoint. Would recommend sending her home on torsemide 20 mg twice a day. * She will need close outpatient follow-up within a week Subjective Date of service: 10/30/18 Principal diagnosis: POD 6 s/p 1LTCS WITH BTL, HTN ,IDDM ,renal disease Interval history: Patient is comfortable today. Denies any shortness of breath. No nausea or vomiting. Objective - Vital Signs Vital signs: Vital Signs - 12hr 10/30/18 10/30/18 10/30/18 03:37 03:45 07:48 Temperature 98.3 F 98.5 F Pulse Rate 101 H 101 H 99 H Pulse Rate [ Bilateral Throughout] Pulse Rate [ Bilateral] Respiratory 20 20 Rate Respiratory Rate [Bilateral Throughout] Respiratory Rate [Bilateral ] Blood Pressure 171/85 171/85 142/82 Blood Pressure [Left] O2 Sat by Pulse 96 94 Oximetry 10/30/18 10/30/18 10/30/18 08:54 08:56 08:57 Temperature Pulse Rate 101 H 101 H 101 H Pulse Rate [ Bilateral Throughout] Pulse Rate [ Bilateral] Respiratory Rate Respiratory Rate [Bilateral Throughout] Respiratory Rate [Bilateral ] Blood Pressure 142/82 142/82 142/82 Blood Pressure [Left] O2 Sat by Pulse Oximetry 10/30/18 10/30/18 10/30/18 09:53 10:23 10:25 Temperature 98.9 F Pulse Rate 100 H 100 H Pulse Rate [ 91 H Bilateral Throughout] Pulse Rate [ 88 Bilateral] Respiratory 20 Rate Respiratory 16 Rate [Bilateral Throughout] Respiratory 16 Rate [Bilateral ] Blood Pressure 154/79 154/79 Blood Pressure [Left] O2 Sat by Pulse 97 Oximetry 10/30/18 10/30/18 10/30/18 10:27 12:14 12:54 Temperature 97.4 F L 97.6 F Pulse Rate 100 H 95 H 95 H Pulse Rate [ Bilateral Throughout] Pulse Rate [ Bilateral] Respiratory 20 20 Rate Respiratory Rate [Bilateral Throughout] Respiratory Rate [Bilateral ] Blood Pressure 154/79 156/81 Blood Pressure 156/81 [Left] O2 Sat by Pulse 98 98 Oximetry - General Appearance General appearance: well-developed, well-nourished, appears stated age EENT: PERRL, mucous membranes moist Neck: no JVD, no thyromegaly, no carotid bruit, supple Respiratory: Present: Clear to Ascultation Cardiology: regular, normal heart rate, S1S2, no murmurs Gastrointestinal: normal, normoactive bowel sounds Integumentary: no rash, other (1+ pitting edema bilaterally) - Lab 10/27/18 08:09 10/30/18 05:37 Most recent lab results Calcium 7.3 mg/dL (8.4-10.2) L 10/30/18 05:37 Magnesium 3.30 mg/dL (1.7-2.3) H 10/29/18 13:48 Medications & Allergies - Medications Allergies/Adverse Reactions: Allergies No Known Allergies Allergy (Verified 09/24/18 07:35) Home Medications: Home Medications Medication Instructions Recorded Confirmed Last Taken Type Lispro Insulin [Humalog] 8 unit SQ TID 09/24/18 10/28/18 09/25/18 08:00 History 1 NIFEdipine [Nifedipine ER] 60 mg PO DAILY 09/24/18 10/28/18 10/27/18 History cloNIDine [Catapres] 0.2 mg PO BID 09/24/18 10/28/18 10/27/18 History Aspirin [Aspirin BABY CHEW TAB] 81 mg PO QDAY 09/25/18 10/28/18 09/24/18 22:00 History 1 Progesterone, Micronized 200 mg VG QPM 09/25/18 10/28/18 09/24/18 22:00 History [Progesterone] NIFEdipine XL [Procardia Xl] 90 mg PO QDAY #30 tablet 09/29/18 10/28/18 10/27/18 Rx cloNIDine [Catapres] 0.2 mg PO TID #90 tablet 09/29/18 10/28/18 10/27/18 Rx Active Medications: Generic Name Dose Route Start Last Admin Trade Name Freq PRN Reason Stop Dose Admin Acetaminophen/Hydrocodone Bitart 2 each 10/24/18 18:14 10/28/18 11:41 [place] 5/325 PO 2 each Q6H PRN Administration Pain, Moderate (4-6) Al Hydrox/Mg Hydrox/Simethicone 30 ml 10/26/18 01:34 10/26/18 08:42 Alum-Mag Hydrox-Simeth [id number]/5ml PO 30 ml Q8H PRN Administration Indigestion Albuterol 2.5 mg 10/24/18 12:58 10/30/18 09:53 Proventil IH 2.5 mg Q4HRT PRN Administration Shortness Of Breath Amlodipine Besylate 10 mg 10/31/18 10:00 Norvasc PO QDAY TIFFANIE Bisacodyl 10 mg 10/29/18 11:30 Dulcolax PO QDAY PRN Constipation Bumetanide 1 mg 10/30/18 13:00 Bumex IV DAILY [facility] Carvedilol 25 mg 10/30/18 22:00 Coreg PO BID TIFFANIE Clonidine HCl 0.1 mg 10/28/18 14:00 10/30/18 08:54 Catapres PO 0.1 mg TID TIFFANIE Administration Clonidine HCl 0.2 mg 10/28/18 14:00 10/30/18 08:56 Catapres PO 0.2 mg TID TIFFANIE Administration Dextrose 50 ml 10/25/18 12:14 D50w (25gm) Syringe IV PRN PRN Hypoglycemia Docusate Sodium 100 mg 10/29/18 11:30 10/30/18 10:25 Colace PO 100 mg DAILY TIFFANIE Administration Ferrous Sulfate 325 mg 10/29/18 12:00 10/30/18 10:25 Feosol PO 325 mg QDAY TIFFANIE Administration Hydralazine HCl 100 mg 10/30/18 12:55 Apresoline PO Q8H [facility] Insulin Human Lispro 0 unit 10/25/18 16:30 10/30/18 12:45 Humalog SUB-Q Not Given ACHS [facility] Protocol Losartan Potassium 50 mg 10/28/18 14:00 10/30/18 10:25 Cozaar PO 50 mg QDAY TIFFANIE Administration Naloxone HCl 0.2 mg 10/24/18 15:30 Narcan 0.4 Mg/1 Ml IV Q2MIN PRN Res Rate </= 8 or 02 SAT < 92% Neomycin/Polymyxin/Bacitracin 1 applic 10/26/18 23:49 10/27/18 00:46 Triple Antibiotic TP 1 applic PRN PRN Administration Skin Irritation Pantoprazole Sodium 40 mg 10/29/18 12:00 10/30/18 10:25 Protonix PO 40 mg QDAY TIFFANIE Administration Promethazine HCl 25 mg 10/24/18 16:00 Phenergan GA Q6H PRN Nausea And Vomiting Sodium Bicarbonate 1,300 mg 10/27/18 14:36 10/30/18 08:57 Sodium Bicarbonate PO 1,300 mg TID TIFFANIE Administration Sodium Chloride 10 ml 10/24/18 22:00 10/30/18 10:26 Sodium Chloride Flush Syringe 10 Ml IV 10 ml BID TIFFANIE Administration Sodium Chloride 10 ml 10/24/18 18:14 Sodium Chloride Flush Syringe 10 Ml IV PRN PRN LINE FLUSH
--- NOTE | 2018-10-30 14:00 | Consultation ---
History of Present Illness - Reason for Consult Consult date: 10/30/18 Reason for consult: Initial Psychiatric Evaluation - Chief Complaint Chief complaint: " I'm tired of being in the hospital." - History of Present Psychiatric Illness Patient is a 33 year old female who presents to [facility] due to absent end diastolic flow on doppler studies and elevated blood pressures not being managed by current medication. Psychiatry was consulted due to multiple health issues. Today patient is calm and cooperative during the assessment. She states " I'm tired of being in the hospital. I feel exhausted being in this hospital bed. I'm ready to go home." Patient denies past psychiatric history. She endorses anhedonia, decrease energy, decrease sleep, and decrease appetite r/t to current situation/length of hospital stay. Currently, patient daughter is in NICU. Patient denies depressed mood. She states, " I'm just ready to go home." She denies SI/HI's, A/VH's, and delusions. Current Psychiatric Medications: Patient denies. Past Psychiatric History: No previous psychiatric diagnosis; no previous inpatient psychiatric hospitalization; no suicide attempts; no outpatient psychiatrist. Past Medication Trials: Patient denies. History of Trauma/Abuse: Patient denies past trauma. She also denies sexual, physical, and mental abuse. History of Drug/ Alcohol Abuse: Patient denies. Social History: Some college; Lives with boyfriend; employment- [employer]; no pending legal issues; good support system. Family History of Psychiatric Illness/Substance Abuse: Patient denies. Medications and Allergies Allergies Allergy/AdvReac Type Severity Reaction Status Date / Time No Known Allergies Allergy Verified 09/24/18 07:35 Home Medications Medication Instructions Recorded Confirmed Last Taken Type Lispro Insulin [Humalog] 8 unit SQ TID 09/24/18 10/28/18 09/25/18 08:00 History 1 NIFEdipine [Nifedipine ER] 60 mg PO DAILY 09/24/18 10/28/18 10/27/18 History cloNIDine [Catapres] 0.2 mg PO BID 09/24/18 10/28/18 10/27/18 History Aspirin [Aspirin BABY CHEW TAB] 81 mg PO QDAY 09/25/18 10/28/18 09/24/18 22:00 History 1 Progesterone, Micronized 200 mg VG QPM 09/25/18 10/28/1819 22:00 History [Progesterone] NIFEdipine XL [Procardia Xl] 90 mg PO QDAY #30 tablet 09/29/18 10/28/18 10/27/18 Rx cloNIDine [Catapres] 0.2 mg PO TID #90 tablet 09/29/18 10/28/18 10/27/18 Rx Active Meds: Active Medications Acetaminophen/Hydrocodone Bitart ([place] 5/325) 2 each PO Q6H PRN PRN Reason: Pain, Moderate (4-6) Last Admin: 10/28/18 11:41 Dose: 2 each Documented by: Al Hydrox/Mg Hydrox/Simethicone (Alum-Mag Hydrox-Simeth [phone]/5ml) 30 ml PO Q8H PRN PRN Reason: Indigestion Last Admin: 10/26/18 08:42 Dose: 30 ml Documented by: Albuterol (Proventil) 2.5 mg IH Q4HRT PRN PRN Reason: Shortness Of Breath Last Admin: 10/30/18 09:53 Dose: 2.5 mg Documented by: Amlodipine Besylate (Norvasc) 10 mg PO QDAY [facility] Bisacodyl (Dulcolax) 10 mg PO QDAY PRN PRN Reason: Constipation Bumetanide (Bumex) 1 mg IV DAILY [facility] Carvedilol (Coreg) 25 mg PO BID [facility] Clonidine HCl (Catapres) 0.1 mg PO TID [facility] Last Admin: 10/30/18 13:56 Dose: 0.1 mg Documented by: Clonidine HCl (Catapres) 0.2 mg PO TID [facility] Last Admin: 10/30/18 13:56 Dose: 0.2 mg Documented by: Dextrose (D50w (25gm) Syringe) 50 ml IV PRN PRN PRN Reason: Hypoglycemia Docusate Sodium (Colace) 100 mg PO DAILY [facility] Last Admin: 10/30/18 10:25 Dose: 100 mg Documented by: Ferrous Sulfate (Feosol) 325 mg PO QDAY [facility] Last Admin: 10/30/18 10:25 Dose: 325 mg Documented by: Hydralazine HCl (Apresoline) 100 mg PO Q8H [facility] Last Admin: 10/30/18 13:55 Dose: 100 mg Documented by: Insulin Human Lispro (Humalog) 0 unit SUB-Q ACHS [facility]; Protocol Last Admin: 10/30/18 12:45 Dose: Not Given Documented by: Losartan Potassium (Cozaar) 50 mg PO QDAY [facility] Last Admin: 10/30/18 10:25 Dose: 50 mg Documented by: Naloxone HCl (Narcan 0.4 Mg/1 Ml) 0.2 mg IV Q2MIN PRN PRN Reason: Res Rate </= 8 or 02 SAT < 92% Neomycin/Polymyxin/Bacitracin (Triple Antibiotic) 1 applic TP PRN PRN PRN Reason: Skin Irritation Last Admin: 10/27/18 00:46 Dose: 1 applic Documented by: Pantoprazole Sodium (Protonix) 40 mg PO QDAY [facility] Last Admin: 10/30/18 10:25 Dose: 40 mg Documented by: Promethazine HCl (Phenergan) 25 mg GA Q6H PRN PRN Reason: Nausea And Vomiting Sodium Bicarbonate (Sodium Bicarbonate) 1,300 mg PO TID [facility] Last Admin: 10/30/18 13:56 Dose: 1,300 mg Documented by: Sodium Chloride (Sodium Chloride Flush Syringe 10 Ml) 10 ml IV BID [facility] Last Admin: 10/30/18 10:26 Dose: 10 ml Documented by: Sodium Chloride (Sodium Chloride Flush Syringe 10 Ml) 10 ml IV PRN PRN PRN Reason: LINE FLUSH Mental Status Exam - Vital signs Last Vital Signs Temp 97.6 F 10/30/18 12:54 Pulse 93 H 10/30/18 13:56 Resp 20 10/30/18 12:54 BP 146/74 10/30/18 13:56 Pulse Ox 98 10/30/18 12:54 - Exam Narrative exam: Mental Status Exam Appearance: calm, cooperative Behavior: regular eye contact Speech: regular rate and tone Mood:: "ready to go home" Affect: flat Thought Process: organized; linear Thought Content: patient denies SI/HI's, A/VH's, and delusions Motor Activity: laying in bed Cognition: A/O x 3 Insight: fair Judgment: fair Results Result Diagrams: 10/27/18 08:09 10/30/18 05:37 Abnormal lab results 10/29/18 10/29/18 10/29/18 Range/Units 12:20 13:48 16:47 Sodium 135 L (137-145) mmol/L Carbon Dioxide 18 L (22-30) mmol/L BUN 34 H (7-17) mg/dL Creatinine 1.7 H (0.7-1.2) mg/dL Glucose 131 H (65-100) mg/dL POC Glucose 189 H 144 H (70-105) Calcium 7.5 L (8.4-10.2) mg/dL Magnesium 3.30 H (1.7-2.3) mg/dL 10/29/18 10/30/18 10/30/18 Range/Units 21:27 05:37 07:55 Sodium (137-145) mmol/L Carbon Dioxide 17 L (22-30) mmol/L BUN 32 H (7-17) mg/dL Creatinine 2.0 H (0.7-1.2) mg/dL Glucose 158 H (65-100) mg/dL POC Glucose 216 H 177 H (70-105) Calcium 7.3 L (8.4-10.2) mg/dL Magnesium (1.7-2.3) mg/dL 10/30/18 Range/Units 12:15 Sodium (137-145) mmol/L Carbon Dioxide (22-30) mmol/L BUN (7-17) mg/dL Creatinine (0.7-1.2) mg/dL Glucose (65-100) mg/dL POC Glucose 138 H (70-105) Calcium (8.4-10.2) mg/dL Magnesium (1.7-2.3) mg/dL All other labs normal. Assessment and Plan Assessment and plan: Impression: No PPHx. MDD, single episode, severe w/o psychosis. Today the patient is calm and cooperative during the assessment. Patient denies SI/HI's. A/VH's, and delusions. Recommendation/Plan: 1. Will reassess in 24 hours. 2. At this time patient refuses medication ( anti- depressant). Patient prefers talk therapy. 3. Attempt to gain collateral if necessary. Disposition: Once collateral is determined proper disposition will be determined. Will staff with Dr. Luzma Hernadez.
--- NOTE | 2018-10-30 15:34 | Event Note ---
Date: 10/30/18 I d/w need to move to telemetry for better monitoring given she is having a new cardiac issue. She is upset stating she has moved to several rooms already. Again stressed that we are not able to provide the cardiac monitoring she will need on the mother/baby unit. Pt expressed understanding. Pt at time of my visit was awaiting echo. Also, psych note is not completed so will await final recommendations regarding pt. She has not been 1013 by any providers taking care of her since her admission though this is stated in the mental health provider draft note. I have called the office several times in an attempt to speak with the provider regarding this and have left my number to speak with provider to be sure this is not a change in the status of the pt. I am still awaiting a return phone call.
[2018-10-30] MEDS: BUMEX IV SCH (15:36)
--- NOTE | 2018-10-30 17:43 | Progress Note ---
Assessment and Plan Assessment and plan: --Uncontrolled hypertension; well controlled today on clonidine, nifedipine changed to amlodipine, hydralazine, Cozaar, Coreg Dosages optimized, nephrology following Patient advised to see primary care physician upon discharge for her medical needs --Acute on chronic renal failure; due to vasomotor nephropathy Renal function gradually improving, creatinine trending down Avoid nephrotoxins, nephrology following --Status post on 10/24/2018; Continue postop care per [employer] --Anemia requiring 2 units of PRBC transfusion H&H low stable, closely monitor additional PRBC transfusion if needed --Acute shortness of breath, possible congestive heart failure Cardiology following , Bumex added by cardiology follow echocardiogram for LV function and ejection fraction --Diabetes mellitus; Accu-Chek sliding scale coverage and ADA diet Long-acting insulin if needed --Diabetic retinopathy; patient advised to follow private amortization clerk Upon discharge --Hypermagnesemia; magnesium levels trending down --Hyponatremia; resolved --Hypermagnesemia; magnesium levels trending down Closely monitor --DVT prophylaxis; SCDs deffer Pharmacologic anticoagulation to [employer] As patient is postop state Plan of care reviewed with the patient and her nurse Monitor closely and adjust management as needed History Interval history: Patient seen and examined this afternoon medical records reviewed Patient feels slightly better denies any chest pain or shortness of breath Blood pressure is well controlled Alert awake oriented 3 vital signs reviewed Hospitalist Physical - Constitutional Vitals: Temp Pulse Resp BP Pulse Ox 98.8 F 90 20 141/70 96 10/30/18 16:18 10/30/18 16:18 10/30/18 16:18 10/30/18 16:18 10/30/18 16:18 General appearance: Present: no acute distress, well-nourished, obese - EENT Eyes: Present: PERRL, EOM intact - Neck Neck: Present: supple, normal ROM - Respiratory Respiratory effort: normal Respiratory: bilateral: diminished, negative: rales, rhonchi, wheezing - Cardiovascular Rhythm: regular Heart Sounds: Present: S1 & S2 - Extremities Extremities: no ischemia Extremity abnormal: edema - Abdominal General gastrointestinal: soft, non-tender, non-distended, normal bowel sounds - Integumentary Integumentary: Present: clear, warm - Psychiatric Psychiatric: appropriate mood/affect, cooperative - Neurologic Neurologic: CNII-XII intact, moves all extremities Results - Labs CBC & Chem 7: 10/27/18 08:09 10/30/18 05:37 Labs: Laboratory Last Values WBC 12.5 K/mm3 (4.5-11.0) H 10/26/18 04:54 RBC 2.70 M/mm3 (3.65-5.03) L 10/26/18 04:54 Hgb 8.6 gm/dl (10.1-14.3) L 10/27/18 08:09 Hct 25.5 % (30.3-42.9) L 10/27/18 08:09 MCV 89 fl (79-97) 10/26/18 04:54 MCH 30 pg (28-32) 10/26/18 04:54 MCHC 34 % (30-34) 10/26/18 04:54 RDW 14.5 % (13.2-15.2) 10/26/18 04:54 Plt Count 288 K/mm3 (140-440) 10/26/18 04:54 Lymph % (Auto) 11.0 % (13.4-35.0) L 10/25/18 04:29 Leake % (Auto) 9.3 % (0.0-7.3) H 10/25/18 04:29 Eos % (Auto) 0.0 % (0.0-4.3) 10/25/18 04:29 Baso % (Auto) 0.1 % (0.0-1.8) 10/25/18 04:29 Lymph # 1.3 K/mm3 (1.2-5.4) 10/25/18 04:29 Leake # 1.1 K/mm3 (0.0-0.8) H 10/25/18 04:29 Eos # 0.0 K/mm3 (0.0-0.4) 10/25/18 04:29 Baso # 0.0 K/mm3 (0.0-0.1) 10/25/18 04:29 Add Manual Diff Complete 10/24/18 19:18 Total Counted 100 10/24/18 19:18 Seg Neutrophils % 79.6 % (40.0-70.0) H 10/25/18 04:29 Seg Neuts % (Manual) 92.0 % (40.0-70.0) H 10/24/18 19:18 0 % 10/24/18 19:18 4.0 % (13.4-35.0) L 10/24/18 19:18 Reactive Lymphs % (Man) 0 % 10/24/18 19:18 4.0 % (0.0-7.3) 10/24/18 19:18 0 % (0.0-4.3) 10/24/18 19:18 0 % (0.0-1.8) 10/24/18 19:18 0 % 10/24/18 19:18 0 % 10/24/18 19:18 0 % 10/24/18 19:18 0 % 10/24/18 19:18 Nucleated RBC % Not Reportable 10/24/18 19:18 Seg Neutrophils # 9.6 K/mm3 (1.8-7.7) H 10/25/18 04:29 Seg Neutrophils # Man 16.0 K/mm3 (1.8-7.7) H 10/24/18 19:18 Band Neutrophils # 0.0 K/mm3 10/24/18 19:18 0.7 K/mm3 (1.2-5.4) L 10/24/18 19:18 Abs React Lymphs (Man) 0.0 K/mm3 10/24/18 19:18 0.7 K/mm3 (0.0-0.8) 10/24/18 19:18 0.0 K/mm3 (0.0-0.4) 10/24/18 19:18 0.0 K/mm3 (0.0-0.1) 10/24/18 19:18 0.0 K/mm3 10/24/18 19:18 0.0 K/mm3 10/24/18 19:18 0.0 K/mm3 10/24/18 19:18 Blast Cells # 0.0 K/mm3 10/24/18 19:18 WBC Morphology Not Reportable 10/24/18 19:18 Hypersegmented Neuts Not Reportable 10/24/18 19:18 Hyposegmented Neuts Not Reportable 10/24/18 19:18 Hypogranular Neuts Not Reportable 10/24/18 19:18 Not Reportable 10/24/18 19:18 Not Reportable 10/24/18 19:18 Not Reportable 10/24/18 19:18 Not Reportable 10/24/18 19:18 Not Reportable 10/24/18 19:18 Not Reportable 10/24/18 19:18 Appears normal 10/24/18 19:18 Not Reportable 10/24/18 19:18 Plt Clumps, EDTA Not Reportable 10/24/18 19:18 Not Reportable 10/24/18 19:18 Not Reportable 10/24/18 19:18 Not Reportable 10/24/18 19:18 Plt Morphology Comment Not Reportable 10/24/18 19:18 RBC Morphology Normal 10/24/18 19:18 Dimorphic RBCs Not Reportable 10/24/18 19:18 Not Reportable 10/24/18 19:18 Not Reportable 10/24/18 19:18 Not Reportable 10/24/18 19:18 Not Reportable 10/24/18 19:18 Not Reportable 10/24/18 19:18 Not Reportable 10/24/18 19:18 Not Reportable 10/24/18 19:18 Not Reportable 10/24/18 19:18 Not Reportable 10/24/18 19:18 Not Reportable 10/24/18 19:18 Not Reportable 10/24/18 19:18 Not Reportable 10/24/18 19:18 Not Reportable 10/24/18 19:18 Not Reportable 10/24/18 19:18 Not Reportable 10/24/18 19:18 Not Reportable 10/24/18 19:18 Not Reportable 10/24/18 19:18 Not Reportable 10/24/18 19:18 Not Reportable 10/24/18 19:18 Acanthocytes (Spur) Not Reportable 10/24/18 19:18 Rouleaux Not Reportable 10/24/18 19:18 Not Reportable 10/24/18 19:18 Not Reportable 10/24/18 19:18 Not Reportable 10/24/18 19:18 Not Reportable 10/24/18 19:18 Hem Pathologist Commnt No 10/24/18 19:18 Sodium 137 mmol/L (137-145) 10/30/18 05:37 Potassium 4.1 mmol/L (3.6-5.0) 10/30/18 05:37 Chloride 104.2 mmol/L (98-107) 10/30/18 05:37 Carbon Dioxide 17 mmol/L (22-30) L 10/30/18 05:37 20 mmol/L 10/30/18 05:37 BUN 32 mg/dL (7-17) H 10/30/18 05:37 2.0 mg/dL (0.7-1.2) H 10/30/18 05:37 Estimated GFR 35 ml/min 10/30/18 05:37 16 % 10/30/18 05:37 Glucose 158 mg/dL (65-100) H 10/30/18 05:37 POC Glucose 196 (70-105) H 10/30/18 16:27 6.0 mg/dL (3.5-7.6) 10/22/18 16:07 Calcium 7.3 mg/dL (8.4-10.2) L 10/30/18 05:37 Magnesium 3.30 mg/dL (1.7-2.3) H 10/29/18 13:48 < 0.20 mg/dL (0.1-1.2) 10/25/18 04:29 AST 16 units/L (5-40) 10/25/18 04:29 ALT 16 units/L (7-56) 10/25/18 04:29 96 units/L (35-129) 10/25/18 04:29 449 units/L (91-180) H 10/22/18 16:07 134 units/L (30-135) 10/23/18 07:58 CK-MB (CK-2) 4.6 ng/mL (0.0-4.0) H 10/23/18 07:58 CK-MB (CK-2) Rel Index 3.4 (0-4) 10/23/18 07:58 0.068 ng/mL (0.00-0.029) H 10/23/18 07:58 NT-Pro-B Natriuret Pep 871.5 pg/mL (0-450) H 10/27/18 06:35 5.7 g/dL (6.3-8.2) L 10/25/18 04:29 2.4 g/dL (3.9-5) L 10/25/18 04:29 0.7 % 10/25/18 04:29 Triglycerides 158 mg/dL (2-149) H 10/23/18 03:01 Cholesterol 310 mg/dL (50-199) H 10/23/18 03:01 230 mg/dL (50-130) H 10/23/18 03:01 76 mg/dL (40-59) H 10/23/18 03:01 4.07 % 10/23/18 03:01 Blood Type O POSITIVE 10/26/18 18:01 Antibody Screen Not Reportable 10/26/18 18:01 TROY Antibody Screen Negative 10/26/18 18:01 Crossmatch See Detail 10/26/18 18:01 Active Medications - Current Medications Current Medications: Generic Name Dose Route Start Last Admin Trade Name Freq PRN Reason Stop Dose Admin Acetaminophen/Hydrocodone Bitart 2 each 10/24/18 18:14 10/28/18 11:41 [place] 5/325 PO 2 each Q6H PRN Administration Pain, Moderate (4-6) Al Hydrox/Mg Hydrox/Simethicone 30 ml 10/26/18 01:34 10/26/18 08:42 Alum-Mag Hydrox-Simeth 189-538-68wx/5ml PO 30 ml Q8H PRN Administration Indigestion Albuterol 2.5 mg 10/24/18 12:58 10/30/18 09:53 Proventil IH 2.5 mg Q4HRT PRN Administration Shortness Of Breath Amlodipine Besylate 10 mg 10/31/18 10:00 Norvasc PO QDAY TIFFANIE Bisacodyl 10 mg 10/29/18 11:30 Dulcolax PO QDAY PRN Constipation Bumetanide 1 mg 10/30/18 13:00 10/30/18 15:36 Bumex IV 1 mg DAILY TIFFANIE Administration Carvedilol 25 mg 10/30/18 22:00 Coreg PO BID TIFFANIE Clonidine HCl 0.1 mg 10/28/18 14:00 10/30/18 13:56 Catapres PO 0.1 mg TID TIFFANIE Administration Clonidine HCl 0.2 mg 10/28/18 14:00 10/30/18 13:56 Catapres PO 0.2 mg TID TIFFANIE Administration Dextrose 50 ml 10/25/18 12:14 D50w (25gm) Syringe IV PRN PRN Hypoglycemia Docusate Sodium 100 mg 10/29/18 11:30 10/30/18 10:25 Colace PO 100 mg DAILY TIFFANIE Administration Ferrous Sulfate 325 mg 10/29/18 12:00 10/30/18 10:25 Feosol PO 325 mg QDAY TIFFANIE Administration Hydralazine HCl 100 mg 10/30/18 12:55 10/30/18 13:55 Apresoline PO 100 mg Q8H TIFFANIE Administration Insulin Human Lispro 0 unit 10/25/18 16:30 10/30/18 17:41 Humalog SUB-Q 2 unit ACHS TIFFANIE Administration Protocol Losartan Potassium 50 mg 10/28/18 14:00 10/30/18 10:25 Cozaar PO 50 mg QDAY TIFFANIE Administration Naloxone HCl 0.2 mg 10/24/18 15:30 Narcan 0.4 Mg/1 Ml IV Q2MIN PRN Res Rate </= 8 or 02 SAT < 92% Neomycin/Polymyxin/Bacitracin 1 applic 10/26/18 23:49 10/27/18 00:46 Triple Antibiotic TP 1 applic PRN PRN Administration Skin Irritation Pantoprazole Sodium 40 mg 10/29/18 12:00 10/30/18 10:25 Protonix PO 40 mg QDAY TIFFANIE Administration Promethazine HCl 25 mg 10/24/18 16:00 Phenergan [place] Q6H PRN Nausea And Vomiting Sodium Bicarbonate 1,300 mg 10/27/18 14:36 10/30/18 13:56 Sodium Bicarbonate PO 1,300 mg TID TIFFANIE Administration Sodium Chloride 10 ml 10/24/18 22:00 10/30/18 10:26 Sodium Chloride Flush Syringe 10 Ml IV 10 ml BID TIFFANIE Administration Sodium Chloride 10 ml 10/24/18 18:14 Sodium Chloride Flush Syringe 10 Ml IV PRN PRN LINE FLUSH Nutrition/Malnutrition Assess - Dietary Evaluation Nutrition/Malnutrition Findings: Nutrition Notes Start: 10/30/18 17 :01 Freq: Status: Active Protocol: Document 10/30/18 17:02 RM (Rec: 10/30/18 17:08 [facility] [id number]) Nutrition Notes Need for Assessment generated from: MD Order Initial or Follow up Assessment Current Diagnosis Acute Kidney Injury,CKD(stage I-IV),Diabetes,Hypertension Other Pertinent Diagnosis Retinopathy Current Diet Consistent CHO,Cardiac Labs/Tests Reviewed Pertinent Medications Reviewed Height 5 ft 7 in Weight 112.037 kg [place] Body Weight (kg) 61.36 BMI 38.7 Subjective/Other Information Consulted for poor oral intake . Pt stated that her appetite is okay and that she eats 50% to 100% of her meals. Noted breakfast at bedside with 25% eaten. Burn Absent Trauma Absent #1 Nutrition Diagnosis Inadequate oral intake Etiology decreased appetite As Evidenced by Signs and Symptoms pt statement that she eats 50 to 100% of her meals, breakfast at bedside w/25% eaten Is patient on ventilator? No Is Patient Ambulatory and/or Out of Bed Yes REE-([place]-ambulatory/OOB) [ 2428.400 NUTR.[id number]] Kcal/Kg value to use for calculation 17 Approximate Energy Requirements Using 1905 kcal/Kg Calculation Used for Recommendations Kcal/kg Additional Notes Protein Needs: 70-87g (0.8-1g/ kg 87kg adjBW) Fluid Needs: 1 ml/kcal Nutrition Intervention Change Diet Order: Continue current Add Supplement/Snack (indicate name/kcal Glucerna [place] 1 daily /protein ) Provides kCal: 220 Provides Protein (gm) 10 Goal #1 Meet at least 75% of calorie and protein needs via PO and ONS intakes Anticipated Discharge Needs: Consistent CHO/Cardiac diet Follow-Up By: 11/01/18 Additional Comments Follow for PO and ONS intakes
[2018-10-31] MEDS: COREG PO SCH ×3 (00:10→22:34)
--- NOTE | 2018-10-31 03:10 | XRay Report ---
PROCEDURE: XR CHEST 1V AP TECHNIQUE: Chest radiograph single view. HISTORY: PIC LINE COMPARISONS: None . FINDINGS: Heart: The heart size remains slightly pronounced. Mediastinum/Vessels: Normal. Lungs/Pleural space: Normal. Bony thorax: No acute osseous abnormality. Life support devices: No evidence of central catheter on this study. IMPRESSION: Mild stable cardiomegaly. There is no evidence of a central catheter on this study.. This document is electronically signed by Sindy Castanon DO., October 31 2018 03:08:50 AM ET
[2018-10-31] MEDS: APRESOLINE PO SCH ×3 (05:54→22:42)
[2018-10-31 09:10] LABS: Calcium 7.3 mg/dL (8.4-10.2)
[2018-10-31] MEDS: CATAPRES PO SCH ×6 (09:20→22:33)
[2018-10-31] MEDS: SODIUM BICARBONATE PO SCH ×3 (09:20→22:44)
[2018-10-31] MEDS: HumaLOG SUB-Q SCH ×4 (09:21→22:39)
--- NOTE | 2018-10-31 09:35 | Progress Note ---
Assessment and Plan Impression * Acute kidney injury on chronic renal failure * Hypertension, uncontrolled * Peripheral edema * Sinus tachycardia --TTE: LVEF 55-60%, abnormal LV diastolic filling c/w impaired relaxation --V/Q scan: low prob for pulm embolus * Metabolic acidosis * Status post on 10/24/2018 * Hypermagnesemia * Type II diabetes with diabetic nephropathy Recommendations * BP control improved - continue current regimen for now * Continue diuresis - increased Bumex to 1mg IV BID * Continue sodium bicarbonate for her metabolic acidosis * Family member at bedside - updated * AM labs * Strict I/O * Patient is not cleared for d/c from a renal standpoint Subjective Date of service: 10/31/18 Principal diagnosis: POD 6 s/p 1LTCS WITH BTL, HTN ,IDDM ,renal disease Interval history: Patient states she is ready to go home. Objective - Vital Signs Vital signs: Vital Signs - 12hr 10/30/18 10/30/18 10/30/18 21:34 22:24 22:25 Temperature Pulse Rate 99 H 99 H Pulse Rate [ Bilateral Throughout] Pulse Rate [ Bilateral] Respiratory Rate Respiratory Rate [Bilateral Throughout] Respiratory Rate [Bilateral ] Blood Pressure 154/83 154/83 O2 Sat by Pulse 94 Oximetry 10/30/18 10/30/18 10/31/18 22:29 23:02 00:00 Temperature Pulse Rate 103 H Pulse Rate [ 92 H 94 H Bilateral Throughout] Pulse Rate [ 84 86 Bilateral] Respiratory 20 Rate Respiratory 18 18 Rate [Bilateral Throughout] Respiratory 18 18 Rate [Bilateral ] Blood Pressure 179/94 O2 Sat by Pulse Oximetry 10/31/18 10/31/18 10/31/18 00:02 00:10 00:38 Temperature 98.5 F Pulse Rate 103 H 100 H Pulse Rate [ Bilateral Throughout] Pulse Rate [ Bilateral] Respiratory 20 24 Rate Respiratory Rate [Bilateral Throughout] Respiratory Rate [Bilateral ] Blood Pressure 176/95 179/94 159/82 O2 Sat by Pulse 97 Oximetry 10/31/18 10/31/18 10/31/18 03:37 08:49 09:20 Temperature 98.6 F 97.9 F Pulse Rate 94 H 97 H 97 H Pulse Rate [ Bilateral Throughout] Pulse Rate [ Bilateral] Respiratory 20 18 Rate Respiratory Rate [Bilateral Throughout] Respiratory Rate [Bilateral ] Blood Pressure 155/84 162/85 162/85 O2 Sat by Pulse 96 95 Oximetry - General Appearance General appearance: well-developed, well-nourished EENT: ATNC Respiratory: Present: Decreased Breath Sounds Cardiology: regular, tachycardia, S1S2 Gastrointestinal: normoactive bowel sounds Integumentary: no rash, warm and dry Neurologic: no focal deficit Musculoskeletal: other (2-3+ edema) Psychiatric: cooperative - Lab 10/27/18 08:09 10/31/18 08:04 Most recent lab results Calcium 7.3 mg/dL (8.4-10.2) L 10/31/18 08:04 Magnesium 3.30 mg/dL (1.7-2.3) H 10/29/18 13:48 Medications & Allergies - Medications Allergies/Adverse Reactions: Allergies No Known Allergies Allergy (Verified 09/24/18 07:35) Home Medications: Home Medications Medication Instructions Recorded Confirmed Last Taken Type Lispro Insulin [Humalog] 8 unit SQ TID 09/24/18 10/28/18 09/25/18 08:00 History 1 NIFEdipine [Nifedipine ER] 60 mg PO DAILY 09/24/18 10/28/18 10/27/18 History cloNIDine [Catapres] 0.2 mg PO BID 09/24/18 10/28/18 10/27/18 History Aspirin [Aspirin BABY CHEW TAB] 81 mg PO QDAY 09/25/18 10/28/18 09/24/18 22:00 History 1 Progesterone, Micronized 200 mg VG QPM 09/25/18 10/28/18 09/24/18 22:00 History [Progesterone] NIFEdipine XL [Procardia Xl] 90 mg PO QDAY #30 tablet 09/29/18 10/28/18 10/27/18 Rx cloNIDine [Catapres] 0.2 mg PO TID #90 tablet 09/29/18 10/28/18 10/27/18 Rx Active Medications: Generic Name Dose Route Start Last Admin Trade Name Freq PRN Reason Stop Dose Admin Acetaminophen/Hydrocodone Bitart 2 each 10/24/18 18:14 10/28/18 11:41 [place] 5/325 PO 2 each Q6H PRN Administration Pain, Moderate (4-6) Al Hydrox/Mg Hydrox/Simethicone 30 ml 10/26/18 01:34 10/26/18 08:42 Alum-Mag Hydrox-Simeth 064-294-07hk/5ml PO 30 ml Q8H PRN Administration Indigestion Albuterol 2.5 mg 10/24/18 12:58 10/30/18 22:29 Proventil IH 2.5 mg Q4HRT PRN Administration Shortness Of Breath Amlodipine Besylate 10 mg 10/31/18 10:00 Norvasc PO QDAY TIFFANIE Bisacodyl 10 mg 10/29/18 11:30 Dulcolax PO QDAY PRN Constipation Bumetanide 1 mg 10/30/18 13:00 10/30/18 15:36 Bumex IV 1 mg DAILY TIFFANIE Administration Carvedilol 25 mg 10/30/18 22:00 10/31/18 00:10 Coreg PO 25 mg BID TIFFANIE Administration Clonidine HCl 0.1 mg 10/28/18 14:00 10/31/18 09:20 Catapres PO 0.1 mg TID TIFFANIE Administration Clonidine HCl 0.2 mg 10/28/18 14:00 10/30/18 22:25 Catapres PO 0.2 mg TID TIFFANIE Administration Dextrose 50 ml 10/25/18 12:14 D50w (25gm) Syringe IV PRN PRN Hypoglycemia Docusate Sodium 100 mg 10/29/18 11:30 10/30/18 10:25 Colace PO 100 mg DAILY TIFFANIE Administration Ferrous Sulfate 325 mg 10/29/18 12:00 10/30/18 10:25 Feosol PO 325 mg QDAY TIFFANIE Administration Hydralazine HCl 100 mg 10/30/18 12:55 10/31/18 05:54 Apresoline PO 100 mg Q8H TIFFANIE Administration Insulin Human Lispro 0 unit 10/25/18 16:30 10/31/18 09:21 Humalog SUB-Q 3 unit ACHS TIFFANIE Administration Protocol Losartan Potassium 50 mg 10/28/18 14:00 10/30/18 10:25 Cozaar PO 50 mg QDAY TIFFANIE Administration Naloxone HCl 0.2 mg 10/24/18 15:30 Narcan 0.4 Mg/1 Ml IV Q2MIN PRN Res Rate </= 8 or 02 SAT < 92% Neomycin/Polymyxin/Bacitracin 1 applic 10/26/18 23:49 10/27/18 00:46 Triple Antibiotic TP 1 applic PRN PRN Administration Skin Irritation Pantoprazole Sodium 40 mg 10/29/18 12:00 10/30/18 10:25 Protonix PO 40 mg QDAY TIFFANIE Administration Promethazine HCl 25 mg 10/24/18 16:00 Phenergan [place] Q6H PRN Nausea And Vomiting Sodium Bicarbonate 1,300 mg 10/27/18 14:36 10/31/18 09:20 Sodium Bicarbonate PO Not Given TID TFIFANIE Sodium Chloride 10 ml 10/24/18 22:00 10/30/18 22:27 Sodium Chloride Flush Syringe 10 Ml IV 10 ml BID TIFFANIE Administration Sodium Chloride 10 ml 10/24/18 18:14 Sodium Chloride Flush Syringe 10 Ml IV PRN PRN LINE FLUSH
[2018-10-31] MEDS: FEOSOL PO SCH (09:39)
[2018-10-31] MEDS: COZAAR PO SCH (09:40)
[2018-10-31] MEDS: NORVASC PO SCH (09:40)
[2018-10-31] MEDS: PROTONIX PO SCH (09:41)
[2018-10-31] MEDS: COLACE PO SCH (09:41)
--- NOTE | 2018-10-31 09:43 | Progress Note ---
Subjective - Reason for Consult Consult date: 10/31/18 Reason for consult: Psychiatry Follow-up - Chief Complaint Chief complaint: "I'm feeling better" 33 year old female who presents to [facility] due to absent end diastolic flow on doppler studies and elevated blood pressures not being managed by current medication. Psychiatry was consulted due to multiple health issues. Today the patient is calm and cooperative during the assessment. She stated that she feel better and look forward to being discharged. Also, she is concerned about her new child (NICU). She stated that she has a support system in place, her mother (So) who was at the bedside. She stated that her issue is being in the hospital for several days. She denies SI/HI's, AVH's and being depressed. Mental Status Exam - Vital signs Last Vital Signs Temp 97.9 F 10/31/18 08:49 Pulse 97 H 10/31/18 09:20 Resp 18 10/31/18 08:49 BP 162/85 10/31/18 09:20 Pulse Ox 95 10/31/18 08:49 - Exam Narrative exam: MSE: Appearance: calm, cooperative Behavior: regular eye contact Speech: regular rate and tone Mood:: "better" Affect: congruent to mood Thought Process: organized; linear Thought Content: denies SI/HI's and A/VH's Motor Activity: laying in bed Cognition: A/O x 3 Insight: appropriate Judgment: appropriate Assessment and Plan Impression: MDD, single episode. Today the patient is calm and cooperative during the assessment. DDx: Adjustment DO Recommendation/Plan: The risks/benefits discussed of antidepressants discussed with the patient, she prefer not to take any medications at this time. Discussed generalized coping skills with the patient, she verbalized understanding. Psy sign off. Will staff with Dr. Luzma Hernadez.
--- NOTE | 2018-10-31 10:46 | Progress Note ---
Assessment and Plan Optimize anti-hypertensive regimen. Continue with diuresis and monitor renal indices, nephrology is following. F/u limited echo to reassess LV function. The patient has been seen in conjunction with Dr. Blanton who agrees with the assessment and plan of care. - Patient Problems (1) Acute heart failure with preserved ejection fraction Current Visit: Yes Status: Acute (2) Acute on chronic renal failure Current Visit: Yes Status: Acute Qualifiers: Acute renal failure type: unspecified Chronic kidney disease stage: stage 3 (moderate) Qualified Code(s): N17.9 - Acute kidney failure, unspecified; N18.3 - Chronic kidney disease, stage 3 (moderate) (3) S/P Current Visit: Yes Status: Acute (4) Uncontrolled hypertension Current Visit: Yes Status: Chronic (5) Diabetes Current Visit: Yes Status: Chronic Qualifiers: Diabetes mellitus type: type 2 Diabetes mellitus custodial insulin use: without software systems architect use Diabetes mellitus complication status: without complication Qualified Code(s): E11.9 - Type 2 diabetes mellitus without complications (6) Hyperlipidemia Current Visit: Yes Status: Chronic (7) Obesity Current Visit: Yes Status: Chronic Subjective Date of service: 10/31/18 Principal diagnosis: POD 6 s/p 1LTCS WITH BTL, HTN ,IDDM ,renal disease Interval history: pt resting in bed, states SOB improving, BLE edema persists. Objective Last Vital Signs Temp 97.9 F 10/31/18 08:49 Pulse 97 H 10/31/18 09:41 Resp 18 10/31/18 08:49 BP 162/85 10/31/18 09:41 Pulse Ox 95 10/31/18 08:49 - Physical Examination General: No Apparent Distress HEENT: Positive: PERRL Neck: Positive: neck supple, trachea midline Cardiac: Positive: Reg Rate and Rhythm, S1/S2 Lungs: Positive: Decreased Breath Sounds Neuro: Positive: Grossly Intact Abdomen: Positive: Other (s/p ) Skin: Negative: Wound Extremities: Present: +2 Edema (pitting BLE) - Labs and Meds Comprehensive Metabolic Panel 10/31/18 Range/Units 08:04 Sodium 136 L (137-145) mmol/L Potassium 4.2 (3.6-5.0) mmol/L Chloride 103.3 (98-107) mmol/L Carbon Dioxide 20 L (22-30) mmol/L BUN 31 H (7-17) mg/dL Creatinine 1.9 H (0.7-1.2) mg/dL Glucose 216 H (65-100) mg/dL Calcium 7.3 L (8.4-10.2) mg/dL - Imaging and Cardiology EKG: report reviewed Echo: report reviewed (EF 55-60%, impaired relaxation, trace TR.)
[2018-10-31] MEDS: BUMEX IV SCH ×3 (12:18→22:32)
[2018-10-31] MEDS: SODIUM CHLORIDE FLUSH SYRINGE 10 ML IV SCH ×2 (14:15→22:37)
--- NOTE | 2018-10-31 14:50 | Progress Note ---
Assessment and Plan Assessment and plan: --Uncontrolled hypertension; well controlled today on clonidine, nifedipine changed to amlodipine, hydralazine, Cozaar, Coreg Dosages optimized, nephrology following Patient advised to see primary care physician upon discharge for her medical needs --Acute on chronic renal failure; due to vasomotor nephropathy Renal function gradually improving, creatinine trending down Avoid nephrotoxins, nephrology following --Status post on 10/24/2018; Continue postop care per SEAM PRESS OPERATOR --Anemia requiring 2 units of PRBC transfusion H&H low stable, closely monitor additional PRBC transfusion if needed --Acute shortness of breath, possible congestive heart failure Cardiology following , Bumex added by cardiology follow echocardiogram for LV function and ejection fraction --Diabetes mellitus; Accu-Chek sliding scale coverage and ADA diet Long-acting insulin if needed --Diabetic retinopathy; patient advised to follow private glove parts inspector Upon discharge --Hypermagnesemia; magnesium levels trending down --Hyponatremia; resolved --Hypermagnesemia; magnesium levels trending down Closely monitor --DVT prophylaxis; SCDs deffer Pharmacologic anticoagulation to SEAM PRESS OPERATOR As patient is postop state Plan of care reviewed with the patient and her nurse Monitor closely and adjust management as needed Hospitalist Physical - Constitutional Vitals: Temp Pulse Resp BP Pulse Ox 98.3 F 87 20 120/69 99 10/31/18 12:44 10/31/18 14:13 10/31/18 12:44 10/31/18 14:13 10/31/18 12:44 General appearance: Present: no acute distress, well-nourished, obese Results - Labs CBC & Chem 7: 10/27/18 08:09 10/31/18 08:04 Labs: Laboratory Last Values WBC 12.5 K/mm3 (4.5-11.0) H 10/26/18 04:54 RBC 2.70 M/mm3 (3.65-5.03) L 10/26/18 04:54 Hgb 8.6 gm/dl (10.1-14.3) L 10/27/18 08:09 Hct 25.5 % (30.3-42.9) L 10/27/18 08:09 MCV 89 fl (79-97) 10/26/18 04:54 MCH 30 pg (28-32) 10/26/18 04:54 MCHC 34 % (30-34) 10/26/18 04:54 RDW 14.5 % (13.2-15.2) 10/26/18 04:54 Plt Count 288 K/mm3 (140-440) 10/26/18 04:54 Lymph % (Auto) 11.0 % (13.4-35.0) L 10/25/18 04:29 Smith % (Auto) 9.3 % (0.0-7.3) H 10/25/18 04:29 Eos % (Auto) 0.0 % (0.0-4.3) 10/25/18 04:29 Baso % (Auto) 0.1 % (0.0-1.8) 10/25/18 04:29 Lymph # 1.3 K/mm3 (1.2-5.4) 10/25/18 04:29 Smith # 1.1 K/mm3 (0.0-0.8) H 10/25/18 04:29 Eos # 0.0 K/mm3 (0.0-0.4) 10/25/18 04:29 Baso # 0.0 K/mm3 (0.0-0.1) 10/25/18 04:29 Add Manual Diff Complete 10/24/18 19:18 Total Counted 100 10/24/18 19:18 Seg Neutrophils % 79.6 % (40.0-70.0) H 10/25/18 04:29 Seg Neuts % (Manual) 92.0 % (40.0-70.0) H 10/24/18 19:18 0 % 10/24/18 19:18 4.0 % (13.4-35.0) L 10/24/18 19:18 Reactive Lymphs % (Man) 0 % 10/24/18 19:18 4.0 % (0.0-7.3) 10/24/18 19:18 0 % (0.0-4.3) 10/24/18 19:18 0 % (0.0-1.8) 10/24/18 19:18 0 % 10/24/18 19:18 0 % 10/24/18 19:18 0 % 10/24/18 19:18 0 % 10/24/18 19:18 Nucleated RBC % Not Reportable 10/24/18 19:18 Seg Neutrophils # 9.6 K/mm3 (1.8-7.7) H 10/25/18 04:29 Seg Neutrophils # Man 16.0 K/mm3 (1.8-7.7) H 10/24/18 19:18 Band Neutrophils # 0.0 K/mm3 10/24/18 19:18 0.7 K/mm3 (1.2-5.4) L 10/24/18 19:18 Abs React Lymphs (Man) 0.0 K/mm3 10/24/18 19:18 0.7 K/mm3 (0.0-0.8) 10/24/18 19:18 0.0 K/mm3 (0.0-0.4) 10/24/18 19:18 0.0 K/mm3 (0.0-0.1) 10/24/18 19:18 0.0 K/mm3 10/24/18 19:18 0.0 K/mm3 10/24/18 19:18 0.0 K/mm3 10/24/18 19:18 Blast Cells # 0.0 K/mm3 10/24/18 19:18 WBC Morphology Not Reportable 10/24/18 19:18 Hypersegmented Neuts Not Reportable 10/24/18 19:18 Hyposegmented Neuts Not Reportable 10/24/18 19:18 Hypogranular Neuts Not Reportable 10/24/18 19:18 Not Reportable 10/24/18 19:18 Not Reportable 10/24/18 19:18 Not Reportable 10/24/18 19:18 Not Reportable 10/24/18 19:18 Not Reportable 10/24/18 19:18 Not Reportable 10/24/18 19:18 Appears normal 10/24/18 19:18 Not Reportable 10/24/18 19:18 Plt Clumps, EDTA Not Reportable 10/24/18 19:18 Not Reportable 10/24/18 19:18 Not Reportable 10/24/18 19:18 Not Reportable 10/24/18 19:18 Plt Morphology Comment Not Reportable 10/24/18 19:18 RBC Morphology Normal 10/24/18 19:18 Dimorphic RBCs Not Reportable 10/24/18 19:18 Not Reportable 10/24/18 19:18 Not Reportable 10/24/18 19:18 Not Reportable 10/24/18 19:18 Not Reportable 10/24/18 19:18 Not Reportable 10/24/18 19:18 Not Reportable 10/24/18 19:18 Not Reportable 10/24/18 19:18 Not Reportable 10/24/18 19:18 Not Reportable 10/24/18 19:18 Not Reportable 10/24/18 19:18 Not Reportable 10/24/18 19:18 Not Reportable 10/24/18 19:18 Not Reportable 10/24/18 19:18 Not Reportable 10/24/18 19:18 Not Reportable 10/24/18 19:18 Not Reportable 10/24/18 19:18 Not Reportable 10/24/18 19:18 Not Reportable 10/24/18 19:18 Not Reportable 10/24/18 19:18 Acanthocytes (Spur) Not Reportable 10/24/18 19:18 Rouleaux Not Reportable 10/24/18 19:18 Not Reportable 10/24/18 19:18 Not Reportable 10/24/18 19:18 Not Reportable 10/24/18 19:18 Not Reportable 10/24/18 19:18 Hem Pathologist Commnt No 10/24/18 19:18 Sodium 136 mmol/L (137-145) L 10/31/18 08:04 Potassium 4.2 mmol/L (3.6-5.0) 10/31/18 08:04 Chloride 103.3 mmol/L (98-107) 10/31/18 08:04 Carbon Dioxide 20 mmol/L (22-30) L 10/31/18 08:04 17 mmol/L 10/31/18 08:04 BUN 31 mg/dL (7-17) H 10/31/18 08:04 1.9 mg/dL (0.7-1.2) H 10/31/18 08:04 Estimated GFR 37 ml/min 10/31/18 08:04 16 % 10/31/18 08:04 Glucose 216 mg/dL (65-100) H 10/31/18 08:04 POC Glucose 145 (70-105) H 10/31/18 12:37 6.0 mg/dL (3.5-7.6) 10/22/18 16:07 Calcium 7.3 mg/dL (8.4-10.2) L 10/31/18 08:04 Magnesium 3.30 mg/dL (1.7-2.3) H 10/29/18 13:48 < 0.20 mg/dL (0.1-1.2) 10/25/18 04:29 AST 16 units/L (5-40) 10/25/18 04:29 ALT 16 units/L (7-56) 10/25/18 04:29 96 units/L (35-129) 10/25/18 04:29 449 units/L (91-180) H 10/22/18 16:07 134 units/L (30-135) 10/23/18 07:58 CK-MB (CK-2) 4.6 ng/mL (0.0-4.0) H 10/23/18 07:58 CK-MB (CK-2) Rel Index 3.4 (0-4) 10/23/18 07:58 0.068 ng/mL (0.00-0.029) H 10/23/18 07:58 NT-Pro-B Natriuret Pep 871.5 pg/mL (0-450) H 10/27/18 06:35 5.7 g/dL (6.3-8.2) L 10/25/18 04:29 2.4 g/dL (3.9-5) L 10/25/18 04:29 0.7 % 10/25/18 04:29 Triglycerides 158 mg/dL (2-149) H 10/23/18 03:01 Cholesterol 310 mg/dL (50-199) H 10/23/18 03:01 230 mg/dL (50-130) H 10/23/18 03:01 76 mg/dL (40-59) H 10/23/18 03:01 4.07 % 10/23/18 03:01 Blood Type O POSITIVE 10/26/18 18:01 Antibody Screen Not Reportable 10/26/18 18:01 TROY Antibody Screen Negative 10/26/18 18:01 Crossmatch See Detail 10/26/18 18:01 Active Medications - Current Medications Current Medications: Generic Name Dose Route Start Last Admin Trade Name Freq PRN Reason Stop Dose Admin Acetaminophen/Hydrocodone Bitart 2 each 10/24/18 18:14 10/28/18 11:41 [place] 5/325 PO 2 each Q6H PRN Administration Pain, Moderate (4-6) Al Hydrox/Mg Hydrox/Simethicone 30 ml 10/26/18 01:34 10/26/18 08:42 Alum-Mag Hydrox-Simeth 305-459-69pr/5ml PO 30 ml Q8H PRN Administration Indigestion Albuterol 2.5 mg 10/24/18 12:58 10/30/18 22:29 Proventil IH 2.5 mg Q4HRT PRN Administration Shortness Of Breath Amlodipine Besylate 10 mg 10/31/18 10:00 10/31/18 09:40 Norvasc PO 10 mg QDAY TIFFANIE Administration Bisacodyl 10 mg 10/29/18 11:30 Dulcolax PO QDAY PRN Constipation Bumetanide 1 mg 10/31/18 11:00 10/31/18 12:19 Bumex IV 1 mg BID TIFFANIE Administration Carvedilol 25 mg 10/30/18 22:00 10/31/18 09:41 Coreg PO 25 mg BID TIFFANIE Administration Clonidine HCl 0.1 mg 10/28/18 14:00 10/31/18 14:13 Catapres PO 0.1 mg TID TIFFANIE Administration Clonidine HCl 0.2 mg 10/28/18 14:00 10/31/18 14:13 Catapres PO 0.2 mg TID TIFFANIE Administration Dextrose 50 ml 10/25/18 12:14 D50w (25gm) Syringe IV PRN PRN Hypoglycemia Docusate Sodium 100 mg 10/29/18 11:30 10/31/18 09:41 Colace PO 100 mg DAILY TIFFANIE Administration Ferrous Sulfate 325 mg 10/29/18 12:00 10/31/18 09:39 Feosol PO 325 mg QDAY TIFFANIE Administration Hydralazine HCl 100 mg 10/30/18 12:55 10/31/18 14:12 Apresoline PO 100 mg Q8H TIFFANIE Administration Insulin Human Lispro 0 unit 10/25/18 16:30 10/31/18 13:58 Humalog SUB-Q Not Given ACHS TIFFANIE Protocol Losartan Potassium 50 mg 10/28/18 14:00 10/31/18 09:40 Cozaar PO 50 mg QDAY TIFFANIE Administration Naloxone HCl 0.2 mg 10/24/18 15:30 Narcan 0.4 Mg/1 Ml IV Q2MIN PRN Res Rate </= 8 or 02 SAT < 92% Neomycin/Polymyxin/Bacitracin 1 applic 10/26/18 23:49 10/27/18 00:46 Triple Antibiotic TP 1 applic PRN PRN Administration Skin Irritation Pantoprazole Sodium 40 mg 10/29/18 12:00 10/31/18 09:41 Protonix PO 40 mg QDAY TIFFANIE Administration Promethazine HCl 25 mg 10/24/18 16:00 Phenergan NE Q6H PRN Nausea And Vomiting Sodium Bicarbonate 1,300 mg 10/27/18 14:36 10/31/18 14:14 Sodium Bicarbonate PO Not Given TID TIFFANIE Sodium Chloride 10 ml 10/24/18 22:00 10/31/18 14:15 Sodium Chloride Flush Syringe 10 Ml IV 10 ml BID TIFFANIE Administration Sodium Chloride 10 ml 10/24/18 18:14 Sodium Chloride Flush Syringe 10 Ml IV PRN PRN LINE FLUSH Nutrition/Malnutrition Assess - Dietary Evaluation Nutrition/Malnutrition Findings: Nutrition Notes Start: 10/30/18 17:01 Freq: Status: Active Protocol: Document 10/30/18 17:02 RM (Rec: 10/30/18 17:08 RM [id number]) Nutrition Notes Need for Assessment generated from: MD Order Initial or Follow up Assessment Current Diagnosis Acute Kidney Injury,CKD(stage I-IV),Diabetes,Hypertension Other Pertinent Diagnosis Retinopathy Current Diet Consistent CHO,Cardiac Labs/Tests Reviewed Pertinent Medications Reviewed Height 5 ft 7 in Weight 112.037 kg [place] Body Weight (kg) 61.36 BMI 38.7 Subjective/Other Information Consulted for poor oral intake . Pt stated that her appetite is okay and that she eats 50% to 100% of her meals. Noted breakfast at bedside with 25% eaten. Burn Absent Trauma Absent #1 Nutrition Diagnosis Inadequate oral intake Etiology decreased appetite As Evidenced by Signs and Symptoms pt statement that she eats 50 to 100% of her meals, breakfast at bedside w/25% eaten Is patient on ventilator? No Is Patient Ambulatory and/or Out of Bed Yes REE-([place]-St. Jeor-ambulatory/OOB) [ 2423.400 [id number]] Kcal/Kg value to use for calculation 17 Approximate Energy Requirements Using 1905 kcal/Kg Calculation Used for Recommendations Kcal/kg Additional Notes Protein Needs: 70-87g (0.8-1g/ kg 87kg adjBW) Fluid Needs: 1 ml/kcal Nutrition Intervention Change Diet Order: Continue current Add Supplement/Snack (indicate name/kcal Glucerna [place] 1 daily /protein ) Provides kCal: 220 Provides Protein (gm) 10 Goal #1 Meet at least 75% of calorie and protein needs via PO and ONS intakes Anticipated Discharge Needs: Consistent CHO/Cardiac diet Follow-Up By: 11/01/18 Additional Comments Follow for PO and ONS intakes
[2018-11-01] MEDS: APRESOLINE PO SCH ×3 (05:58→21:00)
[2018-11-01 08:52] LABS: Calcium 7.5 mg/dL (8.4-10.2)
[2018-11-01] MEDS: FEOSOL PO SCH (10:23)
[2018-11-01] MEDS: NORVASC PO SCH (10:23)
[2018-11-01] MEDS: SODIUM BICARBONATE PO SCH ×3 (10:23→20:58)
[2018-11-01] MEDS: COREG PO SCH ×2 (10:24→22:08)
[2018-11-01] MEDS: PROTONIX PO SCH (10:25)
[2018-11-01] MEDS: CATAPRES PO SCH ×6 (10:25→21:00)
[2018-11-01] MEDS: COLACE PO SCH (10:25)
[2018-11-01] MEDS: CARDURA PO SCH (10:25)
--- NOTE | 2018-11-01 10:25 | Progress Note ---
Assessment and Plan Optimize anti-hypertensive regimen - initiate cardura. Continue with diuresis and monitor renal indices, nephrology is following. F/u limited echo reviewed - EF 60-65%. The patient has been seen in conjunction with Dr. Blanton who agrees with the assessment and plan of care. - Patient Problems (1) Acute heart failure with preserved ejection fraction Current Visit: Yes Status: Acute (2) Acute on chronic renal failure Current Visit: Yes Status: Acute Qualifiers: Acute renal failure type: unspecified Chronic kidney disease stage: stage 3 (moderate) Qualified Code(s): N17.9 - Acute kidney failure, unspecified; N18.3 - Chronic kidney disease, stage 3 (moderate) (3) S/P Current Visit: Yes Status: Acute (4) Uncontrolled hypertension Current Visit: Yes Status: Chronic (5) Diabetes Current Visit: Yes Status: Chronic Qualifiers: Diabetes mellitus type: type 2 Diabetes mellitus terminal operator insulin use: without longterm use Diabetes mellitus complication status: without complication Qualified Code(s): E11.9 - Type 2 diabetes mellitus without complications (6) Hyperlipidemia Current Visit: Yes Status: Chronic (7) Obesity Current Visit: Yes Status: Chronic Subjective Date of service: 11/01/18 Principal diagnosis: POD 6 s/p 1LTCS WITH BTL, HTN ,IDDM ,renal disease Interval history: pt resting in bed, states SOB improving, BLE edema gradually improving. in SR on tele. Objective Last Vital Signs Temp 98.4 F 11/01/18 07:59 Pulse 96 H 11/01/18 07:59 Resp 20 11/01/18 07:59 BP 180/87 11/01/18 07:59 Pulse Ox 94 11/01/18 07:59 - Physical Examination General: No Apparent Distress HEENT: Positive: PERRL Neck: Positive: neck supple, trachea midline Cardiac: Positive: Reg Rate and Rhythm, S1/S2 Lungs: Positive: Decreased Breath Sounds Neuro: Positive: Grossly Intact Abdomen: Positive: Other (s/p ) Skin: Negative: Wound Extremities: Present: +2 Edema (pitting BLE) - Labs and Meds Comprehensive Metabolic Panel 11/01/18 Range/Units 07:35 Sodium 137 (137-145) mmol/L Potassium 4.5 (3.6-5.0) mmol/L Chloride 104.0 (98-107) mmol/L Carbon Dioxide 20 L (22-30) mmol/L BUN 30 H (7-17) mg/dL Creatinine 2.0 H (0.7-1.2) mg/dL Glucose 208 H (65-100) mg/dL Calcium 7.5 L (8.4-10.2) mg/dL - Imaging and Cardiology EKG: report reviewed Echo: report reviewed (EF 55-60%, impaired relaxation, trace TR.)
[2018-11-01] MEDS: BUMEX IV SCH (10:26)
[2018-11-01] MEDS: COZAAR PO SCH (10:26)
[2018-11-01] MEDS: SODIUM CHLORIDE FLUSH SYRINGE 10 ML IV SCH (10:27)
[2018-11-01] MEDS: HumaLOG SUB-Q SCH ×4 (10:27→22:14)
--- NOTE | 2018-11-01 12:30 | Progress Note ---
Assessment and Plan Assessment and plan: --Uncontrolled hypertension; well controlled today on clonidine, nifedipine changed to amlodipine, hydralazine, Cozaar, Coreg Dosages optimized, nephrology following Patient advised to see primary care physician upon discharge for her medical needs --Acute on chronic renal failure; due to vasomotor nephropathy Renal function gradually improving, creatinine trending down Avoid nephrotoxins, nephrology following --Status post on 10/24/2018; Continue postop care per FORGING MACHINE OPERATOR --Anemia requiring 2 units of PRBC transfusion H&H low stable, closely monitor additional PRBC transfusion if needed --Acute shortness of breath, possible congestive heart failure Cardiology following , Bumex added by cardiology follow echocardiogram for LV function and ejection fraction --Diabetes mellitus; Accu-Chek sliding scale coverage and ADA diet Long-acting insulin if needed --Diabetic retinopathy; patient advised to follow private hand button splitter Upon discharge --Hypermagnesemia; magnesium levels trending down --Hyponatremia; resolved --Hypermagnesemia; magnesium levels trending down Closely monitor --DVT prophylaxis; SCDs deffer Pharmacologic anticoagulation to FORGING MACHINE OPERATOR As patient is postop state Plan of care reviewed with the patient and her nurse Monitor closely and adjust management as needed History Interval history: Patient seen and examined medical records reviewed Patient feels slightly better no new complaints Pressures moderate control Cardiology adjusting medications Alert awake oriented 3 vital signs reviewed Hospitalist Physical - Constitutional Vitals: Temp Pulse Resp BP Pulse Ox 98.0 F 92 H 20 149/77 96 11/01/18 11:50 11/01/18 11:50 11/01/18 11:50 11/01/18 11:50 11/01/18 11:50 General appearance: Present: no acute distress, well-nourished, obese - EENT Eyes: Present: PERRL, EOM intact - Neck Neck: Present: supple, normal ROM - Respiratory Respiratory effort: normal Respiratory: bilateral: diminished, negative: rales, rhonchi, wheezing - Cardiovascular Rhythm: regular Heart Sounds: Present: S1 & S2 - Extremities Extremities: no ischemia, No edema - Abdominal General gastrointestinal: soft, non-tender, non-distended, normal bowel sounds - Integumentary Integumentary: Present: clear, warm - Psychiatric Psychiatric: appropriate mood/affect, cooperative - Neurologic Neurologic: CNII-XII intact, moves all extremities Results - Labs CBC & Chem 7: 10/27/18 08:09 11/02/18 05:40 Labs: Laboratory Last Values WBC 12.5 K/mm3 (4.5-11.0) H 10/26/18 04:54 RBC 2.70 M/mm3 (3.65-5.03) L 10/26/18 04:54 Hgb 8.6 gm/dl (10.1-14.3) L 10/27/18 08:09 Hct 25.5 % (30.3-42.9) L 10/27/18 08:09 MCV 89 fl (79-97) 10/26/18 04:54 MCH 30 pg (28-32) 10/26/18 04:54 MCHC 34 % (30-34) 10/26/18 04:54 RDW 14.5 % (13.2-15.2) 10/26/18 04:54 Plt Count 288 K/mm3 (140-440) 10/26/18 04:54 Lymph % (Auto) 11.0 % (13.4-35.0) L 10/25/18 04:29 [place] % (Auto) 9.3 % (0.0-7.3) H 10/25/18 04:29 Eos % (Auto) 0.0 % (0.0-4.3) 10/25/18 04:29 Baso % (Auto) 0.1 % (0.0-1.8) 10/25/18 04:29 Lymph # 1.3 K/mm3 (1.2-5.4) 10/25/18 04:29 [place] # 1.1 K/mm3 (0.0-0.8) H 10/25/18 04:29 Eos # 0.0 K/mm3 (0.0-0.4) 10/25/18 04:29 Baso # 0.0 K/mm3 (0.0-0.1) 10/25/18 04:29 Add Manual Diff Complete 10/24/18 19:18 Total Counted 100 10/24/18 19:18 Seg Neutrophils % 79.6 % (40.0-70.0) H 10/25/18 04:29 Seg Neuts % (Manual) 92.0 % (40.0-70.0) H 10/24/18 19:18 0 % 05/30/19 19:18 4.0 % (13.4-35.0) L 10/24/18 19:18 Reactive Lymphs % (Man) 0 % 10/24/18 19:18 4.0 % (0.0-7.3) 10/24/18 19:18 0 % (0.0-4.3) 10/24/18 19:18 0 % (0.0-1.8) 10/24/18 19:18 0 % 10/24/18 19:18 0 % 10/24/18 19:18 0 % 10/24/18 19:18 0 % 10/24/18 19:18 Nucleated RBC % Not Reportable 10/24/18 19:18 Seg Neutrophils # 9.6 K/mm3 (1.8-7.7) H 10/25/18 04:29 Seg Neutrophils # Man 16.0 K/mm3 (1.8-7.7) H 10/24/18 19:18 Band Neutrophils # 0.0 K/mm3 10/24/18 19:18 0.7 K/mm3 (1.2-5.4) L 10/24/18 19:18 Abs React Lymphs (Man) 0.0 K/mm3 10/24/18 19:18 0.7 K/mm3 (0.0-0.8) 10/24/18 19:18 0.0 K/mm3 (0.0-0.4) 10/24/18 19:18 0.0 K/mm3 (0.0-0.1) 10/24/18 19:18 0.0 K/mm3 10/24/18 19:18 0.0 K/mm3 10/24/18 19:18 0.0 K/mm3 10/24/18 19:18 Blast Cells # 0.0 K/mm3 10/24/18 19:18 WBC Morphology Not Reportable 10/24/18 19:18 Hypersegmented Neuts Not Reportable 10/24/18 19:18 Hyposegmented Neuts Not Reportable 10/24/18 19:18 Hypogranular Neuts Not Reportable 10/24/18 19:18 Not Reportable 10/24/18 19:18 Not Reportable 10/24/18 19:18 Not Reportable 10/24/18 19:18 Not Reportable 10/24/18 19:18 Not Reportable 10/24/18 19:18 Not Reportable 10/24/18 19:18 Appears normal 10/24/18 19:18 Not Reportable 10/24/18 19:18 Plt Clumps, EDTA Not Reportable 10/24/18 19:18 Not Reportable 10/24/18 19:18 Not Reportable 10/24/18 19:18 Not Reportable 10/24/18 19:18 Plt Morphology Comment Not Reportable 10/24/18 19:18 RBC Morphology Normal 10/24/18 19:18 Dimorphic RBCs Not Reportable 10/24/18 19:18 Not Reportable 10/24/18 19:18 Not Reportable 10/24/18 19:18 Not Reportable 10/24/18 19:18 Not Reportable 10/24/18 19:18 Not Reportable 10/24/18 19:18 Not Reportable 10/24/18 19:18 Not Reportable 10/24/18 19:18 Not Reportable 10/24/18 19:18 Not Reportable 10/24/18 19:18 Not Reportable 10/24/18 19:18 Not Reportable 10/24/18 19:18 Not Reportable 10/24/18 19:18 Not Reportable 10/24/18 19:18 Not Reportable 10/24/18 19:18 Not Reportable 10/24/18 19:18 Not Reportable 10/24/18 19:18 Not Reportable 10/24/18 19:18 Not Reportable 10/24/18 19:18 Not Reportable 10/24/18 19:18 Acanthocytes (Spur) Not Reportable 10/24/18 19:18 Rouleaux Not Reportable 10/24/18 19:18 Not Reportable 10/24/18 19:18 Not Reportable 10/24/18 19:18 Not Reportable 10/24/18 19:18 Not Reportable 10/24/18 19:18 Hem Pathologist Commnt No 10/24/18 19:18 Sodium 137 mmol/L (137-145) 11/01/18 07:35 Potassium 4.5 mmol/L (3.6-5.0) 11/01/18 07:35 Chloride 104.0 mmol/L (98-107) 11/01/18 07:35 Carbon Dioxide 20 mmol/L (22-30) L 11/01/18 07:35 18 mmol/L 11/01/18 07:35 BUN 30 mg/dL (7-17) H 11/01/18 07:35 2.0 mg/dL (0.7-1.2) H 11/01/18 07:35 Estimated GFR 35 ml/min 11/01/18 07:35 15 % 11/01/18 07:35 Glucose 208 mg/dL (65-100) H 11/01/18 07:35 POC Glucose 126 (70-105) H 10/31/18 21:12 6.0 mg/dL (3.5-7.6) 10/22/18 16:07 Calcium 7.5 mg/dL (8.4-10.2) L 11/01/18 07:35 Magnesium 3.30 mg/dL (1.7-2.3) H 10/29/18 13:48 < 0.20 mg/dL (0.1-1.2) 10/25/18 04:29 AST 16 units/L (5-40) 10/25/18 04:29 ALT 16 units/L (7-56) 10/25/18 04:29 96 units/L (35-129) 10/25/18 04:29 449 units/L (91-180) H 10/22/18 16:07 134 units/L (30-135) 10/23/18 07:58 CK-MB (CK-2) 4.6 ng/mL (0.0-4.0) H 10/23/18 07:58 CK-MB (CK-2) Rel Index 3.4 (0-4) 10/23/18 07:58 0.068 ng/mL (0.00-0.029) H 10/23/18 07:58 NT-Pro-B Natriuret Pep 871.5 pg/mL (0-450) H 10/27/18 06:35 5.7 g/dL (6.3-8.2) L 10/25/18 04:29 2.4 g/dL (3.9-5) L 10/25/18 04:29 0.7 % 10/25/18 04:29 Triglycerides 158 mg/dL (2-149) H 10/23/18 03:01 Cholesterol 310 mg/dL (50-199) H 10/23/18 03:01 230 mg/dL (50-130) H 10/23/18 03:01 76 mg/dL (40-59) H 10/23/18 03:01 4.07 % 10/23/18 03:01 Blood Type O POSITIVE 10/26/18 18:01 Antibody Screen Not Reportable 10/26/18 18:01 TROY Antibody Screen Negative 10/26/18 18:01 Crossmatch See Detail 10/26/18 18:01 Active Medications - Current Medications Current Medications: Generic Name Dose Route Start Last Admin Trade Name Freq PRN Reason Stop Dose Admin Acetaminophen/Hydrocodone Bitart 2 each 10/24/18 18:14 10/28/18 11:41 [place] 5/325 PO 2 each Q6H PRN Administration Pain, Moderate (4-6) Al Hydrox/Mg Hydrox/Simethicone 30 ml 10/26/18 01:34 10/26/18 08:42 Alum-Mag Hydrox-Simeth [phone]/5ml PO 30 ml Q8H PRN Administration Indigestion Albuterol 2.5 mg 10/24/18 12:58 10/30/18 22:29 Proventil IH 2.5 mg Q4HRT PRN Administration Shortness Of Breath Amlodipine Besylate 10 mg 10/31/18 10:00 11/01/18 10:23 Norvasc PO 10 mg QDAY TIFFANIE Administration Bisacodyl 10 mg 10/29/18 11:30 Dulcolax PO QDAY PRN Constipation Bumetanide 1 mg 10/31/18 11:00 11/01/18 10:26 Bumex IV 1 mg BID TIFFANIE Administration Carvedilol 25 mg 10/30/18 22:00 11/01/18 10:24 Coreg PO 25 mg BID TIFFANIE Administration Clonidine HCl 0.1 mg 10/28/18 14:00 11/01/18 10:26 Catapres PO 0.1 mg TID TIFFANIE Administration Clonidine HCl 0.2 mg 10/28/18 14:00 11/01/18 10:25 Catapres PO 0.2 mg TID TIFFANIE Administration Dextrose 50 ml 10/25/18 12:14 D50w (25gm) Syringe IV PRN PRN Hypoglycemia Docusate Sodium 100 mg 10/29/18 11:30 11/01/18 10:25 Colace PO 100 mg DAILY TIFFANIE Administration Doxazosin Mesylate 4 mg 11/01/18 10:00 11/01/18 10:25 Cardura PO 4 mg QDAY TIFFANIE Administration Ferrous Sulfate 325 mg 10/29/18 12:00 11/01/18 10:23 Feosol PO 325 mg QDAY TIFFANIE Administration Hydralazine HCl 100 mg 10/30/18 12:55 11/01/18 05:58 Apresoline PO 100 mg Q8H TIFFANIE Administration Insulin Human Lispro 0 unit 10/25/18 16:30 11/01/18 10:27 [facility] SUB-Q [facility] Losartan Potassium 50 mg 10/28/18 14:00 11/01/18 10:26 Cozaar PO 50 mg QDAY TIFFANIE Administration Naloxone HCl 0.2 mg 10/24/18 15:30 Narcan 0.4 Mg/1 Ml IV Q2MIN PRN Res Rate </= 8 or 02 SAT < 92% Neomycin/Polymyxin/Bacitracin 1 applic 10/26/18 23:49 10/27/18 00:46 Triple Antibiotic TP 1 applic PRN PRN Administration Skin Irritation Pantoprazole Sodium 40 mg 10/29/18 12:00 11/01/18 10:25 Protonix PO 40 mg QDAY TIFFANIE Administration Promethazine HCl 25 mg 10/24/18 16:00 Phenergan [place] Q6H PRN Nausea And Vomiting Sodium Bicarbonate 1,300 mg 10/27/18 14:36 11/01/18 10:23 Sodium Bicarbonate PO 1,300 mg TID TIFFANIE Administration Sodium Chloride 10 ml 10/24/18 22:00 11/01/18 10:27 Sodium Chloride Flush Syringe 10 Ml IV 10 ml BID TIFFANIE Administration Sodium Chloride 10 ml 10/24/18 18:14 Sodium Chloride Flush Syringe 10 Ml IV PRN PRN LINE FLUSH Nutrition/Malnutrition Assess - Dietary Evaluation Nutrition/Malnutrition Findings: Nutrition Notes Start: 10/30/18 17:01 Freq: Status: Active Protocol: Document 10/30/18 17:02 RM (Rec: 10/30/18 17:08 [facility] [id number]) Nutrition Notes Need for Assessment generated from: MD Order Initial or Follow up Assessment Current Diagnosis Acute Kidney Injury,CKD(stage I-IV),Diabetes,Hypertension Other Pertinent Diagnosis Retinopathy Current Diet Consistent CHO,Cardiac Labs/Tests Reviewed Pertinent Medications Reviewed Height 5 ft 7 in Weight 112.037 kg [place] Body Weight (kg) 61.36 BMI 38.7 Subjective/Other Information Consulted for poor oral intake . Pt stated that her appetite is okay and that she eats 50% to 100% of her meals. Noted breakfast at bedside with 25% eaten. Burn Absent Trauma Absent #1 Nutrition Diagnosis Inadequate oral intake Etiology decreased appetite As Evidenced by Signs and Symptoms pt statement that she eats 50 to 100% of her meals, breakfast at bedside w/25% eaten Is patient on ventilator? No Is Patient Ambulatory and/or Out of Bed Yes REE-([facility]-ambulatory/OOB) [ 2428.400 NUTR.[id number]] Kcal/Kg value to use for calculation 17 Approximate Energy Requirements Using 1905 kcal/Kg Calculation Used for Recommendations Kcal/kg Additional Notes Protein Needs: 70-87g (0.8-1g/ kg 87kg adjBW) Fluid Needs: 1 ml/kcal Nutrition Intervention Change Diet Order: Continue current Add Supplement/Snack (indicate name/kcal Glucerna [place] 1 daily /protein ) Provides kCal: 220 Provides Protein (gm) 10 Goal #1 Meet at least 75% of calorie and protein needs via PO and ONS intakes Anticipated Discharge Needs: Consistent CHO/Cardiac diet Follow-Up By: 11/01/18 Additional Comments Follow for PO and ONS intakes
--- NOTE | 2018-11-01 13:04 | Progress Note ---
Assessment and Plan Impression * Acute kidney injury on chronic renal failure * Hypertension, uncontrolled * Peripheral edema * Sinus tachycardia --TTE: LVEF 55-60%, abnormal LV diastolic filling c/w impaired relaxation --V/Q scan: low prob for pulm embolus * Metabolic acidosis * Status post on 10/24/2018 * Hypermagnesemia * Type II diabetes with diabetic nephropathy Recommendations * BP control improved w/ current regimen - continue at d/c * Continue diuretics - recommend discharging to home on Bumex 1mg daily * Continue sodium bicarbonate for her metabolic acidosis * Strict I/O * Patient is cleared for d/c from a renal standpoint * Needs close outpatient nephrology follow up * Sodium restricted diet Subjective Date of service: 11/01/18 Principal diagnosis: POD 6 s/p 1LTCS WITH BTL, HTN ,IDDM ,renal disease Interval history: Patient has no complaints today. Objective - Vital Signs Vital signs: Vital Signs - 12hr 11/01/18 11/01/18 11/01/18 04:29 04:30 05:58 Temperature 97.9 F Pulse Rate 95 H 95 H Respiratory 18 Rate Blood Pressure 161/87 161/87 O2 Sat by Pulse 94 Oximetry 11/01/18 11/01/18 11/01/18 07:59 10:23 10:27 Temperature 98.4 F Pulse Rate 96 H 96 H Respiratory 20 Rate Blood Pressure 180/87 180/87 O2 Sat by Pulse 94 96 Oximetry 11/01/18 11:50 Temperature 98.0 F Pulse Rate 92 H Respiratory 20 Rate Blood Pressure 149/77 O2 Sat by Pulse 96 Oximetry - General Appearance General appearance: well-developed, well-nourished EENT: ATNC Respiratory: Present: Clear to Ascultation Cardiology: regular, S1S2 Gastrointestinal: normal, no tenderness, no distended Neurologic: no focal deficit Musculoskeletal: other (2+ edema) Psychiatric: cooperative - Lab 10/27/18 08:09 11/01/18 07:35 Most recent lab results Calcium 7.5 mg/dL (8.4-10.2) L 11/01/18 07:35 Magnesium 3.30 mg/dL (1.7-2.3) H 10/29/18 13:48 Medications & Allergies - Medications Allergies/Adverse Reactions: Allergies No Known Allergies Allergy (Verified 09/24/18 07:35) Home Medications: Home Medications Medication Instructions Recorded Confirmed Last Taken Type Lispro Insulin [Humalog] 8 unit SQ TID 09/24/18 10/28/18 09/25/18 08:00 History 1 NIFEdipine [Nifedipine ER] 60 mg PO DAILY 09/24/18 10/28/18 10/27/18 History cloNIDine [Catapres] 0.2 mg PO BID 09/24/18 10/28/18 10/27/18 History Aspirin [Aspirin BABY CHEW TAB] 81 mg PO QDAY 09/25/18 10/28/18 09/24/18 22:00 History 1 Progesterone, Micronized 200 mg VG QPM 09/25/18 10/28/18 09/24/18 22:00 History [Progesterone] NIFEdipine XL [Procardia Xl] 90 mg PO QDAY #30 tablet 09/29/18 10/28/18 10/27/18 Rx cloNIDine [Catapres] 0.2 mg PO TID #90 tablet 09/29/18 10/28/18 10/27/18 Rx oxyCODONE /ACETAMINOPHEN [Percocet 1 tab PO Q4HR #30 tab 11/01/18 Unknown Rx 5/325] Active Medications: Generic Name Dose Route Start Last Admin Trade Name Freq PRN Reason Stop Dose Admin Acetaminophen/Hydrocodone Bitart 2 each 10/24/18 18:14 10/28/18 11:41 [place] 5/325 PO 2 each Q6H PRN Administration Pain, Moderate (4-6) Al Hydrox/Mg Hydrox/Simethicone 30 ml 10/26/18 01:34 10/26/18 08:42 Alum-Mag Hydrox-Simeth 792-043-68pp/5ml PO 30 ml Q8H PRN Administration Indigestion Albuterol 2.5 mg 10/24/18 12:58 10/30/18 22:29 Proventil IH 2.5 mg Q4HRT PRN Administration Shortness Of Breath Amlodipine Besylate 10 mg 10/31/18 10:00 11/01/18 10:23 Norvasc PO 10 mg QDAY TIFFANIE Administration Bisacodyl 10 mg 10/29/18 11:30 Dulcolax PO QDAY PRN Constipation Bumetanide 1 mg 10/31/18 11:00 11/01/18 10:26 Bumex IV 1 mg BID TIFFANIE Administration Carvedilol 25 mg 10/30/18 22:00 11/01/18 10:24 Coreg PO 25 mg BID TIFFANIE Administration Clonidine HCl 0.1 mg 10/28/18 14:00 11/01/18 13:01 Catapres PO 0.1 mg TID TIFFANIE Administration Clonidine HCl 0.2 mg 10/28/18 14:00 11/01/18 13:01 Catapres PO 0.2 mg TID TIFFANIE Administration Dextrose 50 ml 10/25/18 12:14 D50w (25gm) Syringe IV PRN PRN Hypoglycemia Docusate Sodium 100 mg 10/29/18 11:30 11/01/18 10:25 Colace PO 100 mg DAILY TIFFANIE Administration Doxazosin Mesylate 4 mg 11/01/18 10:00 11/01/18 10:25 Cardura PO 4 mg QDAY TIFFANIE Administration Ferrous Sulfate 325 mg 10/29/18 12:00 11/01/18 10:23 Feosol PO 325 mg QDAY TIFFANIE Administration Hydralazine HCl 100 mg 10/30/18 12:55 11/01/18 12:58 Apresoline PO 100 mg Q8H TIFFANIE Administration Insulin Human Lispro 0 unit 10/25/18 16:30 11/01/18 12:58 Humalog SUB-Q 4 unit ACHS TIFFANIE Administration Protocol Losartan Potassium 50 mg 10/28/18 14:00 11/01/18 10:26 Cozaar PO 50 mg QDAY TIFFANIE Administration Naloxone HCl 0.2 mg 10/24/18 15:30 Narcan 0.4 Mg/1 Ml IV Q2MIN PRN Res Rate </= 8 or 02 SAT < 92% Neomycin/Polymyxin/Bacitracin 1 applic 10/26/18 23:49 10/27/18 00:46 Triple Antibiotic TP 1 applic PRN PRN Administration Skin Irritation Pantoprazole Sodium 40 mg 10/29/18 12:00 11/01/18 10:25 Protonix PO 40 mg QDAY TIFFANIE Administration Promethazine HCl 25 mg 10/24/18 16:00 Phenergan [place] Q6H PRN Nausea And Vomiting Sodium Bicarbonate 1,300 mg 10/27/18 14:36 11/01/18 13:02 Sodium Bicarbonate PO Not Given TID TIFFANIE Sodium Chloride 10 ml 10/24/18 22:00 11/01/18 10:27 Sodium Chloride Flush Syringe 10 Ml IV 10 ml BID TIFFANIE Administration Sodium Chloride 10 ml 10/24/18 18:14 Sodium Chloride Flush Syringe 10 Ml IV PRN PRN LINE FLUSH
--- NOTE | 2018-11-01 17:46 | Progress Note ---
Assessment and Plan - Patient Problems (1) delivery delivered Current Visit: Yes Status: Acute Plan to address problem: POD#8 doing well May d/c home. precautions and wound care instructions given (2) Uncontrolled hypertension Current Visit: Yes Status: Chronic (3) Diabetes mellitus with nephropathy Current Visit: Yes Status: Acute (4) Diabetes mellitus with retinopathy Current Visit: Yes Status: Acute Qualifiers: Diabetes mellitus type: type 2 Diabetic retinopathy severity: with unspecified retinopathy severity (5) Dyspnea Current Visit: Yes Status: Acute (6) Anemia Current Visit: Yes Status: Acute Qualifiers: Other causes of anemia: acute posthemorrhagic Subjective - Subjective Date of service: 11/01/18 Principal diagnosis: POD #8 s/p 1LTCS WITH BTL, HTN ,IDDM ,renal disease Interval history: Patient evaluated this am, anticipating d/c home today. Minimal bleeding. Patient reports: appetite normal, voiding normally, pain well controlled, bowel movement, ambulating normally, no dizzy ambulation [place]: in NICU Objective - Vital Signs Latest vital signs: Vital Signs Temp Pulse Resp BP Pulse Ox 11/01/18 16:01 97.0 F L 88 20 135/69 95 11/01/18 11:50 98.0 F 92 H 20 149/77 96 11/01/18 10:27 96 11/01/18 10:23 96 H 180/87 11/01/18 07:59 98.4 F 96 H 20 180/87 94 11/01/18 05:58 95 H 161/87 11/01/18 04:30 97.9 F 11/01/18 04:29 95 H 18 161/87 94 10/31/18 23:41 98.1 F 10/31/18 23:39 89 18 148/80 95 10/31/18 23:30 98.1 F 89 18 148/80 94 10/31/18 22:42 86 131/78 10/31/18 22:34 86 131/78 10/31/18 22:33 86 131/78 10/31/18 22:32 86 131/78 10/31/18 20:14 98.5 F 93 H 20 141/83 94 10/31/18 18:18 97 Intake and Output 11/01/18 11/01/18 11/01/18 06:59 14:59 22:59 Intake Total 240 Balance 240 Intake: Oral 240 Other: Total, Intake Amount 240 Voiding Method Toilet Toilet # Voids Void 2 # Bowel Movements 0 Weight 112.037 kg Patient Weight 11/02/18 06:59 Weight 112.037 kg - Exam Breasts: Present: normal. Absent: pain, engorged Abdomen: Present: soft. Absent: tenderness Uterus: Present: fundal height below umbilicus. Absent: tenderness Extremities: Absent: tenderness Deep Tendon Reflex Grade: Normal +2 Incision: Present: normal, dry, intact (No s/s infection, steristrips removed. ) - Labs Labs: Abnormal lab results 10/31/18 11/01/18 11/01/18 Range/Units 21:12 07:35 12:51 Carbon Dioxide 20 L (22-30) mmol/L BUN 30 H (7-17) mg/dL Creatinine 2.0 H (0.7-1.2) mg/dL Glucose 208 H (65-100) mg/dL POC Glucose 126 H 262 H (70-105) Calcium 7.5 L (8.4-10.2) mg/dL
[2018-11-02 06:29] LABS: Calcium 7.7 mg/dL (8.4-10.2)
[2018-11-02] MEDS ORDERED: COREG PO SCH (10:00)
[2018-11-02] MEDS: NORVASC PO SCH (10:06)
[2018-11-02] MEDS: CATAPRES PO SCH ×2 (10:07→10:08)
[2018-11-02] MEDS: BUMEX IV SCH (10:08)
[2018-11-02] MEDS: COZAAR PO SCH (10:08)
[2018-11-02] MEDS: COLACE PO SCH (10:08)
[2018-11-02] MEDS: PROTONIX PO SCH (10:09)
[2018-11-02] MEDS: CARDURA PO SCH (10:09)
[2018-11-02] MEDS: FEOSOL PO SCH (10:10)
[2018-11-02] MEDS: HumaLOG SUB-Q SCH (10:11)
[2018-11-02] MEDS: SODIUM CHLORIDE FLUSH SYRINGE 10 ML IV SCH ×2 (10:13→10:21)
[2018-11-02] MEDS: SODIUM BICARBONATE PO SCH (10:20)
--- NOTE | 2018-11-02 11:13 | Progress Note ---
Assessment and Plan OK to DC on current meds. Increase Coreg to 50 mg bid. F/u at our office in 1 week. - Patient Problems (1) Acute heart failure with preserved ejection fraction Current Visit: Yes Status: Acute (2) Acute kidney injury superimposed on CKD Current Visit: Yes Status: Acute (3) Uncontrolled hypertension Current Visit: Yes Status: Acute (4) S/P Current Visit: Yes Status: Acute (5) Diabetes Current Visit: Yes Status: Chronic Qualifiers: Diabetes mellitus type: type 2 (6) Obesity Current Visit: Yes Status: Chronic Qualifiers: Obesity classification: adult class 2 (BMI 35 - 39.9) Subjective Date of service: 11/02/18 Principal diagnosis: s/p CS, Acute HFpEF, Acute on CKD, Uncontrolled HTN, DM, Obesity Interval history: She is desperate to go home. Her mother claims that patient has been depressed about staying in hospital since yesterday. She claims that someone had told her that she was going home yesterday. I explained that I specifically indicated otherwise to the patient yesterday to ensure adequate stabilization of her HF prior to DC. Objective Vital Signs Temp Pulse Resp Resp BP Pulse Ox 11/02/18 10:11 97 H 152/73 11/02/18 10:09 97 H 152/73 11/02/18 10:08 97 H 152/73 11/02/18 10:07 97 H 152/73 11/02/18 10:06 97 H 152/73 11/02/18 07:54 98.2 F 97 H 18 152/73 93 11/02/18 04:36 98.0 F 89 18 157/77 95 11/01/18 23:23 97.7 F 87 18 113/58 94 11/01/18 22:08 114 H 161/91 11/01/18 22:00 18 11/01/18 21:00 114 H 161/91 11/01/18 20:59 91 H 161/78 11/01/18 20:10 20 18 11/01/18 19:15 97.5 F L 91 H 20 161/78 95 11/01/18 16:01 97.0 F L 88 20 135/69 95 11/01/18 11:50 98.0 F 92 H 20 149/77 96 - Physical Examination General: No Apparent Distress HEENT: Positive: EOMI, Normocephaly, Mucus Membranes Moist Neck: Positive: neck supple, trachea midline Cardiac: Positive: Reg Rate and Rhythm, S1/S2 Lungs: Positive: clear to auscultation Neuro: Positive: Grossly Intact Abdomen: Positive: Soft, Active Bowel Sounds. Negative: Tender Skin: Positive: Clear. Negative: Rash Musculoskeletal: Normal Range of Motion Extremities: Present: +3 Edema (Pitting bilateral ledema) - Labs and Meds Comprehensive Metabolic Panel 11/02/18 Range/Units 05:40 Sodium 137 (137-145) mmol/L Potassium 4.4 (3.6-5.0) mmol/L Chloride 104.1 (98-107) mmol/L Carbon Dioxide 19 L (22-30) mmol/L BUN 29 H (7-17) mg/dL Creatinine 1.9 H (0.7-1.2) mg/dL Glucose 221 H (65-100) mg/dL Calcium 7.7 L (8.4-10.2) mg/dL - Imaging and Cardiology EKG: report reviewed Echo: report reviewed (EF 55-60%, impaired relaxation, trace TR.) - Telemetry EKG Rhythm: Sinus Rhythm - EKG Sinus rhythms and dysrhythmias: sinus rhythm
--- NOTE | 2018-11-02 12:01 | Progress Note ---
Assessment and Plan Assessment and plan: --Uncontrolled hypertension; well controlled today on clonidine,amlodipine, hydralazine, Cozaar, Coreg 15 days prescriptions are given, follow primary care physician Monitor blood pressures and advised --Acute on chronic renal failure; due to vasomotor nephropathy Renal function gradually improving, creatinine trending down Follow up nephrology upon discharge --Status post on 10/24/2018; Continue postop care per ACCOUNT MAINTENANCE REPRESENTATIVE --Anemia requiring 2 units of PRBC transfusion Ferrous sulfate --Acute shortness of breath, possible congestive heart failure Cardiology following , Bumex added by cardiology Follow cardiology upon discharge --Diabetes mellitus; advised diabetic diet, follow PMD low --Diabetic retinopathy; patient advised to follow private senior formulation scientist Upon discharge --Hypermagnesemia; resolved --Hyponatremia; resolved --DVT prophylaxis; SCDs Patient is stable to be discharged The patient needs to f/u PMD/cardiology/nephrology/ACCOUNT MAINTENANCE REPRESENTATIVE Within one week or PER schedule Sign off History Interval history: Patient seen and examined medical records reviewed Patient feels better no new complaints vital signs noted Cleared by cardiology for discharge Hospitalist Physical - Constitutional Vitals: Temp Pulse Resp BP Pulse Ox 98.2 F 97 H 18 152/73 93 11/02/18 07:54 11/02/18 10:11 11/02/18 07:54 11/02/18 10:11 11/02/18 07:54 General appearance: Present: no acute distress, well-nourished, obese - EENT Eyes: Present: PERRL, EOM intact - Neck Neck: Present: supple, normal ROM - Respiratory Respiratory effort: normal Respiratory: bilateral: diminished, negative: rales, rhonchi, wheezing - Cardiovascular Rhythm: regular Heart Sounds: Present: S1 & S2 - Extremities Extremities: no ischemia, No edema - Abdominal General gastrointestinal: soft, non-tender, non-distended, normal bowel sounds - Integumentary Integumentary: Present: clear, warm - Psychiatric Psychiatric: appropriate mood/affect, cooperative - Neurologic Neurologic: moves all extremities Results - Labs CBC & Chem 7: 10/27/18 08:09 11/02/18 05:40 Labs: Laboratory Last Values WBC 12.5 K/mm3 (4.5-11.0) H 10/26/18 04:54 RBC 2.70 M/mm3 (3.65-5.03) L 10/26/18 04:54 Hgb 8.6 gm/dl (10.1-14.3) L 10/27/18 08:09 Hct 25.5 % (30.3-42.9) L 10/27/18 08:09 MCV 89 fl (79-97) 10/26/18 04:54 MCH 30 pg (28-32) 10/26/18 04:54 MCHC 34 % (30-34) 10/26/18 04:54 RDW 14.5 % (13.2-15.2) 10/26/18 04:54 Plt Count 288 K/mm3 (140-440) 10/26/18 04:54 Lymph % (Auto) 11.0 % (13.4-35.0) L 10/25/18 04:29 [place] % (Auto) 9.3 % (0.0-7.3) H 10/25/18 04:29 Eos % (Auto) 0.0 % (0.0-4.3) 10/25/18 04:29 Baso % (Auto) 0.1 % (0.0-1.8) 10/25/18 04:29 Lymph # 1.3 K/mm3 (1.2-5.4) 10/25/18 04:29 [place] # 1.1 K/mm3 (0.0-0.8) H 10/25/18 04:29 Eos # 0.0 K/mm3 (0.0-0.4) 10/25/18 04:29 Baso # 0.0 K/mm3 (0.0-0.1) 10/25/18 04:29 Add Manual Diff Complete 10/24/18 19:18 Total Counted 100 10/24/18 19:18 Seg Neutrophils % 79.6 % (40.0-70.0) H 10/25/18 04:29 Seg Neuts % (Manual) 92.0 % (40.0-70.0) H 10/24/18 19:18 0 % 10/24/18 19:18 4.0 % (13.4-35.0) L 10/24/18 19:18 Reactive Lymphs % (Man) 0 % 10/24/18 19:18 4.0 % (0.0-7.3) 10/24/18 19:18 0 % (0.0-4.3) 10/24/18 19:18 0 % (0.0-1.8) 10/24/18 19:18 0 % 10/24/18 19:18 0 % 10/24/18 19:18 0 % 10/24/18 19:18 0 % 10/24/18 19:18 Nucleated RBC % Not Reportable 10/24/18 19:18 Seg Neutrophils # 9.6 K/mm3 (1.8-7.7) H 10/25/18 04:29 Seg Neutrophils # Man 16.0 K/mm3 (1.8-7.7) H 10/24/18 19:18 Band Neutrophils # 0.0 K/mm3 10/24/18 19:18 0.7 K/mm3 (1.2-5.4) L 10/24/18 19:18 Abs React Lymphs (Man) 0.0 K/mm3 10/24/18 19:18 0.7 K/mm3 (0.0-0.8) 10/24/18 19:18 0.0 K/mm3 (0.0-0.4) 10/24/18 19:18 0.0 K/mm3 (0.0-0.1) 10/24/18 19:18 0.0 K/mm3 10/24/18 19:18 0.0 K/mm3 10/24/18 19:18 0.0 K/mm3 10/24/18 19:18 Blast Cells # 0.0 K/mm3 10/24/18 19:18 WBC Morphology Not Reportable 10/24/18 19:18 Hypersegmented Neuts Not Reportable 10/24/18 19:18 Hyposegmented Neuts Not Reportable 10/24/18 19:18 Hypogranular Neuts Not Reportable 10/24/18 19:18 Not Reportable 10/24/18 19:18 Not Reportable 10/24/18 19:18 Not Reportable 10/24/18 19:18 Not Reportable 10/24/18 19:18 Not Reportable 10/24/18 19:18 Not Reportable 10/24/18 19:18 Appears normal 10/24/18 19:18 Not Reportable 10/24/18 19:18 Plt Clumps, EDTA Not Reportable 10/24/18 19:18 Not Reportable 10/24/18 19:18 Not Reportable 10/24/18 19:18 Not Reportable 10/24/18 19:18 Plt Morphology Comment Not Reportable 10/24/18 19:18 RBC Morphology Normal 10/24/18 19:18 Dimorphic RBCs Not Reportable 10/24/18 19:18 Not Reportable 10/24/18 19:18 Not Reportable 10/24/18 19:18 Not Reportable 10/24/18 19:18 Not Reportable 10/24/18 19:18 Not Reportable 10/24/18 19:18 Not Reportable 10/24/18 19:18 Not Reportable 10/24/18 19:18 Not Reportable 10/24/18 19:18 Not Reportable 10/24/18 19:18 Not Reportable 10/24/18 19:18 Not Reportable 10/24/18 19:18 Not Reportable 10/24/18 19:18 Not Reportable 10/24/18 19:18 Not Reportable 10/24/18 19:18 Not Reportable 10/24/18 19:18 Not Reportable 10/24/18 19:18 Not Reportable 10/24/18 19:18 Not Reportable 10/24/18 19:18 Not Reportable 10/24/18 19:18 Acanthocytes (Spur) Not Reportable 10/24/18 19:18 Rouleaux Not Reportable 10/24/18 19:18 Not Reportable 10/24/18 19:18 Not Reportable 10/24/18 19:18 Not Reportable 10/24/18 19:18 Not Reportable 10/24/18 19:18 Hem Pathologist Commnt No 10/24/18 19:18 Sodium 137 mmol/L (137-145) 11/02/18 05:40 Potassium 4.4 mmol/L (3.6-5.0) 11/02/18 05:40 Chloride 104.1 mmol/L (98-107) 11/02/18 05:40 Carbon Dioxide 19 mmol/L (22-30) L 11/02/18 05:40 18 mmol/L 11/02/18 05:40 BUN 29 mg/dL (7-17) H 11/02/18 05:40 1.9 mg/dL (0.7-1.2) H 11/02/18 05:40 Estimated GFR 37 ml/min 11/02/18 05:40 15 % 11/02/18 05:40 Glucose 221 mg/dL (65-100) H 11/02/18 05:40 POC Glucose 260 (70-105) H 11/02/18 07:58 6.0 mg/dL (3.5-7.6) 10/22/18 16:07 Calcium 7.7 mg/dL (8.4-10.2) L 11/02/18 05:40 Magnesium 3.30 mg/dL (1.7-2.3) H 10/29/18 13:48 < 0.20 mg/dL (0.1-1.2) 10/25/18 04:29 AST 16 units/L (5-40) 10/25/18 04:29 ALT 16 units/L (7-56) 10/25/18 04:29 96 units/L (35-129) 10/25/18 04:29 449 units/L (91-180) H 10/22/18 16:07 134 units/L (30-135) 10/23/18 07:58 CK-MB (CK-2) 4.6 ng/mL (0.0-4.0) H 10/23/18 07:58 CK-MB (CK-2) Rel Index 3.4 (0-4) 10/23/18 07:58 0.068 ng/mL (0.00-0.029) H 10/23/18 07:58 NT-Pro-B Natriuret Pep 871.5 pg/mL (0-450) H 10/27/18 06:35 5.7 g/dL (6.3-8.2) L 10/25/18 04:29 2.4 g/dL (3.9-5) L 10/25/18 04:29 0.7 % 10/25/18 04:29 Triglycerides 158 mg/dL (2-149) H 10/23/18 03:01 Cholesterol 310 mg/dL (50-199) H 10/23/18 03:01 230 mg/dL (50-130) H 10/23/18 03:01 76 mg/dL (40-59) H 10/23/18 03:01 4.07 % 10/23/18 03:01 Blood Type O POSITIVE 10/26/18 18:01 Antibody Screen Not Reportable 10/26/18 18:01 TROY Antibody Screen Negative 10/26/18 18:01 Crossmatch See Detail 10/26/18 18:01 Active Medications - Current Medications Current Medications: Generic Name Dose Route Start Last Admin Trade Name Freq PRN Reason Stop Dose Admin Acetaminophen/Hydrocodone Bitart 2 each 10/24/18 18:14 10/28/18 11:41 [place] 5/325 PO 2 each Q6H PRN Administration Pain, Moderate (4-6) Al Hydrox/Mg Hydrox/Simethicone 30 ml 10/26/18 01:34 10/26/18 08:42 Alum-Mag Hydrox-Simeth 496-533-32jn/5ml PO 30 ml Q8H PRN Administration Indigestion Albuterol 2.5 mg 10/24/18 12:58 10/30/18 22:29 Proventil IH 2.5 mg Q4HRT PRN Administration Shortness Of Breath Amlodipine Besylate 10 mg 10/31/18 10:00 11/02/18 10:06 Norvasc PO 10 mg QDAY TIFFANIE Administration Bisacodyl 10 mg 10/29/18 11:30 Dulcolax PO QDAY PRN Constipation Bumetanide 1 mg 10/31/18 11:00 11/02/18 10:08 Bumex IV 1 mg BID TIFFANIE Administration Carvedilol 50 mg 11/02/18 10:00 11/02/18 10:11 Coreg PO 50 mg BID TIFFANIE Administration Clonidine HCl 0.1 mg 10/28/18 14:00 11/02/18 10:08 Catapres PO 0.1 mg TID TIFFANIE Administration Clonidine HCl 0.2 mg 10/28/18 14:00 11/02/18 10:07 Catapres PO 0.2 mg TID TIFFANIE Administration Dextrose 50 ml 10/25/18 12:14 D50w (25gm) Syringe IV PRN PRN Hypoglycemia Docusate Sodium 100 mg 10/29/18 11:30 11/02/18 10:08 Colace PO 100 mg DAILY TIFFANIE Administration Ferrous Sulfate 325 mg 10/29/18 12:00 11/02/18 10:10 Feosol PO 325 mg QDAY TIFFANIE Administration Hydralazine HCl 100 mg 10/30/18 12:55 11/01/18 21:00 Apresoline PO 100 mg Q8H TIFFANIE Administration Insulin Human Lispro 0 unit 10/25/18 16:30 11/02/18 10:11 Humalog SUB-Q 4 unit ACHS TIFFANIE Administration Protocol Losartan Potassium 50 mg 10/28/18 14:00 11/02/18 10:08 Cozaar PO 50 mg QDAY TIFFANIE Administration Naloxone HCl 0.2 mg 10/24/18 15:30 Narcan 0.4 Mg/1 Ml IV Q2MIN PRN Res Rate </= 8 or 02 SAT < 92% Neomycin/Polymyxin/Bacitracin 1 applic 10/26/18 23:49 10/27/18 00:46 Triple Antibiotic TP 1 applic PRN PRN Administration Skin Irritation Pantoprazole Sodium 40 mg 10/29/18 12:00 11/02/18 10:09 Protonix PO 40 mg QDAY TIFFANIE Administration Promethazine HCl 25 mg 10/24/18 16:00 Phenergan NV Q6H PRN Nausea And Vomiting Sodium Bicarbonate 1,300 mg 10/27/18 14:36 11/02/18 10:20 Sodium Bicarbonate PO Not Given TID TIFFANIE Sodium Chloride 10 ml 10/24/18 22:00 11/02/18 10:21 Sodium Chloride Flush Syringe 10 Ml IV 10 ml BID TIFFANIE Administration Sodium Chloride 10 ml 10/24/18 18:14 Sodium Chloride Flush Syringe 10 Ml IV PRN PRN LINE FLUSH Nutrition/Malnutrition Assess - Dietary Evaluation Nutrition/Malnutrition Findings: Nutrition Notes Start: 10/30/18 17:01 Freq: Status: Active Protocol: Document 11/01/18 16:19 RM (Rec: 11/01/18 16:24 RM [id number]) Nutrition Notes Initial or Follow up Reassessment Current Diagnosis Acute Kidney Injury,CKD(stage I-IV),Diabetes,Hypertension Other Pertinent Diagnosis Retinopathy Current Diet Consistent CHO,Cardiac Labs/Tests Reviewed Pertinent Medications Reviewed Height 5 ft 7 in Weight 112.037 kg [place] Body Weight (kg) 61.36 BMI 38.7 Subjective/Other Information Pt w/MD at time of visit. Per tech pt has been eating 100% of meals. Also stated that pt drank Glucerna yesterday but not today. Percent of energy/protein needs met: 100%/100% Burn Absent Trauma Absent #1 Nutrition Diagnosis Inadequate oral intake As Evidenced by Signs and Symptoms pt meeting 100% of calorie and protein needs Diagnosis Progress(for reassessment Resolved documentation) Is patient on ventilator? No Is Patient Ambulatory and/or Out of Bed Yes [facility] [ 6238.400 NUTR.[id number]] Kcal/Kg value to use for calculation 17 Approximate Energy Requirements Using 1905 kcal/Kg Calculation Used for Recommendations Kcal/kg Additional Notes Protein Needs: 70-87g (0.8-1g/ kg 87kg adjBW) Fluid Needs: 1 ml/kcal Nutrition Intervention Change Diet Order: Continue current Add Supplement/Snack (indicate name/kcal D/C Glucerna /protein ) Goal #1 Continue to meet at least 75% of calorie and protein needs via PO and ONS intakes Anticipated Discharge Needs: Consistent CHO/Cardiac diet Revisit per MD consult or patient Sign Off request:
[2018-11-02 12:20] VITALS: BP 145/76
--- NOTE | 2018-11-02 12:51 | Discharge Summary ---
Providers - Providers Date of Admission: 10/22/18 14:52 Date of discharge: 11/02/18 Attending physician: DARYL IVORY 10/22/18 20:36 Consult to Physician [CONS] Urgent Comment: Consulting Provider: AR WALTERS Physician Instructions: EKG - sinus tach with left atrial enlargement Reason For Exam: Abnormal EKG 10/24/18 16:11 Consult to Physician [CONS] Routine Comment: Consulting Provider: NA PEGUERO Physician Instructions: Reason For Exam: shortness of breath 10/24/18 18:41 Consult to Physician [CONS] Routine Comment: Consulting Provider: CLEMENTINE KWOK Physician Instructions: Reason For Exam: iris 10/29/18 08:06 Consult to Mental Health [CONS] Routine Reason For Exam: multiple health issues - concerned about PPD Place consult to:: [id number] Notified:: mental health Phone number called:: [phone] Was contact made?: Yes If yes, spoke with:: Catina Time called:: 08:10 10/29/18 08:22 Consult to Case Management [CONS] Routine Services Needed at Discharge: Supervisor Veneer Notified:: case management Phone number called:: [phone] Additional Physician Instructions: Multiple medical problems, high risk for maternal mortality 10/29/18 08:41 Consult to Physician [CONS] Routine Comment: Consulting Provider: CECELIA BURNS Physician Instructions: Reason For Exam: worsening diabetic retinopathy 10/29/18 10:41 Consult to Dietitian/Nutrition [CONS] Routine Physician Instructions: Reason For Exam: Reason for Consult: Poor oral intake Primary care physician: DARYL IVORY Hospitalization Condition: Good Hospital course: This is a 33-year-old female who presented for admission from [facility] d/t absent end diastolic flow on doppler studies along with elevated blood pressures not being managed by current medication. She underwent Primary low transverse delivery with bilateral tubal ligation for worsening testing and sterilization. Her postoperative course was complicated by persistently uncontrolled blood pressures, acute kidney injury on chronic renal disease and acute heart failure with preserved ejection fraction. Patient's hospitalization was managed by the country manager, hooker operator as well as the hospitalist in conjunction with the accounting clerks supervisor. She is now stable and allowed discharge home Disposition: DC-01 TO HOME OR SELFCARE - Discharge Diagnoses (1) delivery delivered Status: Acute (2) Uncontrolled hypertension Status: Chronic (3) Diabetes mellitus with nephropathy Status: Chronic (4) Diabetes mellitus with retinopathy Status: Chronic Qualifiers: Diabetes mellitus type: type 2 Diabetic retinopathy severity: with unspecified retinopathy severity (5) Dyspnea Status: Resolved (6) Anemia Status: Acute Qualifiers: Other causes of anemia: acute posthemorrhagic Core Measure Documentation - Palliative Care Palliative Care/ Comfort Measures: Not Applicable - Core Measures Any of the following diagnoses?: none Exam - Constitutional Vitals: Temp Pulse Resp BP Pulse Ox 98.0 F 96 H 20 145/76 92 11/02/18 12:15 11/02/18 12:15 11/02/18 12:15 11/02/18 12:15 11/02/18 12:15 General appearance: Present: no acute distress Plan Activity: other (No sex, no driving, stay at your home except for Provider appointments and to visit your baby, use your Incentive spirometer kimberly hour while awake. Ambulate frequently on your property to prevent deep venous thrombosis or pulmonary embolism) Weight Bearing Status: Weight Bear as Tolerated Diet: low fat, low cholesterol, low salt, diabetic Wound: open to air, keep clean and dry Special Instructions: no heavy lifting (greater than 25lbs) Additional Instructions: Call your retinal specialist and primary care provider on Sunday to make appointments for this upcoming week Follow up with: KRUNAL GREENFIELD MD [Staff Physician] - (3-5 days) DARYL IVORY MD [Primary Care Provider] - 7 Days EVERTON SHEPHERD MD [Staff Physician] - (3-5 days) Forms: [facility] Discharge Summary Prescriptions: hydrALAZINE [Apresoline TAB] 100 mg PO Q8H #45 tablet Bumetanide [Bumex 1 mg tab] 1 mg PO DAILY #30 tab cloNIDine [Catapres] 0.2 mg PO TID #45 tablet Carvedilol [Coreg] 50 mg PO BID #30 tablet Losartan [Cozaar] 50 mg PO QDAY #15 tablet Ferrous Sulfate [Feosol 325 MG tab] 325 mg PO QDAY #30 tablet amLODIPine [Norvasc] 10 mg PO QDAY #15 tablet oxyCODONE /ACETAMINOPHEN [Percocet 5/325] 1 tab PO Q4HR #30 tab
== END 2018-11-02 14:00 | disposition home or self-care (01) | DRG 783 ==
LOC: TRG 14:04 → LD 14:52 → IMCU 10-24 17:53 → OB 10-26 15:29 → 4A 10-30 20:47
PROVIDERS: ADMIT Obstetrics & Gynecology; ATTEND Obstetrics & Gynecology
PROC: 10D00Z1 Extraction of Products of Conception, Low, Open Approach (ICD-10-PCS; principal; 2018-10-24)
PROC: 0UB70ZZ Excision of Bilateral Fallopian Tubes, Open Approach (ICD-10-PCS; 2018-10-24)
PROC: 30233N1 Transfusion of Nonautologous Red Blood Cells into Peripheral Vein, Percutaneous Approach (ICD-10-PCS; 2018-10-24)
DX: O99.52 Diseases of the respiratory system complicating childbirth (principal); J96.00 Acute respiratory failure, unspecified whether with hypoxia or hypercapnia; N17.0 Acute kidney failure with tubular necrosis; I50.31 Acute diastolic (congestive) heart failure; I13.0 Hypertensive heart and chronic kidney disease with heart failure and stage 1 through stage 4 chronic kidney disease, or unspecified chronic kidney disease; D62 Acute posthemorrhagic anemia; E87.1 Hypo-osmolality and hyponatremia; E87.2 Acidosis; E11.22 Type 2 diabetes mellitus with diabetic chronic kidney disease; O10.32 Pre-existing hypertensive heart and chronic kidney disease complicating childbirth; O24.92 Unspecified diabetes mellitus in childbirth; E11.319 Type 2 diabetes mellitus with unspecified diabetic retinopathy without macular edema; E11.21 Type 2 diabetes mellitus with diabetic nephropathy; O99.02 Anemia complicating childbirth; N18.3 Chronic kidney disease, stage 3 (moderate); O36.5920 Maternal care for other known or suspected poor fetal growth, second trimester, not applicable or unspecified; O69.1XX0 Labor and delivery complicated by cord around neck, with compression, not applicable or unspecified; O99.214 Obesity complicating childbirth; E66.9 Obesity, unspecified; E83.41 Hypermagnesemia; O75.89 Other specified complications of labor and delivery; E78.5 Hyperlipidemia, unspecified; E11.649 Type 2 diabetes mellitus with hypoglycemia without coma; Z82.49 Family history of ischemic heart disease and other diseases of the circulatory system; Z37.0 Single live birth; Z3A.27 27 weeks gestation of pregnancy
CPT/HCPCS: 36415; 70450; 71045; 71046; 76819; 78580; 80048; 80053; 80061; 82550; 82553; 82565; 82962; 83615; 83735; 83880; 84450; 84460; 84484; 84550; 85007; 85014; 85018; 85025; 85027; 86850; 86900; 86901; 86920; 88302; 88307; 93005; 93010; 93306; 93308; 93321; 93325; 94640; 94760; G0378; A6250; A9540; J0360; J0610; J0690; J0702; J1815; J1885; J1940; J2250; J2270; J2405; J2590; J2765; J3010; J3475; J7030; J7040; J7120; P9016